=== PATIENT | male | born 1950 | race Caucasian/White ===

== ENCOUNTER 2019-05-31 12:14 | Emergency (ER) | payer MEDICARE, OTHER, SELFPAY ==
[2019-05-31] VITALS (8 sets, daily range): BP systolic 124–152; BP diastolic 49–74; PULSE 57–65; RESP 18–26; TEMP 36.3–36.9; O2SAT 99–100
--- NOTE | ~2019-05-31 | XR_ITS ---
EXAMINATION: XR chest 2V DATE: 05/31/2019 13:48 INDICATION: Shortness of breath. Weakness. TECHNIQUE: Frontal and lateral views of the chest were obtained. COMPARISON: Chest 2 views 06/03/2017, chest CT 05/03/2016 FINDINGS: There is mild atelectasis in the lower lung zones. There is mild scarring at the lung apice s. No pleural effusion or pneumothorax. The heart size is normal. There are suture anchors in right s houlder. IMPRESSION: 1. Mild atelectasis in the lower lung zones. 2. Mild scarring at the lung apices. Reviewed, dictated and finalized at location A. URE ARTIST
--- NOTE | ~2019-05-31 | CT_ITS ---
EXAMINATION: CT brain wo con DATE: 05/31/2019 17:45 INDICATION: Dizziness TECHNIQUE: Computed tomography (CT) of the head was performed without intravenous contrast. The dose- length product was 605.33 mGy-cm. The mA was adjusted according to patient size. Iterative reconstruc tion technique was employed. COMPARISON: CT dated 01/04/2012 FINDINGS: Mild generalized atrophy. There are scattered moderate periventricular and subcortical whit e matter changes, most likely related to small vessel ischemic disease (microangiopathy). Basilar cis terns are patent. Paranasal sinuses and mastoids are pneumatized. No depressed skull fractures. Small chronic right lacunar infarction of the caudate. There is intracranial atherosclerosis. Paranasal si nuses and mastoids are pneumatized. No depressed skull fractures. IMPRESSION: 1. No acute intracranial abnormality. 2: Chronic right lacunar infarction. 3: Chronic age-related findings. Reviewed, dictated and finalized at location A. [employer]
--- NOTE | 2019-05-31 13:00 | ECG_ITS ---
Measurements Intervals [place] Rate: 58 P: 32 MA: 224 QRS: -18 QRSD: 90 T: 61 QT: 409 QTc: 402 Interpretive Statements SINUS BRADYCARDIA WITH FIRST DEGREE AV BLOCK BORDERLINE ST ABNORMALITY- ANTEROLAT/LAT LEADS ABNORMAL ECG Electronically Signed On 05-31-2019 16:22:51 DIRECTOR FINANCIAL PLANNING by Chidi Bryan D.O.
[2019-05-31 13:41] LABS: Basophils Absolute Auto 0.1 K/mm3 (0.0-0.1); Basophils Percent Auto 0.9 % (0.2-1.2); Eosinophils Absolute Auto 0.2 K/mm3 (0-0.3); Eosinophils Percent Auto 2.8 % (0-4.4); Hematocrit 48.6 % (42.0-52.0); Hemoglobin 16.3 g/dL (14.0-18.0); Immature Granulocyte Absolute 0.04 K/mm3 (0.00-0.031); Immature Granulocyte Percent A 0.6 % (0-0.5); Lymphocytes Absolute Auto 1.98 K/mm3 (0.9-3.2); Lymphocytes Percent Auto 31.3 % (18.3-44.2); Mean Corpuscular HGB Conc 33.5 g/dl (32-36); Mean Corpuscular Hemoglobin 31.7 pg (26-34); Mean Corpuscular Volume 94.6 fl (80-100); Mean Platelet Volume 8.9 fl (7.4-10.4); Monocytes Absolute Auto 0.6 K/mm3 (0.1-0.6); Neutrophils Absolute Auto 3.5 K/mm3 (1.3-6.7); Neutrophils Percent Auto 55.4 % (45.5-73.1); Platelet Count Result 184 k/mm3 (150-375); Red Blood Count 5.14 M/mm3 (4.6-6.20); Red Cell Distribution Width 12.6 % (11.5-14.5); White Blood Count 6.3 K/mm3 (4.5-10.0)
[2019-05-31 13:54] LABS: Alanine Aminotransferase 28 U/L (4-50); Albumin Level 4.7 g/dL (3.5-5.1); Alkaline Phosphatase 80 U/L (38-126); Aspartate Amino Transferase 32 U/L (17-59); Bilirubin,Total 0.8 mg/dL (0.2-1.3); Blood Urea Nitrogen 18 mg/dL (9-20); Calcium 9.8 mg/dL (8.4-10.2); Carbon Dioxide 33 mmol/L (22-30); Chloride 94 mmol/L (98-107); Estimated CRCL calculation 50 ml/min; Estimated Glomerular Filt Rate > 60; Glucose 93 mg/dL (75-110); Potassium 4.1 mmol/L (3.4-5.0); Sodium 139 mmol/L (137-145)
[2019-05-31 15:21] LABS: Add Urine Microscopic? NO; Appearance Urine Clear (Clear); Bilirubin Urine Negative (Negative); Blood Urine Negative (Negative); Color Urine Yellow (Yellow); Glucose Urine UA Negative (Negative); Ketones Urine Negative (Negative); Leukocyte Esterase Ur Negative LEU/UL (Negative); Nitrate Urine Negative (Negative); Protein Urine Negative (Negative); Specific Grav Ur 1.028 (1.001-1.035); Urobilinogen Urine Negative mg/dL (<2.0)
--- NOTE | 2019-05-31 15:58 | ED.SOB ---
HPI - SOB/Dyspnea General Chief Complaint: Weakness Stated Complaint: SOB Time Seen by Provider: 05/31/19 15:10 Source: patient and RN notes reviewed Mode of arrival: ambulatory Limitations: no limitations History of Present Illness HPI Narrative: Pt is a 69 y/o male who presents to the ED with c/o worsening dyspnea on exertion starting 3 months ago. He notes that he has been having increasing trouble breathing while walking. Pt also reports palpitations and dizziness upon exertion, noting that his heart feels as though it is racing. He describes his dizziness as feeling off-balance. He reports an intermittent headache and tingling in his bilateral arms, which he notes is chronic, but denies any CP, cough, or rectal bleeding. Pt states that he feels unsteady while walking, but denies any recent falls. MD elicited complaint: shortness of breath (on exertion) Onset (ago): month(s) (3) Timing: progressively worsening Exacerbating factors: exertion Associated symptoms: palpitations and other (headache; dizziness) Related Data Home Medications Medication Instructions Recorded Confirmed divalproex PO 05/31/19 tamsulosin [Flomax] mg PO 05/31/19 venlafaxine [Effexor XR] mg PO 05/31/19 Allergies Allergy/AdvReac Type Severity Reaction Status Date / Time Aminoglycosides Allergy Severe SWELLING, Verified 10/11/18 17:30 MAKES INFECTION WORSE bacitracin Allergy Severe SWELLING, Verified 10/11/18 17:30 MAKES INFECTION WORSE Fish Containing Products Allergy Severe ANAPHYLAXIS Verified 10/11/18 17:30 neomycin Allergy Severe SWELLING, Verified 10/11/18 17:30 MAKES INFECTION WORSE shellfish derived Allergy Severe ANAPHYLAXIS Verified 10/11/18 17:30 Sulfa (Sulfonamide Allergy Unknown Anaphylactic Verified 10/11/18 17:30 Antibiotics) Shock BETI/ Allergy Severe ANAPHYLACTIC--THROAT Uncoded 02/28/14 07:06 SWELLING FLUOXETINE HCL Allergy Unknown SSRI= Uncoded 10/11/18 17:30 SUICIDAL REACTION ZOLPIDEM TARTRATE AdvReac Intermediate confusion Uncoded 10/11/18 17:30 Review of Systems Review of Systems: All systems reviewed & are unremarkable except as noted in HPI and below Cardiovascular: Cardiovascular: Denies chest pain and Reports palpitations Respiratory: Respiratory: Denies cough and Reports dyspnea on exertion Gastrointestinal: Gastrointestinal: Denies hematochezia Neurologic: Reports dizziness, Reports headache(s) and Reports tingling (bilateral arms) [facility] Past Medical History Medical History (Updated 05/31/19 @ 18:16 by Krystyna Perera MD) Anxiety Back pain CVA (cerebral vascular accident) DDD (degenerative disc disease) Depression Diverticulitis Diverticulosis Epilepsy HLD (hyperlipidemia) Hypothyroidism IBS (irritable bowel syndrome) Kidney stones Peptic ulcer Pneumonia Prostatitis Skull fracture Sleep apnea TBI (traumatic brain injury) TIA (transient ischemic attack) Surgical History Surgical History History of total left hip arthroplasty Hx of cardiac catheterization Hx of rotator cuff surgery bilateral shoulders Family History Family History (Updated 06/02/17 @ 15:40 by DOCTOR UNKNOWN) Mother Family history of malignant neoplasm of breast in first degree relative Family history of cardiovascular disease Father Family history of cardiovascular disease Other Family history of arthritis Family history of mental disorder Social History Social History Smoking status: Former smoker Alcohol intake: never Gender identity (if verbalized by the patient): Male Exam Narrative: Exam Narrative: GENERAL: Well-appearing, well-nourished, and in no acute distress. HEAD: Normocephalic, atraumatic EYES: PERRLA and EOMI, conjunctiva clear without discharge EARS: TM's clear bilaterally without erythema or dullness NOSE: Nares humphrey
[2019-05-31 16:44] LABS: Alveolar/Arterial O2 Gradient 22.4 mmHg; Base Excess ABG 4.1 mEq/l (+/-2.0); Carboxyhemoglobin 0.5 % THb (0-2.0); Fractional Inspired Oxygen 21 %; Methemoglobin ABG 0.3 %THb (0-1.5); Oxygen Content ABG 21.2 %vol (16.0-22.0); Oxygen Saturation ABG 97.2 % (95.0-100.0); Oxyhemoglobin 95.9 % THb (90.0-100.0); PCO2 ABG 35.2 mmHg (35.0-45.0); PO2 ABG 85.2 mmHg (80.0-100.0); PO2 FiO2 Ratio Arterial Blood 4.06 %; Reduced Hemoglobin 3.3 %THb (0-5.0); Total Hemoglobin 15.7 g/dL (12.0-18.0); pH ABG 7.502 (7.350-7.450)
[2019-05-31 16:45] LABS: Device ROOM AIR; Site Drawn LEFT BRACHIAL
[2019-05-31 16:56] LABS: INR 0.9; Prothrombin Time 12.3 Seconds (11.1-14.7)
[2019-05-31 16:57] LABS: Partial Thromboplastin Time 27.7 SECONDS (22.3-36.8)
[2019-05-31 16:59] LABS: D Dimer 0.34 ug/mL (<0.48)
[2019-05-31 17:11] LABS: Troponin I < 0.012 ng/mL (0.000-0.034)
[2019-05-31 17:18] LABS: Valproic Acid 54.4 ug/mL (50-120)
== END 2019-05-31 18:47 | disposition home or self-care (01) ==
PROVIDERS: Emergency Medicine; Emergency Provider General Practice
DX: F41.9 Anxiety disorder, unspecified (principal); Z86.73 Personal history of transient ischemic attack (TIA), and cerebral infarction without residual deficits; G40.909 Epilepsy, unspecified, not intractable, without status epilepticus; E78.5 Hyperlipidemia, unspecified; E03.9 Hypothyroidism, unspecified; K58.9 Irritable bowel syndrome, unspecified; Z87.442 Personal history of urinary calculi; N41.9 Inflammatory disease of prostate, unspecified; G47.30 Sleep apnea, unspecified; Z87.820 Personal history of traumatic brain injury; Z96.642 Presence of left artificial hip joint; Z87.891 Personal history of nicotine dependence; R00.1 Bradycardia, unspecified; I44.0 Atrioventricular block, first degree; R94.31 Abnormal electrocardiogram [ECG] [EKG]
CPT/HCPCS: 36415; 36600; 70450; 71046; 80053; 80164; 81003; 82375; 82805; 83050; 84484; 85025; 85380; 85610; 85730; 93005; 99284

== ENCOUNTER 2020-03-31 11:23 | Emergency (ER) | payer MEDICARE, SELFPAY ==
[2020-03-31] VITALS (23 sets, daily range): BP systolic 127–149; BP diastolic 53–75; PULSE 61–78; RESP 16–31; TEMP 36; O2SAT 99–100
--- NOTE | ~2020-03-31 | CT_ITS ---
EXAMINATION: CT abdomen pelvis w con DATE: 03/31/2020 12:51 INDICATION: Chronic right lower abdominal pain TECHNIQUE: Computed tomography (CT) of the abdomen and pelvis was performed with 100 cc Omnipaque 350 intravenous contrast. The dose-length product was 280.42 mGy-cm. Automated exposure control and iter ative reconstruction technique were employed. COMPARISON: None. FINDINGS: The lung bases are unremarkable. Heart size normal. No significant pleural or pericardial e ffusion. No significant vascular abnormality. No lymphadenopathy. The liver, spleen, adrenal glands and left kidney are unremarkable. There are right renal cysts. Ther e are calcifications of the pancreas, consistent with chronic pancreatitis. Enlarged prostate gland. No free air or free fluid. No evidence for appendicitis or diverticulitis. There is a left hip arthro plasty. IMPRESSION: 1. No acute abdominal abnormality. 2: Chronic pancreatitis. Reviewed, dictated and finalized at location B. GER WOUND
[2020-03-31 11:45] LABS: Basophils Percent Auto 0.6 % (0.2-1.2); Eosinophils Absolute Auto 0.1 K/mm3 (0-0.3); Eosinophils Percent Auto 1.4 % (0-4.4); Hematocrit 44.7 % (42.0-52.0); Hemoglobin 15.7 g/dL (14.0-18.0); Immature Granulocyte Absolute 0.02 K/mm3 (0.00-0.031); Immature Granulocyte Percent A 0.3 % (0-0.5); Lymphocytes Absolute Auto 1.85 K/mm3 (0.9-3.2); Lymphocytes Percent Auto 29.6 % (18.3-44.2); Mean Corpuscular HGB Conc 35.1 g/dl (32-36); Mean Corpuscular Hemoglobin 32.3 pg (26-34); Mean Platelet Volume 8.1 fl (7.4-10.4); Monocytes Absolute Auto 0.5 K/mm3 (0.1-0.6); Monocytes Percent Auto 8.5 % (2.6-8.5); Neutrophils Absolute Auto 3.7 K/mm3 (1.3-6.7); Neutrophils Percent Auto 59.6 % (45.5-73.1); Platelet Count Result 166 k/mm3 (150-375); Red Blood Count 4.86 M/mm3 (4.6-6.20); White Blood Count 6.2 K/mm3 (4.5-10.0)
[2020-03-31 11:56] LABS: Alanine Aminotransferase 49 U/L (4-50); Albumin Level 4.2 g/dL (3.5-5.1); Alkaline Phosphatase 89 U/L (38-126); Anion Gap 6 mmol/L (8-16); Aspartate Amino Transferase 43 U/L (17-59); Bilirubin,Total 0.7 mg/dL (0.2-1.3); Blood Urea Nitrogen 23 mg/dL (9-20); Calcium 9.4 mg/dL (8.4-10.2); Carbon Dioxide 32 mmol/L (22-30); Chloride 101 mmol/L (98-107); Estimated CRCL calculation 50 ml/min; Estimated Glomerular Filt Rate > 60; Glucose 94 mg/dL (75-110); Lipase 254 U/L (23-300); Potassium 4.4 mmol/L (3.4-5.0); Sodium 139 mmol/L (137-145)
[2020-03-31] MEDS: KETOROLAC 30 MG/ML VIAL (*BKC) (12:43)
--- NOTE | 2020-03-31 12:52 | PC.NURSE ---
patient to CT.
[2020-03-31] MEDS: SODIUM CHLORIDE 0.9% IV 1,000 ML 999 ML IV CONT (12:53)
--- NOTE | 2020-03-31 13:02 | ED.GENADULT ---
HPI - General Adult General Chief complaint: Abdominal Pain Stated complaint: pain RLQ sent by primary Time Seen by Provider: 03/31/20 12:09 Source: patient History of Present Illness HPI narrative: Patient is a 69 y/o complaining of chronic waxing and waning right lower abdominal pain for last 2 months. He describes his pain as sharp and rates it as 4-5/10. He states that laying in supine position seem to aggravate his pain pulling his right leg up seems to alleviate his pain. He has no vomiting, diarrhea, dysuria or hematuria. Related Data Home Medications Medication Instructions Recorded Confirmed aspirin 325 mg tablet 325 mg PO DAILY 07/09/19 11/12/19 doxazosin 2 mg tablet 2 mg PO DAILY 07/09/19 11/12/19 magnesium oxide 420 mg tablet 420 mg PO DAILY 07/09/19 11/12/19 Allergies Allergy/AdvReac Type Severity Reaction Status Date / Time Aminoglycosides Allergy Severe SWELLING, Verified 03/31/20 09:22 MAKES INFECTION WORSE bacitracin Allergy Severe SWELLING, Verified 03/31/20 09:22 MAKES INFECTION WORSE Fish Containing Products Allergy Severe ANAPHYLAXIS Verified 03/31/20 09:22 neomycin Allergy Severe SWELLING, Verified 03/31/20 09:22 MAKES INFECTION WORSE shellfish derived Allergy Severe ANAPHYLAXIS Verified 03/31/20 09:22 Sulfa (Sulfonamide Allergy Unknown Anaphylactic Verified 03/31/20 09:22 Antibiotics) Shock BETI/ Allergy Severe ANAPHYLACTIC--THROAT Uncoded 03/31/20 09:22 SWELLING FLUOXETINE HCL Allergy Unknown SSRI= Uncoded 03/31/20 09:22 SUICIDAL REACTION ZOLPIDEM TARTRATE AdvReac Intermediate confusion Uncoded 03/31/20 09:22 Review of Systems Constitutional: Constitutional: Denies chills, Denies fever(s), Denies headache(s) and Denies weakness Eyes: Eyes: Denies blurry vision ENT: Denies headache(s) and Denies neck pain Cardiovascular: Cardiovascular: Denies chest pain and Denies dyspnea Respiratory: Respiratory: Denies cough and Denies dyspnea Gastrointestinal: Gastrointestinal: Reports abdominal pain, Denies diarrhea, Denies nausea and Denies vomiting Genitourinary: Genitourinary: Denies hematuria and Denies dysuria Musculoskeletal: Musculoskeletal: Denies back pain and Denies neck pain Neurologic: Denies headache(s) and Denies weakness [facility] Past Medical History Medical History (Updated 03/31/20 @ 14:24 by Vero Fuentes MD) Anxiety Back pain CVA (cerebral vascular accident) DDD (degenerative disc disease) Depression Diverticulitis Diverticulosis Epilepsy HLD (hyperlipidemia) Hypothyroidism IBS (irritable bowel syndrome) Kidney stones Peptic ulcer Pneumonia Prostatitis Skull fracture Sleep apnea TBI (traumatic brain injury) TIA (transient ischemic attack) Surgical History Surgical History History of total left hip arthroplasty Hx of cardiac catheterization Hx of rotator cuff surgery bilateral shoulders Family History Family History Mother Family history of malignant neoplasm of breast in first degree relative Family history of cardiovascular disease Father Family history of cardiovascular disease Other Family history of arthritis Family history of mental disorder Social History Social History Smoking status: Former smoker Additional smoking assessment comments: pt quit 18 years ago Alcohol intake: never Gender identity (if verbalized by the patient): Male Exam Const: General: no acute distress and well developed Orientation/consciousness: oriented to person, oriented to place, oriented to time and patient oriented x3 HENMT: Head: normocephalic Ears: external ears normal General nose exam: Normal external nose present Eyes: General: appearance normal, both eyes and all related structures Conjunctivae: conjunctivae normal Neck:
--- NOTE | 2020-03-31 13:10 | PC.NURSE ---
back from CT. IVF restarted. patient states he can now void.
[2020-03-31 13:58] LABS: Add Urine Microscopic? YES; Appearance Urine Clear (Clear); Bilirubin Urine Negative (Negative); Blood Urine Negative (Negative); Color Urine Yellow (Yellow); Glucose Urine UA Negative (Negative); Ketones Urine Trace mg/dL (Negative); Leukocyte Esterase Ur Negative LEU/UL (Negative); Mucus Urine Few /lpf; Nitrate Urine Negative (Negative); Protein Urine 1+ mg/dL (Negative); RBC Urine 0-2 /hpf (0-2); Squamous Epithelial Cell Urine Rare /hpf (Few); WBC Urine 0-3 /hpf
[2020-03-31 13:59] LABS: Specific Grav Ur 1.048 (1.001-1.035)
== END 2020-03-31 15:12 | disposition home or self-care (01) ==
PROVIDERS: General Practice; Emergency Provider Emergency Medicine; PCP Family Medicine
DX: R10.31 Right lower quadrant pain (principal); Z79.82 Long term (current) use of aspirin; Z86.73 Personal history of transient ischemic attack (TIA), and cerebral infarction without residual deficits; E78.5 Hyperlipidemia, unspecified; E03.9 Hypothyroidism, unspecified; K58.9 Irritable bowel syndrome, unspecified; Z87.442 Personal history of urinary calculi; Z87.11 Personal history of peptic ulcer disease; N40.0 Benign prostatic hyperplasia without lower urinary tract symptoms; G47.30 Sleep apnea, unspecified; Z87.820 Personal history of traumatic brain injury; G40.909 Epilepsy, unspecified, not intractable, without status epilepticus; Z87.891 Personal history of nicotine dependence
CPT/HCPCS: 36415; 74177; 80053; 81001; 83690; 85025; 96361; 96374; 99284; J1885; J7030; Q9967

== ENCOUNTER 2021-02-17 15:54 | Outpatient (CLI) | payer MEDICARE, SELFPAY ==
--- NOTE | ~2021-02-17 | CT_ITS ---
EXAMINATION: CT hip LT wo con DATE: 02/17/2021 16:15 INDICATION: Left hip pain TECHNIQUE: High resolution computed tomography (CT) of the left hip was performed without intravenous contrast. Additional sagittal and coronal reconstructions were performed. Automated exposure control and iterative reconstruction technique were employed. The dose-length product was 164.82 mGy-cm. COMPARISON: Radiographs dated 02/11/2021 and 04/16/[address] dated 04/12/2016 FINDINGS: Noncemented left total hip arthroplasty which appears well seated in near-anatomic alignment, unchang ed since 04/16/2015. No fracture. No periprosthetic lucency to suggest loosening or infection. No lef t hip joint effusion. Chronic small enthesophytes along the anterior subtrochanteric left femur. No a symmetric muscular atrophy of the visualized left hemipelvis or proximal left thigh. Visualized porti on of the bowels and bladder are normal. Prostatomegaly measuring 4.6 x 3.4 cm. Small amount of ather osclerotic calcific location along the left iliac and proximal femoral arteries. No pathologically en larged left pelvic or inguinal lymphadenopathy. IMPRESSION: 1. Stable appearance of a left total hip arthroplasty. No joint effusion, acute osseous abnormality o r other etiology for reported left hip pain. Reviewed, dictated and finalized at location A. IMPRESSION: 1. Stable appearance of a left total hip arthroplasty. No joint effusion, acute osseous abnormality or other etiology for reported left hip pain.
== END 2021-02-17 15:55 | disposition home or self-care (01) ==
LOC: ANHIMG 16:01
PROVIDERS: PCP Family Medicine; Visit Provider Nurse Practitioner Family
DX: M25.552 Pain in left hip (principal); Z96.642 Presence of left artificial hip joint
CPT/HCPCS: 73700

== ENCOUNTER 2021-04-13 13:30 | Outpatient (RCR) | payer MEDICARE, SELFPAY ==
--- NOTE | 2021-02-23 14:23 | PTOPEVAL ---
Thank you for referring Jax Vargas to [facility].? The patient is scheduled to be seen for therapy? 1-2 x/week for 4 weeks. Please review, sign, date and return this plan of care SHIRA. I agree with and certify that the following plan of care is medically necessary. Referring Physician Date Attending Provider: Carmelina Gloria, GIFTED TEACHER Diagnosis left hip pain Onset 1 yr Additional Evaluation Detail 4 steps to enter with obdulia rails, no difficulty on steps He has some difficulty with ADL's due to hip pain. Improved pain with ADL's in a chair. Subjective Information Reports sharp, cramp like pain Query Text:As Reported By Patient/ in the left hip and leg Family region. Pain improves with knee flexed position. c/o ant/ groin pain on left hip. Increased pain with lying flat with hooklying position. He takes medication, but only min relief of pain. He uses a cane on left side. States a therapist told him to use the cane in this manner. He has been using the cane for 1 yrs. States the cane keeps him from falling. Reports occasional numbness of left LE, unsure of activity to cause the change in symptoms. Pain Assessment Left Hip(s) Reported Pain Level 5 Pain Description Cramping,Sharp Pain Frequency Chronic,Continuous Lowest Pain Intensity 2 Greatest Pain Intensity 9 Pain Aggravating Factors None Pain Behaviors None Lower Extremity Range of Motion General Lower Extremity Range of Motion Reason Not Measured WNL/Right Gross Lower Extremity Range of Motion left hip flex: 90 dg with Comments severe pain, abduction: 30 dg, ext: neutral Lower Extremity Muscle Strength Testing General Lower Extremity Strength Gross Lower Extremity Strength gastroc: obdulia heel raises x 10 reps with slight UE support right LE hip flex, knee flex/ ext: 5/5 right hip ext and abduction 3/5 Hip Strength Left Hip Flexion Strength 3- Fair - Hip Extension Strength 3- Fair - Hip Abduction Strength 2 Poor
--- NOTE | 2021-02-24 11:36 | PCPTNOTE ---
Patient did not show up for scheduled appointment this date. Attempted to call, but phone not taking messages
--- NOTE | 2021-03-17 15:53 | PTOPEVAL ---
Physical Therapy Progress Note Thank you for referring Jax Vargas to [facility].?He has attended 7 therapy visits to address LE impairments. He is progression towards his therapy goals. See summary below for updated information. The patient is scheduled to be seen for therapy? 1x/week for 4 weeks. Please review, sign, date and return this plan of care SHIRA. I agree with and certify that the following plan of care is medically necessary. Referring Physician Date Attending Provider: Carmelina Gloria, SALVADOR Diagnosis left hip pain Onset 1 yr Additional Evaluation Detail 4 steps to enter with obdulia rails, no difficulty on steps He has some difficulty with ADL's due to hip pain. Improved pain with ADL's in a chair. Subjective Information REports his pain will improve Query Text:As Reported By Patient/ for 1-2 hours a day, but then Family return to normal intensity. C/ o ant/groin pain on left hip. Increased pain with supine position, Improved pain with seated knee flex position. His pain does not change his ability to perform daily task. Pain Assessment Left Hip(s) Reported Pain Level 5 Pain Description Aching,Dull,Sharp Pain Frequency Chronic,Continuous Lowest Pain Intensity 4 Greatest Pain Intensity 9 Lower Extremity Range of Motion General Lower Extremity Range of Motion Gross Lower Extremity Range of Motion left hip flex: 100 dg with Comments severe pain, abduction: 25 dg, ext: neutral Lower Extremity Muscle Strength Testing General Lower Extremity Strength Gross Lower Extremity Strength gastroc: obdulia heel raises x 10 reps with slight UE support right hip flex: 5/5, hip ext: 3+/5 and abduction 3+/5, Hip Strength Left Hip Flexion Strength 3- Fair - Hip Extension Strength 3+ Fair + Hip Abduction Strength 3- Fair - Hip Adduction Strength 2+ Poor + Knee Strength Left Knee Flexion Strength 4+ Good + Knee Extension Strength 5 Normal Muscle Length Testing Muscle Length Testing Two-Joint Hip Flexor Shortened Muscles Short (R) Iliopsoas,Short (L) Iliopsoas,Short (R) Rectus Femoris,Short (L) Rectus Femoris,Short (R) Ilial Tib Band,Short (L) Ilial Tib Band Right Prone Hip Internal Rotator Length 25 (degrees) Left Prone Hip Internal Rotator
--- NOTE | 2021-04-13 14:16 | PTOPEVAL ---
Physical therapy discharge summary Thank you for referring Jxa Vargas to [facility].? Jax has attended 11 therapy visits to address his hip impairments. See summary below for progress and update information. Please review, sign, date and return this discharge summary SHIRA. I agree with and certify that the following plan of care is medically necessary. Referring Physician Date Attending Provider: Carmelina Gloria, SUPERVISOR [employer]MENT Diagnosis left hip pain Onset 1 yr Additional Evaluation Detail 4 steps to enter with obdulia rails, no difficulty on steps He has some difficulty with ADL's due to hip pain. Improved pain with ADL's in a chair. Subjective Information He is peforming his HEP every Query Text:As Reported By Patient/ other day. Family Cont to c/o ant/groin pain on left hip. Increased pain with sitting, walking, standing, hip ext rotation. He does not feel he has changed much with therapy. He is taking 3 pain pills a day vs the prescribed 2x/day. Pain Assessment Left Hip(s) Reported Pain Level 5 Pain Description Burning,Pulling,Sharp Pain Frequency Chronic,Continuous Lowest Pain Intensity 4 Greatest Pain Intensity 9 Pain Aggravating Factors None,Bending,Lifting,Sitting, Walking,Weight Bearing/ Standing Lower Extremity Range of Motion General Lower Extremity Range of Motion Gross Lower Extremity Range of Motion seated left hip flex: 100 dg Comments PROM supine flex 115dg with severe pain, active abduction: 25 dg, passive: 30dg, painful ext: neutral Lower Extremity Muscle Strength Testing General Lower Extremity Strength Gross Lower Extremity Strength gastroc: obdulia heel raises x 10 reps with slight UE support right hip flex: 5/5, hip ext: 3-/5 and abduction 3+/5, Hip Strength Left Hip Flexion Strength 3 Fair Hip Extension Strength 3+ Fair + Hip Abduction Strength 3- Fair - Hip Adduction Strength 2+ Poor + Knee Strength Left Knee Flexion Strength 4+ Good + Knee Extension Strength 5 Normal Muscle Length Testing Muscle Length Testing Right Prone Hip Internal Rotator Length 25 (degrees) Left Prone Hip Internal Rotator Length ( 35 deg
== END 2021-04-14 08:58 | disposition home or self-care (01) ==
LOC: ANHPT 13:30
PROVIDERS: PCP Family Medicine; Visit Provider Nurse Practitioner Family
DX: M25.552 Pain in left hip (principal); T84.84XD Pain due to internal orthopedic prosthetic devices, implants and grafts, subsequent encounter; Z96.649 Presence of unspecified artificial hip joint
CPT/HCPCS: 97110; 97140; 97163; 97530

== ENCOUNTER 2021-08-16 11:54 | Outpatient (CLI) | payer MEDICARE, MEDICAID, SELFPAY ==
--- NOTE | ~2021-08-16 | XR_ITS ---
EXAMINATION: XR lg joint inject/asp w image DATE: 08/16/2021 13:11 INDICATION: Left hip iliopsoas bursitis TECHNIQUE: A time-out was performed to verify the patient's name, date of , and procedure to b e performed. The procedure including the risks, benefits, and alternatives was discussed with the pat ient. Risks discussed included bleeding and infection. The patient understood the risks and agreed to proceed. The skin overlying the left iliopsoas bursa was prepped and draped in usual sterile fashio n. Anesthetic was administered with 1% lidocaine subcutaneously. A 22 G needle was advanced under f luoroscopic guidance the region of the bursa. Injection of 1 mL of Omnipaque 240 confirmed intraburs al position of the needle. Subsequently, injectate consisting of 3 mm of a 2:1 mixture of 0.5% Ledy ine: 80 mg/mL Depo-Medrol for a total dose of 80 mg Depo-Medrol was instilled. The needle was removed and the entry site was cleaned and dressed. There were no immediate complications. Fluoroscopy expo sure time was 0.2 minutes. The total number of images was 2. Total DAP was 1.65 mGycm^2 FINDINGS: Real-time fluoroscopy demonstrates the needle in the left iliopsoas bursa. Patient's pain p rior to procedure:5/10. Patient's pain following the procedure: 0/10. IMPRESSION: 1. Left iliopsoas bursal injection of local anesthetic and steroid with decrease in the patient's pre senting pain. Reviewed, dictated and finalized at location A. IMPRESSION: 1. Left iliopsoas bursal injection of local anesthetic and steroid with decreas e in the patient's presenting pain.
== END 2021-08-16 11:55 | disposition home or self-care (01) ==
PROVIDERS: PCP Family Medicine; Visit Provider Orthopaedic Surgery
DX: M25.552 Pain in left hip (principal)
CPT/HCPCS: 20610; 77002; J1040; Q9966

== ENCOUNTER 2021-10-04 09:33 | Emergency (ER) | payer MEDICARE, MEDICAID, SELFPAY ==
--- NOTE | ~2021-10-04 | XR_ITS ---
EXAMINATION: XR chest 2V DATE: 10/04/2021 10:18 INDICATION: Shortness of breath. Tachycardia. TECHNIQUE: Frontal and lateral views of the chest were obtained. COMPARISON: Chest 2 views 05/31/2019 FINDINGS: There is no pneumonia, pleural effusion, or pneumothorax. The heart size is normal. There i s suture anchors in right humeral head. IMPRESSION: 1. No acute cardiopulmonary disease. Reviewed, dictated and finalized at location A.
[2021-10-04 09:39] VITALS: PULSE 62; RESP 17; TEMP 36.5; O2SAT 99
--- NOTE | 2021-10-04 09:40 | ECG_ITS ---
Measurements Intervals [place] Rate: 58 P: 35 NM: 245 QRS: -18 QRSD: 90 T: 80 QT: 433 QTc: 427 Interpretive Statements SINUS BRADYCARDIA WITH FIRST DEGREE AV BLOCK NONSPECIFIC ST & T-WAVE ABNORMALITY ABNORMAL ECG Electronically Signed On 10-04-2021 10:27:50 CDT by Mike Mejía M.D.
[2021-10-04 09:46] VITALS: PULSE 60
[2021-10-04 09:47] VITALS: O2SAT 98; O2SAT 99
--- NOTE | 2021-10-04 10:02 | ED.SOB ---
HPI - SOB/Dyspnea General Chief Complaint: Shortness of Breath/Dyspnea Stated Complaint: multiple c/o, cardiac/resp Time Seen by Provider: 10/04/21 09:38 History of Present Illness HPI Narrative: 71-year-old male presents to the emergency room today for complaints of shortness of breath. He has been having problems with shortness of breath with exertion over the past couple of months. He reports that it has been getting worse over the past few days. He reports having a couple of falls over the weekend. His had to catch him. He says that the reason he fell was because he was so short of breath. He says that when he gets short of breath, he feels like his heart is pounding out of his chest and racing. He denies having any chest pain. He denies wheezing but reports a mucus cough. No swelling in his legs. He reports having a history of CVA, aortic stenosis, and epilepsy. He is also treated for PTSD and depression. Related Data Home Medications Medication Instructions Recorded Confirmed aspirin 325 mg tablet 325 mg PO DAILY 07/09/19 08/04/21 magnesium oxide 420 mg tablet 420 mg PO DAILY 07/09/19 08/04/21 zinc acetate 50 mg (zinc) capsule 50 mg PO DAILY 08/04/21 08/04/21 (Galzin) Allergies Allergy/AdvReac Type Severity Reaction Status Date / Time Aminoglycosides Allergy Severe SWELLING, Verified 10/04/21 09:49 MAKES INFECTION WORSE bacitracin Allergy Severe SWELLING, Verified 10/04/21 09:49 MAKES INFECTION WORSE Fish Containing Products Allergy Severe ANAPHYLAXIS Verified 10/04/21 09:49 neomycin Allergy Severe SWELLING, Verified 10/04/21 09:49 MAKES INFECTION WORSE shellfish derived Allergy Severe ANAPHYLAXIS Verified 10/04/21 09:49 Sulfa (Sulfonamide Allergy Unknown Anaphylactic Verified 10/04/21 09:49 Antibiotics) Shock BETI/ Allergy Severe ANAPHYLACTIC--THROAT Uncoded 10/04/21 09:49 SWELLING FLUOXETINE HCL Allergy Unknown SSRI= Uncoded 10/04/21 09:49 SUICIDAL REACTION ZOLPIDEM TARTRATE AdvReac Intermediate confusion Uncoded 10/04/21 09:49 Review of Systems Review of Systems: CONSTITUTIONAL: Denies fever, chills, or sweats. EYES: Denies visual changes, redness, or discharge. ENT: Denies rhinorrhea, congestion, sore throat, or otalgia. CARDIOVASCULAR: Denies chest pain, or edema. other per HPI RESPIRATORY: As per HPI. GASTROINTESTINAL: Denies abdominal pain, nausea, vomiting, or diarrhea. GENITOURINARY: Denies dysuria or hematuria. SKIN: Denies rash or itching. MUSCULOSKELETAL: Denies back pain, joint pain, or myalgia. NEUROLOGIC: Denies headache, numbness, or weakness. Reports feeling dizzy during episodes of dyspnea. PSYCHIATRIC: Denies acute exacerbation of anxiety or depression. [facility] Past Medical History Medical History Anxiety Back pain CVA (cerebral vascular accident) DDD (degenerative disc disease) Depression Diverticulitis Diverticulosis Epilepsy HLD (hyperlipidemia) Hypothyroidism IBS (irritable bowel syndrome) Kidney stones Left hip pain Pain due to total hip replacement Peptic ulcer Pneumonia Prostatitis Skull fracture Sleep apnea TBI (traumatic brain injury) TIA (transient ischemic attack) Surgical History Surgical History History of total left hip arthroplasty Hx of cardiac catheterization Hx of rotator cuff surgery bilateral shoulders Family History Family History Mother Family history of malignant neoplasm of breast in first degree relative Family history of cardiovascular disease Father Family history of cardiovascular disease Other Family history of arthritis Family history of mental disorder Social History Social History Additional smoking assessment comments: pt satish
[2021-10-04 10:25] VITALS: BP 156/65; PULSE 60; RESP 17; O2SAT 98
[2021-10-04 10:26] LABS: Basophils Percent Auto 0.8 % (0.2-1.2); Eosinophils Absolute Auto 0.1 K/mm3 (0-0.3); Eosinophils Percent Auto 2.2 % (0-4.4); Hematocrit 41.7 % (42.0-52.0); Hemoglobin 14.4 g/dL (14.0-18.0); Immature Granulocyte Absolute 0.03 K/mm3 (0.00-0.031); Immature Granulocyte Percent A 0.6 % (0-0.5); Lymphocytes Absolute Auto 1.37 K/mm3 (0.9-3.2); Mean Corpuscular HGB Conc 34.5 g/dl (32-36); Mean Corpuscular Hemoglobin 31.6 pg (26-34); Mean Corpuscular Volume 91.4 fl (80-100); Monocytes Absolute Auto 0.7 K/mm3 (0.1-0.6); Monocytes Percent Auto 14.3 % (2.6-8.5); Neutrophils Absolute Auto 2.7 K/mm3 (1.3-6.7); Neutrophils Percent Auto 54.1 % (45.5-73.1); Platelet Count Result 147 k/mm3 (150-375); Red Blood Count 4.56 M/mm3 (4.6-6.20); Red Cell Distribution Width 12.8 % (11.5-14.5); White Blood Count 4.9 K/mm3 (4.5-10.0)
[2021-10-04 10:36] LABS: Alanine Aminotransferase 13 U/L (6-50); Alkaline Phosphatase 62 U/L (38-126); Anion Gap 4 mmol/L (8-16); Aspartate Amino Transferase 25 U/L (17-59); Bilirubin,Total 0.7 mg/dL (0.2-1.3); Blood Urea Nitrogen 24 mg/dL (9-20); Calcium 8.7 mg/dL (8.4-10.2); Carbon Dioxide 32 mmol/L (22-30); Chloride 100 mmol/L (98-107); Estimated CRCL calculation 43 ml/min; Estimated Glomerular Filt Rate > 60; Glucose 94 mg/dL (65-110); Magnesium 2.2 mg/dL (1.6-2.3); Potassium 4.2 mmol/L (3.4-5.0); Sodium 136 mmol/L (137-145)
[2021-10-04 10:40] LABS: INR 1.1; Partial Thromboplastin Time 28.9 SECONDS (22.3-36.8); Prothrombin Time 13.6 Seconds (11.1-14.7)
[2021-10-04 10:46] LABS: NT Pro B Type Natriuretic Pept 160 pg/mL (5-100); Troponin I < 0.012 ng/mL (0.000-0.034)
[2021-10-04 12:26] VITALS: BP 127/53; PULSE 65; RESP 16; O2SAT 97
[2021-10-04 14:09] VITALS: BP 112/52; PULSE 64; RESP 16; O2SAT 97
== END 2021-10-04 14:11 | disposition home or self-care (01) ==
PROVIDERS: Emergency Provider Nurse Practitioner Family; PCP Family Medicine
DX: R06.00 Dyspnea, unspecified (principal); R94.31 Abnormal electrocardiogram [ECG] [EKG]; F41.9 Anxiety disorder, unspecified; F32.9 Major depressive disorder, single episode, unspecified; E03.9 Hypothyroidism, unspecified; E78.5 Hyperlipidemia, unspecified; G40.909 Epilepsy, unspecified, not intractable, without status epilepticus; K57.90 Diverticulosis of intestine, part unspecified, without perforation or abscess without bleeding
CPT/HCPCS: 36415; 71046; 80053; 83735; 83880; 84484; 85025; 85380; 85610; 85730; 93005; 99284

== ENCOUNTER 2021-12-06 13:33 | Emergency (ER) | payer MEDICARE, SELFPAY ==
[2021-12-06 13:40] VITALS: BP 138/64; PULSE 71; RESP 14; TEMP 36.6; O2SAT 99
[2021-12-06 15:01] VITALS: BP 128/73; PULSE 65; RESP 18; TEMP 36.9; O2SAT 98
[2021-12-06 16:02] LABS: SARS-CoV-2 RNA PCR Negative
--- NOTE | 2021-12-06 16:23 | ED.GENADULT ---
HPI - General Adult General Chief complaint: Unspecified Stated complaint: sore throat Time Seen by Provider: 12/06/21 15:47 History of Present Illness HPI narrative: 71-year-old male with states that he was exposed to chlorine gas several days ago, has had a slight sore throat, but no difficulty with breathing or swallowing. He is supposed to see his doctor tomorrow and she wants him to come here for a COVID test. He states that he also has other chronic symptoms including some abdominal discomfort which has been present for a year and which he has no changes. Denies any cough, chest pain, difficulty breathing. No nausea or vomiting or fevers or chills. Related Data Home Medications Medication Instructions Recorded Confirmed aspirin 325 mg tablet 325 mg PO DAILY 07/09/19 11/26/21 magnesium oxide 420 mg tablet 420 mg PO DAILY 07/09/19 11/26/21 zinc acetate 50 mg (zinc) capsule 50 mg PO DAILY 08/04/21 11/26/21 (Galzin) Allergies Allergy/AdvReac Type Severity Reaction Status Date / Time Aminoglycosides Allergy Severe SWELLING, Verified 12/06/21 15:08 MAKES INFECTION WORSE bacitracin Allergy Severe SWELLING, Verified 12/06/21 15:08 MAKES INFECTION WORSE Fish Containing Products Allergy Severe ANAPHYLAXIS Verified 12/06/21 15:08 neomycin Allergy Severe SWELLING, Verified 12/06/21 15:08 MAKES INFECTION WORSE shellfish derived Allergy Severe ANAPHYLAXIS Verified 12/06/21 15:08 Sulfa (Sulfonamide Allergy Unknown Anaphylactic Verified 12/06/21 15:08 Antibiotics) Shock BETI/ Allergy Severe ANAPHYLACTIC--THROAT Uncoded 12/06/21 15:08 SWELLING FLUOXETINE HCL Allergy Unknown SSRI= Uncoded 12/06/21 15:08 SUICIDAL REACTION ZOLPIDEM TARTRATE AdvReac Intermediate confusion Uncoded 12/06/21 15:08 Review of Systems Review of Systems: CONST: No fever. HEENT: sore throat C/V: No chest pain RESP: No cough GI: NO n/v : No dysuria. M/S: No joint pain. SKIN: No rash. NEURO: [No headache or focal numbness or weakness] PSYCH: [No depression] PMFSH Past Medical History Medical History Anxiety Back pain CVA (cerebral vascular accident) DDD (degenerative disc disease) Depression Diverticulitis Diverticulosis Epilepsy HLD (hyperlipidemia) Hypothyroidism IBS (irritable bowel syndrome) Kidney stones Left hip pain Pain due to total hip replacement Peptic ulcer Pneumonia Prostatitis Skull fracture Sleep apnea TBI (traumatic brain injury) TIA (transient ischemic attack) Surgical History Surgical History History of total left hip arthroplasty Hx of cardiac catheterization Hx of rotator cuff surgery bilateral shoulders Family History Family History Mother Family history of malignant neoplasm of breast in first degree relative Family history of cardiovascular disease Father Family history of cardiovascular disease Other Family history of arthritis Family history of mental disorder Social History Social History Smoking status: Former smoker Additional smoking assessment comments: pt quit 18 years ago Alcohol intake: never Gender identity (if verbalized by the patient): Male Exam Narrative: EXAMINATION OF ORGAN SYSTEMS/BODY AREAS: Constitutional: Vital signs per nursing GENERAL:[No acute distress, non-toxic appearing.] HEAD: Normal with no signs of head trauma. EYES: EOMI, conjunctiva normal ENT: Minimal pharyngeal edema, no airway compromise LUNGS: Nonlabored breathing. HEART: [Regular rate and rhythm] ABD: [Soft], [nontender to palpation] EXT: Normal range of motion SKIN: [No rashes or lesions.] NEURO: [Alert and oriented x 3. No gross focal sensory or strength deficits.] PSYCH: Normal affect Course Vital Signs Vital si
[2021-12-06 17:09] VITALS: BP 132/63; PULSE 62; RESP 18; O2SAT 98
== END 2021-12-06 17:10 | disposition home or self-care (01) ==
LOC: ANHED 16:29
PROVIDERS: Emergency Medicine; Emergency Provider Emergency Medicine; PCP Family Medicine
DX: J02.9 Acute pharyngitis, unspecified (principal); Z20.822 Contact with and (suspected) exposure to COVID-19; G40.909 Epilepsy, unspecified, not intractable, without status epilepticus; E78.5 Hyperlipidemia, unspecified; E03.9 Hypothyroidism, unspecified; K58.9 Irritable bowel syndrome, unspecified; G47.30 Sleep apnea, unspecified; F41.9 Anxiety disorder, unspecified; F32.A Depression, unspecified; Z86.73 Personal history of transient ischemic attack (TIA), and cerebral infarction without residual deficits; Z87.01 Personal history of pneumonia (recurrent); Z87.820 Personal history of traumatic brain injury; Z87.442 Personal history of urinary calculi; Z79.82 Long term (current) use of aspirin; Z96.642 Presence of left artificial hip joint; Z87.891 Personal history of nicotine dependence
CPT/HCPCS: 99283; C9803; U0003; U0005

== ENCOUNTER → 2021-12-30 08:43 | Outpatient (CLI) | payer MEDICARE, MEDICAID, SELFPAY ==
--- NOTE | ~2021-12-30 | XR_ITS ---
XR lumbar spine 2-3V DATE: 12/30/2021 09:01 INDICATION: Low back pain for 2 weeks. No known injury. TECHNIQUE: AP, lateral, coned lateral lumbosacral views COMPARISON: 01/21/2019 CT abdomen pelvis 05/26/2016 MR lumbar spine 04/14/2016 lumbar spine FINDINGS: There is moderately severe degenerative disc disease at L2-3, L3-4. There is grade 1 anterolisthesis at L4-5 due to degenerative change at the apophyseal joints. There is a transitional fifth lumbar vertebra with sacralization and pseudoarthrosis on the left. There is mild retrolisthesis at L5-S1. The lumbar pedicles are intact. No fracture or bone destruction is evident. The sacroiliac joints are intact. Left total hip arthroplasty. 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 IMPRESSION: Transitional fifth lumbar vertebra with sacralization pseudoarthros is on the left Multilevel degenerative disc disease Grade 1 anterolisthesis at L4-5 Left hip arthroplasty
== END ==
PROVIDERS: PCP Nurse Practitioner; Visit Provider Nurse Practitioner
DX: M51.36 Other intervertebral disc degeneration, lumbar region (principal)
CPT/HCPCS: 72100

== ENCOUNTER 2022-04-04 11:42 | Outpatient (CLI) | payer MEDICARE, SELFPAY ==
[2022-04-04 20:11] LABS: Free T4 Free Thyroxine 0.98 ng/mL (0.78-2.19)
== END 2022-04-04 11:43 | disposition home or self-care (01) ==
PROVIDERS: PCP Family Medicine; Visit Provider Family Medicine
DX: R79.89 Other specified abnormal findings of blood chemistry (principal)
CPT/HCPCS: 36415; 84439; 84443

== ENCOUNTER 2022-05-02 09:09 | Observation (INO) | payer MEDICARE, MEDICAID, SELFPAY ==
[2022-05-02] VITALS (38 sets, daily range): BP systolic 111–143; BP diastolic 59–85; PULSE 63–82; RESP 13–31; TEMP 36.7–36.9; O2SAT 92–100; BMI 18.8
--- NOTE | ~2022-05-02 | XR_ITS ---
EXAMINATION: XR chest 2V DATE: 05/02/2022 09:37 INDICATION: Shortness of breath. TECHNIQUE: Frontal and lateral views of the chest were obtained. COMPARISON: Chest 2 views 10/04/21 FINDINGS: There is mild scarring at the lung apices. There is no pneumonia, pleural effusion, or pneu mothorax. The heart size is normal. There are suture anchors in right humeral head. IMPRESSION: 1. Mild scarring at the lung apices. Reviewed, dictated and finalized at location A. [facility] [employer]
--- NOTE | 2022-05-02 09:14 | ECG_ITS ---
Measurements Intervals [place] Rate: 62 P: 73 OR: 227 QRS: -13 QRSD: 83 T: 62 QT: 418 QTc: 426 Interpretive Statements SINUS RHYTHM WITH FIRST DEGREE AV BLOCK ST-T WAVE ABNORMALITY IN ANTEROLATERAL LEADS- CONSIDER ISCHEMIA BASELINE ARTIFACT- II, III, V4 ABNORMAL ECG COMPARED TO ECG 10/04/2021 09:44:12 SINUS RHYTHM NOW PRESENT ST-T WAVE ABNORMALITY IN ANTEROLATERAL LEADS- CONSIDER ISCHEMIA NOW PRESENT Electronically Signed On 05-02-2022 9:28:38 IMAGER by Chidi Bryan D.O.
[2022-05-02 09:36] LABS: Basophils Percent Auto 0.4 % (0.2-1.2); Eosinophils Absolute Auto 0.1 K/mm3 (0-0.3); Eosinophils Percent Auto 2.2 % (0-4.4); Hematocrit 38.8 % (42.0-52.0); Hemoglobin 13.5 g/dL (14.0-18.0); Immature Granulocyte Absolute 0.02 K/mm3 (0.00-0.031); Immature Granulocyte Percent A 0.4 % (0-0.5); Lymphocytes Absolute Auto 1.54 K/mm3 (0.9-3.2); Lymphocytes Percent Auto 34.1 % (18.3-44.2); Mean Corpuscular HGB Conc 34.8 g/dl (32-36); Mean Corpuscular Hemoglobin 31.4 pg (26-34); Mean Corpuscular Volume 90.2 fl (80-100); Mean Platelet Volume 8.5 fl (7.4-10.4); Monocytes Absolute Auto 0.6 K/mm3 (0.1-0.6); Monocytes Percent Auto 13.1 % (2.6-8.5); Neutrophils Absolute Auto 2.3 K/mm3 (1.3-6.7); Neutrophils Percent Auto 49.8 % (45.5-73.1); Platelet Count Result 170 k/mm3 (150-375); Red Cell Distribution Width 13.2 % (11.5-14.5); White Blood Count 4.5 K/mm3 (4.5-10.0)
[2022-05-02 09:46] LABS: Alanine Aminotransferase 17 U/L (6-50); Albumin Level 4.4 g/dL (3.5-5.1); Alkaline Phosphatase 70 U/L (38-126); Anion Gap 9 mmol/L (8-16); Aspartate Amino Transferase 29 U/L (17-59); Bilirubin,Total 0.9 mg/dL (0.2-1.3); Blood Urea Nitrogen 15 mg/dL (9-20); Calcium 9.2 mg/dL (8.4-10.2); Carbon Dioxide 26 mmol/L (22-30); Chloride 100 mmol/L (98-107); Estimated CRCL calculation 44 ml/min; Estimated Glomerular Filt Rate 59; Glucose 96 mg/dL (65-110); Potassium 3.4 mmol/L (3.4-5.0); Sodium 135 mmol/L (137-145)
--- NOTE | 2022-05-02 09:58 | ED.URI ---
HPI - URI/Sore Throat General Chief Complaint: Upper Respiratory Infection <Talisha Fajardo PA-C - Last Filed: 05/02/22 16:21> Stated Complaint: COVID+ <Talisha Fajardo PA-C - Last Filed: 05/02/22 16:21> Time Seen by Provider: 05/02/22 09:26 <Talisha Fajardo PA-C - Last Filed: 05/02/22 16:21> Source: patient, EMS and RN notes reviewed <NANCY Avalos Last Filed: 05/02/22 16:21> Mode of arrival: EMS <NANCY Avalos Last Filed: 05/02/22 16:21> Limitations: other (poor historian) <Talisha Fajardo PA-C - Last Filed: 05/02/22 16:21> History of Present Illness HPI Narrative: This is a 72 year old male that presents to the ER for shortness of breath noted today. Reports his was just admitted last night. She has COVID. Reports he started to feel short of breath today so wanted to get checked out. His usually helps him with his medications and helps care for him. Reports he has not taken his medications the last couple of days. He is unsure why. He does report she has them all set up for him. He reports cough, congestion, and diarrhea. Denies fever, chest pain, or lower extremity edema. <NANCY Avalos Last Filed: 05/02/22 16:21> Related Data Home Medications: Home Medications Medication Instructions Recorded Confirmed zinc acetate 50 mg (zinc) capsule 50 mg PO DAILY 08/04/21 04/27/22 (Galzin) aspirin 500 mg tablet 500 mg PO DAILY 04/21/22 04/27/22 hydroxyzine HCl 25 mg tablet 25 mg PO ONCE anxiety 04/21/22 04/27/22 naproxen 500 mg tablet See Rx Instructions .Route .COMPLEX 04/21/22 04/27/22 <NANCY Avalos Last Filed: 05/02/22 16:21> Allergies/Adverse Reactions: Allergies Allergy/AdvReac Type Severity Reaction Status Date / Time Aminoglycosides Allergy Severe SWELLING, Verified 04/27/22 14:46 MAKES INFECTION WORSE bacitracin Allergy Severe SWELLING, Verified 04/27/22 14:46 MAKES INFECTION WORSE Fish Containing Products Allergy Severe ANAPHYLAXIS Verified 04/27/22 14:46 neomycin Allergy Severe SWELLING, Verified 04/27/22 14:46 MAKES INFECTION WORSE shellfish derived Allergy Severe ANAPHYLAXIS Verified 04/27/22 14:46 Sulfa (Sulfonamide Allergy Unknown Anaphylactic Verified 04/27/22 14:46 Antibiotics) Shock BETI/ Allergy Severe ANAPHYLACTIC--THROAT Uncoded 04/27/22 14:46 SWELLING FLUOXETINE HCL Allergy Unknown SSRI= Uncoded 04/27/22 14:46 SUICIDAL REACTION ZOLPIDEM TARTRATE AdvReac Intermediate confusion Uncoded 04/27/22 14:46 <Talisha Fajardo PA-C - Last Filed: 05/02/22 16:21> Review of Systems Review of Systems: CONSTITUTIONAL: Denies fever EYES: Denies redness, or discharge. ENT: Reports rhinorrhea, congestion CARDIOVASCULAR: Denies chest pain, or edema. RESPIRATORY: Reports cough and dyspnea. GASTROINTESTINAL: Reports diarrhea. NEUROLOGIC: Denies weakness. PSYCHIATRIC: Reports anxiety <Talisha Fajardo PA-C - Last Filed: 05/02/22 16:21> All systems reviewed & are unremarkable except as noted in HPI and below <Talisha Fajardo PA-C - Last Filed: 05/02/22 16:21> [facility] Past Medical History Medical History: Medical History Anxiety Back pain CVA (cerebral vascular accident) DDD (degenerative disc disease) Depression Diverticulitis Diverticulosis Epilepsy HLD (hyperlipidemia) Hypothyroidism IBS (irritable bowel syndrome) Kidney stones Left hip pain Pain due to total hip replacement Peptic ulcer Pneumonia Prostatitis Skull fracture Sleep apnea TBI (traumatic brain injury) TIA (transient ischemic attack) <Talisha Fajardo PA-C - Last Filed: 05/02/22 16:21> Surgical History Surgical History: Surgical History History of total left hip arthroplasty Hx of cardiac catheterization Hx of rotator cuff surgery bilateral s
[2022-05-02 10:37] LABS: INR 1.1; Prothrombin Time 13.5 Seconds (11.1-14.7)
[2022-05-02 10:39] LABS: Partial Thromboplastin Time 28.8 SECONDS (22.3-36.8)
[2022-05-02 10:46] LABS: NT Pro B Type Natriuretic Pept 177 pg/mL (5-100)
[2022-05-02 10:49] LABS: Troponin I < 0.012 ng/mL (0.000-0.034)
[2022-05-02 10:54] LABS: D Dimer 0.59 ug/mL (<0.48)
[2022-05-02 11:03] LABS: Influenza A QL RT-PCR Negative (Negative); Influenza B QL RT-PCR Negative (Negative); SARS-CoV-2 RNA PCR Positive
--- NOTE | 2022-05-02 11:29 | PC.NURSE ---
Patient report received from IJEOMA Bhatt. All questions answered and care of patient assumed. Patient resting comfortably in bed with NAD. Denies complaints at this time. VSS. Awaiting care coordination consult at this time.
--- NOTE | 2022-05-02 14:20 | PC.NURSE ---
RT at bedside to obtain blood gas
[2022-05-02] MEDS: LORazepam (*CRX) 0.5 MG TABLET PO (14:28)
[2022-05-02 14:31] LABS: Base Excess ABG 0.9 mEq/l (+/-2.0); Carboxyhemoglobin 0.3 % THb (0-2.0); Fractional Inspired Oxygen 21 %; HCO3 ABG 20.4 mEq/l (22.0-26.0); Methemoglobin ABG 0.2 %THb (0-1.5); Oxygen Content ABG 19.5 %vol (16.0-22.0); Oxygen Saturation ABG 99.1 % (95.0-100.0); Oxyhemoglobin 97.8 % THb (90.0-100.0); PO2 ABG 134.6 mmHg (80.0-100.0); PO2 FiO2 Ratio Arterial Blood 6.41 %; Reduced Hemoglobin 1.7 %THb (0-5.0)
[2022-05-02 14:32] LABS: pH ABG 7.596 (7.350-7.450)
[2022-05-02 14:33] LABS: Device ROOM AIR; Modified Allen's Test Pass; PCO2 ABG 21.5 mmHg (35.0-45.0); Site Drawn RIGHT RADIAL
--- NOTE | 2022-05-02 17:00 | PC.NURSE ---
heart healthy food tray ordered
--- NOTE | 2022-05-02 17:30 | PM.IMHP ---
H&P: HPI History of Present Illness Date/Time: 05/02/22 17:30 Chief Complaint: Shortness of breath. Narrative: This is a 72-year-old male with history of traumatic brain injury, seizure disorder, anxiety, hypothyroidism, untreated sleep apnea, hypertension, and hyperlipidemia who presented to the emergency department via EMS from home for evaluation of shortness of breath. He is a fair historian and seems to suffer from some short-term memory loss. His is currently in the hospital and no family is at bedside to provide additional information. As such some of the following history is obtained via a review of his electronic medical records. Patient reports that he brought his to the ER yesterday and she was admitted after being diagnosed with COVID. He has had similar symptoms including mild sore throat, shortness of breath, poor appetite, nausea, and some loose stools. He feels lost since his is not home as apparently she helps him with a lot of his activities of daily living including his medications. Today was feeling a bit short of breath and he thought he should come in for evaluation. [facility] Past Medical History Medical History (Updated 05/02/22 @ 22:42 by Winnie Christiansen PA-C) Anxiety Anxiety Benign prostatic hyperplasia Cerebrovascular accident Degenerative disc disease Depression Diverticulitis Diverticulosis Epilepsy Histoplasmosis Hyperlipidemia Hypothyroidism Irritable bowel syndrome Kidney stones Peptic ulcer Pneumonia Prostatitis Skull fracture Sleep apnea Transient ischemic attack Traumatic brain injury Surgical History Surgical History (Updated 05/02/22 @ 22:39 by Winnie Christiansen PA-C) History of cardiac catheterization History of cataract extraction History of colonoscopy with polypectomy History of lithotripsy History of rotator cuff surgery Bilateral. History of tonsillectomy History of total left hip arthroplasty Family History Family History Mother Family history of malignant neoplasm of breast in first degree relative Family history of cardiovascular disease Father Family history of cardiovascular disease Other Family history of arthritis Family history of mental disorder Social History Social History (Updated 05/02/22 @ 22:40 by Winnie Christiansen PA-C) Social History: Surrogate medical decision maker: [facility] Vargas Code status: Full code. Smoking status: Former smoker Tobacco type: cigarettes Additional smoking assessment comments: Forty pack-year smoking history, quit in 1994. Alcohol intake: former Alcohol use details: Heavy drinker in the past, none in 30 years. Substance use: never Substance use type: does not use Lack of Transportation: No Lack of Food: Sometimes True Current Housing: I Have Housing Concerned About Future Housing: No Difficulty Paying Gas/Electric Bills: No Difficulty Paying for Meds: No Currently Unemployed: No Education: Associate Degree Difficulty w/ Childcare or Family Care: Decline to Answer Additional living arrangements comments: Lives with spouse in [place]. Additional occupation/education comments: Retired x[employer]. Spiritual care concerns: No Meds Home Medications and Allergies Home Medications Medication Instructions Recorded Confirmed Type tamsulosin 0.4 mg capsule See Rx Instructions .Route 10/26/20 05/02/22 Rx .COMPLEX #90 caps venlafaxine 75 mg capsule,extended See Rx Instructions .Route 09/06/21 05/02/22 Rx release 24 hr .COMPLEX #90 caps levothyroxine 88 mcg tablet See Rx Instructions .Route 01/28/22 05/02/22 Rx .COMPLEX #90 tabs divalproex 500 mg tablet,extended 500 mg PO DAILY #90 tabs 02/07/22 05/02/22 Rx release 24 hr simvastatin 5 mg tablet See Rx Instructions .Route 02/14/22 05/02/22 Rx .COMPLEX #90 tabs cyclobenzaprine 10 mg tablet See Rx Instructions .Route 02/15/22 05/02/22
--- NOTE | 2022-05-02 17:38 | PCCCNOTE ---
Late Entry: Called by ED AMELIA Regan about options for discharge since his is his caregiver and is upstairs on med/surg with covid. Met with patient in ED Room 13. States that he lives with his and he brought her in the middle of night, not sure that he should have been driving due to hx of epilepsy. He has trouble at times keeping up with his train of thought but once reminded what he was telling he can proceed accurately. He used his ADT button for EMS since he was having sob. There is no one that can help take care of him, he states that he has a brother and sister but no connection with them. Agreeable to respite care, this respiratory care assistant to call his and insurance if any respite benefits. Called to [facility] but it closed for the holiday. No answer from his in room 310. Her respiratory care assistant was able to speak with her, she confirms that they do not have any back up plan or options for caregivers while she is here. Possible for respite but most likely will not be able to afford. Called to [facility] x 1 spoke anahi Ansari and she will need to check and get back with me. Called to [facility], no respite beds available. Called back to [facility] to check and left a message. Updated ED PA and she spoke with the patient's on CC's phone. Decision made to admit Return call received from [facility] at 1700 states that there is someone in the respite room at this time, but possible for model apartment for emergency respite with hourly checks and RN to manage his medications. She quotes 200 dollars a day and will talk with director and call back in AM if possible. Called to patient's Q[facility] updated that he will be admitting and notified of option for respite 200 dollars a day, [facility] does not think they will be able to pay that and still pay utilities this month. 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 [facility] verbalizes understanding.
--- NOTE | 2022-05-02 21:45 | ADMGEN ---
This patient, Jax Vargas, was admitted to Medical Room 343-01. Patient/family oriented to hospital policies and general routines including ID bracelet, bed and alarms, visiting hours, pain management, procedures, bathroom and other care routines, personal items, smoking policy, room service/diet, and visiting hours. Information on how to activate the Rapid Response Team has been discussed. Patient/Family are encouraged to report perceived risks to care and to ask questions if they do not understand what they are told or what they should do.
[2022-05-03 05:23] VITALS: BP 117/62; PULSE 68; RESP 20; TEMP 36.7; O2SAT 95
[2022-05-03 06:00] LABS: Hematocrit 36.5 % (42.0-52.0); Hemoglobin 12.7 g/dL (14.0-18.0); Mean Corpuscular HGB Conc 34.8 g/dl (32-36); Mean Platelet Volume 8.7 fl (7.4-10.4); Platelet Count Result 172 k/mm3 (150-375); Red Cell Distribution Width 12.9 % (11.5-14.5); White Blood Count 3.7 K/mm3 (4.5-10.0)
[2022-05-03 06:16] LABS: Anion Gap 7 mmol/L (8-16); Blood Urea Nitrogen 16 mg/dL (9-20); Calcium 8.8 mg/dL (8.4-10.2); Carbon Dioxide 26 mmol/L (22-30); Chloride 102 mmol/L (98-107); Estimated CRCL calculation 40 ml/min; Estimated Glomerular Filt Rate > 60; Glucose 98 mg/dL (65-110); Magnesium 2.2 mg/dL (1.6-2.3); Potassium 3.6 mmol/L (3.4-5.0); Sodium 135 mmol/L (137-145)
[2022-05-03] MEDS: LEVOTHYROXINE SODIUM 88 MCG TABLET BY MOUTH (06:21)
[2022-05-03 08:06] LABS: Valproic Acid < 10.0 ug/mL (50-120)
[2022-05-03] MEDS: VENLAFAXINE HCL XR 75 MG CAP.ER.24H BY MOUTH (09:58)
[2022-05-03] MEDS: DIVALPROEX SODIUM ER 500 MG TAB.24H PO (09:58)
[2022-05-03] MEDS: ENOXAPARIN 40 MG/0.4 ML SYRINGE SUB-Q (09:58)
[2022-05-03] MEDS: TAMSULOSIN HCL 0.4 MG CAPSULE BY MOUTH (09:58)
[2022-05-03] MEDS: SIMVASTATIN 5 MG TABLET BY MOUTH (10:01)
[2022-05-03] MEDS: VENLAFAXINE HCL XR 75 MG CAP.ER.24H 150 MG BY MOUTH (10:03)
--- NOTE | 2022-05-03 12:04 | PM.DS ---
DS: Admitting Diagnosis Discharge Date May 03, 2022 Admitting Diagnosis COVID, weakness DS: Discharge Diagnosis Discharge Diagnosis (1) COVID: Code(s): U07.1 - COVID-19 Status: Acute Assessment and Plan: Chest x-ray reviewed and showed no evidence of pneumonia. He has no oxygen requirement thus no indication for dexamethasone. The patient is essentially being admitted for respite care as he has difficulties caring for himself or his is in the hospital. (2) Hyperventilation: Code(s): R06.4 - Hyperventilation Status: Acute Assessment and Plan: Patient was anxious on arrival and seems to be breathing at a much more acceptable rate at this time. ABG shows a respiratory alkalosis due to hyperventilation. (3) Epilepsy: Qualifiers: Epilepsy type: unspecified Intractability: not intractable Status epilepticus: without status epilepticus Qualified Code(s): G40.909 - Epilepsy, unspecified, not intractable, without status epilepticus Code(s): G40.909 - Epilepsy, unspecified, not intractable, without status epilepticus Status: Acute Assessment and Plan: Continue divalproex and check to ensure level is therapeutic. (4) Hyperlipidemia: Code(s): E78.5 - Hyperlipidemia, unspecified Status: Acute Assessment and Plan: Continue statin; LFTs within normal limits. (5) Hypothyroidism: Qualifiers: Hypothyroidism type: unspecified Qualified Code(s): E03.9 - Hypothyroidism, unspecified Code(s): E03.9 - Hypothyroidism, unspecified Status: Acute Assessment and Plan: Continue levothyroxine and check TSH. (6) Depression with anxiety: Code(s): F41.8 - Other specified anxiety disorders Status: Acute Assessment and Plan: Continue venlafaxine and hydroxyzine if needed. (7) Benign prostatic hyperplasia: Code(s): N40.0 - Benign prostatic hyperplasia without lower urinary tract symptoms Status: Acute Assessment and Plan: Continue tamsulosin and monitor urine output. Plan Labs and chest x-ray personally reviewed. DS: Summary Hospital Course Hospital Course: The patient is admitted for COVID pneumonia and inability care for self. This was mostly because his was also into hospital. His has been discharged and he is otherwise medically stable and can be discharged home as well. Time Spent with Patient Time attestation: Total time spent providing and/or coordinating discharge services: Exam Narrative: General: Thin, chronically ill-appearing male in the semi-Martini position in bed. Weight: 52.9 kilograms. BMI: 18.8. HEENT: PERRL, EOMI. Sclera anicteric. Tacky mucous membranes. Edentulous. Neck: Supple. No lymphadenopathy. Respiratory: Respirations are nonlabored. Lung sounds are a bit diminished but otherwise clear to auscultation. Cardiovascular: Regular rate and rhythm with S1-S2. Systolic murmur heard throughout the precordium. Gastrointestinal: Abdomen is soft, flat, nontender, and nondistended with positive bowel sounds. Skin: Warm and dry. Extremities: No cyanosis, clubbing, or edema. Radial and pedal pulses intact. Neurological: Alert. Cranial nerves 2-12 are grossly intact. Occasional stutters. Mild expressive aphasia. No gross focal deficits to casual conversation. Psychiatric: Pleasant and cooperative. Appropriate mood. Poor eye contact. Evidence of memory loss. DS: Data Data Completed and Pending Labs on day of discharge: Labs from last 24 hours 05/03/22 05/03/22 05/03/22 05:24 05:24 05:24 WBC 3.7 L RBC 4.10 L Hgb 12.7 L Hct 36.5 L MCV 89.0 MCH 31.0 MCHC 34.8 RDW 12.9 Plt Count 172 MPV 8.7 Puncture Site ABG pH ABG pCO2 ABG pO2 ABG PO2/FiO2 Ratio ABG HCO3 ABG O2 Saturation ABG O2 Content ABG Base Excess A-a Gradient Oxyhemoglobin Carboxyhem
== END 2022-05-03 14:10 | disposition home or self-care (01) ==
LOC: ANHED 16:21 → ANH3MED 05-03 07:48 → ANH3MEDSUR 05-04 11:23
PROVIDERS: General Practice; Physician Assistant; Admitting Provider Internal Medicine; Emergency Provider Emergency Medicine; PCP Family Medicine; Visit Provider Chiropractor
DX: U07.1 COVID-19 (principal); R06.4 Hyperventilation; G40.909 Epilepsy, unspecified, not intractable, without status epilepticus; E78.5 Hyperlipidemia, unspecified; I10 Essential (primary) hypertension; E03.9 Hypothyroidism, unspecified; N40.0 Benign prostatic hyperplasia without lower urinary tract symptoms; F41.9 Anxiety disorder, unspecified; F32.A Depression, unspecified; Z86.73 Personal history of transient ischemic attack (TIA), and cerebral infarction without residual deficits; G47.30 Sleep apnea, unspecified; Z87.891 Personal history of nicotine dependence; Z79.82 Long term (current) use of aspirin
CPT/HCPCS: 36415; 36600; 71046; 80048; 80053; 80164; 82375; 82805; 83050; 83735; 83880; 84443; 84484; 85025; 85027; 85380; 85610; 85730; 87636; 93005; 96372; 99285; A9270; G0378; J1650

== ENCOUNTER 2022-10-18 17:42 | Emergency (ER) | payer MEDICARE, MEDICAID, SELFPAY ==
[2022-10-18 17:57] VITALS: BP 126/59; PULSE 71; RESP 18; TEMP 36.9; O2SAT 96
--- NOTE | 2022-10-18 19:26 | ED.GENADULT ---
HPI - General Adult General Chief complaint: Wound/Laceration Stated complaint: left arm wound Time Seen by Provider: 10/18/22 18:50 Source: patient Mode of arrival: ambulatory Limitations: no limitations History of Present Illness HPI narrative: This is a 72-year-old male who presents to the ED with chief complaint of a left forearm skin tear that occurred 2 days ago. Patient states that he is not entirely sure what caused this but feels like it could have been one of his cats. Denies any pain. He states he is here because he wants a piece of the skin that is sticking up trimmed off. Denies any pain, fevers, chills, nausea, vomiting. Related Data Home Medications Medication Instructions Recorded Confirmed aspirin 500 mg tablet 500 mg PO DAILY 04/21/22 09/19/22 naproxen 500 mg tablet See Rx Instructions .Route 04/21/22 09/19/22 .COMPLEX PRN Pain Allergies Allergy/AdvReac Type Severity Reaction Status Date / Time Aminoglycosides Allergy Severe SWELLING, Verified 10/18/22 18:35 MAKES INFECTION WORSE bacitracin Allergy Severe SWELLING, Verified 10/18/22 18:35 MAKES INFECTION WORSE Fish Containing Products Allergy Severe ANAPHYLAXIS Verified 10/18/22 18:35 neomycin Allergy Severe SWELLING, Verified 10/18/22 18:35 MAKES INFECTION WORSE shellfish derived Allergy Severe ANAPHYLAXIS Verified 10/18/22 18:35 Sulfa (Sulfonamide Allergy Unknown Anaphylactic Verified 10/18/22 18:35 Antibiotics) Shock BETI/ Allergy Severe ANAPHYLACTIC--THROAT Uncoded 09/19/22 09:29 SWELLING FLUOXETINE HCL Allergy Unknown SSRI= Uncoded 09/19/22 09:29 SUICIDAL REACTION ZOLPIDEM TARTRATE AdvReac Intermediate confusion Uncoded 09/19/22 09:29 [facility] Past Medical History Medical History Anxiety Benign prostatic hyperplasia Cerebrovascular accident COVID Degenerative disc disease Depression Diverticulitis Diverticulosis Epilepsy Histoplasmosis Hyperlipidemia Hypothyroidism Irritable bowel syndrome Kidney stones Peptic ulcer Pneumonia Skull fracture Sleep apnea Transient ischemic attack Traumatic brain injury Surgical History Surgical History History of cardiac catheterization History of cataract extraction History of colonoscopy with polypectomy History of lithotripsy History of rotator cuff surgery Bilateral. History of tonsillectomy History of total left hip arthroplasty Family History Family History Mother Family history of malignant neoplasm of breast in first degree relative Family history of cardiovascular disease Father Family history of cardiovascular disease Other Family history of arthritis Family history of mental disorder Social History Social History Social History: Surrogate medical decision maker: Quita Vargas Code status: Full code. Smoking status: Former smoker Tobacco type: cigarettes Additional smoking assessment comments: Forty pack-year smoking history, quit in 1994. Alcohol intake: former Alcohol use details: Heavy drinker in the past, none in 30 years. Substance use: never Substance use type: does not use Lack of Transportation: No Lack of Food: Sometimes True Current Housing: I Have Housing Concerned About Future Housing: No Difficulty Paying Gas/Electric Bills: No Difficulty Paying for Meds: No Currently Unemployed: No Education: Associate Degree Difficulty w/ Childcare or Family Care: Decline to Answer Living arrangements: with family Additional living arrangements comments: Lives with spouse in [place]. 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 Spiritual care concerns: No Exam Narrative: GENERAL: Well-a
== END 2022-10-18 19:40 | disposition home or self-care (01) ==
PROVIDERS: Emergency Provider Physician Assistant; PCP Family Medicine
DX: S51.812A Laceration without foreign body of left forearm, initial encounter (principal); N40.0 Benign prostatic hyperplasia without lower urinary tract symptoms; G40.909 Epilepsy, unspecified, not intractable, without status epilepticus; B39.9 Histoplasmosis, unspecified; E03.9 Hypothyroidism, unspecified; E78.5 Hyperlipidemia, unspecified; G47.30 Sleep apnea, unspecified; K58.9 Irritable bowel syndrome, unspecified; F32.A Depression, unspecified; F41.9 Anxiety disorder, unspecified; Z96.642 Presence of left artificial hip joint; Z86.16 Personal history of COVID-19; Z87.01 Personal history of pneumonia (recurrent); Z86.73 Personal history of transient ischemic attack (TIA), and cerebral infarction without residual deficits; Z87.820 Personal history of traumatic brain injury; Z87.11 Personal history of peptic ulcer disease; Z87.442 Personal history of urinary calculi; Z87.891 Personal history of nicotine dependence; Z98.49 Cataract extraction status, unspecified eye; Z79.82 Long term (current) use of aspirin; X58.XXXA Exposure to other specified factors, initial encounter
CPT/HCPCS: 99283

== ENCOUNTER 2022-11-03 15:31 | Emergency (ER) | payer MEDICARE, MEDICAID, SELFPAY ==
[2022-11-03] VITALS (26 sets, daily range): BP systolic 134–161; BP diastolic 63–85; PULSE 55–65; RESP 14–20; TEMP 36.4; O2SAT 96–100
--- NOTE | ~2022-11-03 | CT_ITS ---
EXAMINATION: CT brain wo con DATE: 11/03/2022 18:09 INDICATION: Dizziness for 2 days TECHNIQUE: Computed tomography (CT) of the head was performed without intravenous contrast. The mA wa s adjusted according to patient size. Iterative reconstruction technique was employed. Exam dose: 68 1.00 mGy-cm total exam DLP. COMPARISON: 05/31/2019 CT brain FINDINGS: There is bilateral carotid siphon internal carotid artery calcification. There are bilatera l vertebral artery calcifications. There is nonspecific diminished attenuation cerebral white matter, likely due to chronic small vessel ischemic changes. Chronic right basal ganglia lacunar infarcts No intracranial mass lesion or hemorrhage or cerebrovascular accident is noted otherwise. No midline shift or mass effect. No subdural or epidural hematoma. There is central and cortical cysts cerebral and cerebellar atrophy. The mastoid air cells and included paranasal sinuses are well-developed and aerated. No fracture or bone destruction of the cranial vault. IMPRESSION: Cerebral atherosclerosis and chronic small vessel ischemic changes of cerebral white mat ter Chronic right basal ganglia lacunar infarcts No acute intracranial finding Central and cortical cerebral and cerebellar atrophy Reviewed, dictated and finalized at [facility] Reviewed, dictated and finalized at [facility] IMPRESSION: Cerebral atherosclerosis and chronic small vessel ischemic changes of cerebral white matter Chronic right basal ganglia lacunar infarcts No acute intracranial finding Central and cortical cerebral and cerebellar atrophy
--- NOTE | 2022-11-03 16:04 | ECG_ITS ---
Measurements Intervals [place] Rate: 54 P: 81 SD: 257 QRS: -14 QRSD: 88 T: 125 QT: 441 QTc: 418 Interpretive Statements SINUS BRADYCARDIA WITH FIRST DEGREE AV BLOCK NONSPECIFIC ST & T-WAVE ABNORMALITY- ANTEROLAT/HIGH LAT LEADS BORDERLINE ECG COMPARED TO ECG 05/02/2022 09:25:16 SINUS BRADYCARDIA NOW PRESENT Electronically Signed On 11-03-2022 20:21:47 CDT by Chidi Bryan D.O.
[2022-11-03 16:47] LABS: Basophils Percent Auto 0.7 % (0.2-1.2); Eosinophils Absolute Auto 0.2 K/mm3 (0-0.3); Eosinophils Percent Auto 3.2 % (0-4.4); Hematocrit 44.8 % (42.0-52.0); Hemoglobin 15.1 g/dL (14.0-18.0); Immature Granulocyte Absolute 0.02 K/mm3 (0.00-0.031); Immature Granulocyte Percent A 0.4 % (0-0.5); Lymphocytes Percent Auto 37.2 % (18.3-44.2); Mean Corpuscular HGB Conc 33.7 g/dl (32-36); Mean Corpuscular Hemoglobin 32.1 pg (26-34); Mean Corpuscular Volume 95.1 fl (80-100); Mean Platelet Volume 8.7 fl (7.4-10.4); Monocytes Absolute Auto 0.6 K/mm3 (0.1-0.6); Monocytes Percent Auto 11.5 % (2.6-8.5); Neutrophils Absolute Auto 2.5 K/mm3 (1.3-6.7); Platelet Count Result 125 k/mm3 (150-375); Red Blood Count 4.71 M/mm3 (4.6-6.20); Red Cell Distribution Width 13.2 % (11.5-14.5); White Blood Count 5.4 K/mm3 (4.5-10.0)
[2022-11-03 16:55] LABS: Alanine Aminotransferase 18 U/L (6-50); Albumin Level 4.2 g/dL (3.5-5.1); Alkaline Phosphatase 68 U/L (38-126); Anion Gap 5 mmol/L (8-16); Aspartate Amino Transferase 29 U/L (17-59); Bilirubin,Total 0.8 mg/dL (0.2-1.3); Blood Urea Nitrogen 22 mg/dL (9-20); Calcium 9.1 mg/dL (8.4-10.2); Carbon Dioxide 35 mmol/L (22-30); Chloride 100 mmol/L (98-107); Estimated CRCL calculation 48 ml/min; Estimated Glomerular Filt Rate > 60; Glucose 94 mg/dL (65-110); Potassium 4.9 mmol/L (3.4-5.0); Sodium 140 mmol/L (137-145)
--- NOTE | 2022-11-03 17:32 | PC.NURSE ---
EDP at bedside to assess pt.
--- NOTE | 2022-11-03 17:45 | ED.DIZZY ---
HPI - Dizziness General Chief Complaint: Dizziness Stated Complaint: dizzy spells. Time Seen by Provider: 11/03/22 17:26 Source: patient Mode of arrival: ambulatory Limitations: no limitations History of Present Illness HPI Narrative: 72 year old male presents today due to complaints of intermittent dizziness for the past 2 days. Dizziness with movement. Denies similar symptoms in the past. Denies slurred speech, extremity weakness, dysuria. Does admit to poor eating and does not drink water. Medications reviewed cause they were at the bedside. cyclobenzaprine tid prn patient thinks he might be taking it 3 times a day. MD elicited complaint: dizziness and lightheadedness Description: room spinning Exacerbating factors: movement/ambulation Relieving factors: remaining still and lying down Related Data Home Medications Medication Instructions Recorded Confirmed aspirin 500 mg tablet 500 mg PO DAILY 04/21/22 09/19/22 naproxen 500 mg tablet See Rx Instructions .Route 04/21/22 09/19/22 .COMPLEX PRN Pain Allergies Allergy/AdvReac Type Severity Reaction Status Date / Time Aminoglycosides Allergy Severe SWELLING, Verified 11/03/22 15:35 MAKES INFECTION WORSE bacitracin Allergy Severe SWELLING, Verified 11/03/22 15:35 MAKES INFECTION WORSE Fish Containing Products Allergy Severe ANAPHYLAXIS Verified 11/03/22 15:35 neomycin Allergy Severe SWELLING, Verified 11/03/22 15:35 MAKES INFECTION WORSE shellfish derived Allergy Severe ANAPHYLAXIS Verified 11/03/22 15:35 Sulfa (Sulfonamide Allergy Unknown Anaphylactic Verified 11/03/22 15:35 Antibiotics) Shock BETI/ Allergy Severe ANAPHYLACTIC--THROAT Uncoded 09/19/22 09:29 SWELLING FLUOXETINE HCL Allergy Unknown SSRI= Uncoded 09/19/22 09:29 SUICIDAL REACTION ZOLPIDEM TARTRATE AdvReac Intermediate confusion Uncoded 09/19/22 09:29 Review of Systems Review of Systems: All systems reviewed & are unremarkable except as noted in HPI and below ENT: Reports as per HPI Cardiovascular: Cardiovascular: Reports as per HPI Respiratory: Respiratory: Reports as per HPI Gastrointestinal: Gastrointestinal: Reports as per HPI Musculoskeletal: Musculoskeletal: Reports as per HPI Integumentary/Breasts: Skin/Breast: Reports as per HPI Neurologic: Reports as per HPI Psychiatric: Psychiatric: Reports as per HPI PMFSH Past Medical History Medical History Anxiety Benign prostatic hyperplasia Cerebrovascular accident COVID Degenerative disc disease Depression Diverticulitis Diverticulosis Epilepsy Histoplasmosis Hyperlipidemia Hypothyroidism Irritable bowel syndrome Kidney stones Peptic ulcer Pneumonia Skull fracture Sleep apnea Transient ischemic attack Traumatic brain injury Surgical History Surgical History History of cardiac catheterization History of cataract extraction History of colonoscopy with polypectomy History of lithotripsy History of rotator cuff surgery Bilateral. History of tonsillectomy History of total left hip arthroplasty Family History Family History Mother Family history of malignant neoplasm of breast in first degree relative Family history of cardiovascular disease Father Family history of cardiovascular disease Other Family history of arthritis Family history of mental disorder Social History Social History Social History: Surrogate medical decision maker: Quita Vargas Code status: Full code. Smoking status: Former smoker Tobacco type: cigarettes Additional smoking assessment comments: Forty pack-year smoking history, quit in 1994. Alcohol intake: former Alcohol use details: Heavy drinker in the past, none in 30 years. Substance use
[2022-11-03] MEDS: SODIUM CHLORIDE 0.9% IV 1,000 ML 999 ML IV CONT (18:01)
[2022-11-03 18:27] LABS: Troponin I < 0.012 ng/mL (0.000-0.034)
[2022-11-03 19:11] LABS: Appearance Urine Clear (Clear); Color Urine Dark Yellow (Yellow)
[2022-11-03 19:12] LABS: Bacteria Urine None Seen /hpf; Bilirubin Urine 2+ (Negative); Blood Urine Negative (Negative); Glucose Urine UA Negative (Negative); Ketones Urine Trace mg/dL (Negative); Leukocyte Esterase Ur Negative LEU/UL (Negative); Mucus Urine Present /lpf; Need Manual Microscopic Reviewed; Nitrate Urine Negative (Negative); Non Pathogenic Casts 0-2; Protein Urine 1+ mg/dL (Negative); RBC Urine 0-2 /hpf (0-2); Spermatozoa Urine Present; Squamous Epithelial Cell Urine None seen /hpf (Few); WBC Urine 0-5 /hpf; pH Urine 5.5 (5.0-9.0)
[2022-11-03 19:13] LABS: Specific Grav Ur 1.037 (1.001-1.035)
[2022-11-03 19:14] LABS: Add Urine Microscopic? YES
--- NOTE | 2022-11-03 19:14 | PC.NURSE ---
Patient report given to IJEOMA Mckeon. All questions answered and care of patient transferred.
[2022-11-03] MEDS: MECLIZINE HCL 25 MG TABLET PO (20:15)
--- NOTE | 2022-11-03 21:30 | PC.NURSE ---
Called pts at this time for pt transport home. No answer.
== END 2022-11-03 21:48 | disposition home or self-care (01) ==
PROVIDERS: Emergency Medicine; Emergency Provider Nurse Practitioner Family; PCP Family Medicine
DX: R42 Dizziness and giddiness (principal); E78.5 Hyperlipidemia, unspecified; E03.9 Hypothyroidism, unspecified; Z86.73 Personal history of transient ischemic attack (TIA), and cerebral infarction without residual deficits; Z87.891 Personal history of nicotine dependence
CPT/HCPCS: 36415; 70450; 80053; 81001; 84484; 85025; 93005; 96360; 99284; A9270; J7030

== ENCOUNTER 2022-12-21 01:18 | Observation (INO) | payer MEDICARE, MEDICAID, SELFPAY ==
[2022-12-21] VITALS (17 sets, daily range): BP systolic 122–155; BP diastolic 62–89; PULSE 60–89; RESP 14–34; TEMP 36.6–37.1; O2SAT 93–100; BMI 22.0
--- NOTE | ~2022-12-21 | XR_ITS ---
EXAMINATION: XR chest 1V portable DATE: 12/21/2022 01:47 INDICATION: Altered mental status. TECHNIQUE: A single frontal view of the chest was obtained. COMPARISON: Chest 2 views 05/02/22 FINDINGS: There is mild atelectasis in the lower lung zones. No pleural effusion or pneumothorax. The heart size is normal. There are suture anchors in right humeral head. IMPRESSION: 1. Mild atelectasis in the lower lung zones. Reviewed, dictated and finalized at location A.
--- NOTE | ~2022-12-21 | XR_ITS ---
EXAMINATION: XR ankle RT 2V INDICATION: Right ankle pain TECHNIQUE: Two views of the right ankle are obtained. COMPARISON: None available FINDINGS: No fracture, dislocation, or subluxation. The bones, soft tissues, and joint spaces are nor mal. IMPRESSION: 1. No acute osseous abnormality. Reviewed, dictated and finalized at location A.
--- NOTE | ~2022-12-21 | CT_ITS ---
EXAMINATION: CTA brain carotid DATE: 12/21/2022 01:50 INDICATION: Aphasia. TECHNIQUE: Computed tomographic angiography (CTA) of the head was performed with 100 mL Omnipaque-350 intravenous contrast. CTA of the neck was performed with intravenous contrast. Automated exposure co ntrol and iterative reconstruction technique were employed. The dose-length product was 1017.82 mGy-c m. Maximum intensity projection and volume rendered 3D-reconstructions were created by the technologi st on a separate workstation. COMPARISON: Head CT 12/21/2022, 11/03/2022 FINDINGS: HEAD CTA: There are old lacunar infarcts in the bilateral basal ganglia. There are scattered areas of low attenuation in the cerebral white matter. There is no intracranial hemorrhage, acute infarction, or abnormal intracranial mass lesion. The ventricles are normal in size. There are likely changes of ocular lens replacement surgeries. The paranasal sinuses are clear. The mastoid air cells are normal . Left vertebral artery is dominant. There is no significant stenosis of basilar artery or the microcomputer support specialist ior cerebral arteries. There is no significant stenosis of the intracranial internal carotid arteries or anterior or middle cerebral arteries. Anterior communicating artery is normal. Left posterior com municating artery is normal. A right posterior communicating artery is not identified. There is no an eurysm. Sensitivity is moderately decreased by motion artifact. NECK CTA: There is mild scarring at the lung apices. There are no pathologically enlarged lymph nodes . There is severe stenosis of mid left vertebral artery. There is mild plaque in the proximal interna l carotid arteries. There is 0% stenosis of the proximal right internal carotid artery relative to no rmal distal artery lumen diameter (NASCET criteria). There is 0% stenosis of the proximal left social media intern al carotid artery relative to normal distal artery lumen diameter. There is severe cervical spondylos is. IMPRESSION: 1. Old lacunar infarcts in the bilateral basal ganglia. 2. Stable extensive nonspecific cerebral white matter disease, which likely represents chronic small vessel ischemic disease. 3. No aneurysm or significant intracranial arterial stenosis. Sensitivity is moderately decreased by motion artifact. 4. 0% stenosis of the proximal internal carotid arteries relative to normal distal artery lumen diame ters (NASCET criteria). 5. Focal severe stenosis of mid left vertebral artery. Reviewed, dictated and finalized at location A. IMPRESSION: 1. Old lacunar infarcts in the bilateral basal ganglia. 2. Stable extensive nonspecific cerebral white matter disease, which likely rep resents chronic small vessel ischemic disease. 3. No aneurysm or significant intracranial arterial stenosis. Sensitivity is mo derately decreased by motion artifact. 4. 0% stenosis of the proximal internal carotid arteries relative to normal dis chaitanya artery lumen diameters (NASCET criteria). 5. Focal severe stenosis of mid left vertebral artery.
--- NOTE | ~2022-12-21 | XR_ITS ---
EXAMINATION: XR hip RT min 2V DATE: 12/21/2022 13:48 INDICATION: Right groin pain. TECHNIQUE: 2 views of right hip were obtained. COMPARISON: Right hip radiographs 09/05/2017 FINDINGS: Bone alignment is normal. No fracture. There is mild right hip osteoarthritis. Partially vi sualized is a total left hip arthroplasty. IMPRESSION: 1. Mild right hip osteoarthritis. Reviewed, dictated and finalized at location A.
--- NOTE | ~2022-12-21 | CT_ITS ---
EXAMINATION: CT brain wo con DATE: 12/21/2022 01:43 INDICATION: Aphasia. TECHNIQUE: Computed tomography (CT) of the head was performed without intravenous contrast. The mA wa s adjusted according to patient size. Iterative reconstruction technique was employed. The dose-lengt h product was 681.00 mGy-cm. COMPARISON: Head CT 11/03/22 FINDINGS: There are scattered areas of low attenuation in the cerebral white matter. There are old la cunar infarcts in the bilateral basal ganglia. There is no intracranial hemorrhage, acute infarction, or abnormal intracranial mass lesion. The ventricles are normal in size. The paranasal sinuses are c lear. There are likely changes of ocular lens replacement surgeries. The mastoid air cells are normal . IMPRESSION: 1. Old lacunar infarcts in the bilateral basal ganglia. 2. Stable extensive nonspecific cerebral white matter disease, which likely represents chronic small vessel ischemic disease. Reviewed, dictated and finalized at location A. IMPRESSION: 1. Old lacunar infarcts in the bilateral basal ganglia. 2. Stable extensive nonspecific cerebral white matter disease, which likely rep resents chronic small vessel ischemic disease.
--- NOTE | ~2022-12-21 | CT_ITS ---
EXAMINATION: CT abdomen pelvis wo con DATE: 12/21/2022 03:23 INDICATION: Low abdominal pain. TECHNIQUE: Computed tomography (CT) of the abdomen and pelvis was performed without intravenous contr ast. Automated exposure control and iterative reconstruction technique were employed. The dose-length product was 375.51 mGy-cm. COMPARISON: CT abdomen and pelvis 03/31/2020 FINDINGS: The visualized portions of the lung bases demonstrate mild atelectasis. There are groundgla ss opacities in the lower lobes. No pleural effusion. The heart size is normal. No pericardial effusi on. There are coronary artery calcifications. The liver, gallbladder, spleen, and adrenal glands are normal. There are calcifications in the pancreas, consistent with chronic pancreatitis. There is a 2. 0 cm cyst in right kidney. Left kidney is normal. The prostate is mildly enlarged. There are no dilat ed loops of bowel. The appendix is normal. Aortic atherosclerosis is noted. There are no pathological ly enlarged lymph nodes. There is no free intraperitoneal fluid. There is a total left hip arthroplas ty. There is severe lumbar spondylosis. IMPRESSION: 1. Groundglass opacities in the lower lobes, likely inflammation/infection. Reviewed, dictated and finalized at location A.
--- NOTE | 2022-12-21 01:22 | ECG_ITS ---
Measurements Intervals [place] Rate: 84 P: 34 NM: 231 QRS: 2 QRSD: 80 T: 106 QT: 347 QTc: 412 Interpretive Statements SINUS RHYTHM WITH FIRST DEGREE AV BLOCK ST DEVIATION AND MODERATE T-WAVE ABNORMALITY, CONSIDER ANTEROLATERAL ISCHEMIA COMPARED TO ECG 11/03/2022 16:43:03 SINUS RHYTHM NOW PRESENT Electronically Signed On 12-21-2022 11:49:25 CDT by Delfino Belcher M.D.
[2022-12-21 01:53] LABS: Basophils Absolute Auto 0.1 K/mm3 (0.0-0.1); Basophils Percent Auto 0.6 % (0.2-1.2); Eosinophils Absolute Auto 0.1 K/mm3 (0-0.3); Eosinophils Percent Auto 0.8 % (0-4.4); Hematocrit 47.1 % (42.0-52.0); Hemoglobin 16.4 g/dL (14.0-18.0); Immature Granulocyte Absolute 0.05 K/mm3 (0.00-0.031); Immature Granulocyte Percent A 0.5 % (0-0.5); Lymphocytes Absolute Auto 1.67 K/mm3 (0.9-3.2); Mean Corpuscular HGB Conc 34.8 g/dl (32-36); Mean Corpuscular Hemoglobin 32.5 pg (26-34); Mean Corpuscular Volume 93.5 fl (80-100); Mean Platelet Volume 8.5 fl (7.4-10.4); Monocytes Absolute Auto 1.3 K/mm3 (0.1-0.6); Monocytes Percent Auto 14.1 % (2.6-8.5); Neutrophils Absolute Auto 6.1 K/mm3 (1.3-6.7); Platelet Count Result 150 k/mm3 (150-375); Red Blood Count 5.04 M/mm3 (4.6-6.20); Red Cell Distribution Width 13.4 % (11.5-14.5); White Blood Count 9.3 K/mm3 (4.5-10.0)
[2022-12-21 02:14] LABS: Prothrombin Time 14.1 Seconds (11.1-14.7)
[2022-12-21 02:15] LABS: Ethanol < 10 mg/dL (<10)
[2022-12-21 02:15] LABS: Partial Thromboplastin Time 23.4 SECONDS (22.3-36.8)
[2022-12-21 02:19] LABS: Alanine Aminotransferase 23 U/L (6-50); Albumin Level 4.8 g/dL (3.5-5.1); Alkaline Phosphatase 76 U/L (38-126); Anion Gap 13 mmol/L (8-16); Aspartate Amino Transferase 33 U/L (17-59); Blood Urea Nitrogen 24 mg/dL (9-20); Calcium 10.5 mg/dL (8.4-10.2); Carbon Dioxide 25 mmol/L (22-30); Chloride 100 mmol/L (98-107); Estimated CRCL calculation 41 ml/min; Estimated Glomerular Filt Rate 54; Glucose 104 mg/dL (65-110); Sodium 138 mmol/L (137-145)
--- NOTE | 2022-12-21 02:20 | ED.NEUROSD ---
HPI - Neuro Symptoms/Deficit General Chief Complaint: Suspected CVA Stated Complaint: AMS Time Seen by Provider: 12/21/22 01:22 History of Present Illness HPI Narrative: HPI limited due to patient's altered mental status This is a 72-year-old male with a reported history of seizure disorder and hypothyroidism, who is brought in by EMS as a code stroke for aphasia. EMS reports the patient's spouse was poor historian and noted the patient appeared confused with garbled speech. EMS was unable to decipher a last known well time and were thus unable to get a fast ED exam. On arrival, the patient is able to tell me his name but nothing else. Related Data Home Medications Medication Instructions Recorded Confirmed aspirin 500 mg tablet 500 mg PO DAILY 04/21/22 11/09/22 naproxen 500 mg tablet See Rx Instructions .Route 04/21/22 11/09/22 .COMPLEX PRN Pain Allergies Allergy/AdvReac Type Severity Reaction Status Date / Time Aminoglycosides Allergy Severe SWELLING, Verified 11/09/22 09:18 MAKES INFECTION WORSE bacitracin Allergy Severe SWELLING, Verified 11/09/22 09:18 MAKES INFECTION WORSE Fish Containing Products Allergy Severe ANAPHYLAXIS Verified 11/09/22 09:18 neomycin Allergy Severe SWELLING, Verified 11/09/22 09:18 MAKES INFECTION WORSE shellfish derived Allergy Severe ANAPHYLAXIS Verified 11/09/22 09:18 Sulfa (Sulfonamide Allergy Unknown Anaphylactic Verified 11/09/22 09:18 Antibiotics) Shock BETI/ Allergy Severe ANAPHYLACTIC--THROAT Uncoded 11/09/22 09:18 SWELLING FLUOXETINE HCL Allergy Unknown SSRI= Uncoded 11/09/22 09:18 SUICIDAL REACTION ZOLPIDEM TARTRATE AdvReac Intermediate confusion Uncoded 11/09/22 09:18 Review of Systems Review of Systems: Unable to obtain review of systems due to altered mental status [facility] Past Medical History Medical History Anxiety Benign prostatic hyperplasia Cerebrovascular accident COVID Degenerative disc disease Depression Diverticulitis Diverticulosis Epilepsy Histoplasmosis Hyperlipidemia Hypothyroidism Irritable bowel syndrome Kidney stones Peptic ulcer Pneumonia Skull fracture Sleep apnea Transient ischemic attack Traumatic brain injury Surgical History Surgical History History of cardiac catheterization History of cataract extraction History of colonoscopy with polypectomy History of lithotripsy History of rotator cuff surgery Bilateral. History of tonsillectomy History of total left hip arthroplasty Family History Family History Mother Family history of malignant neoplasm of breast in first degree relative Family history of cardiovascular disease Father Family history of cardiovascular disease Other Family history of arthritis Family history of mental disorder Social History Social History Social History: Surrogate medical decision maker: Quita Vargas Code status: Full code. Smoking status: Smoker, status unknown Tobacco type: cigarettes Additional smoking assessment comments: Forty pack-year smoking history, quit in 1994. Alcohol intake: unknown Alcohol use details: Heavy drinker in the past, none in 30 years. Substance use: unknown Substance use type: does not use Lack of Transportation: No Lack of Food: Sometimes True Current Housing: I Have Housing Concerned About Future Housing: No Difficulty Paying Gas/Electric Bills: No Difficulty Paying for Meds: No Currently Unemployed: No Education: Associate Degree Difficulty w/ Childcare or Family Care: Decline to Answer Living arrangements: with family Additional living arrangements comments: Lives with spouse in [place]. Occupation/Education: retired [place]
[2022-12-21 02:30] LABS: Troponin I < 0.012 ng/mL (0.000-0.034)
[2022-12-21 02:33] LABS: Appearance Urine Clear (Clear); Bacteria Urine None Seen /hpf; Bilirubin Urine Negative (Negative); Blood Urine Negative (Negative); Color Urine Dark Yellow (Yellow); Glucose Urine UA Negative (Negative); Hyaline Casts Urine Present /lpf; Ketones Urine Trace mg/dL (Negative); Leukocyte Esterase Ur Negative LEU/UL (Negative); Mucus Urine Present /lpf; Nitrate Urine Negative (Negative); Protein Urine Trace mg/dL (Negative); RBC Urine 0-2 /hpf (0-2); Specific Grav Ur 1.038 (1.001-1.035); Squamous Epithelial Cell Urine None seen /hpf (Few); WBC Urine 0-5 /hpf; pH Urine 6.5 (5.0-9.0)
[2022-12-21 02:34] LABS: Add Urine Microscopic? YES; Amphetamine Screen Urine Negative (Negative); Barbiturate Screen Urine Negative (Negative); Benzodiazepines Screen Urine Negative (Negative); Cannabinoid Screen Urine Negative (Negative); Cocaine Screen Urine Negative (Negative); Methadone Screen Urine Negative (Negative); Opiate Screen Urine Negative (Negative); Phencyclidine Screen Urine Negative (Negative)
[2022-12-21 03:17] LABS: Creatine Kinase 241 U/L (55-170)
[2022-12-21] MEDS: LORazepam INJ (*CRX) 2 MG/ML VIAL 0.5 MG IV PUSH (03:22)
[2022-12-21] MEDS: SODIUM CHLORIDE 0.9% IV 1,000 ML 999 ML IV CONT (03:24)
[2022-12-21] MEDS: ONDANSETRON INJ 4 MG/2 ML VIAL IV PUSH (03:24)
--- NOTE | 2022-12-21 03:44 | PC.NURSE ---
Patient stated his legs were hurting due to leg cramps. Notified EDP Dr. Obregon who verbally ordered 4mg Morphine IVP.
[2022-12-21 03:46] LABS: Free T4 Free Thyroxine Reflex 1.51 ng/dL (0.78-2.19)
[2022-12-21] MEDS: MORPHINE SULFATE (*CRX) 4 MG/ML INJ IV PUSH (03:46)
[2022-12-21 04:29] LABS: Total Triiodothyronine (T3) 1.86 NG/ML (0.97-1.69)
[2022-12-21 05:53] LABS: Influenza A QL RT-PCR Negative (Negative); Influenza B QL RT-PCR Negative (Negative); SARS-CoV-2 RNA PCR Negative (Negative)
--- NOTE | 2022-12-21 07:01 | ADMGEN ---
This patient, Jax Vargas, was admitted to [facility] Surg Room 302-01. Patient/family oriented to hospital policies and general routines including ID bracelet, bed and alarms, visiting hours, pain management, procedures, bathroom and other care routines, personal items, smoking policy, room service/diet, and visiting hours. Information on how to activate the Rapid Response Team has been discussed. Patient/Family are encouraged to report perceived risks to care and to ask questions if they do not understand what they are told or what they should do.
[2022-12-21] MEDS: AZITHROMYCIN 500 MG/NS 250 ML 500 MG/250 ML BAG 250 MG IVPB (09:57)
--- NOTE | 2022-12-21 11:23 | WPDNEURCNPN ---
Assessment and Plan Assessment and plan (1) Altered mental status: Qualifiers: Altered mental status type: disorientation Qualified Code(s): R41.0 - Disorientation, unspecified Code(s): R41.82 - Altered mental status, unspecified Status: Acute Plan 1 dizziness could be peripheral MRI is awaited but considering abnormal CTA with vertebral stenosis symptomatology could be central in origin and he needs to be continued on higher dosage of aspirin or else aspirin 81 mg daily plus Plavix 75 mg daily 2 rule out the possibility of the seizure though extremely unlikely Consult date: 12/21/22 HPI: Jax Vargas is a 72 year old male Admitted to the hospital for the complaints of change in the mental status in addition to the ongoing history of 1. Hypothyroidism 2. Seizure disorder patient was brought to the ER by EMS as a code stroke for aphasia. as per the information from the EMS patient's spouse was a poor historian she noted him to be confused with garbled speech patient has been taking aspirin 5500 mg daily with naproxen on p.r.n. basis. He is reportedly allergic to multiple medications as documented, and has history of anxiety with depression, epilepsy, hypothyroidism, sleep apnea, and traumatic brain injury, he has history of 40 pack year smoking though he has stopped smoking 1995 also history of being heavy drinker though none over the last 30 years, initial exam in the emergency room was with him being in distress, vital signs were normal with blood pressure 141/79 and him being afebrile, CBC was normal so as the BMP, and drug screen was negative in addition is screening for the virus infection was also negative, EKG revealed no atrial fibrillation although new finding was the block, CTA revealed old infarct in the bilateral basal ganglia, no aneurysm, but focal severe stenosis of the left mid vertebral artery, his medications do include aspirin daily in addition to simvastatin 15 mg daily along with the anti depressant medications PMFSH Past Medical History Medical History Anxiety Benign prostatic hyperplasia Cerebrovascular accident COVID Degenerative disc disease Depression Diverticulitis Diverticulosis Epilepsy Histoplasmosis Hyperlipidemia Hypothyroidism Irritable bowel syndrome Kidney stones Peptic ulcer Pneumonia Skull fracture Sleep apnea Transient ischemic attack Traumatic brain injury Surgical History Surgical History History of cardiac catheterization History of cataract extraction History of colonoscopy with polypectomy History of lithotripsy History of rotator cuff surgery Bilateral. History of tonsillectomy History of total left hip arthroplasty Family History Family History Mother Family history of malignant neoplasm of breast in first degree relative Family history of cardiovascular disease Father Family history of cardiovascular disease Other Family history of arthritis Family history of mental disorder Social History Social History Social History: Surrogate medical decision maker: Quita Vargas Code status: Full code. Smoking status: Smoker, status unknown Tobacco type: cigarettes Additional smoking assessment comments: Forty pack-year smoking history, quit in 1994. Alcohol intake: unknown Alcohol use details: Heavy drinker in the past, none in 30 years. Substance use: unknown Substance use type: does not use Lack of Transportation: No Lack of Food: Sometimes True Current Housing: I Have Housing Concerned About Future Housing: No Difficulty Paying Gas/Electric Bills: No Difficulty Paying for Meds: No Currently Unemployed: No Education: Associate Degree Difficulty w/ Childcare or Family Care: Decline to Answer [place]
--- NOTE | 2022-12-21 11:54 | PM.IMHP ---
H&P: HPI History of Present Illness Date/Time: 12/21/22 11:54 Chief Complaint: This is a 72-year-old male with a reported history of seizure disorder and hypothyroidism, who is brought in by EMS as a code stroke for aphasia.? EMS reports the patient's spouse was poor historian and noted the patient appeared confused with garbled speech.? EMS was unable to decipher a last known well time and were thus unable to get a fast ED exam. On arrival, the patient is able to tell me his name but nothing else. Review of Systems Review of Systems: Unable to obtain review of systems due to altered mental status [facility] Past Medical History Medical History Anxiety Benign prostatic hyperplasia Cerebrovascular accident COVID Degenerative disc disease Depression Diverticulitis Diverticulosis Epilepsy Histoplasmosis Hyperlipidemia Hypothyroidism Irritable bowel syndrome Kidney stones Peptic ulcer Pneumonia Skull fracture Sleep apnea Transient ischemic attack Traumatic brain injury Surgical History Surgical History History of cardiac catheterization History of cataract extraction History of colonoscopy with polypectomy History of lithotripsy History of rotator cuff surgery Bilateral. History of tonsillectomy History of total left hip arthroplasty Family History Family History Mother Family history of malignant neoplasm of breast in first degree relative Family history of cardiovascular disease Father Family history of cardiovascular disease Other Family history of arthritis Family history of mental disorder Social History Social History Social History: Surrogate medical decision maker: Quita Vargas Code status: Full code. Smoking status: Smoker, status unknown Tobacco type: cigarettes Additional smoking assessment comments: Forty pack-year smoking history, quit in 1994. Alcohol intake: unknown Alcohol use details: Heavy drinker in the past, none in 30 years. Substance use: unknown Substance use type: does not use Lack of Transportation: No Lack of Food: Sometimes True Current Housing: I Have Housing Concerned About Future Housing: No Difficulty Paying Gas/Electric Bills: No Difficulty Paying for Meds: No Currently Unemployed: No Education: Associate Degree Difficulty w/ Childcare or Family Care: Decline to Answer Living arrangements: with family Additional living arrangements comments: Lives with spouse in [place]. 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 Spiritual care concerns: No Meds Home Medications and Allergies Home Medications Medication Instructions Recorded Confirmed Type tamsulosin 0.4 mg capsule See Rx Instructions .Route 10/26/20 11/09/22 Rx .COMPLEX #90 caps divalproex 500 mg tablet,extended 500 mg PO DAILY #90 tabs 02/07/22 11/09/22 Rx release 24 hr aspirin 500 mg tablet 500 mg PO DAILY 04/21/22 11/09/22 History naproxen 500 mg tablet See Rx Instructions .Route 04/21/22 11/09/22 History .COMPLEX PRN Pain venlafaxine 75 mg capsule,extended See Rx Instructions .Route 05/11/22 11/09/22 Rx release 24 hr .COMPLEX #90 caps buspirone 5 mg tablet 5 mg PO TID PRN anxiety #90 tabs 08/09/22 12/21/22 Rx cyclobenzaprine 10 mg tablet See Rx Instructions .Route 09/19/22 12/21/22 Rx .COMPLEX #60 tabs levothyroxine 100 mcg tablet 100 mcg PO DAILY #90 tabs 10/13/22 12/21/22 Rx venlafaxine 150 mg See Rx Instructions .Route 10/13/22 12/21/22 Rx capsule,extended release 24 hr .COMPLEX #90 caps meclizine 25 mg tablet 25 mg PO BID PRN dizziness #14 tabs 11/03/22 11/09/22 Rx simvastatin 10 mg tablet 15 mg PO DAILY 12/21/22 12/21/22 History Allergies Allergy/AdvReac T
[2022-12-21] MEDS: DICYCLOMINE HCL INJ 20 MG/2 ML VIAL 5 MG IM (21:09)
[2022-12-22] VITALS (9 sets, daily range): BP systolic 104–130; BP diastolic 49–66; PULSE 52–67; RESP 13–18; TEMP 36.1–36.8; O2SAT 97–99
[2022-12-22 06:26] LABS: Basophils Percent Auto 0.7 % (0.2-1.2); Eosinophils Absolute Auto 0.1 K/mm3 (0-0.3); Eosinophils Percent Auto 2.2 % (0-4.4); Hematocrit 41.2 % (42.0-52.0); Hemoglobin 13.7 g/dL (14.0-18.0); Immature Granulocyte Absolute 0.02 K/mm3 (0.00-0.031); Immature Granulocyte Percent A 0.4 % (0-0.5); Lymphocytes Absolute Auto 1.48 K/mm3 (0.9-3.2); Lymphocytes Percent Auto 27.7 % (18.3-44.2); Mean Corpuscular HGB Conc 33.3 g/dl (32-36); Mean Corpuscular Volume 96.3 fl (80-100); Mean Platelet Volume 8.6 fl (7.4-10.4); Monocytes Absolute Auto 0.6 K/mm3 (0.1-0.6); Monocytes Percent Auto 10.9 % (2.6-8.5); Neutrophils Absolute Auto 3.1 K/mm3 (1.3-6.7); Neutrophils Percent Auto 58.1 % (45.5-73.1); Platelet Count Result 123 k/mm3 (150-375); Red Blood Count 4.28 M/mm3 (4.6-6.20); Red Cell Distribution Width 13.5 % (11.5-14.5); White Blood Count 5.3 K/mm3 (4.5-10.0)
[2022-12-22 06:42] LABS: Anion Gap 4 mmol/L (8-16); Blood Urea Nitrogen 17 mg/dL (9-20); Carbon Dioxide 31 mmol/L (22-30); Chloride 100 mmol/L (98-107); Estimated CRCL calculation 43 ml/min; Estimated Glomerular Filt Rate 59; Glucose 85 mg/dL (65-110); Potassium 4.5 mmol/L (3.4-5.0); Sodium 135 mmol/L (137-145)
--- NOTE | 2022-12-22 08:41 | PCSTNOTE ---
Please refer to the Bedside Swallow Evaluation in the EMR. Please note, silent aspiration cannot be ruled out at bedside.
[2022-12-22] MEDS: CLOPIDOGREL BISULFATE 75 MG TABLET PO (08:57)
[2022-12-22] MEDS: ASPIRIN 81 MG ENTERIC TABLET PO (08:57)
[2022-12-22] MEDS: AZITHROMYCIN 500 MG/NS 250 ML 500 MG/250 ML BAG 250 MG IVPB (08:59)
[2022-12-22] MEDS: SIMVASTATIN 5 MG TABLET 15 MG PO (09:27)
--- NOTE | 2022-12-22 11:04 | PM.IMPN ---
Progress Note: A&P Assessment and Plan (1) Bilateral leg cramps: Code(s): R25.2 - Cramp and spasm Status: Acute Assessment and Plan: Complaining of right hip and right ankle pain. Will get x-rays. No signs of trauma. (2) Altered mental status: Qualifiers: Altered mental status type: disorientation Qualified Code(s): R41.0 - Disorientation, unspecified Code(s): R41.82 - Altered mental status, unspecified Status: Acute Assessment and Plan: Appreciate neurology input. Resume home medications. Likely baseline. (3) Anxiety: Code(s): F41.9 - Anxiety disorder, unspecified Status: Acute (4) Low back pain: Code(s): M54.50 - Low back pain, unspecified Status: Acute (5) Hypothyroidism: Qualifiers: Hypothyroidism type: unspecified Qualified Code(s): E03.9 - Hypothyroidism, unspecified Code(s): E03.9 - Hypothyroidism, unspecified Status: Acute (6) Hyperlipemia: Qualifiers: Hyperlipidemia type: unspecified Qualified Code(s): E78.5 - Hyperlipidemia, unspecified Code(s): E78.5 - Hyperlipidemia, unspecified Status: Acute (7) Pneumonia: Code(s): J18.9 - Pneumonia, unspecified organism Status: Acute Assessment and Plan: IV antibiotics. Subjective Date/time seen: 12/22/22 11:04 Interval history: No complaints Mental status is much better. Exam Narrative: exam revealed him to be awake alert cooperative in no obvious acute distress but definitely slow in his responses to he followed the verbal commands appropriately try other slowly and was not very spontaneous in verbal communication head was normocephalic with no bruit neck was supple with no cervical bruits heart was regular with no murmur lungs were clear to auscultation abdomen is soft nontender neurologically he was awake alert but again slow in responses pupils round regular use of vision were full to the threat stimuli 3 palpebral fissure was symmetrical facial sensation was intact face was symmetrical and was in the oral cavity with no fasciculation motor examination revealed him to be generally decreased strength with sluggish reflexes and downgoing plantar responses Objective Data Vital Signs Vital Signs: Vital Signs - 24 hr 12/21/22 12:00 12/21/22 13:24 12/21/22 16:00 Temperature 98.7 F Pulse Rate 69 69 60 Respiratory Rate 16 Blood Pressure 122/62 Pulse Oximetry 97 Oxygen Delivery 12/21/22 21:31 12/21/22 20:00 12/22/22 00:00 Temperature 98.4 F Pulse Rate 61 61 62 Respiratory Rate 14 Blood Pressure 140/62 Pulse Oximetry 100 Oxygen Delivery 12/22/22 04:00 12/22/22 05:31 12/22/22 08:00 Temperature 98.3 F 97.6 F Pulse Rate 57 L 67 60 Respiratory Rate 13 16 Blood Pressure 118/49 L 119/59 L Pulse Oximetry 99 98 Oxygen Delivery 12/22/22 08:00 12/22/22 08:00 Temperature Pulse Rate 54 L 60 Respiratory Rate Blood Pressure Pulse Oximetry Oxygen Delivery Room Air Intake/Output Intake/Output: Intake & Output 12/19/22 12/20/22 12/21/22 12/22/22 23:59 23:59 23:59 23:59 Intake Total 1300 50 Output Total 150 350 Balance 1150 -300 Meds/Results Medications: Active Medications Generic Name Dose Route Start Last Admin Trade Name Roberto PRN Reason Stop Dose Admin Aspirin 81 mg 12/22/22 09:00 12/22/22 08:57 Aspirin 81 Mg Enteric Tablet PO 81 mg QAM NATHALIE Administration Clopidogrel Bisulfate 75 mg 12/22/22 09:00 12/22/22 08:57 Clopidogrel Bisulfate 75 Mg Tablet PO 75 mg QAM NATHALIE Administration Ceftriaxone Sodium 1 gm in 50 mls @ 100 mls/hr 12/21/22 09:00 12/22/22 09:28 Rocephin 1 Gm/Ns 50 Ml IVPB Infused Q24H NATHALIE Infusion Azithromycin 500 mg in 250 mls @ 250 mls/hr 12/21/22 09:00 12/22/22 08:59 Zithromax IVPB 250 mls/hr Q24H NATHALIE Administration Simvastatin 15 mg 12/22/22 09:00 12/22/22 09:27
--- NOTE | 2022-12-22 11:49 | PCDIET ---
Pt evaluated by speech. Diet recommendations for a regular diet noted. Regular diet is ordered at this time. Will monitor per protocol.
[2022-12-22 12:52] LABS: Glucose Point of Care 96 mg/dl (65-105)
[2022-12-23] VITALS: PULSE 61
[2022-12-23 04:00] VITALS: PULSE 60
[2022-12-23 05:13] VITALS: BP 118/49; PULSE 55; RESP 18; TEMP 36.8; O2SAT 96
[2022-12-23] MEDS: ACETAMINOPHEN 500 MG TABLET 1000 MG PO (06:53)
[2022-12-23 08:05] VITALS: PULSE 53
[2022-12-23] MEDS: SIMVASTATIN 5 MG TABLET 15 MG PO (08:10)
[2022-12-23] MEDS: ASPIRIN 81 MG ENTERIC TABLET PO (08:10)
[2022-12-23] MEDS: CLOPIDOGREL BISULFATE 75 MG TABLET PO (08:10)
[2022-12-23] MEDS: AZITHROMYCIN 500 MG/NS 250 ML 500 MG/250 ML BAG 250 MG IVPB (08:56)
--- NOTE | 2022-12-23 11:23 | PM.DS ---
DS: Admitting Diagnosis Discharge Date December 23, 2022 Admitting Diagnosis Pneumonia, altered mental status DS: Discharge Diagnosis Discharge Diagnosis (1) Bilateral leg cramps: Code(s): R25.2 - Cramp and spasm Status: Acute Assessment and Plan: Complaining of right hip and right ankle pain. Will get x-rays. No signs of trauma. (2) Altered mental status: Qualifiers: Altered mental status type: disorientation Qualified Code(s): R41.0 - Disorientation, unspecified Code(s): R41.82 - Altered mental status, unspecified Status: Acute Assessment and Plan: Appreciate neurology input. Resume home medications. Likely baseline. (3) Anxiety: Code(s): F41.9 - Anxiety disorder, unspecified Status: Acute (4) Low back pain: Code(s): M54.50 - Low back pain, unspecified Status: Acute (5) Hypothyroidism: Qualifiers: Hypothyroidism type: unspecified Qualified Code(s): E03.9 - Hypothyroidism, unspecified Code(s): E03.9 - Hypothyroidism, unspecified Status: Acute (6) Hyperlipemia: Qualifiers: Hyperlipidemia type: unspecified Qualified Code(s): E78.5 - Hyperlipidemia, unspecified Code(s): E78.5 - Hyperlipidemia, unspecified Status: Acute (7) Pneumonia: Code(s): J18.9 - Pneumonia, unspecified organism Status: Acute Assessment and Plan: IV antibiotics. DS: Summary Hospital Course Hospital Course: 72-year-old gentleman came in with altered mental status found have pneumonia. Started on antibiotics he improved significantly. Vitals are stable. He can be discharged on oral Omnicef. Time Spent with Patient Time attestation: Total time spent providing and/or coordinating discharge services: Exam Narrative: exam revealed him to be awake alert cooperative in no obvious acute distress but definitely slow in his responses to he followed the verbal commands appropriately try other slowly and was not very spontaneous in verbal communication head was normocephalic with no bruit neck was supple with no cervical bruits heart was regular with no murmur lungs were clear to auscultation abdomen is soft nontender neurologically he was awake alert but again slow in responses pupils round regular use of vision were full to the threat stimuli 3 palpebral fissure was symmetrical facial sensation was intact face was symmetrical and was in the oral cavity with no fasciculation motor examination revealed him to be generally decreased strength with sluggish reflexes and downgoing plantar responses DS: Data Data Completed and Pending Labs on day of discharge: Labs from last 24 hours 12/21/22 01:20 POC Capillary Glucose 96 Discharge Plan Discharge Attending physician on discharge: Juan Manuel Alex Consulting providers: Jd Cordova Discharging Clinician: Juan Manuel Alex Patient Disposition: Home, Self-Care Activity: as tolerated Diet: as tolerated Patient Instructions: Antibiotic Form, How to Stop Smoking (DC), Cigarette Smoking and Your Health (GEN) Stand Alone Forms: General Discharge Information Follow-up/Referrals: Tammy Patel DO [Primary Care Provider] - Discharge Medications: New cefdinir 300 mg capsule 300 mg PO Q12H Qty: 10 0RF Continued cyclobenzaprine 10 mg tablet See Rx Instructions .ROUTE .COMPLEX Qty: 60 2RF Dose Instruction: TAKE 1 TABLET BY MOUTH THREE TIMES DAILY NEEDED FOR MUSCLE SPASM Rx Instructions: TAKE 1 TABLET BY MOUTH THREE TIMES DAILY NEEDED FOR MUSCLE SPASM aspirin 500 mg tablet 500 mg PO DAILY naproxen 500 mg tablet See Rx Instructions .ROUTE .COMPLEX PRN (Reason: Pain) Dose Instruction: TAKE 1 TABLET BY MOUTH TWICE DAILY NEEDED FOR PAIN Rx Instructions: TAKE 1 TABLET BY MOUTH once DAILY NEEDED FOR PAIN buspirone 5 mg tablet 5 mg PO TID PRN (Reason:
== END 2022-12-23 12:45 | disposition home or self-care (01) ==
LOC: ANHED 06:29 → ANH3MEDSUR 07:12
PROVIDERS: Internal Medicine; Admitting Provider Chiropractor; Emergency Provider Preventive Medicine Aerospace Medicine; PCP Family Medicine; Visit Provider Chiropractor
DX: R41.0 Disorientation, unspecified (principal); R25.2 Cramp and spasm; F41.8 Other specified anxiety disorders; M54.40 Lumbago with sciatica, unspecified side; J18.9 Pneumonia, unspecified organism; E03.9 Hypothyroidism, unspecified; N40.0 Benign prostatic hyperplasia without lower urinary tract symptoms; K58.9 Irritable bowel syndrome, unspecified; I65.02 Occlusion and stenosis of left vertebral artery; G40.909 Epilepsy, unspecified, not intractable, without status epilepticus; E78.5 Hyperlipidemia, unspecified; Z20.822 Contact with and (suspected) exposure to COVID-19; M25.571 Pain in right ankle and joints of right foot; M16.11 Unilateral primary osteoarthritis, right hip; R90.82 White matter disease, unspecified; G47.30 Sleep apnea, unspecified; R91.8 Other nonspecific abnormal finding of lung field; J98.11 Atelectasis; I44.0 Atrioventricular block, first degree; R94.31 Abnormal electrocardiogram [ECG] [EKG]; Z87.820 Personal history of traumatic brain injury; Z86.16 Personal history of COVID-19; Z87.891 Personal history of nicotine dependence; Z79.82 Long term (current) use of aspirin; Z79.1 Long term (current) use of non-steroidal anti-inflammatories (NSAID)
CPT/HCPCS: 36415; 70450; 70496; 70498; 71045; 73502; 73600; 74176; 80048; 80053; 80307; 81001; 82550; 82948; 84439; 84443; 84480; 84484; 85025; 85610; 85730; 87636; 92526; 92610; 93005; 96361; 96365; 96368; 96372; 96375; 96376; 97110; 97116; 97161; 97165; 97530; 97535; 99285; A9270; G0378; J0456; J0500; J0696; J2060; J2270; J2405; J7030; Q9967

== ENCOUNTER 2023-01-19 12:03 | Emergency (ER) | payer MEDICARE, MEDICAID, SELFPAY ==
[2023-01-19 12:09] VITALS: BP 144/92; PULSE 75; RESP 19; TEMP 36.7; O2SAT 98
[2023-01-19 14:46] VITALS: BP 151/71; PULSE 72; RESP 16; TEMP 36.6; O2SAT 100
[2023-01-19 15:10] LABS: Basophils Percent Auto 0.5 % (0.2-1.2); Eosinophils Absolute Auto 0.1 K/mm3 (0-0.3); Hematocrit 44.5 % (42.0-52.0); Hemoglobin 15.3 g/dL (14.0-18.0); Immature Granulocyte Absolute 0.02 K/mm3 (0.00-0.031); Immature Granulocyte Percent A 0.3 % (0-0.5); Lymphocytes Absolute Auto 1.83 K/mm3 (0.9-3.2); Lymphocytes Percent Auto 29.6 % (18.3-44.2); Mean Corpuscular HGB Conc 34.4 g/dl (32-36); Mean Corpuscular Hemoglobin 32.1 pg (26-34); Mean Corpuscular Volume 93.5 fl (80-100); Mean Platelet Volume 8.5 fl (7.4-10.4); Monocytes Absolute Auto 0.6 K/mm3 (0.1-0.6); Monocytes Percent Auto 9.2 % (2.6-8.5); Neutrophils Absolute Auto 3.7 K/mm3 (1.3-6.7); Neutrophils Percent Auto 59.4 % (45.5-73.1); Platelet Count Result 185 k/mm3 (150-375); Red Blood Count 4.76 M/mm3 (4.6-6.20); Red Cell Distribution Width 13.2 % (11.5-14.5); White Blood Count 6.2 K/mm3 (4.5-10.0)
[2023-01-19] MEDS: SODIUM CHLORIDE 0.9% IV 1,000 ML 999 ML IV CONT (15:13)
[2023-01-19] MEDS: MORPHINE SULFATE (*CRX) 4 MG/ML INJ 2 MG IV PUSH (15:14)
[2023-01-19] MEDS: ONDANSETRON INJ 4 MG/2 ML VIAL IV PUSH (15:14)
[2023-01-19 15:28] LABS: Alanine Aminotransferase 20 U/L (6-50); Albumin Level 4.8 g/dL (3.5-5.1); Alkaline Phosphatase 59 U/L (38-126); Anion Gap 9 mmol/L (8-16); Aspartate Amino Transferase 44 U/L (17-59); Bilirubin,Total 1.9 mg/dL (0.2-1.3); Blood Urea Nitrogen 13 mg/dL (9-20); Calcium 9.9 mg/dL (8.4-10.2); Carbon Dioxide 28 mmol/L (22-30); Chloride 98 mmol/L (98-107); Estimated CRCL calculation 46 ml/min; Estimated Glomerular Filt Rate > 60; Glucose 90 mg/dL (65-110); Lipase 184 U/L (23-300); Potassium 4.3 mmol/L (3.4-5.0); Sodium 135 mmol/L (137-145)
[2023-01-19 15:56] LABS: Appearance Urine Clear (Clear); Bilirubin Urine Negative (Negative); Blood Urine Negative (Negative); Color Urine Dark Yellow (Yellow); Glucose Urine UA Negative (Negative); Ketones Urine 1+ mg/dL (Negative); Leukocyte Esterase Ur Negative LEU/UL (Negative); Nitrate Urine Negative (Negative); Protein Urine Negative (Negative); Specific Grav Ur 1.018 (1.001-1.035)
[2023-01-19 16:09] LABS: Add Urine Microscopic? NO
[2023-01-19] MEDS: MECLIZINE HCL 25 MG TABLET PO (16:49)
--- NOTE | 2023-01-19 17:28 | ED.NAVMDI ---
HPI - Nausea/Vomiting/Diarrhea General Chief complaint: Nausea/Vomiting/Diarrhea Stated complaint: nausea Time Seen by Provider: 01/19/23 14:40 History of Present Illness HPI Narrative: Patient is a 72-year-old male who presents ER with nausea. Ongoing over the last week. No fevers or chills or sweats. No diarrhea. No known sick contacts. No abdominal discomfort. Patient describes no alleviating factors. Patient is a poor historian but his is present and has no additional history to provide. Related Data Home Medications Medication Instructions Recorded Confirmed aspirin 500 mg tablet 500 mg PO DAILY 04/21/22 01/06/23 naproxen 500 mg tablet See Rx Instructions .Route 04/21/22 01/06/23 .COMPLEX PRN Pain simvastatin 10 mg tablet 15 mg PO DAILY 12/21/22 01/06/23 Allergies Allergy/AdvReac Type Severity Reaction Status Date / Time Aminoglycosides Allergy Severe SWELLING, Verified 01/06/23 14:10 MAKES INFECTION WORSE bacitracin Allergy Severe SWELLING, Verified 01/06/23 14:10 MAKES INFECTION WORSE Fish Containing Products Allergy Severe ANAPHYLAXIS Verified 01/06/23 14:10 neomycin Allergy Severe SWELLING, Verified 01/06/23 14:10 MAKES INFECTION WORSE shellfish derived Allergy Severe ANAPHYLAXIS Verified 01/06/23 14:10 Sulfa (Sulfonamide Allergy Unknown Anaphylactic Verified 01/06/23 14:10 Antibiotics) Shock BETI/ Allergy Severe ANAPHYLACTIC--THROAT Uncoded 01/06/23 14:10 SWELLING FLUOXETINE HCL Allergy Unknown SSRI= Uncoded 01/06/23 14:10 SUICIDAL REACTION ZOLPIDEM TARTRATE AdvReac Intermediate confusion Uncoded 01/06/23 14:10 Review of Systems Review of Systems: All systems reviewed & are unremarkable except as noted in HPI and below Constitutional: Constitutional: Denies chills and Denies fever(s) ENT: Denies nasal congestion and Denies sore throat Cardiovascular: Cardiovascular: Denies chest pain, Denies rapid heart rate and Denies radiating jaw, neck or arm pain Respiratory: Respiratory: Denies cough and Denies dyspnea Gastrointestinal: Gastrointestinal: Denies abdominal pain, Reports nausea and Reports vomiting PMFSH Past Medical History Medical History Anxiety Benign prostatic hyperplasia Cerebrovascular accident COVID Degenerative disc disease Depression Diverticulitis Diverticulosis Epilepsy Histoplasmosis Hyperlipidemia Hypothyroidism Irritable bowel syndrome Kidney stones Peptic ulcer Pneumonia Skull fracture Sleep apnea Transient ischemic attack Traumatic brain injury Surgical History Surgical History History of cardiac catheterization History of cataract extraction History of colonoscopy with polypectomy History of lithotripsy History of rotator cuff surgery Bilateral. History of tonsillectomy History of total left hip arthroplasty Family History Family History Mother Family history of malignant neoplasm of breast in first degree relative Family history of cardiovascular disease Father Family history of cardiovascular disease Other Family history of arthritis Family history of mental disorder Social History Social History Social History: Surrogate medical decision maker: Quita Vargas Code status: Full code. Smoking status: Smoker, status unknown Tobacco type: cigarettes Additional smoking assessment comments: Forty pack-year smoking history, quit in 1994. Alcohol intake: unknown Alcohol use details: Heavy drinker in the past, none in 30 years. Substance use: unknown Substance use type: does not use Lack of Transportation: No Lack of Food: Sometimes True Current Housing: I Have Housing Concerned About Future Housing: No Difficulty Payi
[2023-01-19 17:38] LABS: Free T4 Free Thyroxine Reflex 1.58 ng/dL (0.78-2.19)
== END 2023-01-19 17:43 | disposition home or self-care (01) ==
PROVIDERS: Emergency Provider Emergency Medicine; PCP Family Medicine
DX: R11.0 Nausea (principal); G40.909 Epilepsy, unspecified, not intractable, without status epilepticus; E78.5 Hyperlipidemia, unspecified; E03.9 Hypothyroidism, unspecified; N40.0 Benign prostatic hyperplasia without lower urinary tract symptoms; G47.30 Sleep apnea, unspecified; K58.9 Irritable bowel syndrome, unspecified; F32.A Depression, unspecified; F41.9 Anxiety disorder, unspecified; Z96.642 Presence of left artificial hip joint; Z98.49 Cataract extraction status, unspecified eye; Z87.442 Personal history of urinary calculi; Z87.820 Personal history of traumatic brain injury; Z86.73 Personal history of transient ischemic attack (TIA), and cerebral infarction without residual deficits; Z86.16 Personal history of COVID-19; Z87.11 Personal history of peptic ulcer disease; Z87.891 Personal history of nicotine dependence
CPT/HCPCS: 36415; 80053; 81003; 83690; 84439; 84443; 84480; 85025; 96361; 96374; 96375; 99284; A9270; J2270; J2405; J7030

== ENCOUNTER 2023-02-01 10:35 | Outpatient (CLI) | payer MEDICARE, MEDICAID, SELFPAY ==
--- NOTE | ~2023-02-01 | XR_ITS ---
Clinical Indication: Follow-up abnormal chest x-ray PA and lateral views of the chest: Comparison: 12/21/2022 Findings: The lungs are clear, without evidence of focal consolidation or pleural effusion. Cardiome diastinal silhouette is within normal limits. Suture anchors noted at the right humeral head. Impression: Clear lungs. Reviewed, dictated and finalized at location . Impression: Clear lungs.
== END 2023-02-01 10:36 | disposition home or self-care (01) ==
PROVIDERS: PCP Family Medicine; Visit Provider Family Medicine
DX: J18.9 Pneumonia, unspecified organism (principal)
CPT/HCPCS: 71046; J2704; J2765

== ENCOUNTER 2023-02-06 08:26 | Emergency (ER) | payer MEDICARE, MEDICAID, SELFPAY ==
--- NOTE | ~2023-02-06 | CT_ITS ---
EXAMINATION: CT abdomen pelvis w con DATE: 02/06/2023 09:39 INDICATION: Right lower quadrant abdominal pain. TECHNIQUE: Computed tomography (CT) of the abdomen and pelvis was performed with 100 mL Omnipaque 350 intravenous contrast. Automated exposure control and iterative reconstruction technique were employe d. The dose-length product was 277.45 mGy-cm. COMPARISON: CT abdomen and pelvis 12/21/2022 FINDINGS: The visualized portions of the lung bases demonstrate minimal atelectasis. No pleural effus ion. The heart size is normal. There are coronary artery calcifications. No pericardial effusion. The re is ectasia of ascending aorta measuring 4.0 cm. The liver, gallbladder, spleen, and adrenal glands are normal. There are calcifications in the pancreas, consistent with chronic pancreatitis. There ar e cysts in right kidney measuring up to 18 mm. There are 5 stones in left kidney measuring up to 3 mm . There is a large volume of stool in the colon with distention of the rectum. The appendix is normal . There is calcified atherosclerosis of the aorta and many of the other arteries. There are no pathol ogically enlarged lymph nodes. There is no free intraperitoneal fluid. There is a total left hip arth roplasty. There is severe lumbar spondylosis. IMPRESSION: 1. Large volume of stool in the colon with distention of the rectum. Reviewed, dictated and finalized at location A.
[2023-02-06 08:30] VITALS: BP 163/65; PULSE 61; RESP 18; TEMP 36.1; O2SAT 100
[2023-02-06 08:46] LABS: Basophils Percent Auto 0.7 % (0.2-1.2); Eosinophils Absolute Auto 0.1 K/mm3 (0-0.3); Eosinophils Percent Auto 2.1 % (0-4.4); Hematocrit 41.8 % (42.0-52.0); Hemoglobin 14.5 g/dL (14.0-18.0); Immature Granulocyte Absolute 0.02 K/mm3 (0.00-0.031); Immature Granulocyte Percent A 0.4 % (0-0.5); Lymphocytes Absolute Auto 1.37 K/mm3 (0.9-3.2); Lymphocytes Percent Auto 24.1 % (18.3-44.2); Mean Corpuscular HGB Conc 34.7 g/dl (32-36); Mean Corpuscular Hemoglobin 32.9 pg (26-34); Mean Corpuscular Volume 94.8 fl (80-100); Mean Platelet Volume 8.7 fl (7.4-10.4); Monocytes Absolute Auto 0.5 K/mm3 (0.1-0.6); Monocytes Percent Auto 8.1 % (2.6-8.5); Neutrophils Absolute Auto 3.7 K/mm3 (1.3-6.7); Neutrophils Percent Auto 64.6 % (45.5-73.1); Platelet Count Result 193 k/mm3 (150-375); Red Blood Count 4.41 M/mm3 (4.6-6.20); White Blood Count 5.7 K/mm3 (4.5-10.0)
[2023-02-06 08:55] LABS: Alanine Aminotransferase 22 U/L (6-50); Albumin Level 4.1 g/dL (3.5-5.1); Alkaline Phosphatase 64 U/L (38-126); Anion Gap 9 mmol/L (8-16); Aspartate Amino Transferase 31 U/L (17-59); Blood Urea Nitrogen 16 mg/dL (9-20); Calcium 9.2 mg/dL (8.4-10.2); Carbon Dioxide 29 mmol/L (22-30); Chloride 100 mmol/L (98-107); Estimated CRCL calculation 42 ml/min; Estimated Glomerular Filt Rate > 60; Glucose 103 mg/dL (65-110); Lipase 331 U/L (23-300); Potassium 3.5 mmol/L (3.4-5.0); Sodium 138 mmol/L (137-145)
[2023-02-06] MEDS: SODIUM CHLORIDE 0.9% IV 1,000 ML 999 ML IV CONT (09:18)
[2023-02-06] MEDS: MORPHINE SULFATE (*CRX) 4 MG/ML INJ 2 MG IV PUSH (09:18)
[2023-02-06 09:22] VITALS: BP 158/78; PULSE 61; RESP 15; O2SAT 100
--- NOTE | 2023-02-06 09:29 | PC.NURSE ---
Pt to CT scan via stretcher at this time.
[2023-02-06 09:31] LABS: Appearance Urine Clear (Clear); Bilirubin Urine Negative (Negative); Blood Urine Negative (Negative); Color Urine Yellow (Yellow); Glucose Urine UA Negative (Negative); Ketones Urine Negative (Negative); Leukocyte Esterase Ur Negative LEU/UL (Negative); Nitrate Urine Negative (Negative); Protein Urine Negative (Negative)
[2023-02-06 09:39] LABS: Bacteria Urine 1+ /hpf; Need Manual Microscopic Reviewed; Non Pathogenic Casts 0-2; Squamous Epithelial Cell Urine Occasional /hpf (Few); WBC Urine 0-5 /hpf
[2023-02-06 09:42] LABS: Add Urine Microscopic? NO
--- NOTE | 2023-02-06 10:16 | ED.GENADULT ---
HPI - General Adult General Chief complaint: Abdominal Pain Stated complaint: constipated xx 1 week Time Seen by Provider: 02/06/23 08:36 History of Present Illness HPI narrative: Patient is a 72-year-old male who presents ER with constipation. Ongoing for 1 week. He is passing gas without issue. No nausea or vomiting. Has pain in his right lower quadrant. This is also been a longstanding issue and he is being referred to pain management. Denies any alleviating factors but is not taking laxatives. No urinary frequency or urgency or dysuria. Related Data Home Medications Medication Instructions Recorded Confirmed aspirin 500 mg tablet 500 mg PO DAILY 04/21/22 01/24/23 naproxen 500 mg tablet See Rx Instructions .Route 04/21/22 01/24/23 .COMPLEX PRN Pain simvastatin 10 mg tablet 15 mg PO DAILY 12/21/22 01/24/23 Allergies Allergy/AdvReac Type Severity Reaction Status Date / Time Aminoglycosides Allergy Severe SWELLING, Verified 02/06/23 08:39 MAKES INFECTION WORSE bacitracin Allergy Severe SWELLING, Verified 02/06/23 08:39 MAKES INFECTION WORSE Fish Containing Products Allergy Severe ANAPHYLAXIS Verified 02/06/23 08:39 neomycin Allergy Severe SWELLING, Verified 02/06/23 08:39 MAKES INFECTION WORSE shellfish derived Allergy Severe ANAPHYLAXIS Verified 02/06/23 08:39 fluoxetine Allergy Unknown SSRI= Verified 02/06/23 09:06 SUICIDAL REACTION Sulfa (Sulfonamide Allergy Unknown Anaphylactic Verified 02/06/23 08:39 Antibiotics) Shock zolpidem AdvReac Intermediate Confusion Verified 02/06/23 09:06 BETI/ Allergy Severe ANAPHYLACTIC--THROAT Uncoded 02/06/23 08:39 SWELLING Review of Systems Review of Systems: All systems reviewed & are unremarkable except as noted in HPI and below Constitutional: Constitutional: Denies chills, Denies fatigue and Denies fever(s) ENT: Reports system reviewed and no additional complaints, except as documented Cardiovascular: Cardiovascular: Reports no additional cardiovascular complaints Respiratory: Respiratory: Reports no additional respiratory complaints Gastrointestinal: Gastrointestinal: Reports abdominal pain, Denies bloating, Reports constipation, Denies diarrhea, Denies nausea and Denies vomiting Genitourinary: Genitourinary: Reports no additional male genitourinary complaints Musculoskeletal: Musculoskeletal: Reports no additional musculoskeletal complaints PMFSH Past Medical History Medical History Anxiety Benign prostatic hyperplasia Cerebrovascular accident COVID Degenerative disc disease Depression Diverticulitis Diverticulosis Epilepsy Histoplasmosis Hyperlipidemia Hypothyroidism Irritable bowel syndrome Kidney stones Peptic ulcer Pneumonia Skull fracture Sleep apnea Transient ischemic attack Traumatic brain injury Surgical History Surgical History History of cardiac catheterization History of cataract extraction History of colonoscopy with polypectomy History of lithotripsy History of rotator cuff surgery Bilateral. History of tonsillectomy History of total left hip arthroplasty Family History Family History Mother Family history of malignant neoplasm of breast in first degree relative Family history of cardiovascular disease Father Family history of cardiovascular disease Other Family history of arthritis Family history of mental disorder Social History Social History Social History: Surrogate medical decision maker: Quita Vargas Code status: Full code. Smoking status: Former smoker Tobacco type: cigarettes Additional smoking assessment comments: Forty pack-year smoking history, quit in 1994. Alcohol intake: unknown Alcohol use details: Jeffry
[2023-02-06 12:33] VITALS: BP 126/58; PULSE 62; RESP 18; O2SAT 99
== END 2023-02-06 13:05 | disposition home or self-care (01) ==
PROVIDERS: Emergency Provider Emergency Medicine; PCP Family Medicine
DX: K58.1 Irritable bowel syndrome with constipation (principal); G40.909 Epilepsy, unspecified, not intractable, without status epilepticus; E78.5 Hyperlipidemia, unspecified; E03.9 Hypothyroidism, unspecified; G47.30 Sleep apnea, unspecified; N40.0 Benign prostatic hyperplasia without lower urinary tract symptoms; F41.9 Anxiety disorder, unspecified; F32.A Depression, unspecified; Z96.642 Presence of left artificial hip joint; Z87.820 Personal history of traumatic brain injury; Z87.01 Personal history of pneumonia (recurrent); Z86.73 Personal history of transient ischemic attack (TIA), and cerebral infarction without residual deficits; Z87.442 Personal history of urinary calculi; Z86.16 Personal history of COVID-19; Z87.11 Personal history of peptic ulcer disease; Z87.891 Personal history of nicotine dependence; Z98.49 Cataract extraction status, unspecified eye; Z79.82 Long term (current) use of aspirin
CPT/HCPCS: 36415; 74177; 80053; 81003; 83690; 85025; 96361; 96374; 99284; J2270; J7030; Q9967

== ENCOUNTER 2023-04-03 11:51 | Outpatient (CLI) | payer MEDICARE, SELFPAY ==
--- NOTE | ~2023-04-03 | XR_ITS ---
AP view of the pelvis and AP and lateral views of the bilateral hips Clinical history: Pain Findings: No acute fracture or dislocation is seen. Left hip arthroplasty in place. No hardware convo cation evident. Right hip joint space is preserved. Soft tissues are unremarkable. Impression: No acute abnormality is seen. Left hip arthroplasty in place. Reviewed, dictated and finalized at location M. RMATION TECHNOLOGY TEACHER Impression: No acute abnormality is seen. Left hip arthroplasty in place.
--- NOTE | ~2023-04-03 | XR_ITS ---
EXAMINATION: XR lumbar spine 6V w bending DATE: 04/03/2023 12:26 INDICATION: Dorsalgia, unspecified. TECHNIQUE: 7 views of lumbar spine including standing and flexion and extension views were obtained. COMPARISON: Lumbar spine radiographs 12/30/2021, chest 2 views 05/02/2022 FINDINGS: L5 is a transitional segment. There is 9 degrees dextrocurvature of thoracolumbar spine. Th ere is 3 mm anterolisthesis of L4 on L5. There is mild chronic anterior wedging of L5 vertebral body. There is 4 mm retrolisthesis of L5 on S1. There is severely decreased disc height at L2-L3 and L3-L4 , mildly decreased disc height at L4-L5, and severely decreased disc height at L5-S1. There is no abn ormal motion with flexion and extension. There is multilevel facet joint osteoarthritis, severe in lo wer lumbar spine. There is a total left hip arthroplasty. IMPRESSION: 1. Severe lumbar spondylosis. Reviewed, dictated and finalized at location E. UNT COORDINATOR
== END 2023-04-03 11:52 ==
PROVIDERS: PCP Family Medicine; Visit Provider Anesthesiology Pain Medicine
DX: M16.9 Osteoarthritis of hip, unspecified (principal); M47.27 Other spondylosis with radiculopathy, lumbosacral region
CPT/HCPCS: 72114; 73521

== ENCOUNTER 2023-04-07 13:02 | Outpatient (CLI) | payer MEDICARE, SELFPAY ==
--- NOTE | ~2023-04-07 | MR_ITS ---
MRI of the lumbar spine Clinical History: Back pain Technique: Axial T2-weighted images, and sagittal T1-weighted, T2-weighted, and and T2 fat-sat images were acquired. COMPARISON: 05/26/2016 Findings: No acute fracture identified. There is mild chronic compression deformity of L5. There is 4 mm retrolisthesis of L5 over S1. No suspicious bone marrow signal abnormality seen. At L1-L2, there is no significant disc bulge or herniation. No spinal canal stenosis or neural forami nal narrowing. At and L2-L3, there is advanced degenerative disc narrowing. There is mild disc bulge and mild facet arthropathy. No central canal stenosis. There is moderate bilateral neural foraminal narrowing. At L3-L4, there is advanced degenerative disc narrowing. There is disc bulge and moderate facet arthr opathy. There is minimal central canal stenosis. There is severe right neural foraminal narrowing, an d mild left neural foraminal narrowing. At L4-L5, there is disc bulge and severe facet arthropathy, with left lateral recess stenosis. There is mild bilateral neural foraminal narrowing otherwise. At L5-S1, there is advanced degenerative disc narrowing. There is diffuse disc bulge and moderate to advanced facet arthropathy. No central canal stenosis. There is severe left neural foraminal narrowin g, and moderate to severe right neural foraminal narrowing. Paravertebral soft tissues are unremarkable. Impression: Moderate degenerative spondylosis, as detailed above. 4 mm retrolisthesis of L5 over S1, with mild chronic compression deformity of L5. Reviewed, dictated and finalized at [facility]. QUALITY ASSURANCE ANALYST Impression: Moderate degenerative spondylosis, as detailed above. 4 mm retrolisthesis of L5 over S1, with mild chronic compression deformity of L 5.
== END 2023-04-07 13:03 ==
LOC: GOSHIMG 13:03
PROVIDERS: PCP Family Medicine; Visit Provider Anesthesiology Pain Medicine
DX: M54.31 Sciatica, right side (principal); M47.896 Other spondylosis, lumbar region
CPT/HCPCS: 72148

== ENCOUNTER 2023-06-13 21:56 | Emergency (ER) | payer MEDICARE, SELFPAY ==
--- NOTE | 2023-06-13 22:00 | ECG_ITS ---
Measurements Intervals [place] Rate: 68 P: 75 NV: 201 QRS: -9 QRSD: 79 T: 78 QT: 396 QTc: 424 Interpretive Statements SINUS RHYTHM NONSPECIFIC ST & T-WAVE ABNORMALITY ABNORMAL ECG COMPARED TO ECG 12/21/2022 01:52:56 NO SIGNIFICANT CHANGES Electronically Signed On 06-14-2023 11:45:32 [employer]NAGER [employer] by Mike Mejía M.D.
[2023-06-13 22:02] VITALS: BP 145/63; PULSE 72; RESP 18; TEMP 36.1; O2SAT 100
[2023-06-13 22:39] LABS: Alanine Aminotransferase 21 U/L (6-50); Alkaline Phosphatase 70 U/L (38-126); Anion Gap 5 mmol/L (8-16); Aspartate Amino Transferase 36 U/L (17-59); Bilirubin,Total 1.5 mg/dL (0.2-1.3); Blood Urea Nitrogen 16 mg/dL (9-20); Calcium 10.6 mg/dL (8.4-10.2); Carbon Dioxide 31 mmol/L (22-30); Chloride 99 mmol/L (98-107); Estimated CRCL calculation 44 ml/min; Estimated Glomerular Filt Rate > 60; Glucose 104 mg/dL (65-110); Lipase 116 U/L (23-300); Potassium 4.2 mmol/L (3.4-5.0); Sodium 135 mmol/L (137-145)
[2023-06-13 22:48] VITALS: BP 129/61; PULSE 60; RESP 20; O2SAT 100
[2023-06-14 00:13] LABS: Basophils Absolute Auto 0.1 K/mm3 (0.0-0.1); Basophils Percent Auto 0.6 % (0.2-1.2); Eosinophils Absolute Auto 0.1 K/mm3 (0-0.3); Eosinophils Percent Auto 1.6 % (0-4.4); Hematocrit 49.9 % (42.0-52.0); Hemoglobin 16.8 g/dL (14.0-18.0); Immature Granulocyte Absolute 0.03 K/mm3 (0.00-0.031); Immature Granulocyte Percent A 0.4 % (0-0.5); Lymphocytes Absolute Auto 1.93 K/mm3 (0.9-3.2); Lymphocytes Percent Auto 23.7 % (18.3-44.2); Mean Corpuscular HGB Conc 33.7 g/dl (32-36); Mean Corpuscular Hemoglobin 31.5 pg (26-34); Mean Corpuscular Volume 93.6 fl (80-100); Mean Platelet Volume 9.3 fl (7.4-10.4); Monocytes Absolute Auto 0.9 K/mm3 (0.1-0.6); Monocytes Percent Auto 11.1 % (2.6-8.5); Neutrophils Absolute Auto 5.1 K/mm3 (1.3-6.7); Neutrophils Percent Auto 62.6 % (45.5-73.1); Platelet Count Result 247 k/mm3 (150-375); Red Blood Count 5.33 M/mm3 (4.6-6.20); Red Cell Distribution Width 13.3 % (11.5-14.5); White Blood Count 8.1 K/mm3 (4.5-10.0)
[2023-06-14 00:20] VITALS: BP 126/61; PULSE 57; RESP 22; O2SAT 97
[2023-06-14 02:00] VITALS: BP 126/61; PULSE 63; RESP 21; O2SAT 99
[2023-06-14] MEDS: SODIUM CHLORIDE 0.9% IV 2,000 ML 999 ML IV CONT (02:44)
[2023-06-14] MEDS: ONDANSETRON INJ 4 MG/2 ML VIAL IV PUSH (02:44)
--- NOTE | 2023-06-14 03:56 | ED.GENADULT ---
HPI - General Adult General Chief complaint: Dizziness Stated complaint: n/v Time Seen by Provider: 06/14/23 01:43 History of Present Illness HPI narrative: this is a 73-year-old male presenting with 3 days of nausea and vomiting. Earlier today he had an episode of vomiting and then while walking down the hallway got lightheaded. He then same to the floor without significant trauma. He came to the hospital to get evaluated. He is denying fever chills nausea vomiting chest pain difficulty breathing abdominal pain or diarrhea. He does not have any antiemetics at home. Related Data Home Medications Medication Instructions Recorded Confirmed aspirin 500 mg tablet 325 mg PO DAILY 04/21/22 04/06/23 naproxen 500 mg tablet See Rx Instructions .Route 04/21/22 04/06/23 .COMPLEX PRN Pain divalproex 500 mg tablet,delayed 500 mg PO 04/06/23 04/06/23 release Allergies Allergy/AdvReac Type Severity Reaction Status Date / Time Aminoglycosides Allergy Severe SWELLING, Verified 06/13/23 22:16 MAKES INFECTION WORSE bacitracin Allergy Severe SWELLING, Verified 06/13/23 22:16 MAKES INFECTION WORSE Fish Containing Products Allergy Severe ANAPHYLAXIS Verified 06/13/23 22:16 neomycin Allergy Severe SWELLING, Verified 06/13/23 22:16 MAKES INFECTION WORSE shellfish derived Allergy Severe ANAPHYLAXIS Verified 06/13/23 22:16 fluoxetine Allergy Unknown SSRI= Verified 06/13/23 22:16 SUICIDAL REACTION Sulfa (Sulfonamide Allergy Unknown Anaphylactic Verified 06/13/23 22:16 Antibiotics) Shock zolpidem AdvReac Intermediate Confusion Verified 06/13/23 22:16 BETI/ Allergy Severe ANAPHYLACTIC--THROAT Uncoded 04/26/23 08:16 SWELLING PMFSH Past Medical History Medical History Anxiety Benign prostatic hyperplasia Cerebrovascular accident COVID Degenerative disc disease Depression Diverticulitis Diverticulosis Epilepsy Histoplasmosis Hyperlipidemia Hypothyroidism Irritable bowel syndrome Kidney stones Peptic ulcer Pneumonia Skull fracture Sleep apnea Transient ischemic attack Traumatic brain injury Surgical History Surgical History History of cardiac catheterization History of cataract extraction History of colonoscopy with polypectomy History of lithotripsy History of rotator cuff surgery Bilateral. History of tonsillectomy History of total left hip arthroplasty Family History Family History Mother Family history of malignant neoplasm of breast in first degree relative Family history of cardiovascular disease Father Family history of cardiovascular disease Other Family history of arthritis Family history of mental disorder Social History Social History Social History: Surrogate medical decision maker: Quita Vargas Code status: Full code. Smoking status: Never smoker Tobacco type: cigarettes Additional smoking assessment comments: Forty pack-year smoking history, quit in 1994. Alcohol intake: unknown Alcohol use details: Heavy drinker in the past, none in 30 years. Substance use: unknown Substance use type: does not use Lack of Transportation: No Lack of Food: Sometimes True Current Housing: I Have Housing Concerned About Future Housing: No Difficulty Paying Gas/Electric Bills: No Difficulty Paying for Meds: No Currently Unemployed: No Education: Associate Degree Difficulty w/ Childcare or Family Care: Decline to Answer Living arrangements: with family Additional living arrangements comments: Lives with spouse in [place]. 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 Spiritual care concerns: No Exam Narrative: APPEARANCE: No apparen
[2023-06-14 04:34] VITALS: BP 129/72; PULSE 62; RESP 20; O2SAT 99
== END 2023-06-14 04:36 | disposition home or self-care (01) ==
PROVIDERS: Emergency Provider Emergency Medicine; PCP Family Medicine
DX: R11.2 Nausea with vomiting, unspecified (principal); F41.9 Anxiety disorder, unspecified; N40.0 Benign prostatic hyperplasia without lower urinary tract symptoms; Z86.73 Personal history of transient ischemic attack (TIA), and cerebral infarction without residual deficits; F32.A Depression, unspecified; G40.909 Epilepsy, unspecified, not intractable, without status epilepticus; E03.9 Hypothyroidism, unspecified; Z87.442 Personal history of urinary calculi
CPT/HCPCS: 36415; 80053; 83690; 85025; 93005; 96361; 96374; 99284; J2405; J7030

== ENCOUNTER 2023-09-14 14:12 | Outpatient (CLI) | payer MEDICARE, SELFPAY ==
--- NOTE | ~2023-09-14 | CT_ITS ---
EXAMINATION: CTA brain DATE: 09/14/2023 14:59 INDICATION: Central vertigo with diplopia. TECHNIQUE: Computed tomographic angiography (CTA) of the head was performed without and with 100 mL O mnipaque-350 intravenous contrast. Automated exposure control and iterative reconstruction technique were employed. The dose-length product was 1105.71 mGy-cm. Maximum intensity projection 3D reconstru ctions were created. Volume-rendered 3D reconstructions of the intracranial arteries were created by the technologist on a separate workstation. COMPARISON: Head CT 12/21/2022 FINDINGS: There are scattered areas of low attenuation in the cerebral white matter. There are old in farcts involving the bilateral basal ganglia and thalami. There is no intracranial hemorrhage, acute infarction, or abnormal intracranial mass lesion. The ventricles are normal in size. There is mild mu cosal thickening in the ethmoid sinuses. The mastoid air cells are normal. There are likely changes o f ocular lens replacement surgeries. Left vertebral artery is dominant. There is no significant steno sis of basilar artery or the posterior cerebral arteries. There is no significant stenosis of the int racranial internal carotid arteries or anterior or middle cerebral arteries. Anterior communicating a rtery is normal. IMPRESSION: 1. Old infarcts involving the bilateral basal ganglia and thalami. 2. Stable extensive nonspecific cerebral white matter disease, which likely represents chronic small vessel ischemic disease. 3. No aneurysm or significant intracranial arterial stenosis. Reviewed, dictated and finalized at location E. IMPRESSION: 1. Old infarcts involving the bilateral basal ganglia and thalami. 2. Stable extensive nonspecific cerebral white matter disease, which likely rep resents chronic small vessel ischemic disease. 3. No aneurysm or significant intracranial arterial stenosis.
[2023-09-14 14:51] LABS: Estimated Glomerular Filt Rate > 60
== END 2023-09-14 14:13 | disposition home or self-care (01) ==
PROVIDERS: PCP Family Medicine; Visit Provider Otolaryngology
DX: R90.82 White matter disease, unspecified (principal); I25.2 Old myocardial infarction
CPT/HCPCS: 70496; Q9967

== ENCOUNTER 2023-09-22 13:25 | Outpatient (CLI) | payer MEDICARE, SELFPAY ==
--- NOTE | ~2023-09-22 | XR_ITS ---
Clinical Indication: Cough PA and lateral views of the chest: Comparison: 02/01/2023 Findings: The lungs are clear, without evidence of focal consolidation or pleural effusion. Cardiome diastinal silhouette is within normal limits. Bones and soft tissues are unremarkable. Impression: Normal chest. Reviewed, dictated and finalized at location . Impression: Normal chest.
== END 2023-09-22 13:26 | disposition home or self-care (01) ==
PROVIDERS: PCP Family Medicine; Visit Provider Family Medicine
DX: R05.9 Cough, unspecified (principal)
CPT/HCPCS: 71046

== ENCOUNTER 2023-10-26 11:09 | Outpatient (CLI) | payer MEDICARE, SELFPAY | END 2023-10-26 11:10 | disposition home or self-care (01) | LOC: ANHAUDIO 11:09 | PROVIDERS: PCP Family Medicine; Visit Provider Otolaryngology | DX: H90.6 Mixed conductive and sensorineural hearing loss, bilateral (principal); H93.13 Tinnitus, bilateral | CPT/HCPCS: 92557; 92567 ==

== ENCOUNTER 2023-11-09 09:36 | Outpatient (CLI) | payer MEDICARE, SELFPAY ==
--- NOTE | ~2023-11-09 | MR_ITS ---
MRI of the brain Clinical History: History of head injury Technique: Axial and sagittal T1-weighted images were acquired. These were followed by axial T2-weigh sasha, diffusion weighted, gradient, and FLAIR images. COMPARISON: 11/18/2012 Findings: There is a 1 cm ovoid area of restricted diffusion in the right periventricular white matte r, compatible with focal acute infarct. There is background diffuse, severe chronic white matter isch emic change throughout the periventricular white matter. Several probable small scattered chronic lac unar infarcts in the white matter are noted. No intracranial hemorrhage evident. Ventricles and subarachnoid spaces are mildly dilated. Orbits are unremarkable. Paranasal sinuses and mastoid air cells are clear. Major intracranial flow voids are intact. Sagittal midline structures are intact. IMPRESSION: 1 cm acute infarct in the right periventricular white matter. Severe chronic microvascular ischemic change and several scattered subcentimeter chronic lacunar infa rcts. Mild generalized atrophy. Reviewed, dictated and finalized at [facility]. IMPRESSION: 1 cm acute infarct in the right periventricular white matter. Severe chronic microvascular ischemic change and several scattered subcentimete r chronic lacunar infarcts. Mild generalized atrophy.
--- NOTE | 2023-11-14 10:42 | P.NEURO_ITS ---
Neurology EEG Report General Information Date of Study: 11/09/23 TEST eeg DIAGNOSIS Epilepsy CONDITION OF RECORDING awake drowsy and sleep EEG NUMBER [id number] CLINICAL HISTORY patient reports a long history of epilepsy but at present is well controlled and also has history of traumatic brain injury when younger and feels like he is having some memory and cognitive issues now. EEG DESCRIPTION Basic resting occipital frequency consists of large amount of well-developed low to medium voltage 8 to 9 hertz per second alpha admixed with low-voltage 15 to 18 hertz per second beta and with good anteroposterior gradient. Low- voltage beta activity seen diffusely admixed with waxing and waning posterior alpha rhythm during drowsiness evolving into admixture of low-voltage beta ,theta and Alpha activity and then into bilateral symmetrical sleep spindles Hyperventilation not done. photic stimulation produced normal driving. Non paroxysmal. Nonfocal. Nonlateralizing. IMPRESSION Normal record
== END 2023-11-09 09:37 | disposition home or self-care (01) ==
PROVIDERS: PCP Family Medicine; Visit Provider Psychiatry & Neurology Neurology
DX: G40.909 Epilepsy, unspecified, not intractable, without status epilepticus (principal); Z87.828 Personal history of other (healed) physical injury and trauma; G31.84 Mild cognitive impairment of uncertain or unknown etiology
CPT/HCPCS: 70551; 95816

== ENCOUNTER 2023-11-21 10:13 | Emergency (ER) | payer MEDICARE, SELFPAY ==
[2023-11-21] VITALS (12 sets, daily range): BP systolic 126–147; BP diastolic 53–57; PULSE 56–71; RESP 18–30; TEMP 36.8; O2SAT 91–100
--- NOTE | ~2023-11-21 | XR_ITS ---
XR chest 2V 11/21/2023 11:17 Indication: Shortness of breath Procedure: 2 view chest Comparison: Comparison to multiple prior studies sequentially, with oldest reviewed study dated 06/2022. Findings: Heart size normal. No focal air space disease, pulmonary edema, pleural effusion or suspect ed pneumothorax. There is right basilar atelectasis. Mildly elevated right diaphragm. Impression: 1: Right basilar atelectasis with chronic elevation of the right diaphragm. Reviewed, dictated and finalized at location B. Impression: 1: Right basilar atelectasis with chronic elevation of the right diaphragm.
--- NOTE | ~2023-11-21 | CT_ITS ---
CTA chest PE protocol Ordering provider: Negra Yarbrough MD History: 73 years Male with . SOB . Comparison: May 03, 2016 Technique: CT angiogram chest was performed following timed intravenous injection of contrast. Thin s lice axial images and reformatted coronal images were obtained. Three dimensional reformatted images of the chest were also obtained using a [employer] workstation. . Automated exposure control and iterati ve reconstruction technique were employed. The dose-length product was 157.06 mGy-cm. 100 mL Omnipaqu e 350 was given IV. Findings: PULMONARY ARTERIES: No pulmonary embolus. VISUALIZED THORACIC INLET: Normal. MEDIASTINUM: Aorta/coronary arteries: Mild atheromatous disease. Ascending aorta measures 3.9 cm. Heart/other: The heart is not enlarged. Lymph nodes: No mediastinal or hilar adenopathy. LUNGS: No pulmonary nodules or masses. No infiltrates or effusions. No pneumothorax. Dependent atelectatic c hanges. VISUALIZED UPPER ABDOMEN: Right renal cyst measuring 1.8 cm. Otherwise, the visualized upper abdomen is normal. MUSCULOSKELETAL: Soft tissues: The superficial soft tissues are normal. Bones: Normal spine. IMPRESSION: 1. No pulmonary embolism. 2. No acute cardiopulmonary pathology. Reviewed, dictated and finalized at location A.
--- NOTE | 2023-11-21 10:20 | ECG_ITS ---
Test Date: 2023-11-21 10:22:31 Measurements Intervals [place] Rate: 57 P: 57 MT: 217 QRS: -20 QRSD: 86 T: 72 QT: 426 QTc: 418 Interpretive Statements SINUS BRADYCARDIA WITH FIRST DEGREE AV BLOCK NONSPECIFIC ST & T-WAVE ABNORMALITY- DIFFUSE LEADS BASELINE ARTIFACT- I, II, AVR, AVL, AVF, V1-V6 BORDERLINE ECG No previous ECG available for comparison Electronically Signed On 11-21-2023 10:28:01 CDT by Chidi Bryan D.O.
[2023-11-21 10:40] LABS: Basophils Percent Auto 0.6 % (0.2-1.2); Eosinophils Absolute Auto 0.1 K/mm3 (0-0.3); Eosinophils Percent Auto 1.8 % (0-4.4); Hematocrit 43.8 % (42.0-52.0); Hemoglobin 14.9 g/dL (14.0-18.0); Immature Granulocyte Absolute 0.03 K/mm3 (0.00-0.031); Immature Granulocyte Percent A 0.4 % (0-0.5); Lymphocytes Absolute Auto 1.68 K/mm3 (0.9-3.2); Lymphocytes Percent Auto 23.4 % (18.3-44.2); Mean Corpuscular Hemoglobin 31.4 pg (26-34); Mean Corpuscular Volume 92.4 fl (80-100); Mean Platelet Volume 8.5 fl (7.4-10.4); Monocytes Absolute Auto 0.4 K/mm3 (0.1-0.6); Neutrophils Absolute Auto 4.9 K/mm3 (1.3-6.7); Neutrophils Percent Auto 67.8 % (45.5-73.1); Platelet Count Result 230 k/mm3 (150-375); Red Blood Count 4.74 M/mm3 (4.6-6.20); Red Cell Distribution Width 13.1 % (11.5-14.5); White Blood Count 7.2 K/mm3 (4.5-10.0)
[2023-11-21 10:52] LABS: Alanine Aminotransferase 18 U/L (6-50); Albumin Level 4.2 g/dL (3.5-5.1); Alkaline Phosphatase 86 U/L (38-126); Anion Gap 9 mmol/L (4-12); Aspartate Amino Transferase 31 U/L (17-59); Bilirubin,Total 1.3 mg/dL (0.2-1.3); Blood Urea Nitrogen 15 mg/dL (9-20); Calcium 9.2 mg/dL (8.4-10.2); Carbon Dioxide 28 mmol/L (22-30); Chloride 99 mmol/L (98-107); Estimated CRCL calculation 39 ml/min; Estimated Glomerular Filt Rate 59; Glucose 98 mg/dL (65-110); Potassium 3.7 mmol/L (3.4-5.0); Sodium 136 mmol/L (137-145)
--- NOTE | 2023-11-21 12:19 | ED.SOB ---
HPI - SOB/Dyspnea General Chief Complaint: Shortness of Breath/Dyspnea Stated Complaint: shortness of breath Time Seen by Provider: 11/21/23 12:03 History of Present Illness HPI Narrative: 73-year-old male with a history of CVA, TBI, hypertension, hyperlipidemia presenting with shortness of breath. Patient states that for the last week or so he has been increasingly short of breath. States that nothing makes it better or worse. He called his PCP today who agrees the the ER as COVID is been going around. He denies chest pain or abdominal pain. No fevers, cough, leg swelling. Complains of headache, states he has a history of headaches. Also complains of chronic vertigo. No numbness or weakness. No further complaints. Related Data Home Medications Medication Instructions Recorded Confirmed aspirin 500 mg tablet 325 mg PO DAILY 04/21/22 10/31/23 naproxen 500 mg tablet See Rx Instructions .Route 04/21/22 10/31/23 .COMPLEX PRN Pain divalproex 500 mg tablet,delayed 500 mg PO 04/06/23 10/31/23 release Allergies Allergy/AdvReac Type Severity Reaction Status Date / Time Aminoglycosides Allergy Severe SWELLING, Verified 11/07/23 15:00 MAKES INFECTION WORSE bacitracin Allergy Severe SWELLING, Verified 11/07/23 15:00 MAKES INFECTION WORSE Fish Containing Products Allergy Severe ANAPHYLAXIS Verified 11/07/23 15:00 neomycin Allergy Severe SWELLING, Verified 11/07/23 15:00 MAKES INFECTION WORSE shellfish derived Allergy Severe ANAPHYLAXIS Verified 11/07/23 15:00 fluoxetine Allergy Unknown SSRI= Verified 11/07/23 15:00 SUICIDAL REACTION Sulfa (Sulfonamide Allergy Unknown Anaphylactic Verified 11/07/23 15:00 Antibiotics) Shock zolpidem AdvReac Intermediate Confusion Verified 11/07/23 15:00 BETI/ Allergy Severe ANAPHYLACTIC--THROAT Uncoded 11/07/23 15:00 SWELLING Review of Systems Review of Systems: All systems reviewed & are unremarkable except as noted in HPI and below PMFSH Past Medical History Medical History Anxiety Benign prostatic hyperplasia Cerebrovascular accident COVID Degenerative disc disease Depression Diverticulitis Diverticulosis Epilepsy Histoplasmosis History of traumatic head injury Hyperlipidemia Hypothyroidism Irritable bowel syndrome Kidney stones MCI (mild cognitive impairment) Peptic ulcer Pneumonia Seizure disorder Skull fracture Sleep apnea Transient ischemic attack Traumatic brain injury Surgical History Surgical History History of cardiac catheterization History of cataract extraction History of colonoscopy with polypectomy History of lithotripsy History of rotator cuff surgery Bilateral. History of tonsillectomy History of total left hip arthroplasty Family History Family History Mother Family history of malignant neoplasm of breast in first degree relative Family history of cardiovascular disease Father Family history of cardiovascular disease Other Family history of arthritis Family history of mental disorder Social History Social History Social History: Surrogate medical decision maker: Quita Vargas Code status: Full code. Smoking status: Never smoker Tobacco type: cigarettes Additional smoking assessment comments: Forty pack-year smoking history, quit in 1994. Alcohol intake: unknown Alcohol use details: Heavy drinker in the past, none in 30 years. Substance use: unknown Substance use type: does not use Do You Feel Safe in your Home?: Yes Lack of Transportation: No Lack of Food: Never True Current Housing: I Have Housing Concerned About Future Housing: No Difficulty Paying Gas/Electric Bills: Decline to Answer Difficulty Paying for
[2023-11-21] MEDS: ACETAMINOPHEN 500 MG TABLET 1000 MG PO (12:30)
[2023-11-21] MEDS: SODIUM CHLORIDE 0.9% IV 1,000 ML 999 ML IV CONT (12:44)
[2023-11-21 12:46] LABS: Partial Thromboplastin Time 26.8 Seconds (22.3-36.8)
[2023-11-21 12:53] LABS: NT Pro B Type Natriuretic Pept 92 pg/mL (19.9-100); Troponin I < 0.012 ng/mL (0.000-0.034)
[2023-11-21 13:34] LABS: Influenza A QL RT-PCR Negative (Negative); Influenza B QL RT-PCR Negative (Negative); RSV RNA, RT-PCR Negative (Negative); SARS-CoV-2 RNA PCR Negative (Negative)
--- NOTE | 2023-11-21 13:47 | ECG_ITS ---
Test Date: 2023-11-21 13:47:17 Measurements Intervals [place] Rate: 66 P: 61 [place]: 262 QRS: -26 QRSD: 88 T: 81 QT: 415 QTc: 435 Interpretive Statements SINUS RHYTHM WITH FIRST DEGREE AV BLOCK NONSPECIFIC ST & T-WAVE ABNORMALITY- DIFFUSE LEADS BASELINE ARTIFACT- I, II, III, AVR, AVL, AVF, V1-V6 BORDERLINE ECG Compared to ECG 11/21/2023 10:22:31 Sinus bradycardia no longer present Electronically Signed On 11-22-2023 13:30:32 CDT by Chidi Bryan D.O.
[2023-11-21 14:16] LABS: Troponin I < 0.012 ng/mL (0.000-0.034)
== END 2023-11-21 14:58 | disposition home or self-care (01) ==
PROVIDERS: Student in an Organized Health Care Education/Training Program; Emergency Provider Emergency Medicine; PCP Family Medicine
DX: R06.02 Shortness of breath (principal); I10 Essential (primary) hypertension; E78.5 Hyperlipidemia, unspecified; E03.9 Hypothyroidism, unspecified; Z86.73 Personal history of transient ischemic attack (TIA), and cerebral infarction without residual deficits; Z20.822 Contact with and (suspected) exposure to COVID-19
CPT/HCPCS: 36415; 71046; 71275; 80053; 83880; 84484; 85025; 85610; 85730; 87637; 93005; 96360; 96361; 99284; A9270; J7030; Q9967

== ENCOUNTER 2023-12-12 09:01 | Day surgery (SDC) | payer MEDICARE, SELFPAY ==
[2023-12-04 13:44] VITALS: BMI 20.2
--- NOTE | ~2023-12-12 | XR_ITS ---
EXAMINATION: XR fluoroscopy no charge DATE: 12/12/2023 11:16 CDT INDICATION: RIGHT SI JT INJ . TECHNIQUE: 4 fluoroscopic images and multiple cine clips of the right SI joint were obtained during r ight SI joint injection, performed by Benoit Mcallister MD. I was not present during the procedure. Fl uoroscopy exposure time was 11.5 seconds. Air Kerma 1.81 mGy. COMPARISON: None FINDINGS/IMPRESSION: Fluoroscopic documentation of right SI joint injection. Please refer to the operative note for comple te procedural details . Reviewed, dictated and finalized at location K.
--- NOTE | 2023-12-12 05:50 | WPDHPUPDATE1 ---
History and Physical Update Update Date/Time: 12/12/23 05:50 History and Physical has been reviewed, including an updated exam of the patient. There are NO changes in the patient's condition. Risks, benefits, and alternatives have been discussed and questions answered. Patient agrees to proceed with procedure.
--- NOTE | 2023-12-12 05:51 | W.PM.PROC2 ---
Procedure Note - Detailed Date of Procedure 12/12/23 Pre-op Diagnosis Sacroiliitis, chronic l;ow back pain Post-op Diagnosis Same Procedure Performed Right Sacroiliac Joint Steroid Injection under Fluoroscopic Guidance and with Contrast Control. Surgeon Benoit Mcallister MD Anesthesia Local Description of Procedure INFORMED CONSENT: Risks, benefits and alternatives to the procedure were discussed in detail with the patient who expressed explicit understanding and consent to proceed. Patient was informed verbally and in written form regarding the risks associated with the procedure including the low risk of serious infection, bleeding/bruising, allergic reaction, nerve or organ injury, paralysis, procedural site pain or discomfort, worsening pain and/or mobility, failure to treat and/or disfigurement. The patient expressed explicit understanding and consent to proceed. All materials required for the procedure were available prior to procedure start. Site and side were marked prior to procedure and confirmed in the presence of the patient. PROCEDURE IN DETAIL: The patient was brought to the procedural suite and placed in the prone position. Patient was made comfortable with use of pillows under the head/chest, hips and ankles. Skin overlying the injection site on the affected side(s) was prepared broadly with ChloraPrep applicator and draped in a sterile manner. Aseptic technique was used throughout. The right SI joint was identified in the AP view and contralateral oblique angulation with caudal tilt was utilized to optimize visualization of the inferior and medial joint line representing the posterior portion of the joint. Local anesthesia was established by infiltration with approximately 5 mL of 2% lidocaine via a 1-1/2 inch 27-gauge needle. A 22-gauge 3.5 inch Quincke spinal needle was advanced until the needle entered the inferior third of the joint space approximately 1cm cephalad from its most inferior point. In the AP view, 0.5 mL of Omnipaque 300 contrast medium was injected after negative aspiration for CSF, blood or other bodily fluid, showing appropriate intra-articular spread of contrast without evidence of intravascular, perineural or intrathecal placement. A 1.5 mL solution containing 6 mg of betamethasone in 0.5% PF bupivacaine was injected after repeat negative aspiration. Appropriate spread of the injectate was confirmed with washout of previous injected contrast. No parasthesias were elicited. Needle was removed completely intact without difficulty. Images were saved and documented in the patient chart. Patient's skin was cleansed and sterile bandage applied. The patient tolerated the procedure well. The patient was transported to the recovery area in stable condition where they were observed for an appropriate amount of time prior to discharge, without evidence of complication. The patient was instructed to avoid excessive activity for the next 48 hours, including climbing and frequent use of stairs. Showers only for 48 hours. They were instructed not to drive or operate heavy machinery for 24 hours. They are to monitor for severe headaches, fevers, chills, night sweats, erythema/swelling at the site or any other signs of infection, bleeding/bruising, bowel or bladder changes as well as new pain, weakness or numbness in the upper or lower extremity. Should they notice these changes, they are instructed to call our office immediately or report directly to the nearest Emergency Department if no answer or if after posted office hours. COMPLICATIONS: None COMMENTS: None CONTRAST WASTED: 29.5mL Omnipaque 300. Complications No immediate complications Condition Stable Disposition Same day [facility] Billing Surgery - Charge Forward: Surgery Billing
[2023-12-12 10:38] VITALS: BMI 20.2
[2023-12-12 10:39] VITALS: BP 127/61; PULSE 60; RESP 20; TEMP 36.3; O2SAT 100
[2023-12-12 11:27] VITALS: BP 176/73; PULSE 68; RESP 16; O2SAT 100
[2023-12-12] MEDS: LIDOCAINE HCL 1% PF INJ 5 ML VIAL 3 ML INFILTRATE (11:30)
[2023-12-12] MEDS: BUPivacaine HCL 0.5% PF 30 ML VIAL INFILTRATE (11:31)
[2023-12-12] MEDS: BETAMETHASONE SODIUM PHOSPHATE PF INJ 6 MG/ML VIAL INFILTRATE (11:31)
[2023-12-12 11:35] VITALS: BP 133/58; PULSE 62; RESP 16; O2SAT 100
== END 2023-12-12 11:51 | disposition home or self-care (01) ==
PROVIDERS: PCP Family Medicine; Visit Provider Anesthesiology Pain Medicine
PROC: (CPT 27096; principal; 2023-12-12 11:15)
DX: M46.1 Sacroiliitis, not elsewhere classified (principal); M54.59 Other low back pain
CPT/HCPCS: 27096; 99199; G0260

== ENCOUNTER 2023-12-20 09:51 | Outpatient (CLI) | payer MEDICARE, SELFPAY ==
--- NOTE | ~2023-12-20 | US_ITS ---
COMPLETE ABDOMINAL ULTRASOUND Ordering provider: LAMBERT ScottC History: . R10.31 - Right lower quadrant pain . Comparison: None. FINDINGS: LIVER: Normal size and echotexture. No focal hepatic lesions or perihepatic fluid collections are gregorio ntified. Normal flow of the portal vein. GALLBLADDER: Cholelithiasis. This stone measures 2.1 cm. No evidence for sludge, gallbladder wall thi ckening or pericholecystic fluid collections. A negative sonographic Mendez's sign was noted. BILIARY DUCTS: No evidence for intra or extrahepatic biliary dilation. Common bile duct measures 5 mm in diameter which is within normal limits. PANCREAS: Obscured. SPLEEN: Normal size, echotexture and contour and measures 7 cm in length. KIDNEYS: Right measures 9.1x 4.1x 5.9 cm in length and the left 8.5x 3.8x 5 cm in length. There is no evidence for hydronephrosis, solid renal mass, renal calculi or perinephric fluid collections. No re nal cysts. UPPER ABDOMINAL AORTA: Normal in caliber. Proximal abdominal aorta measures 2.3 cm. Mid aorta measure s 1.9 CNM. IVC: Patent. FREE FLUID: None. IMPRESSION: Cholelithiasis. Otherwise, Unremarkable complete ultrasound of the abdomen. Reviewed, dictated and finalized at location A.
== END 2023-12-20 09:52 ==
LOC: GOSHIMG 09:51
PROVIDERS: PCP Family Medicine; Visit Provider Nurse Practitioner
DX: R10.31 Right lower quadrant pain (principal); K80.20 Calculus of gallbladder without cholecystitis without obstruction
CPT/HCPCS: 76700

== ENCOUNTER 2023-12-25 13:06 | Outpatient (CLI) | payer MEDICARE, SELFPAY ==
--- NOTE | ~2023-12-25 | US_ITS ---
EXAMINATION: US scrotum doppler DATE: 12/25/2023 13:32 INDICATION: Right testicular pain for 2 weeks. TECHNIQUE: Grayscale and Doppler ultrasound images of the testes were obtained. COMPARISON: None. FINDINGS: The right testis measures 3.4 x 1.8 x 1.7 cm. The left testis measures 2.4 x 1.9 x 1.7 cm. There is normal vascular flow to both testes. The right epididymis is normal with normal vascular delfin w. The left epididymis is normal with normal vascular flow. There is no varicocele or hydrocele. IMPRESSION: 1. Normal testes. Reviewed, dictated and finalized at location A. IMPRESSION: 1. Normal testes.
== END 2023-12-25 13:07 ==
LOC: GOSHIMG 13:07
PROVIDERS: PCP Anesthesiology Pain Medicine; Visit Provider Family Medicine
DX: N50.811 Right testicular pain (principal)
CPT/HCPCS: 76870; 93976

== ENCOUNTER 2023-12-26 12:34 | Emergency (ER) | payer MEDICARE, SELFPAY ==
--- NOTE | ~2023-12-26 | CT_ITS ---
EXAMINATION: CT brain wo con DATE: 12/26/2023 20:30 INDICATION: Dizziness. TECHNIQUE: Computed tomography (CT) of the head was performed without intravenous contrast. The mA wa s adjusted according to patient size. Iterative reconstruction technique was employed. The dose-lengt h product was 605.33 mGy-cm. COMPARISON: Head CT 09/14/2023 FINDINGS: There are old infarcts in the right basal ganglia. There are scattered areas of low attenua tion in the cerebral white matter. There is no intracranial hemorrhage, acute infarction, or abnormal intracranial mass lesion. The ventricles are normal in size. There are likely changes of ocular lens replacement surgeries. There is mild mucosal thickening in the ethmoid sinuses. The mastoid air cell s are normal. IMPRESSION: 1. Old lacunar infarcts in the right basal ganglia. 2. Stable extensive nonspecific cerebral white matter disease, which likely represents chronic small vessel ischemic disease. Reviewed, dictated and finalized at location A. IMPRESSION: 1. Old lacunar infarcts in the right basal ganglia. 2. Stable extensive nonspecific cerebral white matter disease, which likely rep resents chronic small vessel ischemic disease.
--- NOTE | ~2023-12-26 | XR_ITS ---
Clinical Indication: Chest pain AP and lateral views of the chest: Comparison: 11/21/2023 Findings: The lungs are clear, without evidence of focal consolidation or pleural effusion. Cardiome diastinal silhouette is within normal limits. Bones and soft tissues are unremarkable, aside from sut ure anchors at the right humeral head. Impression: Clear lungs. Reviewed, dictated and finalized at location . Impression: Clear lungs.
[2023-12-26 12:44] VITALS: BP 131/59; PULSE 61; RESP 20; TEMP 36.7; O2SAT 100
--- NOTE | 2023-12-26 12:48 | ECG_ITS ---
Test Date: 2023-12-26 12:54:49 Measurements Intervals [place] Rate: 58 P: 64 FL: 240 QRS: 11 QRSD: 85 T: 71 QT: 447 QTc: 443 Interpretive Statements SINUS BRADYCARDIA WITH FIRST DEGREE AV BLOCK NONSPECIFIC ST & T-WAVE ABNORMALITY WITH U-WAVES ABNORMAL ECG Compared to ECG 11/21/2023 13:47:17 NO SIGNIFICANT CHANGE Electronically Signed On 12-26-2023 18:00:52 CDT by Juan Manuel Dennis M.D.
--- NOTE | 2023-12-26 12:48 | ED.CHESTPAIN ---
HPI - Chest Pain General Chief Complaint: Chest Pain <Talisha Fajardo PA-C - Last Filed: 12/28/23 11:36> Stated Complaint: chest pain <Talisha Fajardo PA-C - Last Filed: 12/28/23 11:36> Time Seen by Provider: 12/26/23 12:48 <Talisha Fajardo PA-C - Last Filed: 12/28/23 11:36> Focused HPI: This is a 73 year old male that presents to the ER for chest pain. Reports this started at his doctor's appointment today. He was sent to the ER for further evaluation. GENERAL: Well-appearing, well-nourished, and in no acute distress. HEAD: Normocephalic, atraumatic. CHEST: Clear to auscultation. ?No respiratory distress. HEART: Regular rate and rhythm.? NEURO: ?Alert and oriented x3. Patient screened in triage and initial orders placed.? ?Additional care and disposition to be based upon?diagnostic testing and treatment. <NANCY Avalos Last Filed: 12/28/23 11:36> Source: patient <Yolanda Meier PA-C - Last Filed: 12/27/23 02:04> Mode of arrival: ambulatory <NANCY Roe Last Filed: 12/27/23 02:04> Limitations: no limitations <NANCY Roe Last Filed: 12/27/23 02:04> History of Present Illness HPI narrative: Agree with above HPI. Reports he became dizzy at his pain management appointment. Was referred to the ED for further evaluation of the dizziness. While being wheeled out to his car, patient experienced an episode of L sided CP. states it felt like a sharp heaviness. Lasted 1-2 minutes before resolving on its own. Denies radiation of the pain. Denied aggravating factors to the pain. He has not had any further episodes of pain since being in the ED. Denies history of heart disease. Denies history of hypertension, hyperlipidemia, diabetes. Former smoker 20 years ago. States he has had daily dizziness for the last several years. Has previously seen Neurology for this. Describes it as a room spinning sensation. Has never been diagnosed with vertigo before. <Yolanda Meier PA-C - Last Filed: 12/27/23 02:04> Related Data Home Medications: Home Medications Medication Instructions Recorded Confirmed aspirin 500 mg tablet 325 mg PO DAILY 04/21/22 12/22/23 naproxen 500 mg tablet See Rx Instructions .Route 04/21/22 12/22/23 .COMPLEX PRN Pain divalproex 500 mg tablet,delayed 500 mg PO DAILY 04/06/23 12/22/23 release <Talisha Fajardo PA-C - Last Filed: 12/28/23 11:36> Allergies/Adverse Reactions: Allergies Allergy/AdvReac Type Severity Reaction Status Date / Time Aminoglycosides Allergy Severe SWELLING, Verified 12/26/23 11:59 MAKES INFECTION WORSE bacitracin Allergy Severe SWELLING, Verified 12/26/23 11:59 MAKES INFECTION WORSE Fish Containing Products Allergy Severe ANAPHYLAXIS Verified 12/26/23 11:59 neomycin Allergy Severe SWELLING, Verified 12/26/23 11:59 MAKES INFECTION WORSE shellfish derived Allergy Severe ANAPHYLAXIS Verified 12/26/23 11:59 fluoxetine Allergy Unknown SSRI= Verified 12/26/23 11:59 SUICIDAL REACTION Sulfa (Sulfonamide Allergy Unknown Anaphylactic Verified 12/26/23 11:59 Antibiotics) Shock zolpidem AdvReac Intermediate Confusion Verified 12/26/23 11:59 BETI/ Allergy Severe ANAPHYLACTIC--THROAT Uncoded 12/26/23 11:59 SWELLING <Talisha Fajardo PA-C - Last Filed: 12/28/23 11:36> Review of Systems Review of Systems: All systems reviewed & are unremarkable except as noted in HPI. <Yolanda Meier PA-C - Last Filed: 12/27/23 02:04> All systems reviewed & are unremarkable except as noted in HPI and below <Yolanda Meier PA-C - Last Filed: 12/27/23 02:04> [facility] Past Medical History Medical History: Medical History Anxiety Benign prostatic hyperplasia Cerebrovascular accident COVID Degenerative disc disease Depression Diverticulit
[2023-12-26] MEDS: ASPIRIN 81 MG CHEWABLE TABLET 324 MG PO (13:14)
[2023-12-26 13:26] LABS: Alanine Aminotransferase 25 U/L (6-50); Albumin Level 4.6 g/dL (3.5-5.1); Alkaline Phosphatase 80 U/L (38-126); Anion Gap 15 mmol/L (4-12); Aspartate Amino Transferase 44 U/L (17-59); Bilirubin,Total 1.3 mg/dL (0.2-1.3); Blood Urea Nitrogen 19 mg/dL (9-20); Calcium 9.9 mg/dL (8.4-10.2); Carbon Dioxide 23 mmol/L (22-30); Chloride 102 mmol/L (98-107); Estimated CRCL calculation 38 ml/min; Estimated Glomerular Filt Rate 59; Glucose 85 mg/dL (65-110); Lipase 243 U/L (23-300); Potassium 3.5 mmol/L (3.4-5.0); Sodium 140 mmol/L (137-145)
[2023-12-26 13:31] LABS: Basophils Absolute Auto 0.1 K/mm3 (0.0-0.1); Basophils Percent Auto 0.7 % (0.2-1.2); Eosinophils Absolute Auto 0.1 K/mm3 (0-0.3); Eosinophils Percent Auto 1.8 % (0-4.4); Hematocrit 38.7 % (42.0-52.0); Hemoglobin 13.4 g/dL (14.0-18.0); Immature Granulocyte Absolute 0.01 K/mm3 (0.00-0.031); Immature Granulocyte Percent A 0.1 % (0-0.5); Lymphocytes Absolute Auto 1.99 K/mm3 (0.9-3.2); Lymphocytes Percent Auto 27.3 % (18.3-44.2); Mean Corpuscular HGB Conc 34.6 g/dl (32-36); Mean Corpuscular Hemoglobin 31.9 pg (26-34); Mean Corpuscular Volume 92.1 fl (80-100); Monocytes Absolute Auto 0.6 K/mm3 (0.1-0.6); Neutrophils Absolute Auto 4.5 K/mm3 (1.3-6.7); Neutrophils Percent Auto 62.1 % (45.5-73.1); Platelet Count Result 235 k/mm3 (150-375); Red Cell Distribution Width 14.1 % (11.5-14.5); White Blood Count 7.3 K/mm3 (4.5-10.0)
[2023-12-26 13:33] LABS: Prothrombin Time 13.4 Seconds (11.1-14.7)
[2023-12-26 13:37] LABS: Troponin I < 0.012 ng/mL (0.000-0.034)
--- NOTE | 2023-12-26 16:10 | ECG_ITS ---
Test Date: 2023-12-26 16:01:53 Measurements Intervals [place] Rate: 54 P: 53 NV: 244 QRS: 14 QRSD: 89 T: 73 QT: 463 QTc: 442 Interpretive Statements SINUS BRADYCARDIA WITH SINUS ARRHYTHMIA WITH FIRST DEGREE AV BLOCK NONSPECIFIC ST & T-WAVE ABNORMALITY ABNORMAL ECG Compared to ECG 12/26/2023 12:54:49 No significant changes Electronically Signed On 12-26-2023 18:07:00 CDT by Juan Manuel Dnenis M.D.
[2023-12-26 16:43] LABS: Troponin I < 0.012 ng/mL (0.000-0.034)
[2023-12-26 17:12] VITALS: BP 146/66; PULSE 59; RESP 23; TEMP 36.7; O2SAT 100
[2023-12-26 19:20] LABS: Troponin I < 0.012 ng/mL (0.000-0.034)
[2023-12-26 19:34] LABS: D Dimer 0.45 ug/mL (<0.48)
[2023-12-26] MEDS: MECLIZINE HCL 25 MG TABLET PO (19:48)
[2023-12-26] MEDS: SODIUM CHLORIDE 0.9% IV 1,000 ML 999 ML IV CONT (19:48)
[2023-12-26 19:49] VITALS: BP 141/59; PULSE 56; RESP 24; TEMP 36.7; O2SAT 97
[2023-12-26 21:29] VITALS: BP 147/60; PULSE 57; RESP 20; TEMP 36.8; O2SAT 99
== END 2023-12-26 21:31 | disposition home or self-care (01) ==
PROVIDERS: Physician Assistant; Emergency Provider Physician Assistant; PCP Nurse Practitioner
DX: R07.89 Other chest pain (principal); R42 Dizziness and giddiness; E78.5 Hyperlipidemia, unspecified; E03.9 Hypothyroidism, unspecified; G40.909 Epilepsy, unspecified, not intractable, without status epilepticus; G31.84 Mild cognitive impairment of uncertain or unknown etiology; G47.30 Sleep apnea, unspecified; N40.0 Benign prostatic hyperplasia without lower urinary tract symptoms; K58.9 Irritable bowel syndrome, unspecified; Z96.642 Presence of left artificial hip joint; Z87.820 Personal history of traumatic brain injury; Z87.442 Personal history of urinary calculi; Z86.16 Personal history of COVID-19; Z86.73 Personal history of transient ischemic attack (TIA), and cerebral infarction without residual deficits; Z87.11 Personal history of peptic ulcer disease; Z86.010 Personal history of colon polyps; Z87.891 Personal history of nicotine dependence; Z98.49 Cataract extraction status, unspecified eye; Z79.82 Long term (current) use of aspirin; Z79.899 Other long term (current) drug therapy; R00.1 Bradycardia, unspecified; I44.0 Atrioventricular block, first degree; R94.31 Abnormal electrocardiogram [ECG] [EKG]; R90.82 White matter disease, unspecified
CPT/HCPCS: 36415; 70450; 71046; 80053; 83690; 84484; 85025; 85380; 85610; 85730; 93005; 96360; 96361; 99284; A9270; J7030

== ENCOUNTER 2024-01-18 08:40 | Outpatient (CLI) | payer MEDICARE, SELFPAY ==
[2024-01-18 13:38] LABS: Hematocrit 31.7 % (42.0-52.0); Hemoglobin 9.9 g/dL (14.0-18.0); Mean Corpuscular HGB Conc 31.2 g/dl (32-36); Mean Corpuscular Hemoglobin 29.8 pg (26-34); Mean Corpuscular Volume 95.5 fl (80-100); Mean Platelet Volume 9.4 fl (7.4-10.4); Platelet Count Result 250 k/mm3 (150-375); Red Blood Count 3.32 M/mm3 (4.6-6.20); Red Cell Distribution Width 14.6 % (11.5-14.5); White Blood Count 4.4 K/mm3 (4.5-10.0)
[2024-01-18 13:52] LABS: Alanine Aminotransferase 22 U/L (6-50); Albumin Level 3.6 g/dL (3.5-5.1); Alkaline Phosphatase 83 U/L (38-126); Anion Gap 6 mmol/L (4-12); Aspartate Amino Transferase 49 U/L (17-59); Bilirubin,Total 0.5 mg/dL (0.2-1.3); Blood Urea Nitrogen 13 mg/dL (9-20); Calcium 8.5 mg/dL (8.4-10.2); Carbon Dioxide 30 mmol/L (22-30); Chloride 102 mmol/L (98-107); Estimated Glomerular Filt Rate > 60; Glucose 91 mg/dL (65-110); Potassium 3.9 mmol/L (3.4-5.0); Sodium 138 mmol/L (137-145)
[2024-01-18 13:56] LABS: Cholesterol 135 mg/dL (0-200); HDL Direct 53 mg/dL; Triglycerides 58 mg/dL (<150)
[2024-01-18 14:08] LABS: LDL Cholesterol Direct 69 mg/dL
== END 2024-01-18 08:41 | disposition home or self-care (01) ==
LOC: ANHGOSHLAB 08:42
PROVIDERS: PCP Nurse Practitioner; Visit Provider Psychiatry & Neurology Neurology
DX: D64.9 Anemia, unspecified (principal); R10.9 Unspecified abdominal pain; E03.9 Hypothyroidism, unspecified; G40.909 Epilepsy, unspecified, not intractable, without status epilepticus; G31.84 Mild cognitive impairment of uncertain or unknown etiology; Z87.828 Personal history of other (healed) physical injury and trauma
CPT/HCPCS: 36415; 80053; 80061; 85027

== ENCOUNTER 2024-01-24 13:27 | Outpatient (CLI) | payer MEDICARE, SELFPAY ==
--- NOTE | ~2024-01-24 | CT_ITS ---
EXAMINATION: CT abdomen pelvis w con DATE: 01/24/2024 14:02 INDICATION: R10.9 - Unspecified abdominal pain TECHNIQUE: Computed tomography (CT) of the abdomen and pelvis was performed with 100 mL Omnipaque-350 intravenous contrast. Automated exposure control and iterative reconstruction technique were employe d. The dose-length product was 215.84 mGy-cm. COMPARISON: 02/06/2023. FINDINGS: Lower thorax: Minimal right dependent atelectasis. Coronary artery calcifications. Stable ascending a ortic ectasia. Liver: Normal. Biliary/Gallbladder: Gallbladder is normal. No bile duct dilation. Pancreas: Chronic pancreatic calcifications. Spleen: Normal. Adrenals:No mass. Kidneys: No suspicious mass, obstructing stone, or hydronephrosis. Simple right renal cysts. Multiple nonobstructing bilateral renal calculi. GI tract: Mild distal esophageal and gastric wall edema. No small or large bowel dilation. Normal al endix. Mesentery/Peritoneum: No ascites, mass, or free air. Retroperitoneum: No mass. Atherosclerotic abdominal aortic and/or arterial calcifications. Pelvis: Mild urinary bladder wall thickening likely due to outlet obstruction from prostatomegaly. De tail somewhat obscured by metal artifact. Soft Tissues: Soft tissues and body wall unremarkable. Bones: No acute osseous finding. Partially visualized, uncomplicated appearing left hip arthroplasty hardware. IMPRESSION: Mild esophagitis/gastritis. Otherwise, no acute abdominopelvic process detected. Reviewed, dictated and finalized at location K.
== END 2024-01-24 13:28 | disposition home or self-care (01) ==
PROVIDERS: PCP Nurse Practitioner; Visit Provider Nurse Practitioner
DX: K20.90 Esophagitis, unspecified without bleeding (principal); K29.70 Gastritis, unspecified, without bleeding
CPT/HCPCS: 74177; Q9967

== ENCOUNTER 2024-02-28 13:19 | Outpatient (CLI) | payer MEDICARE, SELFPAY ==
--- NOTE | ~2024-02-28 | US_ITS ---
TESTICULAR ULTRASOUND (Doppler ultrasound interrogation techniques used as needed for this exam.) Ordering provider: Arslan Valladares MD History: . Scrotal pain . Comparison: None. FINDINGS: TESTICLES: Normal in size. The right measures 2.9x 1.8x 2.2 cm and the left measures 2x 2.1x 1.3 cm. Normal echogenicity bilaterally without mass lesion. Hilda l Doppler flow bilaterally. Cyst is seen in the right testicule measuring 0.7 x 0.2 x 2.4 cm. EPIDIDYMIDES: Normal in size. The right measures 1.2x 0.9 cm and the left 0.6x 1.4 cm. Normal echogen icity bilaterally. Both demonstrate normal Doppler flow. Right epididymal cyst is seen measuring 0.4x 0.3 cm. HYDROCELE: Bilateral small. VARICOCELE: None. OTHER ABNORMALITY: None seen. IMPRESSION: Small right testicular cyst. Small right epididymal cyst. Bilateral small hydrocele. Shoulder Otherwi se, normal testicular ultrasound. Reviewed, dictated and finalized at location A. IMPRESSION: Small right testicular cyst. Small right epididymal cyst. Bilateral small hydro ander. Shoulder Otherwise, normal testicular ultrasound.
== END 2024-02-28 13:20 | disposition home or self-care (01) ==
LOC: MICIMG 13:20
PROVIDERS: PCP Nurse Practitioner; Visit Provider Urology
DX: N50.82 Scrotal pain (principal); N44.2 Benign cyst of testis
CPT/HCPCS: 76870; 93976

== ENCOUNTER 2024-03-11 12:57 | Emergency (ER) | payer MEDICARE, SELFPAY ==
--- NOTE | ~2024-03-11 | CT_ITS ---
EXAMINATION: CT abdomen pelvis w con DATE: 03/11/2024 14:56 INDICATION: Assess for intestinal bleed right lower quadrant abdominal pain TECHNIQUE: Computed tomography (CT) of the abdomen and pelvis was performed with 100 mL Omnipaque-350 intravenous contrast. Automated exposure control and iterative reconstruction technique were employe d. The dose-length product was 193.36 mGy-cm. COMPARISON: 01/24/2024 FINDINGS: Mild dependent atelectasis in the right lower lobe. Heart size is normal. Atherosclerotic coronary ar shanna calcifications. Aortic valve calcification. No pericardial or pleural effusion. Liver, gallbladd er, spleen, pancreas and bilateral adrenal glands are normal. 1.8 cm right renal cyst. Bilateral nono bstructing nephrolithiasis with a 2-3 mm right renal stone and 4 stones in left kidney measuring up t o 3-4 mm. Bowels including the appendix are normal. Bladder is normal. Prostatomegaly. No free intrap eritoneal gas or fluid. No pathologically enlarged abdominal or pelvic lymphadenopathy. There is calc ified atherosclerosis of the normal caliber aorta and many of the other arteries. Severe lumbar spond ylosis. Left total hip arthroplasty. IMPRESSION: 1. No acute intra-abdominal/pelvic process. Specifically the appendix is normal. 2. Bilateral nonobstructing nephrolithiasis. 3. Prostatomegaly. Reviewed, dictated and finalized at location B. TENANCE MGR IMPRESSION: 1. No acute intra-abdominal/pelvic process. Specifically the appendix is normal . 2. Bilateral nonobstructing nephrolithiasis. 3. Prostatomegaly.
[2024-03-11 13:12] VITALS: BP 146/59; PULSE 57; RESP 20; TEMP 36.9; O2SAT 99
[2024-03-11 13:31] VITALS: BP 162/70; PULSE 60; RESP 18; O2SAT 98
[2024-03-11 14:17] LABS: Basophils Percent Auto 0.8 % (0.2-1.2); Eosinophils Absolute Auto 0.2 K/mm3 (0-0.3); Eosinophils Percent Auto 3.4 % (0-4.4); Hematocrit 36.5 % (42.0-52.0); Hemoglobin 11.6 g/dL (14.0-18.0); Immature Granulocyte Absolute 0.01 K/mm3 (0.00-0.031); Immature Granulocyte Percent A 0.2 % (0-0.5); Lymphocytes Absolute Auto 1.05 K/mm3 (0.9-3.2); Lymphocytes Percent Auto 20.1 % (18.3-44.2); Mean Corpuscular HGB Conc 31.8 g/dl (32-36); Mean Corpuscular Hemoglobin 27.6 pg (26-34); Mean Corpuscular Volume 86.9 fl (80-100); Mean Platelet Volume 9.2 fl (7.4-10.4); Monocytes Absolute Auto 0.6 K/mm3 (0.1-0.6); Monocytes Percent Auto 11.3 % (2.6-8.5); Neutrophils Absolute Auto 3.4 K/mm3 (1.3-6.7); Neutrophils Percent Auto 64.2 % (45.5-73.1); Platelet Count Result 230 k/mm3 (150-375); Red Cell Distribution Width 14.4 % (11.5-14.5); White Blood Count 5.2 K/mm3 (4.5-10.0)
[2024-03-11 14:28] LABS: Alanine Aminotransferase 15 U/L (6-50); Albumin Level 4.4 g/dL (3.5-5.1); Alkaline Phosphatase 81 U/L (38-126); Anion Gap 9 mmol/L (4-12); Aspartate Amino Transferase 27 U/L (17-59); Bilirubin,Total 0.8 mg/dL (0.2-1.3); Blood Urea Nitrogen 11 mg/dL (9-20); Calcium 9.1 mg/dL (8.4-10.2); Carbon Dioxide 27 mmol/L (22-30); Chloride 104 mmol/L (98-107); Estimated CRCL calculation 45 ml/min; Estimated Glomerular Filt Rate > 60; Glucose 81 mg/dL (65-110); Potassium 3.6 mmol/L (3.4-5.0); Sodium 140 mmol/L (137-145)
[2024-03-11 14:30] VITALS: BP 151/58; PULSE 56; RESP 16; O2SAT 98
[2024-03-11 14:30] LABS: Prothrombin Time 13.5 Seconds (11.1-14.7)
[2024-03-11 14:31] LABS: Partial Thromboplastin Time 29.5 Seconds (22.3-36.8)
--- NOTE | 2024-03-11 15:00 | ED.GENADULT ---
HPI - General Adult General Chief complaint: GI Bleed Stated complaint: bloody diarrhea Time Seen by Provider: 03/11/24 14:18 History of Present Illness HPI narrative: 73 old male presents emergency department for evaluation for episode of bloody diarrhea this morning. Patient does have a history of a gastric ulcer that has previous had bleeding issues. Patient is not on any blood thinners. Patient states he does have some lower abdominal tenderness to palpation. Patient reports the lower abdominal pain is not new and patient has had extensive follow-up with this previously. Patient denies any black tarry stool. Patient denies any hematemesis. Patient does not appear to be in any significant distress. Related Data Home Medications Medication Instructions Recorded Confirmed aspirin 500 mg tablet 325 mg PO DAILY 04/21/22 03/11/24 naproxen 500 mg tablet See Rx Instructions .Route 04/21/22 03/11/24 .COMPLEX PRN Pain divalproex 500 mg tablet,delayed 500 mg PO DAILY 04/06/23 03/11/24 release atorvastatin 40 mg tablet 40 mg PO QHS 01/18/24 03/11/24 cyclobenzaprine 10 mg tablet 10 mg PO TID PRN 01/18/24 03/11/24 pantoprazole 20 mg tablet,delayed 20 mg PO BID 01/18/24 03/11/24 release levothyroxine 88 mcg tablet 88 mcg PO DAILY 02/27/24 03/11/24 meclizine 25 mg tablet 25 mg PO TID PRN nausea/dizziness 02/27/24 03/11/24 simvastatin 10 mg tablet 10 mg PO HS 02/27/24 03/11/24 tramadol 50 mg tablet 50 mg PO Q6H PRN Pain 02/27/24 03/11/24 Allergies Allergy/AdvReac Type Severity Reaction Status Date / Time Aminoglycosides Allergy Severe SWELLING, Verified 03/11/24 11:06 MAKES INFECTION WORSE bacitracin Allergy Severe SWELLING, Verified 03/11/24 11:06 MAKES INFECTION WORSE Fish Containing Products Allergy Severe ANAPHYLAXIS Verified 03/11/24 11:06 fluoxetine Allergy Severe SSRI= Verified 03/11/24 11:06 SUICIDAL REACTION neomycin Allergy Severe SWELLING, Verified 03/11/24 11:06 MAKES INFECTION WORSE shellfish derived Allergy Severe ANAPHYLAXIS Verified 03/11/24 11:06 Sulfa (Sulfonamide Allergy Severe Anaphylactic Verified 03/11/24 11:06 Antibiotics) Shock zolpidem AdvReac Intermediate Confusion Verified 03/11/24 11:06 BETI/ Allergy Severe ANAPHYLACTIC--THROAT Uncoded 03/11/24 11:06 SWELLING Review of Systems Review of Systems: All systems reviewed & are unremarkable except as noted in HPI and below PMFSH Past Medical History Medical History Anxiety Benign prostatic hyperplasia Cerebrovascular accident COVID Degenerative disc disease Depression Diverticulitis Diverticulosis Epilepsy Histoplasmosis History of traumatic head injury Hyperlipidemia Hypothyroidism Irritable bowel syndrome Kidney stones MCI (mild cognitive impairment) Peptic ulcer Pneumonia Seizure disorder Skull fracture Sleep apnea Transient ischemic attack Traumatic brain injury Surgical History Surgical History History of cardiac catheterization History of cataract extraction History of colonoscopy with polypectomy History of lithotripsy History of rotator cuff surgery Bilateral. History of tonsillectomy History of total left hip arthroplasty Family History Family History Mother Family history of malignant neoplasm of breast in first degree relative Family history of cardiovascular disease Father Family history of cardiovascular disease Other Family history of arthritis Family history of mental disorder Social History Social History Social History: Surrogate medical decision maker: Quita Vargas Code status: Full code. Smoking packs per day: 1 Smoking cigarettes per day: 20.0 Years smoked: 1 Smoking pack-years: 1.00 Smoking status: Former smoker Tobacco type: cigarettes Second hand tobacco smoke exposure: No Smoking end date: 05/01/94 Additional smoking assessment comments: Forty pack-year smoking history, quit in 1994. Alcohol intake: former Alcohol use details: QUIT 30 YEARS AGO Substance use: never Substance use type: does not use Do You Feel Safe in your Home?: No Lack of Transportation: No Lack of Food: Sometimes True Current Housing: Decline to Answer Concerned About Future Housing: Decline to Answer Difficulty Paying Gas/Electric Bills: No Difficulty Paying for Meds: No Currently Unemployed: No Education: Associate Degree Difficulty w/ Childcare or Family Care: Decline to Answer Living arrangements: with family Additional living arrangements comments: Lives with spouse in [place]. 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 Spiritual care concerns: No Exam Narrative: APPEARANCE: Well appearing, no pain, no distress, well-nourished. HEAD: normocephalic, atraumatic. EYES: PERRLA/EOMI, conjunctivae clear. NOSE: Normal no drainage EARS:TMS clear with good light reflex. THROAT: Pharynx clear, no exudate. NECK: Supple. No adenopathy, no masses. RESPIRATORY: Airway patent, respirations nonlabored. Clear to auscultation bilaterally, no rales, rhonchi, wheezing. CARDIOVASCULAR: Regular rate and rhythm without murmurs rubs or gallops. ABDOMINAL: Soft, suprapubic tenderness to palpation MUSCULOSKELETAL: Moves all extremities. Strength/ROM intact, No edema, No calf tenderness. NEURO: Alert. Cranial nerves II through XII intact. Good gait. Good coordination SKIN: Warm, dry. Normal Color Rectal exam: Stool on the exam but Hemoccult negative Course Vital Signs Vital signs: Vital Signs Temperature 98.5 F 03/11/24 13:12 Pulse Rate 57 L 03/11/24 13:12 Respiratory Rate 20 03/11/24 13:12 Blood Pressure 146/59 H 03/11/24 13:12 Pulse Oximetry 99 03/11/24 13:12 Temperature 98.5 F 03/11/24 13:12 Pulse Rate 61 03/11/24 15:30 Respiratory Rate 13 03/11/24 15:30 Blood Pressure 145/61 H 03/11/24 15:30 Pulse Oximetry 100 03/11/24 15:30 Medical Decision Making [facility] Narrative Medical decision making narrative: [age] old male presenting emergency department for evaluation for bloody diarrhea this morning. Patient has had no further episodes of bloody diarrhea in the emergency department. Patient is afebrile with no leukocytosis and hemoglobin 11.6 which is higher than his previous baseline. On the patient's Hemoccult he did have stool but it was Hemoccult negative. Patient has had no further bowel movements in the emergency department. Patient's CMP is negative. CT abdomen pelvis shows no acute findings. Patient family updated on results of workup they are comfortable plan for discharge and close follow-up. Differential Diagnosis Differential Diagnosis: Colitis, diverticulitis, appendicitis, upper GI bleed, lower GI bleed, diarrhea Vital Signs Vital Signs: Vital Signs Temperature 98.5 F 03/11/24 13:12 Pulse Rate 57 L 03/11/24 13:12 Respiratory Rate 20 03/11/24 13:12 Blood Pressure 146/59 H 03/11/24 13:12 Pulse Oximetry 99 03/11/24 13:12 Temperature 98.5 F 03/11/24 13:12 Pulse Rate 61 03/11/24 15:30 Respiratory Rate 13 03/11/24 15:30 Blood Pressure 145/61 H 03/11/24 15:30 Pulse Oximetry 100 03/11/24 15:30 Lab Data Lab results reviewed: Yes I reviewed the patient's lab results. 03/11/24 14:11 03/11/24 14:11 Labs: Lab Results 03/11/24 Range/Units 14:11 WBC 5.2 (4.5-10.0) K/mm3 RBC 4.20 L (4.6-6.20) M/mm3 Hgb 11.6 L (14.0-18.0) g/dL Hct 36.5 L (42.0-52.0) % MCV 86.9 (80-100) fl MCH 27.6 (26-34) pg MCHC 31.8 L (32-36) g/dl RDW 14.4 (11.5-14.5) % Plt Count 230 (150-375) k/mm3 MPV 9.2 (7.4-10.4) fl Immature Gran % (Auto) 0.2 (0-0.5) % Neut % (Auto) 64.2 (45.5-73.1) % Lymph % (Auto) 20.1 (18.3-44.2) % Assumption % (Auto) 11.3 H (2.6-8.5) % Eos % (Auto) 3.4 (0-4.4) % Baso % (Auto) 0.8 (0.2-1.2) % Lymph # (Auto) 1.05 (0.9-3.2) K/mm3 Assumption # (Auto) 0.6 (0.1-0.6) K/mm3 Eos # (Auto) 0.2 (0-0.3) K/mm3 Baso # (Auto) 0.0 (0.0-0.1) K/mm3 Abs Immat Gran (auto) 0.01 (0.00-0.031) K/mm3 Absolute Neuts (auto) 3.4 (1.3-6.7) K/mm3 Absolute Nucleated RBC 0.000 (0.0-0.012) K/mm3 Nucleated RBC % 0.0 (0.0-0.2) % PT 13.5 (11.1-14.7) Seconds INR 1.0 APTT 29.5 (22.3-36.8) Seconds Sodium 140 (137-145) mmol/L Potassium 3.6 (3.4-5.0) mmol/L Chloride 104 (98-107) mmol/L Carbon Dioxide 27 (22-30) mmol/L Anion Gap 9 (4-12) mmol/L BUN 11 (9-20) mg/dL Creatinine 1.00 (0.7-1.3) mg/dL Estim Creat Clear Calc 45 ml/min Estimated GFR > 60 (59 - ) Glucose 81 (65-110) mg/dL Calcium 9.1 (8.4-10.2) mg/dL Total Bilirubin 0.8 (0.2-1.3) mg/dL AST 27 (17-59) U/L ALT 15 (6-50) U/L Alkaline Phosphatase 81 (38-126) U/L Total Protein 8.0 (6.3-8.2) g/dL Albumin 4.4 (3.5-5.1) g/dL Blood Type O Negative Antibody Screen Negative Imaging Data Radiologist's impression: Impressions Abdomen/Pelvis CT 03/11/24 14:58 IMPRESSION: 1. No acute intra-abdominal/pelvic process. Specifically the appendix is normal. 2. Bilateral nonobstructing nephrolithiasis. 3. Prostatomegaly. Discharge Plan Discharge Clinical Impression: Diarrhea Patient Disposition: Home, Self-Care Condition: Stable Instructions: Antibiotic Form, Clear Liquid Diet (ED), Acute Diarrhea (ED) Additional Instructions: Clear liquid diet for the next 1-3 days. Advance to a bland diet as tolerated. Have close follow-up with primary care physician. If you have any worsening symptoms then please call or return to the emergency department Prescriptions: No Action ondansetron 4 mg tablet,disintegrating 4 mg PO Q6-8H PRN (Reason: nausea and vomiting) Qty: 30 0RF fluticasone propionate [Flonase Allergy Relief] 50 mcg/actuation spray,suspension 2 spray intranasal DAILY Qty: 18 3RF Rx Instructions: administer into each nostril q.h.s. p.r.n. congestion atorvastatin 40 mg tablet 40 mg PO QHS cyclobenzaprine 10 mg tablet 10 mg PO TID PRN pantoprazole 20 mg tablet,delayed release (DR/EC) 20 mg PO BID Patient Comments: Hospital discharge from 01/10/24 ([facility]) aspirin 500 mg tablet 325 mg PO DAILY Hold Instructions: GI BLEED - HOLD UNTIL 01/24/24 naproxen 500 mg tablet See Rx Instructions .ROUTE .COMPLEX PRN (Reason: Pain) Dose Instruction: TAKE 1 TABLET BY MOUTH TWICE DAILY NEEDED FOR PAIN Rx Instructions: TAKE 1 TABLET BY MOUTH once DAILY NEEDED FOR PAIN divalproex 500 mg tablet,delayed release (DR/EC) 500 mg PO DAILY simvastatin 10 mg tablet 10 mg PO HS tramadol 50 mg tablet 50 mg PO Q6H PRN (Reason: Pain) levothyroxine 88 mcg tablet 88 mcg PO DAILY meclizine 25 mg tablet 25 mg PO TID PRN (Reason: nausea/dizziness) venlafaxine 75 mg capsule,extended release 24hr See Rx Instructions .ROUTE .COMPLEX Qty: 90 1RF Dose Instruction: TAKE 1 CAPSULE BY MOUTH DAILY. TAKE WITH 150MG CAPSULE FOR TOTAL DOSE OF 225MG Rx Instructions: TAKE 1 CAPSULE BY MOUTH DAILY. TAKE WITH 150MG CAPSULE FOR TOTAL DOSE OF 225MG venlafaxine 150 mg capsule,extended release 24hr See Rx Instructions .ROUTE .COMPLEX Qty: 90 1RF Dose Instruction: TAKE 1 CAPSULE BY MOUTH DAILY Rx Instructions: TAKE 1 CAPSULE BY MOUTH DAILY clopidogrel [Plavix] 75 mg tablet 75 mg PO DAILY Qty: 30 3RF Hold Instructions: GI BLEED until 01/24/24 Follow-up/Referrals: Alyssa Wooten NP-C [Primary Care Provider] -
[2024-03-11 15:30] VITALS: BP 145/61; PULSE 61; RESP 13; O2SAT 100
[2024-03-11] MEDS: HYDROcodone/acetaminophen (*CRX) 5-325 MG TABLET 1 TAB PO (17:08)
== END 2024-03-11 17:13 | disposition home or self-care (01) ==
PROVIDERS: Emergency Provider Emergency Medicine; PCP Nurse Practitioner
DX: R19.7 Diarrhea, unspecified (principal); R10.30 Lower abdominal pain, unspecified; G40.909 Epilepsy, unspecified, not intractable, without status epilepticus; E78.5 Hyperlipidemia, unspecified; E03.9 Hypothyroidism, unspecified; N40.0 Benign prostatic hyperplasia without lower urinary tract symptoms; K58.9 Irritable bowel syndrome, unspecified; G31.84 Mild cognitive impairment of uncertain or unknown etiology; F32.A Depression, unspecified; F41.9 Anxiety disorder, unspecified; Z96.642 Presence of left artificial hip joint; Z86.73 Personal history of transient ischemic attack (TIA), and cerebral infarction without residual deficits; Z86.16 Personal history of COVID-19; Z87.442 Personal history of urinary calculi; Z87.01 Personal history of pneumonia (recurrent); Z87.891 Personal history of nicotine dependence; Z79.82 Long term (current) use of aspirin; Z79.899 Other long term (current) drug therapy; Z98.49 Cataract extraction status, unspecified eye; N20.0 Calculus of kidney
CPT/HCPCS: 36415; 74177; 80053; 85025; 85610; 85730; 86850; 86900; 86901; 99284; A9270; Q9967

== ENCOUNTER 2024-06-03 07:48 | Emergency (ER) | payer MEDICARE, SELFPAY ==
[2024-06-03] VITALS (10 sets, daily range): BP systolic 126–165; BP diastolic 47–72; PULSE 54–69; RESP 12–24; TEMP 36.4; O2SAT 96–100
--- NOTE | ~2024-06-03 | XR_ITS ---
Clinical Indication: Weakness, syncope PA and lateral views of the chest: Comparison: 12/26/2023 Findings: The lungs are clear, without evidence of focal consolidation or pleural effusion. Cardiome diastinal silhouette is within normal limits. Bones and soft tissues are unremarkable. Impression: Normal chest. Reviewed, dictated and finalized at [facility]. OMER SOLUTIONS TEAMMATE Impression: Normal chest.
--- NOTE | ~2024-06-03 | CT_ITS ---
EXAMINATION: CT brain wo con DATE: 06/03/2024 10:11 INDICATION: Seizure TECHNIQUE: Computed tomography (CT) of the head was performed without intravenous contrast. Sagittal and coronal reconstructions were performed. The mA was adjusted according to patient size. Iterative reconstruction technique was employed. The dose-length product was 605.33 mGy-cm. COMPARISON: head CT dated 12/26/2023 and brain MR dated 11/09/23 FINDINGS: Small old lacunar infarcts at the bilateral basal ganglia and in the bilateral frontal lobe periventr icular white matter. No acute intracranial hemorrhage, acute infarction or abnormal extra axial fluid collection. There is moderate scattered white matter hypoattenuation consistent with chronic small v essel ischemic disease. Symmetric prominence of the sulci consistent with mild age-appropriate diffus e cerebral volume loss. Ventricles are normal and symmetric. No mass/mass effect. The orbits, paranas al sinuses and mastoid air cells are normal. IMPRESSION: 1. Small old lacunar infarcts in the bilateral basal ganglia and bilateral frontal lobe white matter. No acute intracranial process. 2. Age-related changes including mild diffuse volume loss and moderate scattered white matter hypoatt enuation consistent with chronic small vessel ischemic disease. Reviewed, dictated and finalized at location B. FILLER IMPRESSION: 1. Small old lacunar infarcts in the bilateral basal ganglia and bilateral fron chaitanya lobe white matter. No acute intracranial process. 2. Age-related changes including mild diffuse volume loss and moderate scattere d white matter hypoattenuation consistent with chronic small vessel ischemic di sease.
--- NOTE | 2024-06-03 07:50 | ECG_ITS ---
Test Date: 2024-06-03 07:56:35 Measurements Intervals E[place]ond Rate: 61 P: 82 ND: 273 QRS: -33 QRSD: 89 T: 77 QT: 432 QTc: 437 Interpretive Statements SINUS RHYTHM WITH MARKED SINUS ARRHYTHMIA WITH FIRST DEGREE AV BLOCK LEFT AXIS DEVIATION NONSPECIFIC ST & T-WAVE ABNORMALITY- ANTEROLAT/HIGH LAT LEADS BASELINE WANDER- V1-V6 BORDERLINE ECG Compared to ECG 12/26/2023 16:01:53 HEART RATE HAS INCREASED Electronically Signed On 06-03-2024 08:06:46 SPRINKLER FITTER HELPER by Chidi Bryan D.O.
--- OUTSIDE RECORDS SUMMARY | 2024-06-03 08:04 | XMS_ITS | Continuity of Care Document ---
Author Organization [facility] Address [address] [place] [address] [place] [address] Phone Care Team Providers Care Etl Bi Developer Name Role Phone Yony Tanner MD Unavailable Unavailable Procedures Procedure Date Eye Exam & Treatment Advance Directives Directive Yes / No Effective Date File Name No Information Encounters Encounter Description Practice Location Reason(s) For Visit Diagnoses Date Provider Providers Copied on Encounter [facility], [address] [place], [place], [id number], [place] tel:[phone] [facility] No Information [address] [facility] [address], [place], [place], [id number], [place]. tel:[phone] Family History Family Member Type Diagnosis Age At Onset No Information Payers Payer name Insurance type Covered republican ID Authoriza tion(s) [place] [id number] Social History Type Description Quantity Date Captured [...]
--- OUTSIDE RECORDS SUMMARY | 2024-06-03 08:04 | XMS_ITS | Referral Summary ---
Author Organization [facility] [address] Address [address] [place] [address] Care Team Providers Care Licensed Funeral Director And Embalmer Name Role Phone Tammy Patel DO Primary Care Provider [phone] Allergies Active Allergy Reactions Criticality Noted Date Comments Aminoglycosides Unknown Bacitracin Fluoxetine Neomycin Wine Spirit Unknown Zolpidem Medications venlafaxine XR (EFFEXOR-XR) 150 mg 24 hr capsule Take 1 capsule (150 mg total) by mouth daily 05/11/2017 Active levothyroxine (SYNTHROID, LEVOTHROID) 88 mcg tablet Take 1 tablet (88 mcg total) by mouth daily 05/11/2017 Active doxazosin (CARDURA) 2 mg tablet Take 2 mg by mouth nightly. 05/11/2017 Active aspirin 325 mg tablet Take 1 tablet (325 mg total) by mouth daily Active divalproex ER (DEPAKOTE ER) 500 mg 24 hr tablet Take 1 tablet (500 mg total) by mouth daily Active magnesium oxide (MAG-OX) 400 mg (241.3 mg elemental magnesium) tablet Take 1 tablet (400 mg total) by mouth daily Active zinc 50 mg tablet Take 1 tablet by mouth daily Active traMADoL (ULTRAM) 50 mg tablet Take by mouth 06/02/2012 Active tamsulosin (FLOMAX) 0.4 mg extended release capsule TK 1 C PO QD 30 MIN AFTER THE SAME MEAL 07/05/2019 Active cyclobenzaprine (FLEXERIL) 10 mg tablet Take 1 tablet (10 mg total) by mouth 3 (three) times a day as needed for muscle spasms 12/31/2021 Active Active Problems Problem Noted Date Diagnosed Date Stenosis of both vertebral arteries 06/29/2023 Assessment & Plan (08/09/2023 9:35 AM CDT): No evidence of carotid or vertebral artery stenosis. Based on his symptoms it may be due to his past traumatic brain injuries however also a component of orthostatic hypotension or inner ear pathology. Recommend evaluation by ENT and further evaluation of orthostatic hypotension. Can follow up with me as needed. Assessment & Plan (06/29/2023 12:42 PM BIOMASS FACILITATOR): Patient is being evaluated for vertebral stenosis and carotid stenosis. He remains asymptomatic of any TIA symptoms or stroke symptoms. Continue aspirin. Plan: Follow-up in 2-3 weeks with a carotid duplex Palpitations 10/28/2021 Aortic regurgitation 08/01/2017 Aortic valve disorder 07/04/2017 Social History Tobacco Use Types Packs/Day Years Used Date Smoking Tobacco: Former Cigarettes Q uit: 06/30/2005 Smokeless Tobacco: Never Tobacco Cessation:Counseling Given: Not Answered Alcohol Use Standard Drinks/Week Comments No 0 (1 standard drink = 0.6 oz pur e alcohol) PHQ-2 Answer Date Recorded PHQ-2 Total Score (If total score is 3 or more points, staff should administer the PHQ-9) 6 08/08/2019 Personal Safety Answer Date Recorded Getting School Help Needed Not on file 04/10 Sex and Gender Information Value Date Recorded Sex Assigned at Not on file Legal Sex Male 10:28 AM BIOMASS FACILITATOR Gender Identity Not on file Sexual Orientation Not on file Last Filed Vital Signs Vital Sign Reading Time Taken Comments Blood Pressure 166/77 08/09/2023 8:49 AM CDT Pulse 65 08/09/2023 8:49 AM CDT Temperature 36.2 ??C (97.2 ??F) 09/26/2019 9:06 AM CD T Respiratory Rate 24 07/04/2017 2:26 PM BIOMASS FACILITATOR Oxygen Saturation 99% 08/09/2023 8:49 AM CDT Inhaled Oxygen Concentration - - Weight 59 kg (130 lb) 01/06/2022 3:54 PM CDT Height 167.6 cm (5' 6 ) 01/06/2022 3:54 PM CDT Body Mass Index 20.98 01/06/2022 3:54 PM CDT Plan of Treatment Not on file Insurance MEDICARE [employer] Care Teams Licensed Funeral Director And Embalmer Relationship Specialty Start Date End Date Tammy Patel DO PCP - General Family Medicine 07/01/19
--- OUTSIDE RECORDS SUMMARY | 2024-06-03 08:04 | XMS_ITS ---
Author Organization [facility] Address [address] [place] [address] Phone Care Team Providers Care Printer Operator Name Role Phone RocaeljohnTammy bailey Primary Care Provider [phone]- [phone] Madalyn Crawford APRN, KITCHEN MANAGER Unavailable +- [phone] Natan Monzon MD Unavailable [phone] Status:Enrolled (Active) Start date:04/01/2024 Enrollment date:04/01/2024 Related social drivers of health:Intimate Partner Violence, Social Connections, Alcohol Use, Tobacco Use, Financial Resource Strain,Depression, Stress, Physical Activity, Food Insecurity, Transportation Needs, Housing Stability, Utilities Continued Care and Services Coordination
--- OUTSIDE RECORDS SUMMARY | 2024-06-03 08:04 | XMS_ITS | Clinical Summary ---
Author Organization [facility] Address [address] [place] [address] Phone Care Team Providers Care Groundman/Lineman Name Role Phone Tammy Patel Primary Care Provider [phone]- [phone] Madalyn Crawford APRN, SOFTWARE APPLICATION TESTER Unavailable + [phone] Natan Monzon MD Unavailable [phone] Medications VENLAFAXINE HCL PO Take 150 mg by mouth. Active simvastatin (ZOCOR) 5 MG Tablet Take 5 mg by mouth every evening. Active cyclobenzaprine (FLEXERIL) 10 MG Tablet Take 10 mg by mouth 3 times daily as needed. Active busPIRone (BUSPAR) 5 MG Tablet Take 5 mg by mouth 3 times daily. Active levothyroxine (SYNTHROID) 100 MCG Tablet Take 100 mcg by mouth daily. Active aspirin 325 MG Tablet Take 325 mg by mouth daily. Active divalproex (DEPAKOTE) 500 MG Tablet Delayed ResponseIndicat ions:Seizures (HCC) Take 1 Tablet by mouth in the morning and at bedtime. 180 Tablet 1 01/31/2023 Active Active Problems No known active problems Encounters Date Type Department Care Team Description 04/19/2024 Patient Outreach [facility] [address] [place] [phone] Navigator, Digital Health Social Concerns 04/02/2024 Patient Outreach [facility] [address] [place] [address] Navigator, Digital Health Social Concerns from Last 3 Months Social History Tobacco Use Types Packs/Day Years Used Date Smoking Tobacco: Former Cigarettes Smokeless Tobacco: Never Tobacco Cessation:Counseling Given: Not Answered Alcohol Use Standard Drinks/Week Comments Not Currently 0 (1 standard drink = 0.6 oz pur e alcohol) Sex and Gender Information Value Date Recorded Sex Assigned at Not on file Legal Sex Male 8:18 AM CDT Gender Identity Not on file Sexual Orientation Not on file Last Filed Vital Signs Vital Sign Reading Time Taken Comments Blood Pressure 140/60 01/31/2023 2:30 PM CDT Pulse 60 01/31/2023 2:30 PM CDT Temperature 36.4 ??C (97.5 ??F) 01/31/2023 2:30 PM CD T Respiratory Rate 20 01/31/2023 2:30 PM CDT Oxygen Saturation 98% 01/31/2023 2:30 PM CDT Inhaled Oxygen Concentration - - Weight 59 kg (130 lb) 01/31/2023 2:30 PM CDT Height 167.6 cm (5' 6 ) 01/31/2023 2:30 PM CDT Body Mass Index 20.98 01/31/2023 2:30 PM CDT Plan of Treatment Upcoming Encounters Date Type Department Care Team (Late st Contact Info) Description 08/16/2024 9:45 AM CDT Office Visit [facility] [address] [place] [address] Natan Monzon MD [address] [place] [address] Health Maintenance Due Date Last Done Comments Hepatitis C Virus (HCV) Screening 1950 TdaP Immunization 1950 Colonoscopy 1994 Colorectal Cancer Screening 1994 Cologuard 1999 Immunochemical Fecal Occult Blood 1999 Pneumococcal Immunization (50+ years) (2 of 2 - PPSV23) 10/15/2022 10/15/2021 Influenza Immunization (#1) 12/31/202301/29, 03/03/2022, 03/04/2021, Additional history exists SARS-COV-2 Immunization ( season) 2023 04/27/2023, 05/06/2021, 09/05/2020, Additional history exists Respiratory Syncytial Virus (RSV) Immunization (Adult) (1 - 1-dose 75+ series) 2024 Zoster Immunization Completed 2022, Hepatitis B Immunization Aged Out No longer eligible based on patient's age to complete this topic Meningococcal Immunization (ACWY) Aged Out No longer eligible based on patient's age to complete this topic Rotavirus Immunization Aged Out No lo nger eligible based on patient's age to complete this topic Insurance MEDICARE C [facility] MEDICAID [place] Care Teams Groundman/Lineman Relationship Specialty Start Date End Date Tammy Patel DO [address] [place] [address] PCP - General Family Medicine 02/16/23 Madalyn Crawford, OLERICULTURIST, SOFTWARE APPLICATION TESTER [address] [place] [address] Nurse Practitioner Advanced Practice Nurse 10/18/22 Natan Monzon MD [address] [place] [address] Consulting Physician Neurology 01/31/23
--- OUTSIDE RECORDS SUMMARY | 2024-06-03 08:04 | XMS_ITS | Clinical Summary ---
Author Organization [facility] [address] Address [address] [place] [address] Care Team Providers Care Electroneurodiagnostic Technologist Name Role Phone Tammy Patel DO Primary Care Provider +1- [phone] Allergies Active Allergy Reactions Criticality Noted Date [...] needed. Assessment & Plan (06/29/2023 12:42 PM NEWSPAPER DELIVERY COUNSELOR): Patient is being evaluated for vertebral stenosis and carotid stenosis. He remains asymptomatic of any TIA symptoms or stroke symptoms. Continue aspirin. Plan: Follow-up in 2-3 weeks with a carotid duplex Palpitations 10/28/2021 Aortic regurgitation 08/01/2017 Aortic valve disorder 07/04/2017 Medical History Medical History Date Comments Hypertension Hypertension Hypothyroidism Hypothyroidism Heart murmur Sleep apnea Family History Medical History Relation Name Comments Cancer Father Coronary artery disease Father Lillie nary Artery Bypass Graft; Cancer Mother Coronary artery disease Mother Lillie nary Artery Bypass Graft; Relation Name Status Comments Father Mother Social History Tobacco Use Types Packs/Day Years [...] on file Legal Sex Male 10:28 AM NEWSPAPER DELIVERY COUNSELOR Gender Identity Not on file Sexual Orientation Not on file Obstetrics History Last Filed Vital Signs Vital Sign Reading Time Taken Comments Blood Pressure 166/77 08/09/2023 8:49 AM CDT Pulse 65 08/09/2023 8:49 AM CDT Temperature 36.2 ??C (97.2 ??F) 09/26/2019 9:06 AM CD T Respiratory Rate 24 07/04/2017 2:26 PM NEWSPAPER DELIVERY COUNSELOR Oxygen Saturation 99% 08/09/2023 8:49 AM CDT Inhaled Oxygen Concentration - - Weight 59 kg (130 lb) 01/06/2022 3:54 PM CDT Height 167.6 cm (5' 6 ) 01/06/2022 3:54 PM CDT Body Mass Index 20.98 01/06/2022 3:54 PM CDT Plan of Treatment Health Maintenance Due Date Last Done Comments Colon Cancer Screening-Colonoscopy 1950 Hepatitis C Screening 1950 DTaP/Tdap/Td Vaccine (1 - Tdap) 1960 Hepatitis B Screening 1967 Zoster Vaccine (1 of 2) 1999 Abdominal Aortic Aneurysm (AAA) Screen 2014 Pneumococcal vaccine 65+ (1 of 1 - PCV) 2014 Well Visit 65+ 2014 Depression Screening 08/07/2020 08/08/2019 Fall Risk Assessment 08/07/2020 08/08/2019 Influenza Vaccine (#1) 2023 01/09/2018 Insurance MEDICARE SOL[employer] [facility] MEDICARE Address: [facility] [address] [place] [address] Care Teams Electroneurodiagnostic Technologist Relationship Specialty Start Date End Date Tammy Patel DO PCP - General Family Medicine 07/01/19
--- OUTSIDE RECORDS SUMMARY | 2024-06-03 08:04 | XMS_ITS | Clinical Summary ---
Author Organization [facility] Address [facility]. [place], [place] [address] [place] [address] Care Team Providers Care Processing Spec Name Role Phone Estuardo Bean DO Primary Care Provider + Social History Tobacco Use Types Packs/Day Years Used Date Smoking Tobacco: Never Assessed Sex and Gender Information Value Date Recorded Sex Assigned at Male 05/31/2024 10:50 AM AUTO DAMAGE ESTIMATOR Legal Sex Male 6:30 PM CDT Gender Identity Not on file Sexual Orientation Not on file Plan of Treatment Upcoming Encounters Date Type Department Care Team (Late st Contact Info) Description 07/15/2024 1:00 PM CDT Office Visit [facility] Family & Internal Medicine [address] [address] Estuardo Bean DO [address] [place] [address] Health Maintenance Due Date Last Done Comments Colorectal Cancer Screening Colonoscopy (10 Years) 1949 Hepatitis C 1967 DTaP, Tdap and Td Vaccines ( 1 - Tdap) 1968 Zoster Vaccines (1 of 2) 1999 Annual Medicare Wellness Visit 2014 Pneumococcal Vaccine: 65+ Ye ars (1 of 1 - PCV) 2014 COVID-19 Vaccine ( - 2023-2 5 season) 2023 Influenza Adult (#1) 2024 RSV Immunization or 60+ Years (1 - 1-dose 75+ series) 2024 Meningococcal B Vaccine Aged Out No l onger eligible based on patient's age to complete this topic Meningococcal Vaccine Aged Out No michael opal eligible based on patient's age to complete this topic RSV Immunizations Under 20 Months Aged Out No longer eligible based on patient's age to complete this topic Insurance [facility] [place] [address] Care Teams Processing Spec Relationship Specialty Start Date End Date Estuardo Bean DO [address] [place] [address] PCP - General FAMILY PRACTICE 05/31/24
[2024-06-03 08:09] LABS: Basophils Absolute Auto 0.1 K/mm3 (0.0-0.1); Eosinophils Absolute Auto 0.2 K/mm3 (0-0.3); Eosinophils Percent Auto 3.7 % (0-4.4); Hematocrit 39.6 % (42.0-52.0); Hemoglobin 12.2 g/dL (14.0-18.0); Immature Granulocyte Absolute 0.02 K/mm3 (0.00-0.031); Immature Granulocyte Percent A 0.4 % (0-0.5); Lymphocytes Absolute Auto 1.81 K/mm3 (0.9-3.2); Lymphocytes Percent Auto 35.2 % (18.3-44.2); Mean Corpuscular HGB Conc 30.8 g/dl (32-36); Mean Corpuscular Hemoglobin 25.4 pg (26-34); Mean Corpuscular Volume 82.5 fl (80-100); Mean Platelet Volume 8.7 fl (7.4-10.4); Monocytes Absolute Auto 0.5 K/mm3 (0.1-0.6); Monocytes Percent Auto 9.3 % (2.6-8.5); Neutrophils Absolute Auto 2.6 K/mm3 (1.3-6.7); Neutrophils Percent Auto 50.4 % (45.5-73.1); Platelet Count Result 244 k/mm3 (150-375); Red Cell Distribution Width 17.3 % (11.5-14.5); White Blood Count 5.1 K/mm3 (4.5-10.0)
[2024-06-03 08:24] LABS: Alanine Aminotransferase 23 U/L (6-50); Albumin Level 4.4 g/dL (3.5-5.1); Alkaline Phosphatase 111 U/L (38-126); Anion Gap 9 mmol/L (4-12); Aspartate Amino Transferase 30 U/L (17-59); Blood Urea Nitrogen 14 mg/dL (9-20); Calcium 9.6 mg/dL (8.4-10.2); Carbon Dioxide 27 mmol/L (22-30); Chloride 104 mmol/L (98-107); Estimated CRCL calculation 50 ml/min; Estimated Glomerular Filt Rate > 60; Glucose 98 mg/dL (65-110); Potassium 4.1 mmol/L (3.4-5.0); Sodium 140 mmol/L (137-145)
[2024-06-03 08:53] LABS: Add Urine Microscopic? NO; Appearance Urine Clear (Clear); Bilirubin Urine Negative (Negative); Blood Urine Negative (Negative); Color Urine Yellow (Yellow); Glucose Urine UA Negative (Negative); Ketones Urine Negative (Negative); Leukocyte Esterase Ur Negative LEU/UL (Negative); Nitrate Urine Negative (Negative); Protein Urine Negative (Negative); Specific Grav Ur 1.019 (1.001-1.035)
--- NOTE | 2024-06-03 10:48 | ED_ITS ---
HPI - General Adult General Chief complaint: Weakness Stated complaint: weakness Time Seen by Provider: 06/03/24 07:51 Source: patient and family Mode of arrival: EMS Limitations: no limitations History of Present Illness HPI narrative: 74-year-old with a history of seizure disorder, brain injury, hypothyroidism, depression was brought in from home with the complaints of dizzy followed by fall. As per the who is at bedside patient has the symptoms of on and off for last several years. They live in a trailer and many loses balance it is hard to catch. He presently denies having any headache, chest pain or shortness of breath. However he complains of pain in his right lower abdomen which is been ongoing for several years. Onset (ago): hour(s) (1) Radiation: non-radiation Severity: mild Associated symptoms: denies other symptoms Related Data Home Medications ?Medication ?Instructions ?Recorded ?Confirmed ?Last Taken ?Type divalproex 500 mg tablet,delayed 500 mg PO DAILY 04/06/23 05/16/24 05/15/24 History release atorvastatin 40 mg tablet 40 mg PO QHS 01/18/24 05/16/24 05/15/24 History cyclobenzaprine 10 mg tablet 10 mg PO TID PRN allergy symptoms 01/18/24 05/16/24 05/15/24 History levothyroxine 88 mcg tablet 88 mcg PO DAILY 02/27/24 05/16/24 05/15/24 History meclizine 25 mg tablet 25 mg PO TID PRN nausea/dizziness 02/27/24 05/16/24 05/15/24 History simvastatin 10 mg tablet 10 mg PO HS 02/27/24 05/16/24 05/15/24 History tramadol 50 mg tablet 50 mg PO Q6H PRN Pain 02/27/24 05/16/24 05/15/24 History Allergies Allergy/AdvReac Type Severity Reaction Status Date / Time Aminoglycosides Allergy Severe SWELLING, Verified 06/03/24 07:51 MAKES INFECTION WORSE bacitracin Allergy Severe SWELLING, Verified 06/03/24 07:51 MAKES INFECTION WORSE Fish Containing Products Allergy Severe ANAPHYLAXIS Verified 06/03/24 07:51 fluoxetine Allergy Severe SSRI= Verified 06/03/24 07:51 SUICIDAL REACTION neomycin Allergy Severe SWELLING, Verified 06/03/24 07:51 MAKES INFECTION WORSE shellfish derived Allergy Severe ANAPHYLAXIS Verified 06/03/24 07:51 Sulfa (Sulfonamide Allergy Severe Anaphylactic Verified 06/03/24 07:51 Antibiotics) Shock zolpidem AdvReac Intermediate Confusion Verified 06/03/24 07:51 BETI/ Allergy Severe ANAPHYLACTIC--THROAT Uncoded 06/03/24 07:51 SWELLING Review of Systems 2 Review of Systems: All systems reviewed & are unremarkable except as noted in HPI and below Constitutional: Constitutional: Reports no additional constitutional complaints Eyes: Eyes: Reports no additional eye complaints ENT: Reports system reviewed and no additional complaints, except as documented Cardiovascular: Cardiovascular: Reports no additional cardiovascular complaints Respiratory: Respiratory: Reports no additional respiratory complaints Musculoskeletal: Musculoskeletal: Reports no additional musculoskeletal complaints Neurologic: Reports system reviewed and no additional complaints, except as documented [facility] Past Medical History Medical History History of traumatic head injury Seizure disorder MCI (mild cognitive impairment) Benign prostatic hyperplasia Histoplasmosis Transient ischemic attack Traumatic brain injury Irritable bowel syndrome Hyperlipidemia Degenerative disc disease Cerebrovascular accident COVID Anxiety Depression Hypothyroidism Skull fracture Kidney stones Peptic ulcer Diverticulosis Diverticulitis Sleep apnea Pneumonia Epilepsy Surgical History Surgical History History of colonoscopy with polypectomy History of lithotripsy History of tonsillectomy History of cataract extraction History of rotator cuff surgery Bilateral. History of cardiac catheterization History of total left hip arthroplasty Family History Family History Mother Family history of malignant neoplasm of breast in first degree relative Family history of cardiovascular disease Father Family history of cardiovascular disease Other Family history of arthritis Family history of mental disorder Social History Social History Social History: Surrogate medical decision maker: Quita Vargas Code status: Full code. Smoking packs per day: 1 Smoking cigarettes per day: 20.0 Years smoked: 1 Smoking pack-years: 1.00 Smoking status: Former smoker Tobacco type: cigarettes Second hand tobacco smoke exposure: No Smoking end date: 05/01/94 Additional smoking assessment comments: Forty pack-year smoking history, quit in 1994. Alcohol intake: former Alcohol use details: QUIT 30 YEARS AGO Substance use: never Substance use type: does not use Do You Feel Safe in your Home?: No Lack of Transportation: No Lack of Food: Sometimes True Current Housing: Decline to Answer Concerned About Future Housing: Decline to Answer Difficulty Paying Gas/Electric Bills: No Difficulty Paying for Meds: No Currently Unemployed: No Education: Associate Degree Difficulty w/ Childcare or Family Care: Decline to Answer Living arrangements: with family Additional living arrangements comments: Lives with spouse in [place]. 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 Spiritual care concerns: No Exam 2 Narrative: GENERAL: Well-appearing, well-nourished, and in no acute distress. HEAD: Normocephalic, atraumatic. EYES: PERRLA and EOMI. ENT: Nares clear, no rhinorrhea or epistaxis. Mucous membranes moist. NECK: Supple. CHEST: Clear to auscultation. No respiratory distress. HEART: Regular rate and rhythm. No murmur heard. Normal peripheral pulses. ABDOMEN: Soft, nontender, nondistended, normal active bowel sounds. EXTREMITIES: Normal range of motion. No edema. SKIN: Warm, dry, no rash. NEURO: No focal deficits. Alert and oriented x3. PSYCH: Normal mood and affect. Course Course Emergency Course: Patient feeling better. Informed him and his about the lab work, CT and EKG findings. Fall precautions advised. states that they do not have primary doctor as till 3:00 p.m.. Advised to make an appointment with a new MD. Continue home medications the did inform them that valproic acid levels will take a day or so and they are abnormal will give him a call Vital Signs Vital signs: Vital Signs Temperature 36.4 C 06/03/24 07:45 Pulse Rate 69 06/03/24 07:45 Respiratory Rate 16 06/03/24 07:45 Blood Pressure 165/72 H 06/03/24 07:45 Pulse Oximetry 96 06/03/24 07:45 Oxygen Delivery Room Air 06/03/24 07:45 Temperature 36.4 C 06/03/24 07:45 Pulse Rate 59 L 06/03/24 10:01 Respiratory Rate 13 06/03/24 10:01 Blood Pressure 130/62 06/03/24 10:01 Pulse Oximetry 100 06/03/24 10:01 Oxygen Delivery Room Air 06/03/24 07:45 Medical Decision Making Differential Diagnosis Differential Diagnosis: Seizure, weakness, physical deconditioning, heading Medical Records Medical records reviewed: Yes I reviewed the external patient's medical records. Vital Signs Vital Signs: Vital Signs Temperature 36.4 C 06/03/24 07:45 Pulse Rate 69 06/03/24 07:45 Respiratory Rate 16 06/03/24 07:45 Blood Pressure 165/72 H 06/03/24 07:45 Pulse Oximetry 96 06/03/24 07:45 Oxygen Delivery Room Air 06/03/24 07:45 Temperature 36.4 C 06/03/24 07:45 Pulse Rate 59 L 06/03/24 10:01 Respiratory Rate 13 06/03/24 10:01 Blood Pressure 130/62 06/03/24 10:01 Pulse Oximetry 100 06/03/24 10:01 Oxygen Delivery Room Air 06/03/24 07:45 Lab Data Lab results reviewed: Yes I reviewed the patient's lab results. 06/03/24 07:56 06/03/24 07:56 Labs: Lab Results 06/03/24 06/03/24 Range/Units 07:56 08:46 WBC 5.1 (4.5-10.0) K/mm3 RBC 4.80 (4.6-6.20) M/mm3 Hgb 12.2 L (14.0-18.0) g/dL Hct 39.6 L (42.0-52.0) % MCV 82.5 (80-100) fl MCH 25.4 L (26-34) pg MCHC 30.8 L (32-36) g/dl RDW 17.3 H (11.5-14.5) % Plt Count 244 (150-375) k/mm3 MPV 8.7 (7.4-10.4) fl Immature Gran % (Auto) 0.4 (0-0.5) % Neut % (Auto) 50.4 (45.5-73.1) % Lymph % (Auto) 35.2 (18.3-44.2) % [place] % (Auto) 9.3 H (2.6-8.5) % Eos % (Auto) 3.7 (0-4.4) % Baso % (Auto) 1.0 (0.2-1.2) % Lymph # (Auto) 1.81 (0.9-3.2) K/mm3 [place] # (Auto) 0.5 (0.1-0.6) K/mm3 Eos # (Auto) 0.2 (0-0.3) K/mm3 Baso # (Auto) 0.1 (0.0-0.1) K/mm3 Abs Immat Gran (auto) 0.02 (0.00-0.031) K/mm3 Absolute Neuts (auto) 2.6 (1.3-6.7) K/mm3 Absolute Nucleated RBC 0.000 (0.0-0.012) K/mm3 Nucleated RBC % 0.0 (0.0-0.2) % Sodium 140 (137-145) mmol/L Potassium 4.1 (3.4-5.0) mmol/L Chloride 104 (98-107) mmol/L Carbon Dioxide 27 (22-30) mmol/L Anion Gap 9 (4-12) mmol/L BUN 14 (9-20) mg/dL Creatinine 0.90 (0.7-1.3) mg/dL Estim Creat Clear Calc 50 ml/min Estimated GFR > 60 (59 - ) Glucose 98 (65-110) mg/dL Calcium 9.6 (8.4-10.2) mg/dL Total Bilirubin 1.0 (0.2-1.3) mg/dL AST 30 (17-59) U/L ALT 23 (6-50) U/L Alkaline Phosphatase 111 (38-126) U/L Total Protein 8.0 (6.3-8.2) g/dL Albumin 4.4 (3.5-5.1) g/dL Urine Color Yellow (Yellow) Urine Appearance Clear (Clear) Urine pH 6.0 (5.0-9.0) Ur Specific [place] 1.019 (1.001-1.035) Urine Protein Negative (Negative) mg/dL Urine Glucose (UA) Negative (Negative) mg/dL Urine Ketones Negative (Negative) mg/dL Ur Blood (Man) Negative (Negative) Urine Nitrate Negative (Negative) Urine Bilirubin Negative (Negative) Urine Urobilinogen 1.0 (<2.0) mg/dL Leukocyte Esterase Rfl Negative (Negative) WALDO/UL Imaging Data Radiologist's impression: ITS Impressions Chest X-Ray 06/03/24 08:16 Impression: Normal chest. Head CT 06/03/24 10:14 IMPRESSION: 1. Small old lacunar infarcts in the bilateral basal ganglia and bilateral frontal lobe white matter. No acute intracranial process. 2. Age-related changes including mild diffuse volume loss and moderate scattered white matter hypoattenuation consistent with chronic small vessel ischemic disease. ECG Data EKG #1: ECG completion date: 06/03/24 ECG completion time: 07:56 EKG Interpretation: normal rate (61), sinus rhythm, no ectopy, no ST changes, NL axis and no acute changes Discharge Plan Discharge Clinical Impression: Weakness Patient Disposition: Home, Self-Care Condition: Stable Instructions: Chronic Fatigue Syndrome (ED) Additional Instructions: continue home medications. Patient Language: Polish Prescriptions: No Action fluticasone propionate [Flonase Allergy Relief] 50 mcg/actuation spray,suspension 2 spray intranasal DAILY Qty: 18 3RF Rx Instructions: administer into each nostril q.h.s. p.r.n. congestion atorvastatin 40 mg tablet 40 mg PO QHS cyclobenzaprine 10 mg tablet 10 mg PO TID PRN (Reason: allergy symptoms) pantoprazole 40 mg tablet,delayed release (DR/EC) 40 mg PO BID Qty: 60 3RF divalproex 500 mg tablet,delayed release (DR/EC) 500 mg PO DAILY simvastatin 10 mg tablet 10 mg PO HS tramadol 50 mg tablet 50 mg PO Q6H PRN (Reason: Pain) levothyroxine 88 mcg tablet 88 mcg PO DAILY meclizine 25 mg tablet 25 mg PO TID PRN (Reason: nausea/dizziness) venlafaxine 75 mg capsule,extended release 24hr See Rx Instructions .ROUTE .COMPLEX Qty: 90 1RF Dose Instruction: TAKE 1 CAPSULE BY MOUTH DAILY. TAKE WITH 150MG CAPSULE FOR TOTAL DOSE OF 225MG Rx Instructions: TAKE 1 CAPSULE BY MOUTH DAILY. TAKE WITH 150MG CAPSULE FOR TOTAL DOSE OF 225MG venlafaxine 150 mg capsule,extended release 24hr See Rx Instructions .ROUTE .COMPLEX Qty: 90 1RF Dose Instruction: TAKE 1 CAPSULE BY MOUTH DAILY Rx Instructions: TAKE 1 CAPSULE BY MOUTH DAILY clopidogrel [Plavix] 75 mg tablet 75 mg PO DAILY Qty: 30 3RF Follow-up/Referrals: Eduardo Sotelo DO [Primary Care Provider] - Time of Disposition: 10:54
[2024-06-03 11:56] LABS: Valproic Acid < 10.0 ug/mL (50-120)
== END 2024-06-03 11:14 | disposition home or self-care (01) ==
PROVIDERS: Emergency Provider Family Medicine; PCP Internal Medicine
DX: R53.1 Weakness (principal); G40.909 Epilepsy, unspecified, not intractable, without status epilepticus; Z86.73 Personal history of transient ischemic attack (TIA), and cerebral infarction without residual deficits; Z87.820 Personal history of traumatic brain injury; E78.5 Hyperlipidemia, unspecified; Z86.16 Personal history of COVID-19; E03.9 Hypothyroidism, unspecified; G47.30 Sleep apnea, unspecified; F41.9 Anxiety disorder, unspecified; F32.A Depression, unspecified; Z96.642 Presence of left artificial hip joint; Z87.442 Personal history of urinary calculi; Z87.11 Personal history of peptic ulcer disease; Z87.01 Personal history of pneumonia (recurrent); Z86.0100 Personal history of colon polyps, unspecified; Z87.891 Personal history of nicotine dependence; Z98.49 Cataract extraction status, unspecified eye; Z79.02 Long term (current) use of antithrombotics/antiplatelets; Z79.899 Other long term (current) drug therapy; R94.31 Abnormal electrocardiogram [ECG] [EKG]
CPT/HCPCS: 36415; 70450; 71046; 80053; 80164; 81003; 85025; 93005; 99284

== ENCOUNTER 2024-06-21 11:25 | Outpatient (CLI) | payer MEDICARE, SELFPAY ==
--- NOTE | ~2024-06-21 | XR_ITS ---
EXAMINATION: XR shoulder RT min 2V DATE: 06/21/2024 12:00 INDICATION: Right shoulder pain. TECHNIQUE: 4 views of right shoulder were obtained. COMPARISON: Right shoulder radiographs 03/14/16 FINDINGS: Alignment is normal. There are changes of distal clavicle resection. No fracture. There are suture anchors in humeral head. There is mild osteoarthritis of glenohumeral joint. IMPRESSION: 1. Mild osteoarthritis of glenohumeral joint. Reviewed, dictated and finalized at location A. GAGE UNDERWRITER
--- NOTE | ~2024-06-21 | XR_ITS ---
EXAMINATION: XR shoulder LT min 2V DATE: 06/21/2024 12:01 INDICATION: Left shoulder pain. TECHNIQUE: 4 views of left shoulder were obtained. COMPARISON: None. FINDINGS: Alignment is normal. No fracture. There is mild osteoarthritis of glenohumeral joint and ac romioclavicular joint. IMPRESSION: 1. Mild polyarticular osteoarthritis. Reviewed, dictated and finalized at location A. GER RADIO
--- OUTSIDE RECORDS SUMMARY | 2024-06-21 11:54 | XMS_ITS | Clinical Summary ---
Author Organization [facility] [address] Address [address] [place] [address] Care Team Providers Care Blade Filer Name Role Phone Tammy Patel DO Primary Care Provider +1- [phone] Allergies Active Allergy Reactions Criticality Noted Date [...] needed. Assessment & Plan (06/29/2023 12:42 PM QUALITY CONTROL OPERATOR): Patient is being evaluated for vertebral stenosis [...] on file Legal Sex Male 10:28 AM QUALITY CONTROL OPERATOR Gender Identity Not on file Sexual Orientation Not on file Obstetrics History Last Filed Vital Signs Vital Sign Reading Time Taken Comments Blood Pressure 166/77 08/09/2023 8:49 AM CDT Pulse 65 08/09/2023 8:49 AM CDT Temperature 36.2 C (97.2 F) 09/26/2019 9:06 AM CDT Respiratory Rate 24 07/04/2017 2:26 PM QUALITY CONTROL OPERATOR Oxygen Saturation 99% 08/09/2023 8:49 AM CDT [...] - Tdap) 1960 Hepatitis B Screening 1967 Pneumococcal vaccine 65+ (1 of 1 - PCV) 1999 Zoster Vaccine (1 of 2) 1999 Abdominal Aortic Aneurysm (AAA) Screen 2014 Well Visit 65+ 2014 Depression Screening 08/07/2020 08/08/2019 Fall Risk Assessment 08/07/2020 08/08/2019 Influenza Vaccine (#1) 2023 01/09/2018 Insurance MEDICARE SOLUTIONS Care Teams Blade Filer Relationship Specialty Start Date End Date Tammy Patel DO PCP - General Family Medicine 07/01/19
--- OUTSIDE RECORDS SUMMARY | 2024-06-21 11:54 | XMS_ITS | Clinical Summary ---
Author Organization [facility] Address [address] [place] [address] Phone Care Team Providers Care Analog Circuit Designer Name Role Phone Tammy Patel Primary Care Provider [phone]- [phone] Madalyn Crawford APRN, INDIAN BLANKET WEAVER Unavailable + [phone] Natan Monzon MD Unavailable [phone] Medications VENLAFAXINE HCL PO Take 150 mg [...] 04/19/2024 Patient Outreach [facility] [address] [place] [id number] Navigator, Digital Health Social Concerns 04/02/2024 Patient Outreach [facility] [address] [place] [address] Navigator, Digital Health Social Concerns [...] 60 01/31/2023 2:30 PM CDT Temperature 36.4 C (97.5 F) 01/31/2023 2:30 PM CDT Respiratory Rate 20 01/31/2023 2:30 PM CDT Oxygen Saturation 98% 01/31/2023 2:30 PM CDT Inhaled Oxygen Concentration - - Weight 59 kg (130 lb) 01/31/2023 2:30 PM CDT Height 167.6 cm (5' 6 ) 01/31/2023 2:30 PM CDT Body Mass Index 20.98 01/31/2023 2:30 PM CDT Plan of Treatment Upcoming Encounters Date Type Department Care Team (Late st Contact Info) Description 08/09/2024 10:15 AM CDT Office Visit [facility] - Neurology [facility] [address] [place] [address] Natan Monzon MD [address] [place] [address] Health Maintenance Due Date Last Done Comments [...] to complete this topic Insurance MEDICARE C [employer] [place]ID [place] Care Teams Analog Circuit Designer Relationship Specialty Start Date End Date Tammy Patel DO [address] [place] [address] PCP - General Family Medicine 02/16/23 Madalyn Crawford, TELEHEALTH COORDINATOR, INDIAN BLANKET WEAVER [address] [place] [address] Nurse Practitioner Advanced Practice Nurse 10/18/22 Natan Monzon MD [address] [place] [address] Consulting Physician Neurology 01/31/23
--- OUTSIDE RECORDS SUMMARY | 2024-06-21 11:54 | XMS_ITS | Clinical Summary ---
Author Organization [facility] Address [address] [place] [address] Care Team Providers Care Command Center Analyst Name Role Phone Luis Valentino MD Primary Care Provider Social History Tobacco Use Types Packs/Day Years Used Date Smoking Tobacco: Never Assessed Sex and Gender Information Value Date Recorded Sex Assigned at Male 05/31/2024 10:50 AM RIGGING WORKER Legal Sex Male 6:30 PM CDT Gender Identity Not on file Sexual Orientation Not on file Plan of Treatment Health Maintenance Due Date [...] Years (1 - 1-dose 75+ series) 2024 PHQ-2 (Physician [place]) 05/01/2024 Meningococcal B Vaccine Aged Out No l onger eligible based on patient's age to complete this topic Meningococcal Vaccine Aged Out No michael opal eligible based on patient's age to complete this topic RSV Immunizations Under 20 Months Aged Out No longer eligible based on patient's age to complete this topic Insurance [facility] Care Teams Command Center Analyst Relationship Specialty [place] [address] [place] [address] PCP - General INTERNAL MEDICINE 06/12/24
--- OUTSIDE RECORDS SUMMARY | 2024-06-21 11:54 | XMS_ITS | Continuity of Care Document ---
Author Organization [facility] Address [address] [place] [address] [place] [address] Phone Care Team Providers Care Installation Specialist Name Role Phone Yony Tanner MD Unavailable Unavailable Procedures Procedure Date Eye Exam & Treatment Advance Directives Directive Yes / No Effective Date File Name No Information Encounters Encounter Description Practice Location Reason(s) For Visit Diagnoses Date Provider Providers Copied on Encounter [facility], [address] [place], [place], [id number], [place] tel:[phone] [facility] No Information [address]. [address] [facility] [address], [place], [place], [id number], [place]. tel:[phone] Family History Family Member Type Diagnosis Age At Onset No Information Payers Payer name Insurance type Covered republican ID Authoriza tion(s) [place] [id number] Social History Type Description Quantity Date Captured [...]
--- OUTSIDE RECORDS SUMMARY | 2024-06-21 11:54 | XMS_ITS | Referral Summary ---
Author Organization [facility] [address] Address [address] [place] [address] Care Team Providers Care Oil Treater Name Role Phone Tammy Patel DO Primary Care Provider +1- [phone] Allergies Active Allergy Reactions Criticality Noted Date [...] needed. Assessment & Plan (06/29/2023 12:42 PM FURNACE STOCK INSPECTOR): Patient is being evaluated for vertebral stenosis [...] on file Legal Sex Male 10:28 AM FURNACE STOCK INSPECTOR Gender Identity Not on file Sexual Orientation Not on file Last Filed Vital Signs Vital Sign Reading Time Taken Comments Blood Pressure 166/77 08/09/2023 8:49 AM CDT Pulse 65 08/09/2023 8:49 AM CDT Temperature 36.2 C (97.2 F) 09/26/2019 9:06 AM CDT Respiratory Rate 24 07/04/2017 2:26 PM FURNACE STOCK INSPECTOR Oxygen Saturation 99% 08/09/2023 8:49 AM CDT Inhaled Oxygen Concentration - - Weight 59 kg (130 lb) 01/06/2022 3:54 PM CDT Height 167.6 cm (5' 6 ) 01/06/2022 3:54 PM CDT Body Mass Index 20.98 01/06/2022 3:54 PM CDT Plan of Treatment Not on file Insurance [employer] Care Teams Oil Treater Relationship Specialty Start Date End Date Tammy Patel DO PCP - General Family Medicine 07/01/19
--- OUTSIDE RECORDS SUMMARY | 2024-06-21 11:54 | XMS_ITS ---
Author Organization [facility] Address [address] [place] [address] Phone Care Team Providers Care Pouring Crane Operator Name Role Phone RocaeljohnTammy bailey Primary Care Provider +1- [phone] Madalyn Crawford APRN, WIRE SPOOLER Unavailable +- [phone] Natan Monzon MD Unavailable +-[phone] [facility] Status:Enrolled (Active) Start date:04/01/2024 Enrollment date:04/01/2024 Related social drivers of health:Intimate Partner Violence, Social Connections, Alcohol Use, Tobacco Use, Financial Resource Strain,Depression, Stress, Physical Activity, Food Insecurity, Transportation Needs, Housing Stability, Utilities Continued Care and Services Coordination
== END 2024-06-21 11:26 | disposition home or self-care (01) ==
PROVIDERS: PCP Internal Medicine; Visit Provider Internal Medicine
DX: M19.011 Primary osteoarthritis, right shoulder (principal); M19.012 Primary osteoarthritis, left shoulder
CPT/HCPCS: 73030

== ENCOUNTER 2024-08-13 15:25 | Outpatient (CLI) | payer MEDICARE, SELFPAY ==
--- NOTE | ~2024-08-13 | MR_ITS ---
MRI of the left shoulder Technique: Axial proton-density fat-sat images, coronal proton density fat-sat and T2 fat-sat images, and sagittal T1-weighted and T2 fat-sat images were acquired. Clinical History: Pain Findings: Probable prior subacromial decompression. Coracoclavicular, coracoacromial, and coracohumer al ligaments appear intact. There is relative thinning of the central portion of the supraspinatus tendon which could reflect par tial mass tearing. No definite full-thickness tear is seen, though the tendon is somewhat poorly deli neated central and sagittal views. Infraspinatus tendon is intact. Subscapularis tendon intact. Tendo n of long head of the biceps is intact. No definite labral tear seen. Inferior glenohumeral ligament is intact. No significant degenerative change or effusion of the gleno humeral joint. There is small amount of fluid in the subacromial/subdeltoid bursa. No muscle atrophy or edema. Impression: Probable mild to moderate grade partial thickness tearing at the midportion of the supraspinatus tend on, although the tendon is less well-defined on sagittal images. Full-thickness tear not clearly conf irmed, but consider MR arthrogram to better evaluate the integrity of the supraspinatus tendon. Mild subacromial/subdeltoid bursitis. Prior subacromial decompression. Reviewed, dictated and finalized at [facility]. Impression: Probable mild to moderate grade partial thickness tearing at the midportion of the supraspinatus tendon, although the tendon is less well-defined on sagittal images. Full-thickness tear not clearly confirmed, but consider MR arthrogram t o better evaluate the integrity of the supraspinatus tendon. Mild subacromial/subdeltoid bursitis. Prior subacromial decompression.
--- OUTSIDE RECORDS SUMMARY | 2024-08-13 16:29 | XMS_ITS ---
Author Organization [facility] Address [address] [place] [address] Phone Care Team Providers Care Recycling Attendant Name Role Phone RocaeljohnTammy bailey Primary Care Provider +1- [phone] Madalyn Crawford APRN, DRUGLESS DOCTOR Unavailable +- [phone] Natan Monzon MD Unavailable +-[phone] [facility] Status:Enrolled (Active) Start date:04/01/2024 Enrollment date:04/01/2024 Related social drivers of health:Intimate Partner Violence, Social Connections, Alcohol Use, Tobacco Use, Financial Resource Strain,Depression, Stress, Physical Activity, Food Insecurity, Transportation Needs, Housing Stability, Utilities Continued Care and Services Coordination
--- OUTSIDE RECORDS SUMMARY | 2024-08-13 16:29 | XMS_ITS | Referral Summary ---
Author Organization [facility] [address] Address [address] [place] [address] Care Team Providers Care Mediation Commissioner Name Role Phone Tammy Patel DO Primary Care Provider +1- [phone] Allergies Active Allergy Reactions Criticality Noted Date [...] needed. Assessment & Plan (06/29/2023 12:42 PM OFFICE HELPER): Patient is being evaluated for vertebral stenosis [...] on file Legal Sex Male 10:28 AM OFFICE HELPER Gender Identity Not on file Sexual Orientation Not on file Last Filed Vital Signs Vital Sign Reading Time Taken Comments Blood Pressure 166/77 08/09/2023 8:49 AM CDT Pulse 65 08/09/2023 8:49 AM CDT Temperature 36.2 C (97.2 F) 09/26/2019 9:06 AM CDT Respiratory Rate 24 07/04/2017 2:26 PM OFFICE HELPER Oxygen Saturation 99% 08/09/2023 8:49 AM CDT Inhaled Oxygen Concentration - - Weight 59 kg (130 lb) 01/06/2022 3:54 PM CDT Height 167.6 cm (5' 6 ) 01/06/2022 3:54 PM CDT Body Mass Index 20.98 01/06/2022 3:54 PM CDT Plan of Treatment Not on file Insurance [facility] MEDICARE ADVANTAGE [facility] Address: [facility] [address] [place] [address] Care Teams Mediation Commissioner Relationship Specialty Start Date End Date Tammy Patel DO PCP - General Family Medicine 07/01/19
--- OUTSIDE RECORDS SUMMARY | 2024-08-13 16:29 | XMS_ITS | Clinical Summary ---
Author Organization [facility] Address [address] [place] [address] Phone Care Team Providers Care Coke Burner Name Role Phone Tammy Patel DO Primary Care Provider +1- [phone] Madalyn Crawford APRN, PIGMENT AND LACQUER MIXER Unavailable + [phone] Natan Monzon MD Unavailable [phone] Medications VENLAFAXINE HCL PO Take 150 mg [...] Encounters Date Type Department Care Team Description 08/09/2024 10:15 AM CDT Office Visit [facility] [address] [place] [address] Natan Monzon MD Memory changes (Primary Dx); Seizures (HCC) Discharge Disposition: Discharged to home or Selfcare 08/09/2024 Travel from Last 3 Months Social History Tobacco [...] Sign Reading Time Taken Comments Blood Pressure 140/62 08/09/2024 10:24 AM CDT Pulse 59 08/09/2024 10:24 AM CDT Temperature 37.1 C (98.8 F) 08/09/2024 10:24 AM CDT Respiratory Rate 16 08/09/2024 10:24 AM CDT Oxygen Saturation 100% 08/09/2024 10:24 AM CDT Inhaled Oxygen Concentration - - Weight 57.2 kg (126 lb 3.2 oz) 08/09/2024 10:24 AM CDT Height 167.6 cm (5' 6 ) 08/09/2024 10:24 AM CDT Body Mass Index 20.37 08/09/2024 10:24 AM CDT Plan of Treatment Upcoming Encounters Date Type Department Care Team (Late st Contact Info) Description 11/21/2024 3:30 PM CDT Office Visit [facility] [address] [place] [address] Natan Monzon MD [address] [place] [address] Health Maintenance Due Date Last Done Comments Hepatitis C Virus (HCV) Screening 1950 TdaP Immunization 1950 Colonoscopy 1994 Colorectal Cancer Screening 1994 Cologuard 1999 Immunochemical Fecal Occult Blood 1999 Pneumococcal Immunization (50+ years) (2 of 2 - PPSV23) 10/15/2022 10/15/2021 SARS-COV-2 Immunization ( season) 2023 04/27/2023, 05/06/2021, 09/05/2020, Additional history exists Respiratory Syncytial Virus (RSV) Immunization (Adult) (1 - 1-dose 75+ series) 2024 Zoster Immunization Completed 2022, 2 Influenza Immunization Completed 5, 02/15/2023, 03/03/2022, Additional history exists Hepatitis B Immunization Aged Out No longer eligible based on patient's age to complete this topic Meningococcal Immunization (ACWY) Aged Out No longer eligible based on patient's age to complete this topic Rotavirus Immunization Aged Out No lo nger eligible based on patient's age to complete this topic [facility] Care Teams Coke Burner Relationship Specialty Start Date End Date Tammy Patel DO [address] [place] [address] PCP - General Family Medicine 02/16/23 Madalyn Crawford, PROPELLER DRIVEN AIRPLANE MECHANIC, PIGMENT AND LACQUER MIXER [address] [place] [address] Nurse Practitioner Advanced Practice Nurse 10/18/22 Natan Monzon MD [address] [place] [address] Consulting Physician Neurology 01/31/23
--- OUTSIDE RECORDS SUMMARY | 2024-08-13 16:29 | XMS_ITS | Clinical Summary ---
Author Organization [facility] Address [address] [place] [address] Care Team Providers Care Frame Opener Name Role Phone Luis Valentino MD Primary Care Provider +1- [phone] Social History Tobacco Use Types Packs/Day Years Used Date Smoking Tobacco: Never Assessed Sex and Gender Information Value Date Recorded Sex Assigned at Male 05/31/2024 10:50 AM SOYFREEZE OPERATOR Legal Sex Male 6:30 PM CDT Gender Identity Not on file Sexual Orientation Not on file Plan of Treatment Health Maintenance Due Date Last Done Comments Colorectal Cancer Screening Colonoscopy (10 Years) 1949 Hepatitis C 1967 DTaP, Tdap and Td Vaccines ( 1 - Tdap) 1968 Zoster Vaccines (1 of 2) 1999 Annual Medicare Wellness Visit 2014 Pneumococcal Vaccine: 50+ Ye ars (1 of 1 - PCV) 2014 COVID-19 Vaccine ( - 2023-2 5 season) 2023 RSV Immunization or 60+ Years (1 - 1-dose 75+ series) 2024 PHQ-2 (Physician [place]) 05/01/2024 Meningococcal B Vaccine Aged Out No l onger eligible based on patient's age to complete this topic Meningococcal Vaccine Aged Out No michael opal eligible based on patient's age to complete this topic RSV Immunizations Under 20 Months Aged Out No longer eligible based on patient's age to complete this topic Insurance [facility] Care Teams Frame Opener Relationship Specialty [place] [address] [place] [address] PCP - General INTERNAL MEDICINE 06/12/24
--- OUTSIDE RECORDS SUMMARY | 2024-08-13 16:29 | XMS_ITS | Clinical Summary ---
Author Organization [facility] [address] Address [address] [place] [address] Care Team Providers Care Digital Marketing Associate Name Role Phone Tammy Patel DO Primary Care Provider +1- [phone] Allergies Active Allergy Reactions Criticality Noted Date [...] needed. Assessment & Plan (06/29/2023 12:[address] FOREMAN): Patient is being evaluated for vertebral stenosis [...] on file Legal Sex Male 10:[address] FOREM[address] Gender Identity Not on file Sexual Orientation Not on file Obstetrics History Last Filed Vital Signs Vital Sign Reading Time Taken Comments Blood Pressure 166/77 08/09/2023 8:49 AM CDT Pulse 65 08/09/2023 8:49 AM CDT Temperature 36.2 C (97.2 F) 09/26/2019 9:06 AM CDT Respiratory Rate 24 07/04/2017 2:[address] Oxygen Saturation 99% 08/09/2023 8:49 AM CDT [...] 08/08/2019 Influenza Vaccine (#1) 2023 01/09/2018 Insurance [facility] MEDICARE ADVANTAGE Care Teams Digital Marketing Associate Relationship Specialty Start Date End Date Tammy Patel DO PCP - General Family Medicine 07/01/19
--- OUTSIDE RECORDS SUMMARY | 2024-08-13 16:29 | XMS_ITS | Continuity of Care Document ---
Author Organization [facility] Address [address] [place] [address] [place] [address] Phone Care Team Providers Care Masonry Teacher Name Role Phone Yony Tanner MD Unavailable Unavailable Procedures Procedure Date Eye Exam & Treatment Advance Directives Directive Yes / No Effective Date File Name No Information Encounters Encounter Description Practice Location Reason(s) For Visit Diagnoses Date Provider Providers Copied on Encounter [facility], [address], [place], [place], [id number], [place] tel:[phone] [facility] No Information [address] [facility] [address], [place], [place], [id number], [place]. tel:[phone] Family History Family Member Type Diagnosis Age At Onset No Information Payers Payer name Insurance type Covered republican ID Authoriza tion(s) [place] [id number] Social History Type Description Quantity Date Captured [...]
== END 2024-08-13 15:26 | disposition home or self-care (01) ==
PROVIDERS: PCP Internal Medicine; Referring Provider Orthopaedic Surgery; Visit Provider Nurse Practitioner
DX: M75.52 Bursitis of left shoulder (principal); Z98.890 Other specified postprocedural states
CPT/HCPCS: 73221

== ENCOUNTER 2024-11-27 10:31 | Outpatient (CLI) | payer MEDICARE, SELFPAY ==
--- NOTE | ~2024-11-27 | XR_ITS ---
AP and oblique views of the right ribs Clinical History: Pain Findings: No rib fracture is seen. Osseous alignment is anatomic. Lungs are clear, without focal cons olidation or pleural effusion. Cardiomediastinal contour is within normal limits. Soft tissues are un remarkable. Impression: No rib fracture is seen. Reviewed, dictated and finalized at [facility]. Impression: No rib fracture is seen.
--- OUTSIDE RECORDS SUMMARY | 2024-11-27 11:10 | XMS_ITS | Clinical Summary ---
Author Organization [facility] Address [address] [place] [address] Phone Care Team Providers Care Teacher Dancing Name Role Phone Tammy Patel Primary Care Provider +1- [phone] Madalyn Crawford APRN, CONTROL ROOM TECHNICIAN Unavailable + [phone] Natan Monzon MD Unavailable [phone] Medications VENLAFAXINE HCL PO Take 150 mg [...] Encounters Date Type Department Care Team Description 09/19/2024 Patient Outreach [facility] [address] [place] [address] Navigator, [employer] Social Concerns from Last 3 Months Social [...] 10:24 AM CDT Height 167.6 cm (5' 6) 08/09/2024 10:24 AM CDT Body Mass Index 20.37 08/09/2024 10:24 AM CDT Plan of Treatment Health Maintenance Due Date Last Done Comments Hepatitis C Virus (HCV) Screening 1950 TdaP Immunization 1949 Cologuard 1994 Colonoscopy 1994 Colorectal Cancer Screening 1994 Immunochemical Fecal Occult Blood 1994 Pneumococcal Immunization (50+ years) (2 of 2 - PPSV23) 10/15/2022 10/15/2021 SARS-COV-2 Immunization ( season) 2023 04/27/2023, 05/06/2021, 09/05/2020, Additional history exists Respiratory Syncytial Virus (RSV) Immunization (Adult) (1 - 1-dose 75+ series) 2024 Influenza Immunization (#1) 12/30/202405/01, 02/15/2023, 03/03/2022, Additional history exists Zoster Immunization Completed 2022, Hepatitis B Immunization Aged Out No longer eligible based on patient's age to complete this topic Human Papillomavirus (HPV) Immunization Aged Out No longer eligible based on patient's age to complete this topic Meningococcal Immunization (ACWY) Aged Out No longer eligible based on patient's age to complete this topic Rotavirus Immunization Aged Out No lo nger eligible based on patient's age to complete this topic Insurance MEDICARE [facility] Care Teams Teacher Dancing Relationship Specialty Start Date End Date Tammy Patel DO [address] [place] [address] PCP - General Family Medicine 02/16/23 Madalyn Crawford, NATIONAL BUSINESS DIRECTOR, CONTROL ROOM TECHNICIAN [address] [place] [address] Nurse Practitioner Advanced Practice Nurse 10/18/22 Natan Monzon MD [address] [place] [address] Consulting Physician Neurology 01/31/23
--- OUTSIDE RECORDS SUMMARY | 2024-11-27 11:10 | XMS_ITS | Continuity of Care Document ---
Author Organization [facility] Address [address] [place] [address] [place] [address] Phone Care Team Providers Care Inspector General Name Role Phone Yony Tanner MD Unavailable Unavailable Procedures Procedure Date Eye Exam & Treatment Advance Directives Directive Yes / No Effective Date File Name No Information Encounters Encounter Description Practice Location Reason(s) For Visit Diagnoses Date Provider Providers Copied on Encounter [facility], [address], [place], [place], [id number], [place] tel:[phone] [facility] No Information [address]. [address] [facility] [address], [place], [place], [id number], [place]. tel:[phone] Family History Family Member Type Diagnosis Age At Onset No Information Payers Payer name Insurance type Covered democrat ID Authoriza tion(s) Medicare [place] [id number] Social History Type Description Quantity Date Captured [...]
--- OUTSIDE RECORDS SUMMARY | 2024-11-27 11:10 | XMS_ITS | Referral Summary ---
Author Organization [facility] [address] Address [address] [place] [address] Care Team Providers Care Aircraft Accessories Mechanic Name Role Phone Tammy Patel DO Primary Care Provider +1- [phone] Allergies Active Allergy Reactions Criticality Noted Date [...] needed. Assessment & Plan (06/29/2023 12:42 PM SENIOR ELECTRONICS ENGINEER): Patient is being evaluated for vertebral stenosis [...] on file Legal Sex Male 10:28 AM SENIOR ELECTRONICS ENGINEER Gender Identity Not on file Sexual Orientation Not on file Last Filed Vital Signs Vital Sign Reading Time Taken Comments Blood Pressure 166/77 08/09/2023 8:49 AM CDT Pulse 65 08/09/2023 8:49 AM CDT Temperature 36.2 C (97.2 F) 09/26/2019 9:06 AM CDT Respiratory Rate 24 07/04/2017 2:26 PM SENIOR ELECTRONICS ENGINEER Oxygen Saturation 99% 08/09/2023 8:49 AM CDT Inhaled Oxygen Concentration - - Weight 59 kg (130 lb) 01/06/2022 3:54 PM CDT Height 167.6 cm (5' 6) 01/06/2022 3:54 PM CDT Body Mass Index 20.98 01/06/2022 3:54 PM CDT Plan of Treatment Not on file Insurance [facility] MEDIC[facility] AD[facility]AGE [facility] MED[facility] Address: [facility] [address] [place] [address] Care Teams Aircraft Accessories Mechanic Relationship Specialty Start Date End Date Tammy Patel DO PCP - General Family Medicine 07/01/19
--- OUTSIDE RECORDS SUMMARY | 2024-11-27 11:10 | XMS_ITS | Clinical Summary ---
Author Organization [facility] [address] Address [address] [place] [address] Care Team Providers Care Cotton Ball Machine Tender Name Role Phone Tammy Patel DO Primary Care Provider +1- [phone] Allergies Active Allergy Reactions Criticality Noted Date [...] needed. Assessment & Plan (06/29/2023 12:42 PM BRASS SORTER): Patient is being evaluated for vertebral stenosis [...] on file Legal Sex Male 10:28 AM BRASS SORTER Gender Identity Not on file Sexual Orientation Not on file Obstetrics History Last Filed Vital Signs Vital Sign Reading Time Taken Comments Blood Pressure 166/77 08/09/2023 8:49 AM CDT Pulse 65 08/09/2023 8:49 AM CDT Temperature 36.2 C (97.2 F) 09/26/2019 9:06 AM CDT Respiratory Rate 24 07/04/2017 2:26 PM BRASS SORTER Oxygen Saturation 99% 08/09/2023 8:49 AM CDT [...] Risk Assessment 08/07/2020 08/08/2019 Influenza Vaccine (#1) 2024 01/09/2018 Insurance [facility] MEDICARE ADVANTAGE [facility] Address: [facility] [address] [place] [address] Care Teams Cotton Ball Machine Tender Relationship Specialty Start Date End Date Tammy Patel DO PCP - General Family Medicine 07/01/19
--- OUTSIDE RECORDS SUMMARY | 2024-11-27 11:10 | XMS_ITS | Patient Health Record ---
Author Organization [facility] Address [address] [place] [address] Care Team Providers Care Grocery Clerk Selling Name Role Phone Stevenson Menjivar Unavailable [phone] Reason For Referral No Information Medications Medication SIG (Take, Route, Frequency, Duration) Notes Start Date End Date Status Vraylar 3 mg Oral 05/07/2018 Active Levothyroxine Sodium 88 MCG Oral 05/07/2018 Active Doxazosin Mesylate 2 MG Oral 05/07/2018 Active Divalproex Sodium ER 500 MG Oral 05/07/2018 Active Omeprazole 40 MG Oral 05/07/2018 Ac tive Venlafaxine HCl ER 150 MG Oral 05/07/2018 Active Immunizations Vaccine Route Administration Date Status Comme nts Influenza virus vaccine, quadrivalent (IIV4), split virus, 0.25 mL dosage Unknown 01/17/2018 Administered Plan Of Treatment No Information Insurance Providers Payer Name Payer Address Payer Phone Subscriber Number Group Number Insured Name Patient Relationship to Insured Coverage Start Date Coverage End Date [employer] Medicare Replacement/ Advantage - [place] [address] [address] [place] [address] [id number] TOMMY CURTIS Self - patient is the insured Medical (General) History Surgical History Surgery Date(Month/Year) Xcapsl ctrc rmvl cplx wo ecp (16798) in high school
--- OUTSIDE RECORDS SUMMARY | 2024-11-27 11:10 | XMS_ITS ---
Author Organization [facility] Address [address] [place] [address] Phone Care Team Providers Care Mild Disabilities Teacher Name Role Phone RocaeljohnTammy bailey Primary Care Provider +1- [phone] Madalyn Crawford APRN, ELECTROPLATER APPRENTICE Unavailable +- [phone] Natan Monzon MD Unavailable [phone] [facility] Status:Enrolled (Active) Start date:04/01/2024 Enrollment date:04/01/2024 Related social drivers of health:Intimate Partner Violence, Social Connections, Alcohol Use, Tobacco Use, Financial Resource Strain,Depression, Stress, Physical Activity, Food Insecurity, Transportation Needs, Housing Stability, Utilities Continued Care and Services Coordination
--- OUTSIDE RECORDS SUMMARY | 2024-11-27 11:10 | XMS_ITS | Clinical Summary ---
Author Organization [facility] Address [address] [place] [address] Care Team Providers Care Animal Behaviourist Name Role Phone Luis Valentino MD Primary Care Provider +1- [phone] Social History Tobacco Use Types Packs/Day Years Used Date Smoking Tobacco: Never Assessed Sex and Gender Information Value Date Recorded Sex Assigned at Male 05/31/2024 10:50 AM LEGAL SPECIALIST Legal Sex Male 6:30 PM CDT Gender Identity Not on file Sexual Orientation Not on file Plan of Treatment Health Maintenance Due Date Last Done Comments Colorectal Cancer Screening Colonoscopy (10 Years) 1949 Hepatitis C 1967 DTaP, Tdap and Td Vaccines ( 1 - Tdap) 1968 Pneumococcal Vaccine: 50+ Ye ars (1 of 1 - PCV) 1999 Zoster Vaccines (1 of 2) 1999 Annual Medicare Wellness Visit 2014 COVID-19 Vaccine ( - 2023-2 5 season) 2023 RSV Immunization or 60+ Years (1 - 1-dose 75+ series) 2024 PHQ-2 (Physician [place]) 05/01/2024 Meningococcal B Vaccine Aged Out No l onger eligible based on patient's age to complete this topic Meningococcal Vaccine Aged Out No michael opal eligible based on patient's age to complete this topic RSV Immunizations Under 20 Months Aged Out No longer eligible based on patient's age to complete this topic Insurance [facility] Care Teams Animal Behaviourist Relationship Specialty [place] [address] [place] [address] PCP - General INTERNAL MEDICINE 06/12/24
== END 2024-11-27 10:32 | disposition home or self-care (01) ==
PROVIDERS: PCP Internal Medicine
DX: R07.81 Pleurodynia (principal); N20.0 Calculus of kidney; M47.896 Other spondylosis, lumbar region; K86.1 Other chronic pancreatitis
CPT/HCPCS: 71100

== ENCOUNTER 2024-11-28 04:32 | Emergency (ER) | payer MEDICARE, SELFPAY ==
--- NOTE | ~2024-11-28 | CT_ITS ---
History: Back pain PROCEDURE: CT thoracic spine without intravenous contrast. COMPARISON: None TECHNIQUE: Multiple contiguous axial images of the thoracic spine were performed without the administration of i ntravenous contrast. DLP: 265 mGy-cm FINDINGS: Preservation of the normal curvature of the thoracic spine is identified. No acute compression fractures are present. No soft tissue abnormality is noted. Impression: No acute fracture, as detailed above. Reviewed, dictated and finalized at location A. Impression: No acute fracture, as detailed above.
--- NOTE | ~2024-11-28 | CT_ITS ---
EXAMINATION: CT abd pelvis lumbar wo con DATE: 11/28/2024 05:35 INDICATION: Right paralumbar/CVA tenderness TECHNIQUE: Computed tomography (CT) of the abdomen, pelvis and lumbar spine was performed without int ravenous contrast. The dose-length product was 237.44 mGy-cm. Automated exposure control and iterativ e reconstruction technique were employed. COMPARISON: CT dated 03/11/2024 FINDINGS: Dependent atelectasis. Heart size normal. There is coronary atherosclerosis. There is ather osclerosis of the aorta without aneurysm. The liver, spleen, adrenal glands are unremarkable. Gallbladder is present. There are punctate calcif ications of the pancreas consistent with chronic pancreatitis. Nonobstructing bilateral nephrolithias is. No hydronephrosis. There is a right renal cyst. Nonobstructive bowel gas pattern. No ureteral sto ami or hydronephrosis. Bladder is unremarkable. No pelvic masses or fluid collections. Nonobstructive bowel gas pattern. No lymphadenopathy. There is a left total hip arthroplasty. There is severe lumba r spondylosis. There is disc narrowing at all lumbar levels. There is retrolisthesis at at L5-S1 seco ndary to facet hypertrophy. There is mild annular disc bulging with mild central canal and bilateral neural foraminal narrowing. There is prominent dorsal osteophyte formation at L5-S1 with facet hypert rophy causing bilateral neural foraminal narrowing. There is atherosclerosis. Enlarged prostate gland . No focal lytic or blastic lesions. No acute bone or joint abnormality. IMPRESSION: 1. Severe lumbar spondylosis with spinal stenosis at L4-5 and L5-S1. 2: Bilateral nonobstructing nephrolithiasis. 3: Chronic pancreatitis. Reviewed, dictated and finalized at location B.
--- OUTSIDE RECORDS SUMMARY | 2024-11-28 04:35 | XMS_ITS | Patient Health Record ---
Author Organization [facility] Address [address] [place] [address] Care Team Providers Care Horse Shoer Name Role Phone Stevenson Menjivar Unavailable [phone] Reason For Referral No Information Medications Medication [...] Medicare Replacement/ Advantage - Hmo [address] [address] [place] [address] [id number] TOMMY CURTIS Self - patient is the insured Medical (General) History Surgical History Surgery Date(Month/Year) Xcapsl ctrc rmvl cplx wo ecp (34909) in high school
--- OUTSIDE RECORDS SUMMARY | 2024-11-28 04:35 | XMS_ITS | Clinical Summary ---
Author Organization [facility] Address [address] [place] [address] Care Team Providers Care Back Tufter Name Role Phone Luis Valentino MD Primary Care Provider [phone]- [phone] Social History Tobacco Use Types Packs/Day Years Used Date Smoking Tobacco: Never Assessed Sex and Gender Information Value Date Recorded Sex Assigned at Male 05/31/2024 10:50 AM ETL APPLICATION DEVELOPER Legal Sex Male 6:30 PM CDT Gender [...] - 1-dose 75+ series) 2024 PHQ-2 (Physician [place]) 05/01/2024 Meningococcal B Vaccine Aged Out No l onger eligible based on patient's age to complete this topic Meningococcal Vaccine Aged Out No michael opal eligible based on patient's age to complete this topic RSV Immunizations Under 20 Months Aged Out No longer eligible based on patient's age to complete this topic Insurance [facility] [place] [address] Care Teams Back Tufter Relationship Specialty [place] [address] [place] [address] PCP - General INTERNAL MEDICINE 06/12/24
--- OUTSIDE RECORDS SUMMARY | 2024-11-28 04:35 | XMS_ITS | Referral Summary ---
Author Organization [facility] [address] Address [address] [place] [address] Care Team Providers Care I&C Technician Name Role Phone Tammy Patel DO Primary Care Provider +1- [phone] Allergies Active Allergy Reactions Criticality Noted Date [...] needed. Assessment & Plan (06/29/2023 12:42 PM CALL CENTER RECRUITER): Patient is being evaluated for vertebral stenosis [...] on file Legal Sex Male 10:28 AM CALL CENTER RECRUITER Gender Identity Not on file Sexual Orientation Not on file Last Filed Vital Signs Vital Sign Reading Time Taken Comments Blood Pressure 166/77 08/09/2023 8:49 AM CDT Pulse 65 08/09/2023 8:49 AM CDT Temperature 36.2 C (97.2 F) 09/26/2019 9:06 AM CDT Respiratory Rate 24 07/04/2017 2:26 PM CALL CENTER RECRUITER Oxygen Saturation 99% 08/09/2023 8:49 AM CDT Inhaled Oxygen Concentration - - Weight 59 kg (130 lb) 01/06/2022 3:54 PM CDT Height 167.6 cm (5' 6) 01/06/2022 3:54 PM CDT Body Mass Index 20.98 01/06/2022 3:54 PM CDT Plan of Treatment Not on file Insurance [facility] MEDICARE ADVANTAGE Care Teams I&C Technician Relationship Specialty Start Date End Date Tammy Patel DO PCP - General Family Medicine 07/01/19
--- OUTSIDE RECORDS SUMMARY | 2024-11-28 04:35 | XMS_ITS | Clinical Summary ---
Author Organization [facility] Address [address] [place] [address] Phone Care Team Providers Care Wire Weaving Loom Setter Name Role Phone Tammy Patel Primary Care Provider [phone]- [phone] Madalyn Crawford APRN, HOME THERAPY CLINICIAN Unavailable + [phone] Natan Monzon MD Unavailable [phone] Medications VENLAFAXINE HCL PO Take 150 mg [...] 09/19/2024 Patient Outreach [facility] [address] [place] [address] Navigator, [employer] Social Concerns from Last 3 Months Social [...] to complete this topic Insurance MEDICARE C [facility] Care Teams Wire Weaving Loom Setter Relationship Specialty Start Date End Date Tammy Patle DO [address] [place] [address] PCP - General Family Medicine 02/16/23 Madalyn Crawford, ADDICTION MEDICINE PHYSICIAN, HOME THERAPY CLINICIAN [address] [place] [address] Nurse Practitioner Advanced Practice Nurse 10/18/22 Natan Monzon MD [address] [place] [address] Consulting Physician Neurology 01/31/23
--- OUTSIDE RECORDS SUMMARY | 2024-11-28 04:35 | XMS_ITS ---
Author Organization [facility] Address [address] [place] [address] Phone Care Team Providers Care Manager Pacu Name Role Phone RocaeljohnTammy bailey Primary Care Provider [phone]- [phone] Madalyn Crawford APRN, WET POUR MIXER Unavailable [phone]- [phone] Natan Monzon MD Unavailable [phone] [facility] Status:Enrolled (Active) Start date:04/01/2024 Enrollment date:04/01/2024 Related social drivers of health:Intimate Partner Violence, Social Connections, Alcohol Use, Tobacco Use, Financial Resource Strain,Depression, Stress, Physical Activity, Food Insecurity, Transportation Needs, Housing Stability, Utilities Continued Care and Services Coordination
--- OUTSIDE RECORDS SUMMARY | 2024-11-28 04:35 | XMS_ITS | Clinical Summary ---
Author Organization [facility] [address] Address [address] [place] [address] Care Team Providers Care Construction Code Administrator Name Role Phone Tammy Patel DO Primary Care Provider +1- [phone] Allergies Active Allergy Reactions Criticality Noted Date [...] needed. 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): Patient is being evaluated for vertebral [...] on file Legal Sex Male 10:28 AM SCORING MACHINE OPERATOR Gender Identity Not on file Sexual Orientation Not on file Obstetrics History Last Filed Vital Signs Vital Sign Reading Time Taken Comments Blood Pressure 166/77 08/09/2023 8:49 AM CDT Pulse 65 08/09/2023 8:49 AM CDT Temperature 36.2 C (97.2 F) 09/26/2019 9:06 AM CDT Respiratory Rate 24 07/04/2017 2:26 PM SCORING MACHINE OPERATOR Oxygen Saturation 99% 08/09/2023 8:49 AM [...] 08/08/2019 Influenza Vaccine (#1) 2024 01/09/2018 Insurance [facility] MEDICARE ADVANTAGE Care Teams Construction Code Administrator Relationship Specialty Start Date End Date Tammy Patel DO PCP - General Family Medicine 07/01/19
--- OUTSIDE RECORDS SUMMARY | 2024-11-28 04:35 | XMS_ITS | Continuity of Care Document ---
Author Organization [facility] Address [address] [place] [address] [place] [address] Phone Care Team Providers Care Astronaut Mission Specialist Name Role Phone Yony Tanner MD Unavailable Unavailable Procedures Procedure Date Eye Exam & Treatment Advance Directives Directive Yes / No Effective Date File Name No Information Encounters Encounter Description Practice Location Reason(s) For Visit Diagnoses Date Provider Providers Copied on Encounter [facility], [address], [place], [place], [id number], [place] tel:[phone] [facility] No Information [address] [facility] [address], [place], [place], [id number], [place]. tel:[phone] Family History Family Member Type Diagnosis Age At Onset No Information Payers Payer name Insurance type Covered constitution party ID Authoriza tion(s) Medicare [place] [id number] Social History Type Description Quantity Date Captured [...]
[2024-11-28 04:46] VITALS: BP 159/69; PULSE 62; RESP 16; TEMP 36.6; O2SAT 97
--- NOTE | 2024-11-28 04:52 | ED_ITS ---
HPI - General Adult General Chief complaint: Back Pain/Injury Stated complaint: back pain Time Seen by Provider: 11/28/24 04:40 History of Present Illness HPI narrative: This is a 74-year-old male chronic pain presenting ED with back pain. Patient says for last 3 days he has been having worsening back pain in the right mid back. No known injuries. He has been taking his tramadol intermittently with mild relief. He came today is is keeping him from falling asleep. He is not have any fevers, trauma, known cancer, urinary retention or bowel incontinence. No weakness to his extremities. Patient is seen pain management past for his lower back pain. He says that he cannot see him anymore because he can't afford it. Related Data Allergies Allergy/AdvReac Type Severity Reaction Status Date / Time Aminoglycosides Allergy Severe SWELLING, Verified 11/28/24 04:48 MAKES INFECTION WORSE bacitracin Allergy Severe SWELLING, Verified 11/28/24 04:48 MAKES INFECTION WORSE Fish Containing Products Allergy Severe ANAPHYLAXIS Verified 11/28/24 04:48 fluoxetine Allergy Severe SSRI= Verified 11/28/24 04:48 SUICIDAL REACTION neomycin Allergy Severe SWELLING, Verified 11/28/24 04:48 MAKES INFECTION WORSE shellfish derived Allergy Severe ANAPHYLAXIS Verified 11/28/24 04:48 Sulfa (Sulfonamide Allergy Severe Anaphylactic Verified 11/28/24 04:48 Antibiotics) Shock zolpidem AdvReac Intermediate Confusion Verified 11/28/24 04:48 BETI/ Allergy Severe ANAPHYLACTIC--THROAT Uncoded 11/28/24 04:48 SWELLING PMFSH Past Medical History Medical History BMI 20.0-20.9, adult History of traumatic head injury Seizure disorder MCI (mild cognitive impairment) Benign prostatic hyperplasia Histoplasmosis Transient ischemic attack Traumatic brain injury Irritable bowel syndrome Hyperlipidemia Degenerative disc disease Cerebrovascular accident COVID Anxiety Depression Hypothyroidism Skull fracture Kidney stones Peptic ulcer Diverticulosis Diverticulitis Sleep apnea Pneumonia Epilepsy Surgical History Surgical History History of colonoscopy with polypectomy History of lithotripsy History of tonsillectomy History of cataract extraction History of rotator cuff surgery Bilateral. History of cardiac catheterization History of total left hip arthroplasty Family History Family History Mother Family history of malignant neoplasm of breast in first degree relative Family history of cardiovascular disease Father Family history of cardiovascular disease Other Family history of arthritis Family history of mental disorder Social History Social History Social History: Surrogate medical decision maker: Quita Vargas Code status: Full code. Smoking packs per day: 1 Smoking cigarettes per day: 20.0 Years smoked: 1 Smoking pack-years: 1.00 Smoking status: Former smoker Tobacco type: cigarettes Second hand tobacco smoke exposure: Yes Smoking end date: 05/01/94 Additional smoking assessment comments: Forty pack-year smoking history, quit in 1994. Alcohol intake: former Alcohol use details: QUIT 30 YEARS AGO Substance use: never Substance use type: does not use Do You Feel Safe in your Home?: No Lack of Transportation: No Lack of Food: Sometimes True Current Housing: Decline to Answer Concerned About Future Housing: Decline to Answer Difficulty Paying Gas/Electric Bills: No Difficulty Paying for Meds: No Currently Unemployed: No Education: Associate Degree Difficulty w/ Childcare or Family Care: YES Living arrangements: with family Additional living arrangements comments: Lives with spouse in [place]. 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 Gender identity (if verbalized by the patient): Male Spiritual care concerns: No Exam 2 Narrative: APPEARANCE: Patient appears uncomfortable Head: atraumatic. EYES: EOMI, NOSE: Atraumatic NECK: Trachea midline RESPIRATORY: No increased rate of breathing CARDIOVASCULAR: RRR, ABDOMINAL: Non-distended MUSCULOSKELETAl: No midline spinal tenderness. Tenderness to palpation over the right paralumbar muscles. Patient cries out in pain to light touch. NEURO: Alert. Cranial nerves 2-12 grossly intact. Sensation light touch, motor function cerebellar function intact for 4 extremities. Gait exam was normal. SKIN:: Warm, dry. Normal color PSYCHIATRIC: Normal affect Course Vital Signs Vital signs: Vital Signs Temperature 97.9 F 11/28/24 04:46 Pulse Rate 62 11/28/24 04:46 Respiratory Rate 16 11/28/24 04:46 Blood Pressure 159/69 H 11/28/24 04:46 Pulse Oximetry 97 11/28/24 04:46 Oxygen Delivery Room Air 11/28/24 04:46 Temperature 97.9 F 11/28/24 04:46 Pulse Rate 62 11/28/24 04:46 Respiratory Rate 16 11/28/24 04:46 Blood Pressure 159/69 H 11/28/24 04:46 Pulse Oximetry 97 11/28/24 04:46 Oxygen Delivery Room Air 11/28/24 04:46 Medical Decision Making MDM Narrative Medical decision making narrative: -Course: 74-year-old male with history of chronic pain presenting with right- sided midthoracic back pain. Patient given tramadol Valium and lidocaine patch with significant improvement in his pain. CT imaging ordered to evaluate for spinal or intra-abdominal pathology. CT imaging showed degenerative changes but no acute processes. On re-evaluation patient is resting in bed. Symptoms are much improved. Discharged follow-up with primary care physician for further management. Given prescriptions for Tylenol and muscle relaxers. -DDX includes but is not limited to: Muscle spasms, chronic pain, arthritis, intra-abdominal pathology Vital Signs Vital Signs: Vital Signs Temperature 97.9 F 11/28/24 04:46 Pulse Rate 62 11/28/24 04:46 Respiratory Rate 16 11/28/24 04:46 Blood Pressure 159/69 H 11/28/24 04:46 Pulse Oximetry 97 11/28/24 04:46 Oxygen Delivery Room Air 11/28/24 04:46 Temperature 97.9 F 11/28/24 04:46 Pulse Rate 62 11/28/24 04:46 Respiratory Rate 16 11/28/24 04:46 Blood Pressure 159/69 H 11/28/24 04:46 Pulse Oximetry 97 11/28/24 04:46 Oxygen Delivery Room Air 11/28/24 04:46 Lab Data 11/28/24 05:11 11/28/24 05:11 Labs: Lab Results 11/28/24 Range/Units 05:11 WBC 5.6 (4.5-10.0) K/mm3 RBC 4.16 L (4.6-6.20) M/mm3 Hgb 12.6 L (14.0-18.0) g/dL Hct 38.1 L (42.0-52.0) % MCV 91.6 (80-100) fl MCH 30.3 (26-34) pg MCHC 33.1 (32-36) g/dl RDW 14.3 (11.5-14.5) % Plt Count 190 (150-375) k/mm3 MPV 8.8 (7.4-10.4) fl Immature Gran % (Auto) 0.2 (0-0.5) % Neut % (Auto) 57.1 (45.5-73.1) % Lymph % (Auto) 29.1 (18.3-44.2) % [place] % (Auto) 9.3 H (2.6-8.5) % Eos % (Auto) 3.6 (0-4.4) % Baso % (Auto) 0.7 (0.2-1.2) % Lymph # (Auto) 1.63 (0.9-3.2) K/mm3 [place] # (Auto) 0.5 (0.1-0.6) K/mm3 Eos # (Auto) 0.2 (0-0.3) K/mm3 Baso # (Auto) 0.0 (0.0-0.1) K/mm3 Abs Immat Gran (auto) 0.01 (0.00-0.031) K/mm3 Absolute Neuts (auto) 3.2 (1.3-6.7) K/mm3 Absolute Nucleated RBC 0.000 (0.0-0.012) K/mm3 Nucleated RBC % 0.0 (0.0-0.2) % Sodium 141 (137-145) mmol/L Potassium 3.8 (3.4-5.0) mmol/L Chloride 106 (98-107) mmol/L Carbon Dioxide 28 (22-30) mmol/L Anion Gap 7 (4-12) mmol/L BUN 15 (9-20) mg/dL Creatinine 0.95 (0.7-1.3) mg/dL Estim Creat Clear Calc 47 ml/min Estimated GFR > 60 (59 - ) Glucose 108 (65-110) mg/dL Calcium 9.4 (8.4-10.2) mg/dL Total Bilirubin 0.8 (0.2-1.3) mg/dL AST 40 (17-59) U/L ALT 44 (6-50) U/L Alkaline Phosphatase 89 (38-126) U/L Total Protein 7.3 (6.3-8.2) g/dL Albumin 4.0 (3.5-5.1) g/dL Discharge Plan Discharge Clinical Impression: Back pain Patient Disposition: Home Condition: Stable Instructions: Antibiotic Form, Back Pain (ED) Additional Instructions: Please use tramadol Tylenol and Robaxin for her back pain. Please follow-up with your primary care physician at your scheduled appointment. Return to ED if you develop severe pain, weakness to lower extremities, inability to urinate or bowel incontinence. Patient Language: Greenlandic Prescriptions: New acetaminophen 500 mg tablet 1,000 mg PO TID PRN (Reason: shahab) 7 Days Qty: 42 0RF methocarbamol 750 mg tablet 1,500 mg PO TID Qty: 42 0RF No Action fluticasone propionate [Flonase Allergy Relief] 50 mcg/actuation spray,suspension 2 spray intranasal DAILY Qty: 18 3RF Rx Instructions: administer into each nostril q.h.s. p.r.n. congestion pantoprazole 40 mg tablet,delayed release (DR/EC) 40 mg PO BID Qty: 60 3RF diazepam [Valium] 2 mg tablet 2 mg PO BID PRN (Reason: vertigo) Qty: 40 1RF clopidogrel [Plavix] 75 mg tablet 75 mg PO DAILY Qty: 30 3RF divalproex 500 mg tablet,delayed release (DR/EC) 500 mg PO DAILY Qty: 90 2RF venlafaxine 75 mg capsule,extended release 24hr See Rx Instructions .ROUTE .COMPLEX Qty: 90 2RF Dose Instruction: TAKE 1 CAPSULE BY MOUTH DAILY. TAKE WITH 150MG CAPSULE FOR TOTAL DOSE OF 225MG Rx Instructions: TAKE 1 CAPSULE BY MOUTH DAILY. TAKE WITH 150MG CAPSULE FOR TOTAL DOSE OF 225MG venlafaxine 150 mg capsule,extended release 24hr See Rx Instructions .ROUTE .COMPLEX Qty: 90 2RF Dose Instruction: TAKE 1 CAPSULE BY MOUTH DAILY Rx Instructions: TAKE 1 CAPSULE BY MOUTH DAILY tramadol 50 mg tablet 50 mg PO Q6H PRN (Reason: Pain) Qty: 60 0RF cyclobenzaprine 10 mg tablet 10 mg PO TID PRN (Reason: muscle spasm) Qty: 30 0RF atorvastatin 40 mg tablet 40 mg PO QHS Qty: 90 2RF levothyroxine [Levoxyl] 75 mcg tablet 75 mcg PO DAILY Qty: 90 1RF Follow-up/Referrals: Eduardo Sotelo DO [Primary Care Provider] -
--- OUTSIDE RECORDS SUMMARY | 2024-11-28 04:54 | XMS_ITS | Continuity of Care Document ---
Author Organization [facility] Address [address] [place] [address] [place] [address] Phone Care Team Providers Care Pinmaker Name Role Phone Yony Tanner MD Unavailable Unavailable Procedures Procedure Date Eye Exam & Treatment Advance Directives Directive Yes / No Effective Date File Name No Information Encounters Encounter Description Practice Location Reason(s) For Visit Diagnoses Date Provider Providers Copied on Encounter [facility], [address], [place], [place], [id number], [place] tel:[phone] [facility] No Information [address]. [address] [facility] [address], [place], [place], [id number], [place]. tel:[phone] Family History Family Member Type Diagnosis Age At Onset No Information Payers Payer name Insurance type Covered green party ID Authoriza tion(s) [place] [id number] Social History Type Description Quantity Date Captured [...]
[2024-11-28] MEDS: diazePAM INJ (*CRX) 10 MG/2 ML SYRINGE 5 MG IV PUSH (05:13)
[2024-11-28] MEDS: LIDOCAINE 5% PATCH 1 PATCH TRANSDERM (05:13)
[2024-11-28 05:19] LABS: Hematocrit 38.1 % (42.0-52.0); Hemoglobin 12.6 g/dL (14.0-18.0); Immature Granulocyte Percent A 0.2 % (0-0.5); Lymphocytes Absolute Auto 1.63 K/mm3 (0.9-3.2); Mean Corpuscular HGB Conc 33.1 g/dl (32-36); Mean Corpuscular Hemoglobin 30.3 pg (26-34); Mean Corpuscular Volume 91.6 fl (80-100); Nucleated Red Blood Cells Absolute Auto 0.000 K/mm3 (0.0-0.012); Nucleated Red Blood Cells Perc 0.0 % (0.0-0.2); Platelet Count Result 190 k/mm3 (150-375); Red Blood Count 4.16 M/mm3 (4.6-6.20); White Blood Count 5.6 K/mm3 (4.5-10.0)
--- NOTE | 2024-11-28 05:25 | PC.NURSE ---
Addendum entered by Kelle Alvarez RN 11/28/24 05:52: EDP Zych aware and patient is responsive with initial sternal rub. Pt on transport monitor to continue to CT Scanner. Original Note: When administering medications pt reacted strongly with the Valium and witnessed the patient slump over into the bed. Tramadol and lidocaine patch temporaly withheld till patient is more conscious.
[2024-11-28 05:28] LABS: Alanine Aminotransferase 44 U/L (6-50); Albumin Level 4.0 g/dL (3.5-5.1); Alkaline Phosphatase 89 U/L (38-126); Anion Gap 7 mmol/L (4-12); Aspartate Amino Transferase 40 U/L (17-59); Bilirubin,Total 0.8 mg/dL (0.2-1.3); Blood Urea Nitrogen 15 mg/dL (9-20); Calcium 9.4 mg/dL (8.4-10.2); Carbon Dioxide 28 mmol/L (22-30); Chloride 106 mmol/L (98-107); Estimated CRCL calculation 47 ml/min; Estimated Glomerular Filt Rate > 60; Glucose 108 mg/dL (65-110); Potassium 3.8 mmol/L (3.4-5.0); Sodium 141 mmol/L (137-145); Total Protein 7.3 g/dL (6.3-8.2)
--- NOTE | 2024-11-28 06:26 | PC.NURSE ---
Pt currently states he is unable to urinate. pt is currently attempting to use a urinal
== END 2024-11-28 07:28 | disposition home or self-care (01) ==
PROVIDERS: Emergency Provider Emergency Medicine; PCP Internal Medicine
DX: M54.6 Pain in thoracic spine (principal); G40.909 Epilepsy, unspecified, not intractable, without status epilepticus; N40.0 Benign prostatic hyperplasia without lower urinary tract symptoms; K58.9 Irritable bowel syndrome, unspecified; E78.5 Hyperlipidemia, unspecified; E03.9 Hypothyroidism, unspecified; F41.9 Anxiety disorder, unspecified; F32.A Depression, unspecified; G31.84 Mild cognitive impairment of uncertain or unknown etiology; G47.30 Sleep apnea, unspecified; Z87.442 Personal history of urinary calculi; Z87.11 Personal history of peptic ulcer disease; Z87.820 Personal history of traumatic brain injury; Z86.16 Personal history of COVID-19; Z87.01 Personal history of pneumonia (recurrent); Z86.73 Personal history of transient ischemic attack (TIA), and cerebral infarction without residual deficits; Z86.0100 Personal history of colon polyps, unspecified; Z87.891 Personal history of nicotine dependence; Z98.49 Cataract extraction status, unspecified eye; Z96.642 Presence of left artificial hip joint; Z79.02 Long term (current) use of antithrombotics/antiplatelets; Z79.899 Other long term (current) drug therapy
CPT/HCPCS: 36415; 72128; 72131; 74176; 80053; 85025; 96374; 99284; A9270; J3360

== ENCOUNTER 2025-01-20 10:29 | Emergency (ER) | payer MEDICARE, SELFPAY ==
--- OUTSIDE RECORDS SUMMARY | 2007-02-05 03:25 | XMS_ITS | Continuity of Care Document ---
Author Organization [facility] Address [address] [place] [address] [place] [address] Phone Care Team Providers Care Teradata Developer Name Role Phone Yony Tanner MD Unavailable Unavailable Procedures Procedure Date Eye Exam & Treatment Advance Directives Directive Yes / No Effective Date File Name No Information Encounters Encounter Description Practice Location Reason(s) For Visit Diagnoses Date Provider Providers Copied on Encounter [facility], [address], [place], [place], [id number], [place] tel:[phone] [facility] No Information [address]. [address] [facility] [address], [place], [place], [address], [place]. tel:[phone] Family History Family Member Type Diagnosis Age At Onset No Information Payers Payer name Insurance type Covered green party ID Authoriza tion(s) [place] [id number] Social History Type Description Quantity Date Captured [...]
[2025-01-20] VITALS (21 sets, daily range): BP systolic 127–162; BP diastolic 51–69; PULSE 54–65; RESP 12–27; TEMP 36.8; O2SAT 95–100
--- OUTSIDE RECORDS SUMMARY | 2025-01-20 11:37 | XMS_ITS | Patient Health Record ---
Author Organization [facility] [employer] [employer] Address [address] [place] [address] Care Team Providers Care Client Service Administrator Name Role Phone Talisha Robins Unavailable [phone] Reason For Referral No Information Medications Medication SIG (Take, Route, Frequency, Duration) Notes Start Date End Date Status Vraylar 3 mg Capsule Oral 05/07/2018 Active Levothyroxine Sodium 88 MCG Tablet Oral 05/07/2018 Active Doxazosin Mesylate 2 MG Tablet Oral 05/07/2018 Active Divalproex Sodium ER 500 MG Tablet Extended Release 24 Hour Oral 05/07/2018 Active Omeprazole 40 MG Capsule Delayed Release Oral 05/07/2018 Active Venlafaxine HCl ER 150 MG Capsule Extended Release 24 Hour Oral 05/07/2018 Active Immunizations Vaccine Route Administration Date Status Comme nts Influenza virus vaccine, quadrivalent (IIV4), split virus, 0.25 mL dosage Unknown 01/17/2018 Administered Social History Sex Assigned At : Social History Observation Description Sex Assigned At Male Social History Additional Details Category Social Info Options Details Migrated Social History Migrated Social History Alcohol Intake: None 02/19/2018,Tobacco Years: Former smoker 02/19/2018 Plan Of Treatment No Information Insurance Providers Payer Name Payer Address Payer Phone Subscriber Number Group Number Insured Name Patient Relationship to Insured Coverage Start Date Coverage End Date [employer] Medicare Replacement/ Advantage - Hmo [address] [address] [place] [address] [id number] TOMMY CURTIS Self - patient is the insured Medical (General) History Surgical History Surgery Date(Month/Year) Xcapsl ctrc rmvl cplx wo ecp ([id number]) in high school
--- OUTSIDE RECORDS SUMMARY | 2025-01-20 11:37 | XMS_ITS | Clinical Summary ---
Author Organization [facility] [address] Address [address] [place] [address] Care Team Providers Care Corrosion Engineer Name Role Phone Tammy Patel DO Primary Care Provider [phone]- [phone] Allergies Active Allergy Reactions Criticality Noted Date [...] needed. 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): Patient is being evaluated for vertebral stenosis [...] on file Legal Sex Male 10:28 AM MOTORCYCLE SUBASSEMBLY REPAIRER Gender Identity Not on file Sexual Orientation Not on file Obstetrics History Last Filed Vital Signs Vital Sign Reading Time Taken Comments Blood Pressure 166/77 08/09/2023 8:49 AM CDT Pulse 65 08/09/2023 8:49 AM CDT Temperature 36.2 C (97.2 F) 09/26/2019 9:06 AM CDT Respiratory Rate 24 07/04/2017 2:26 PM MOTORCYCLE SUBASSEMBLY REPAIRER Oxygen Saturation 99% 08/09/2023 8:49 AM CDT [...] 08/08/2019 Influenza Vaccine (#1) 2024 01/09/2018 Insurance [facility] MEDICARE ADVANTAGE Care Teams Corrosion Engineer Relationship Specialty Start Date End Date Tammy Patel DO PCP - General Family Medicine 07/01/19
--- OUTSIDE RECORDS SUMMARY | 2025-01-20 11:37 | XMS_ITS | Clinical Summary ---
Author Organization [facility] Address [address] [place] [address] Phone Care Team Providers Care Licensed Occupational Therapy Assistant Name Role Phone Tammy Patel DO Primary Care Provider [phone] Madalyn Crawford APRN, LIVE TRUCK OPERATOR Unavailable +- [phone] Natan Monzon MD Unavailable [phone] Medications VENLAFAXINE HCL PO Take 150 mg [...] (DEPAKOTE) 500 MG Tablet Delayed ResponseIndicat ions:Seizures Take 1 Tablet by mouth in the morning and at bedtime. 180 Tablet 1 01/31/2023 Active Active Problems No known active problems Social History Tobacco Use Types Packs/Day Years [...] Immunization (50+ years) (2 of 2 - PCV20 or PCV21) 10/15/2022 10/15/2021 Respiratory Syncytial Virus (RSV) Immunization (Adult) (1 - 1-dose 75+ series) 2024 Influenza Immunization (#1) 12/30/202405/01, 02/15/2023, 03/03/2022, Additional history exists SARS-COV-2 Immunization ( season) 2024 04/27/2023, 05/06/2021, 09/05/2020, Additional history exists Zoster Immunization Completed 2022, [...] to complete this topic Insurance MEDICARE C [facility] [place] [id number] Care Teams Licensed Occupational Therapy Assistant Relationship Specialty Start Date End Date Tammy Patel DO [address] [place] [address] PCP - General Family Medicine 02/16/23 Madalyn Crawford, MANUFACTURING CLERK, LIVE TRUCK OPERATOR [address] [place] [address] Nurse Practitioner Advanced Practice Nurse 10/18/22 Natan Monzon MD [address] [place] [address] Consulting Physician Neurology 01/31/23
--- OUTSIDE RECORDS SUMMARY | 2025-01-20 11:37 | XMS_ITS | Clinical Summary ---
Author Organization [facility] Address [address] [place] [address] Care Team Providers Care Gill Tender Name Role Phone Luis Valentino MD Primary Care Provider Social History Tobacco Use Types Packs/Day Years Used Date Smoking Tobacco: Never Assessed Sex and Gender Information Value Date Recorded Sex Assigned at Male 05/31/2024 10:50 AM SENIOR DIRECTOR MARKETING Legal Sex Male 6:30 PM CDT Gender [...] 2) 1999 Annual Medicare Wellness Visit 2014 RSV Immunization or 60+ Years (1 - 1-dose 75+ series) 2024 PHQ-2 (Physician [place]) 05/01/2024 COVID-19 Vaccine ( - 2023-2 5 season) 2024 Meningococcal B Vaccine Aged Out No l onger eligible based on patient's age to complete this topic Meningococcal Vaccine Aged Out No michael opal eligible based on patient's age to complete this topic RSV Immunizations Under 20 Months Aged Out No longer eligible based on patient's age to complete this topic Insurance [facility] Care Teams Gill Tender Relationship Specialty [place] [address] [place] [address] PCP - General INTERNAL MEDICINE 06/12/24
--- NOTE | 2025-01-20 12:30 | ECG_ITS ---
Test Date: 2025-01-20 12:42:09 Measurements Intervals [place] Rate: 54 P: 44 ND: 253 QRS: -22 QRSD: 89 T: 59 QT: 462 QTc: 441 Interpretive Statements SINUS BRADYCARDIA WITH FIRST DEGREE AV BLOCK LEFT AXIS DEVIATION NONSPECIFIC ST-T WAVE CHANGES Compared to ECG 06/03/2024 07:56:35 Sinus rhythm no longer present Sinus arrhythmia no longer present Electronically Signed On 01-20-2025 14:44:21 CDT by Ivan Somers M.D.
[2025-01-20 12:40] LABS: Hematocrit 35.8 % (42.0-52.0); Hemoglobin 11.6 g/dL (14.0-18.0); Immature Granulocyte Percent A 0.3 % (0-0.5); Lymphocytes Absolute Auto 1.43 K/mm3 (0.9-3.2); Mean Corpuscular HGB Conc 32.4 g/dl (32-36); Mean Corpuscular Hemoglobin 30.4 pg (26-34); Mean Corpuscular Volume 94.0 fl (80-100); Nucleated Red Blood Cells Absolute Auto 0.000 K/mm3 (0.0-0.012); Nucleated Red Blood Cells Perc 0.0 % (0.0-0.2); Platelet Count Result 222 k/mm3 (150-375); Red Blood Count 3.81 M/mm3 (4.6-6.20); White Blood Count 6.5 K/mm3 (4.5-10.0)
[2025-01-20 12:51] LABS: Alanine Aminotransferase 57 U/L (6-50); Albumin Level 4.1 g/dL (3.5-5.1); Alkaline Phosphatase 124 U/L (38-126); Anion Gap 4 mmol/L (4-12); Aspartate Amino Transferase 64 U/L (17-59); Bilirubin,Total 0.6 mg/dL (0.2-1.3); Blood Urea Nitrogen 17 mg/dL (9-20); Calcium 9.2 mg/dL (8.4-10.2); Carbon Dioxide 30 mmol/L (22-30); Chloride 104 mmol/L (98-107); Estimated CRCL calculation 49 ml/min; Estimated Glomerular Filt Rate > 60; Glucose 93 mg/dL (65-110); Potassium 4.2 mmol/L (3.4-5.0); Sodium 138 mmol/L (137-145); Total Protein 7.4 g/dL (6.3-8.2)
[2025-01-20] MEDS: MECLIZINE HCL 25 MG TABLET PO (13:47)
--- OUTSIDE RECORDS SUMMARY | 2025-01-20 14:27 | XMS_ITS | Clinical Summary ---
Author Organization [facility] Address [address] [place] [address] Phone Care Team Providers Care Food Beverage Manager Name Role Phone Tammy Patel DO Primary Care Provider [phone] Madalyn Crawford APRN, LABORER POWERHOUSE Unavailable +- [phone] Natan Monzon MD Unavailable [phone] Medications VENLAFAXINE HCL PO Take 150 mg [...] to complete this topic Insurance MEDICARE C [facility] [place] [id number] Care Teams Food Beverage Manager Relationship Specialty Start Date End Date Tammy Patel DO [address] [place] [address] PCP - General Family Medicine 02/16/23 Madalyn Crawford, SHORTS SIFTER, LABORER POWERHOUSE [address] [place] [address] Nurse Practitioner Advanced Practice Nurse 10/18/22 Natan Monzon MD [address] [place] [address] Consulting Physician Neurology 01/31/23
--- OUTSIDE RECORDS SUMMARY | 2025-01-20 14:27 | XMS_ITS | Clinical Summary ---
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 Legal Sex Male 6:30 PM CDT Gender [...] - 1-dose 75+ series) 2024 PHQ-2 (Physician [place]) 05/01/2024 COVID-19 Vaccine ( - 2023-2 5 season) 2024 Meningococcal B Vaccine Aged Out No l onger eligible based on patient's age to complete this topic Meningococcal Vaccine Aged Out No michael opal eligible based on patient's age to complete this topic RSV Immunizations Under 20 Months Aged Out No longer eligible based on patient's age to complete this topic Insurance [facility] [place] [address] Care Teams Stakeholder Manager Relationship Specialty [place] [address] [place] [address] PCP - General INTERNAL MEDICINE 06/12/24
--- OUTSIDE RECORDS SUMMARY | 2025-01-20 14:27 | XMS_ITS | Clinical Summary ---
Author Organization [facility] [address] Address [address] [place] [address] Care Team Providers Care Marketing Analytics Analyst Name Role Phone Tammy Patel DO Primary Care Provider [phone] Allergies Active Allergy Reactions Criticality Noted Date [...] needed. Assessment & Plan (06/29/2023 12:42 PM SALES MERCHANDISE ASSOCIATE): Patient is being evaluated for vertebral stenosis [...] on file Legal Sex Male 10:28 AM SALES MERCHANDISE ASSOCIATE Gender Identity Not on file Sexual Orientation Not on file Obstetrics History Last Filed Vital Signs Vital Sign Reading Time Taken Comments Blood Pressure 166/77 08/09/2023 8:49 AM CDT Pulse 65 08/09/2023 8:49 AM CDT Temperature 36.2 C (97.2 F) 09/26/2019 9:06 AM CDT Respiratory Rate 24 07/04/2017 2:26 PM SALES MERCHANDISE ASSOCIATE Oxygen Saturation 99% 08/09/2023 8:49 AM CDT [...] 08/08/2019 Influenza Vaccine (#1) 2024 01/09/2018 Insurance [facility] MEDICARE ADVANTAGE Care Teams Marketing Analytics Analyst Relationship Specialty Start Date End Date Tammy Patel DO PCP - General Family Medicine 07/01/19
--- NOTE | 2025-01-20 15:35 | ED.GENADULT ---
HPI - General Adult General Chief complaint: Dizziness Stated complaint: dizziness, loss of balance since yesterday Time Seen by Provider: 01/20/25 13:19 History of Present Illness HPI narrative: Patient is a 74-year-old male who presents ER with intermittent dizziness and feeling foggy at times. He has had the symptoms intermittently for years. He has PTSD. 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 Four of them were supposed to be therapy cats, but he is only allowed to cats. No new weakness or numbness to an arm or leg. No new slurred speech. Dizziness worsens with turning his head. Related Data Allergies Allergy/AdvReac Type Severity Reaction Status Date / Time Aminoglycosides Allergy Severe SWELLING, Verified 01/08/25 13:13 MAKES INFECTION WORSE bacitracin Allergy Severe SWELLING, Verified 01/08/25 13:13 MAKES INFECTION WORSE Fish Containing Products Allergy Severe ANAPHYLAXIS Verified 01/08/25 13:13 fluoxetine Allergy Severe SSRI= Verified 01/08/25 13:13 SUICIDAL REACTION neomycin Allergy Severe SWELLING, Verified 01/08/25 13:13 MAKES INFECTION WORSE shellfish derived Allergy Severe ANAPHYLAXIS Verified 01/08/25 13:13 Sulfa (Sulfonamide Allergy Severe Anaphylactic Verified 01/08/25 13:13 Antibiotics) Shock zolpidem AdvReac Intermediate Confusion Verified 01/08/25 13:13 BETI/ Allergy Severe ANAPHYLACTIC--THROAT Uncoded 01/08/25 13:13 SWELLING Review of Systems Review of Systems: All systems reviewed & are unremarkable except as noted in HPI and below Constitutional: Constitutional: Reports no additional constitutional complaints ENT: Reports system reviewed and no additional complaints, except as documented Cardiovascular: Cardiovascular: Reports no additional cardiovascular complaints Respiratory: Respiratory: Reports no additional respiratory complaints Gastrointestinal: Gastrointestinal: Reports no additional gastrointestinal complaints Neurologic: Reports system reviewed and no additional complaints, except as documented [facility] Past Medical History Medical History BMI 20.0-20.9, adult History of traumatic head injury Seizure disorder MCI (mild cognitive impairment) Benign prostatic hyperplasia Histoplasmosis Transient ischemic attack Traumatic brain injury Irritable bowel syndrome Hyperlipidemia Degenerative disc disease Cerebrovascular accident COVID Anxiety Depression Hypothyroidism Skull fracture Kidney stones Peptic ulcer Diverticulosis Diverticulitis Sleep apnea Pneumonia Epilepsy Surgical History Surgical History History of colonoscopy with polypectomy History of lithotripsy History of tonsillectomy History of cataract extraction History of rotator cuff surgery Bilateral. History of cardiac catheterization History of total left hip arthroplasty Family History Family History Mother Family history of malignant neoplasm of breast in first degree relative Family history of cardiovascular disease Father Family history of cardiovascular disease Other Family history of arthritis Family history of mental disorder Social History Social History Social History: Surrogate medical decision maker: Quita Vargas Code status: Full code. Smoking packs per day: 1 Smoking cigarettes per day: 20.0 Years smoked: 1 Smoking pack-years: 1.00 Smoking status: Former smoker Tobacco type: cigarettes Second hand tobacco smoke exposure: Yes Smoking end date: 05/01/94 Additional smoking assessment comments: Forty pack-year smoking history, quit in 1994. Alcohol intake: former Alcohol use details: QUIT 30 YEARS AGO Substance use: never Substance use type: does not use Do You Feel Safe in your Home?: No Lack of Transportation: No Lack of Food: Sometimes True Current Housing: Decline to Answer Concerned About Future Housing: Decline to Answer Difficulty Paying Gas/Electric Bills: No Difficulty Paying for Meds: No Currently Unemployed: No Education: Associate Degree Difficulty w/ Childcare or Family Care: YES Living arrangements: with family Additional living arrangements comments: Lives with spouse in [place]. Occupation/Education: retired Additional occupation/education comments: Retired [email or web address]. Gender identity (if verbalized by the patient): Male Spiritual care concerns: No Exam Narrative: GENERAL: Well-appearing, well-nourished, and in no acute distress. HEAD: Normocephalic, atraumatic. EYES: PERRL and EOMI. ENT: Mucous membranes moist. Loud pop with ear manipulation bilaterally. CHEST: Clear to auscultation. No respiratory distress. HEART: Regular rate and rhythm. Normal peripheral pulses. ABDOMEN: Soft, nontender, nondistended. EXTREMITIES: Normal range of motion. No edema. SKIN: Warm, dry, no rash. NEURO: Alert and oriented x3. Clear speech. Normal strength in arms and legs. No facial droop. PSYCH: Normal mood and affect. Course Vital Signs Vital signs: Vital Signs Temperature 98.2 F 01/20/25 10:47 Pulse Rate 54 L 01/20/25 10:47 Respiratory Rate 18 01/20/25 10:47 Blood Pressure 144/54 H 01/20/25 10:47 Pulse Oximetry 100 01/20/25 10:47 Oxygen Delivery Room Air 01/20/25 10:47 Temperature 98.2 F 01/20/25 10:47 Pulse Rate 56 L 01/20/25 14:46 Respiratory Rate 25 H 01/20/25 14:46 Blood Pressure 144/60 H 01/20/25 14:46 Pulse Oximetry 98 01/20/25 14:46 Oxygen Delivery Room Air 01/20/25 12:43 Medical Decision Making Vital Signs Vital Signs: Vital Signs Temperature 98.2 F 01/20/25 10:47 Pulse Rate 54 L 01/20/25 10:47 Respiratory Rate 18 01/20/25 10:47 Blood Pressure 144/54 H 01/20/25 10:47 Pulse Oximetry 100 01/20/25 10:47 Oxygen Delivery Room Air 01/20/25 10:47 Temperature 98.2 F 01/20/25 10:47 Pulse Rate 56 L 01/20/25 14:46 Respiratory Rate 25 H 01/20/25 14:46 Blood Pressure 144/60 H 01/20/25 14:46 Pulse Oximetry 98 01/20/25 14:46 Oxygen Delivery Room Air 01/20/25 12:43 Lab Data 01/20/25 12:33 01/20/25 12:33 Labs: Lab Results 01/20/25 Range/Units 12:33 WBC 6.5 (4.5-10.0) K/mm3 RBC 3.81 L (4.6-6.20) M/mm3 Hgb 11.6 L (14.0-18.0) g/dL Hct 35.8 L (42.0-52.0) % MCV 94.0 (80-100) fl MCH 30.4 (26-34) pg MCHC 32.4 (32-36) g/dl RDW 14.3 (11.5-14.5) % Plt Count 222 (150-375) k/mm3 MPV 8.6 (7.4-10.4) fl Immature Gran % (Auto) 0.3 (0-0.5) % Neut % (Auto) 66.8 (45.5-73.1) % Lymph % (Auto) 22.0 (18.3-44.2) % [place] % (Auto) 8.2 (2.6-8.5) % Eos % (Auto) 2.2 (0-4.4) % Baso % (Auto) 0.5 (0.2-1.2) % Lymph # (Auto) 1.43 (0.9-3.2) K/mm3 [place] # (Auto) 0.5 (0.1-0.6) K/mm3 Eos # (Auto) 0.1 (0-0.3) K/mm3 Baso # (Auto) 0.0 (0.0-0.1) K/mm3 Abs Immat Gran (auto) 0.02 (0.00-0.031) K/mm3 Absolute Neuts (auto) 4.3 (1.3-6.7) K/mm3 Absolute Nucleated RBC 0.000 (0.0-0.012) K/mm3 Nucleated RBC % 0.0 (0.0-0.2) % Sodium 138 (137-145) mmol/L Potassium 4.2 (3.4-5.0) mmol/L Chloride 104 (98-107) mmol/L Carbon Dioxide 30 (22-30) mmol/L Anion Gap 4 (4-12) mmol/L BUN 17 (9-20) mg/dL Creatinine 0.85 (0.7-1.3) mg/dL Estim Creat Clear Calc 49 ml/min Estimated GFR > 60 (59 - ) Glucose 93 (65-110) mg/dL Calcium 9.2 (8.4-10.2) mg/dL Total Bilirubin 0.6 (0.2-1.3) mg/dL AST 64 H (17-59) U/L ALT 57 H (6-50) U/L Alkaline Phosphatase 124 (38-126) U/L Total Protein 7.4 (6.3-8.2) g/dL Albumin 4.1 (3.5-5.1) g/dL Discharge Plan Discharge Clinical Impression: Vertigo, Anxiety Patient Disposition: Home Condition: Stable Instructions: Vertigo (ED), Anxiety (ED) Additional Instructions: Please return to the emergency department if you develop severe and persistent chest pain, difficulty breathing, dizziness, leg swelling or if you are coughing up blood as these can be signs of a medical emergency. Please call your doctor for a follow up appointment to determine the need for further testing. Patient Language: Frisian Prescriptions: New meclizine 25 mg tablet 25 mg PO TID PRN (Reason: dizziness) Qty: 20 0RF No Action fluticasone propionate [Flonase Allergy Relief] 50 mcg/actuation spray,suspension 2 spray intranasal DAILY Qty: 18 3RF Rx Instructions: administer into each nostril q.h.s. p.r.n. congestion pantoprazole 40 mg tablet,delayed release (DR/EC) 40 mg PO BID Qty: 60 3RF diazepam [Valium] 2 mg tablet 2 mg PO BID PRN (Reason: vertigo) Qty: 40 1RF quetiapine [Seroquel] 50 mg tablet 50 mg PO QHS Qty: 30 1RF acetaminophen 500 mg tablet 1,000 mg PO TID PRN (Reason: shahab) 7 Days Qty: 42 0RF methocarbamol 750 mg tablet 1,500 mg PO TID Qty: 42 0RF clopidogrel [Plavix] 75 mg tablet 75 mg PO DAILY Qty: 30 3RF divalproex 500 mg tablet,delayed release (DR/EC) 500 mg PO DAILY Qty: 90 2RF tramadol 50 mg tablet 50 mg PO Q6H PRN (Reason: Pain) Qty: 60 0RF atorvastatin 40 mg tablet 40 mg PO QHS Qty: 90 2RF levothyroxine [Levoxyl] 75 mcg tablet 75 mcg PO DAILY Qty: 90 1RF venlafaxine 75 mg capsule,extended release 24hr See Rx Instructions .ROUTE .COMPLEX Qty: 180 1RF Dose Instruction: TAKE 1 CAPSULE BY MOUTH DAILY. TAKE WITH 150MG CAPSULE FOR TOTAL DOSE OF 225MG Rx Instructions: TAKE 1 CAPSULE BY MOUTH DAILY. TAKE WITH 150MG CAPSULE FOR TOTAL DOSE OF 225MG venlafaxine 150 mg capsule,extended release 24hr See Rx Instructions .ROUTE .COMPLEX Qty: 90 2RF Dose Instruction: TAKE 1 CAPSULE BY MOUTH DAILY Rx Instructions: TAKE 1 CAPSULE BY MOUTH DAILY Follow-up/Referrals: Eduardo Sotelo DO [Primary Care Provider, Internal Medicine] - 1 Week
== END 2025-01-20 16:17 | disposition home or self-care (01) ==
PROVIDERS: Emergency Medicine; Emergency Provider Emergency Medicine; PCP Internal Medicine
DX: R42 Dizziness and giddiness (principal); F41.9 Anxiety disorder, unspecified; F43.10 Post-traumatic stress disorder, unspecified; Z87.891 Personal history of nicotine dependence
CPT/HCPCS: 36415; 80053; 85025; 93005; 99284; A9270

== ENCOUNTER 2025-02-15 02:04 | Emergency (ER) | payer MEDICARE, SELFPAY ==
--- NOTE | ~2025-02-15 | CT_ITS ---
CT HEAD NON-CONTRAST Clinical History: AMS, hx TBI Comparison: 06/03/2024 Technique: Unenhanced axial images skull base to vertex Coronal, sagittal reformats CT images acquired with automatic exposure control for dose reduction DLP: 605 mGy-cm Findings: Age-related atrophy. Small foci bilateral frontal lobe encephalomalacia. Chronic white matter microvascular ischemic changes. Basal ganglia lacunae. Sulci, ventricles: Unremarkable. No intracerebral hemorrhage. No evidence acute territorial infarct. No mass effect, midline shift. Bony calvarium intact. Visualized paranasal sinuses: Clear. Mastoid air cells: Clear. IMPRESSION: 1. No acute intracranial findings. Reviewed, dictated and finalized at location R.
[2025-02-15 02:14] VITALS: BP 145/61; PULSE 54; RESP 16; TEMP 37.1; O2SAT 97
[2025-02-15 02:40] LABS: Hematocrit 28.8 % (42.0-52.0); Hemoglobin 9.2 g/dL (14.0-18.0); Immature Granulocyte Percent A 0.2 % (0-0.5); Lymphocytes Absolute Auto 1.66 K/mm3 (0.9-3.2); Mean Corpuscular HGB Conc 31.9 g/dl (32-36); Mean Corpuscular Hemoglobin 28.7 pg (26-34); Mean Corpuscular Volume 89.7 fl (80-100); Nucleated Red Blood Cells Absolute Auto 0.000 K/mm3 (0.0-0.012); Nucleated Red Blood Cells Perc 0.0 % (0.0-0.2); Platelet Count Result 169 k/mm3 (150-375); Red Blood Count 3.21 M/mm3 (4.6-6.20); White Blood Count 4.8 K/mm3 (4.5-10.0)
[2025-02-15 02:42] LABS: Add Urine Microscopic? NO; Appearance Urine Clear (Clear); Glucose Urine UA Negative (Negative); Leukocyte Esterase Ur Negative LEU/UL (Negative); Nitrate Urine Negative (Negative); Specific Grav Ur 1.006 (1.001-1.035)
--- NOTE | 2025-02-15 02:49 | ED.AMS ---
HPI - Altered Mental Status General Chief Complaint: Altered Mental Status Stated Complaint: AMS, PINPOINT PUPILS, NEW HS MED Time Seen by Provider: 02/15/25 02:31 History of Present Illness HPI narrative: 74-year-old male with complex past medical history including seizure disorder, mild cognitive impairment, TBI history, MDD. Recently started Seroquel and took her 1st dose of 30 mg of Seroquel this evening. Patient's found him on the ground in the position. Patient is awake here in the emergency department answering questions appropriately. Not any acute distress but is slow to answer questions. Moving all extremities, following commands and speaking clearly but is having some delayed responsiveness. Not any physical or respiratory distress. Placed on cardiac specialist in place and room H 3 for re-evaluation and observation with laboratory studies and imaging ordered. No other recent medication changes. Patient has no acute complaints such as headache, vision changes, fever, chills. No abdominal pain, back pain, nausea, vomiting, chest pain. Related Data Allergies Allergy/AdvReac Type Severity Reaction Status Date / Time Aminoglycosides Allergy Severe SWELLING, Verified 02/13/25 14:46 MAKES INFECTION WORSE bacitracin Allergy Severe SWELLING, Verified 02/13/25 14:46 MAKES INFECTION WORSE Fish Containing Products Allergy Severe ANAPHYLAXIS Verified 02/13/25 14:46 fluoxetine Allergy Severe SSRI= Verified 02/13/25 14:46 SUICIDAL REACTION neomycin Allergy Severe SWELLING, Verified 02/13/25 14:46 MAKES INFECTION WORSE shellfish derived Allergy Severe ANAPHYLAXIS Verified 02/13/25 14:46 Sulfa (Sulfonamide Allergy Severe Anaphylactic Verified 02/13/25 14:46 Antibiotics) Shock zolpidem AdvReac Intermediate Confusion Verified 02/13/25 14:46 BETI/ Allergy Severe ANAPHYLACTIC--THROAT Uncoded 02/13/25 14:46 SWELLING Review of Systems Review of Systems: As reviewed [facility] Past Medical History Medical History BMI 20.0-20.9, adult History of traumatic head injury Seizure disorder MCI (mild cognitive impairment) Benign prostatic hyperplasia Histoplasmosis Transient ischemic attack Traumatic brain injury Irritable bowel syndrome Hyperlipidemia Degenerative disc disease Cerebrovascular accident COVID Anxiety Depression Hypothyroidism Skull fracture Kidney stones Peptic ulcer Diverticulosis Diverticulitis Sleep apnea Pneumonia Epilepsy Surgical History Surgical History History of colonoscopy with polypectomy History of lithotripsy History of tonsillectomy History of cataract extraction History of rotator cuff surgery Bilateral. History of cardiac catheterization History of total left hip arthroplasty Family History Family History Mother Family history of malignant neoplasm of breast in first degree relative Family history of cardiovascular disease Father Family history of cardiovascular disease Sibling No problems noted. Other Family history of arthritis Family history of mental disorder Social History Social History Social History: Surrogate medical decision maker: Quita Vargas Code status: Full code. Smoking packs per day: 1 Smoking cigarettes per day: 20.0 Years smoked: 1 Smoking pack-years: 1.00 Smoking status: Former smoker Tobacco type: cigarettes Second hand tobacco smoke exposure: Yes Smoking end date: 05/01/94 Additional smoking assessment comments: Forty pack-year smoking history, quit in 1994. Alcohol intake: former Alcohol use details: QUIT 30 YEARS AGO Substance use: never Substance use type: does not use Do You Feel Safe in your Home?: No Lack of Transportation: No Lack of Food: Never True Current Housing: I Do Not Have Housing Concerned About Future Housing: No Difficulty Paying Gas/Electric Bills: No Difficulty Paying for Meds: No Currently Unemployed: No Education: Associate Degree Difficulty w/ Childcare or Family Care: YES Living arrangements: with family Additional living arrangements comments: Lives with spouse in [place]. 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 Gender identity (if verbalized by the patient): Male Spiritual care concerns: No Exam Narrative: GENERAL: Slow and delayed responsiveness to questions but is following all commands. Not any acute distress. Answering questions appropriately. HEAD: Normocephalic, atraumatic EYES: 1 mm pupils bilaterally. Extraocular movements are intact. No nystagmus ENT: Nares clear, no rhinorrhea or epistaxis. Mucous membranes moist. NECK: Supple. CHEST: [Clear to auscultation. No respiratory distress.] HEART: [Regular rate and rhythm]. No murmur heard. [Normal peripheral pulses.] ABDOMEN: [Soft, nondistended], [nontender], [No rigidity or guarding] EXTREMITIES: Normal range of motion. [No edema.] SKIN: Warm, dry, no rash. NEURO: [No focal deficits]. Alert and oriented [x3.] PSYCH: [Normal mood and affect.] Course Vital Signs Vital signs: Vital Signs Temperature 37.1 C 02/15/25 02:14 Pulse Rate 54 L 02/15/25 02:14 Respiratory Rate 16 02/15/25 02:14 Blood Pressure 145/61 H 02/15/25 02:14 Pulse Oximetry 97 02/15/25 02:14 Oxygen Delivery Room Air 02/15/25 02:14 Temperature 37.1 C 02/15/25 02:14 Pulse Rate 57 L 02/15/25 07:56 Respiratory Rate 20 02/15/25 07:56 Blood Pressure 153/61 H 02/15/25 07:56 Pulse Oximetry 100 02/15/25 07:56 Oxygen Delivery Room Air 02/15/25 02:14 MDM - Altered Mental Status MDM Narrative Medical decision making narrative: 74-year-old male with complex past medical history including seizure disorder, mild cognitive impairment, TBI history, MDD. Recently started Seroquel and took her 1st dose of 30 mg of Seroquel this evening. Patient's found him on the ground in the position. Patient is awake here in the emergency department answering questions appropriately. Not any acute distress but is slow to answer questions. Moving all extremities, following commands and speaking clearly but is having some delayed responsiveness. Not any physical or respiratory distress. Placed on cardiac specialist in place and room H3 for re-evaluation and observation with laboratory studies and imaging ordered. No other recent medication changes. Patient has no acute complaints such as headache, vision changes, fever, chills. No abdominal pain, back pain, nausea, vomiting, chest pain. For workup shows no leukocytosis, electrolytes unremarkable. Normal kidney function. Normal glucose. Normal LFTs. Unremarkable T4 and T3 levels. Urinalysis negative. Toxicological screenings are unremarkable. Head CT is unremarkable for any acute pathology. Patient observed for several hours and had complete resolution of symptoms and now ambulatory. Likely Seroquel did not agree with him or cause over sedation. Will be discharged with primary care provider referral follow-up and instructed to talk to his PCP about further medication administration and other options. Family members coming to knot picker cloth the patient. Medical Records Attestation: I reviewed the patient's medical records. Lab Data Attestation: I reviewed the patient's lab results. 02/15/25 02:33 02/15/25 02:33 Labs: Lab Results 02/15/25 02/15/25 Range/Units 02:33 02:34 WBC 4.8 (4.5-10.0) K/mm3 RBC 3.21 L (4.6-6.20) M/mm3 Hgb 9.2 L (14.0-18.0) g/dL Hct 28.8 L (42.0-52.0) % MCV 89.7 (80-100) fl MCH 28.7 (26-34) pg MCHC 31.9 L (32-36) g/dl RDW 13.3 (11.5-14.5) % Plt Count 169 (150-375) k/mm3 MPV 8.8 (7.4-10.4) fl Immature Gran % (Auto) 0.2 (0-0.5) % Neut % (Auto) 51.3 (45.5-73.1) % Lymph % (Auto) 34.4 (18.3-44.2) % Maries % (Auto) 10.4 H (2.6-8.5) % Eos % (Auto) 3.1 (0-4.4) % Baso % (Auto) 0.6 (0.2-1.2) % Lymph # (Auto) 1.66 (0.9-3.2) K/mm3 [place]ies # (Auto) 0.5 (0.1-0.6) K/mm3 Eos # (Auto) 0.2 (0-0.3) K/mm3 Baso # (Auto) 0.0 (0.0-0.1) K/mm3 Abs Immat Gran (auto) 0.01 (0.00-0.031) K/mm3 Absolute Neuts (auto) 2.5 (1.3-6.7) K/mm3 Absolute Nucleated RBC 0.000 (0.0-0.012) K/mm3 Nucleated RBC % 0.0 (0.0-0.2) % PT 14.4 (11.1-14.7) Seconds INR 1.1 APTT 31.1 (22.3-36.8) Seconds Sodium 139 (137-145) mmol/L Potassium 3.6 (3.4-5.0) mmol/L Chloride 106 (98-107) mmol/L Carbon Dioxide 28 (22-30) mmol/L Anion Gap 5 (4-12) mmol/L BUN 18 (9-20) mg/dL Creatinine 0.88 (0.7-1.3) mg/dL Estim Creat Clear Calc 51 ml/min Estimated GFR > 60 (59 - ) Glucose 106 (65-110) mg/dL Calcium 8.5 (8.4-10.2) mg/dL Total Bilirubin 0.5 (0.2-1.3) mg/dL AST 43 (17-59) U/L ALT 33 (6-50) U/L Alkaline Phosphatase 118 (38-126) U/L Total Protein 6.4 (6.3-8.2) g/dL Albumin 3.5 (3.5-5.1) g/dL TSH (Reflex) 0.187 L (0.465-4.68) uIU/mL Free T4 0.95 (0.78-2.19) ng/dL Total T3 1.23 (0.82-1.58) NG/ML Urine Color Yellow (Yellow) Urine Appearance Clear (Clear) Urine pH 6.5 (5.0-9.0) Ur Specific [place] 1.006 (1.001-1.035) Urine Protein Negative (Negative) mg/dL Urine Glucose (UA) Negative (Negative) mg/dL Urine Ketones Negative (Negative) mg/dL Ur Blood (Man) Negative (Negative) Urine Nitrate Negative (Negative) Urine Bilirubin Negative (Negative) Urine Urobilinogen 1.0 (<2.0) mg/dL Leukocyte Esterase Rfl Negative (Negative) WALDO/UL Salicylates < 1.0 L (2-20) mg/dL Urine Opiates Screen Negative (Negative) Urine Methadone Screen Negative (Negative) Acetaminophen < 10 L (10-30) ug/mL Ur Barbiturates Screen Negative (Negative) Ur Phencyclidine Scrn Negative (Negative) Ur Amphetamine Screen Negative (Negative) U Benzodiazepines Scrn Negative (Negative) Urine Cocaine Screen Negative (Negative) U Cannabinoids Screen Negative (Negative) Imaging Data Attestation: I personally reviewed and interpreted this imaging study as follows: My impression: No acute intracranial findings. Discharge Plan Discharge Clinical Impression: Adverse effects of medication Patient Disposition: Home Condition: Stable Instructions: Antibiotic Form Additional Instructions: The Seroquel medication caused over sedation and likely is not an appropriate dose to be taking at home. Talked your regular primary care provider or prescribed about this. Your laboratory studies and imaging are all unremarkable here today without any acute findings otherwise. Return with any emergencies recurrent symptoms. Patient Language: Salvadorean Prescriptions: No Action pantoprazole 40 mg tablet,delayed release (DR/EC) 40 mg PO BID Qty: 60 3RF diazepam [Valium] 2 mg tablet 2 mg PO BID PRN (Reason: vertigo) Qty: 40 1RF quetiapine [Seroquel] 50 mg tablet 50 mg PO QHS Qty: 30 1RF meclizine 25 mg tablet 25 mg PO TID PRN (Reason: dizziness) Qty: 20 0RF methocarbamol 750 mg tablet 1,500 mg PO TID Qty: 42 0RF clopidogrel [Plavix] 75 mg tablet 75 mg PO DAILY Qty: 30 3RF divalproex 500 mg tablet,delayed release (DR/EC) 500 mg PO DAILY Qty: 90 2RF tramadol 50 mg tablet 50 mg PO Q6H PRN (Reason: Pain) Qty: 60 0RF atorvastatin 40 mg tablet 40 mg PO QHS Qty: 90 2RF levothyroxine [Levoxyl] 75 mcg tablet 75 mcg PO DAILY Qty: 90 1RF venlafaxine 75 mg capsule,extended release 24hr See Rx Instructions .ROUTE .COMPLEX Qty: 180 1RF Dose Instruction: TAKE 1 CAPSULE BY MOUTH DAILY. TAKE WITH 150MG CAPSULE FOR TOTAL DOSE OF 225MG Rx Instructions: TAKE 1 CAPSULE BY MOUTH DAILY. TAKE WITH 150MG CAPSULE FOR TOTAL DOSE OF 225MG venlafaxine 150 mg capsule,extended release 24hr See Rx Instructions .ROUTE .COMPLEX Qty: 90 2RF Dose Instruction: TAKE 1 CAPSULE BY MOUTH DAILY Rx Instructions: TAKE 1 CAPSULE BY MOUTH DAILY Follow-up/Referrals: Eduardo Sotelo DO [Primary Care Provider, Internal Medicine] Time of Disposition: 06:27
[2025-02-15 02:50] LABS: Acetaminophen < 10 ug/mL (10-30); Salicylate < 1.0 mg/dL (2-20)
[2025-02-15 02:53] LABS: INR 1.1; Prothrombin Time 14.4 Seconds (11.1-14.7)
[2025-02-15 02:54] LABS: Partial Thromboplastin Time 31.1 Seconds (22.3-36.8)
[2025-02-15 02:56] LABS: Alanine Aminotransferase 33 U/L (6-50); Albumin Level 3.5 g/dL (3.5-5.1); Alkaline Phosphatase 118 U/L (38-126); Anion Gap 5 mmol/L (4-12); Aspartate Amino Transferase 43 U/L (17-59); Bilirubin,Total 0.5 mg/dL (0.2-1.3); Blood Urea Nitrogen 18 mg/dL (9-20); Calcium 8.5 mg/dL (8.4-10.2); Carbon Dioxide 28 mmol/L (22-30); Chloride 106 mmol/L (98-107); Estimated CRCL calculation 51 ml/min; Estimated Glomerular Filt Rate > 60; Glucose 106 mg/dL (65-110); Potassium 3.6 mmol/L (3.4-5.0); Sodium 139 mmol/L (137-145); Total Protein 6.4 g/dL (6.3-8.2)
[2025-02-15 03:04] LABS: Cannabinoid Screen Urine Negative (Negative)
[2025-02-15 03:24] LABS: Thyroid Stimulating Hormone Reflex 0.187 uIU/mL (0.465-4.68)
[2025-02-15 03:52] LABS: Free T4 Free Thyroxine Reflex 0.95 ng/dL (0.78-2.19)
[2025-02-15 04:34] LABS: Total Triiodothyronine (T3) 1.23 NG/ML (0.82-1.58)
--- NOTE | 2025-02-15 07:35 | PC.NURSE ---
Assumed care for this pt at 07:00, from cook night nurse [place].
[2025-02-15 07:56] VITALS: BP 153/61; PULSE 57; RESP 20; O2SAT 100
== END 2025-02-15 08:51 | disposition home or self-care (01) ==
PROVIDERS: Emergency Provider Student in an Organized Health Care Education/Training Program; PCP Internal Medicine
DX: R41.82 Altered mental status, unspecified (principal); T43.595A Adverse effect of other antipsychotics and neuroleptics, initial encounter; E78.5 Hyperlipidemia, unspecified; E03.9 Hypothyroidism, unspecified; G40.909 Epilepsy, unspecified, not intractable, without status epilepticus; G47.30 Sleep apnea, unspecified; G31.84 Mild cognitive impairment of uncertain or unknown etiology; F41.9 Anxiety disorder, unspecified; F32.9 Major depressive disorder, single episode, unspecified; Z86.711 Personal history of pulmonary embolism; Z86.16 Personal history of COVID-19; Z86.73 Personal history of transient ischemic attack (TIA), and cerebral infarction without residual deficits; Z87.820 Personal history of traumatic brain injury; Z87.01 Personal history of pneumonia (recurrent); Z86.0100 Personal history of colon polyps, unspecified; Z87.442 Personal history of urinary calculi; Z87.891 Personal history of nicotine dependence; Z98.49 Cataract extraction status, unspecified eye; Z96.642 Presence of left artificial hip joint; Z79.899 Other long term (current) drug therapy; Z79.02 Long term (current) use of antithrombotics/antiplatelets
CPT/HCPCS: 36415; 70450; 80053; 80143; 80179; 80307; 81003; 84439; 84443; 84480; 85025; 85610; 85730; 99284

== ENCOUNTER 2025-02-28 07:36 | Inpatient (IN) | payer MEDICARE, SELFPAY ==
--- OUTSIDE RECORDS SUMMARY | 2007-02-05 03:25 | XMS_ITS | Continuity of Care Document ---
Author Organization [facility] Address [address] [place] [address] [place] [address] Phone Care Team Providers Care Docent Coordinator Name Role Phone Yony Tanner MD Unavailable Unavailable Procedures Procedure Date Eye Exam & Treatment Advance Directives Directive Yes / No Effective Date File Name No Information Encounters Encounter Description Practice Location Reason(s) For Visit Diagnoses Date Provider Providers Copied on Encounter [facility], [address], [place], [place], [id number], [place] tel:[phone] [facility] No Information [address]akta. [address] [facility] [address], [place], [place], [address], [place]. tel:[phone] Family History Family Member Type Diagnosis Age At Onset No Information Payers Payer name Insurance type Covered republican ID Authoriza tion(s) [place] [id number] Social History Type Description Quantity Date Captured Comments Sex Male Smoking Status No Information Chief Complaint And Reason For Visit No Information Reason For Referral Reason For Referral No Information History Of Present Illness Encounter Date Complaint History Of Prese nt Illness No Information Functional Status Date Functional Assessmen t No Information Instructions Date Instruction Additional Infor mation No Information Assessments Type Assessment Date No Information Patient Care Teams Name Effective Dates (start - stop) Status Members No Information
--- OUTSIDE RECORDS SUMMARY | 2007-02-05 03:25 | XMS_ITS | Continuity of Care Document ---
Author Organization [facility] Address [address] [place] [address] [place] [address] Phone Care Team Providers Care Tar Distillation Supervisor Name Role Phone Yony Tanner MD Unavailable Unavailable Procedures Procedure Date Eye Exam & Treatment Advance Directives Directive Yes / No Effective Date File Name No Information Encounters Encounter Description Practice Location Reason(s) For Visit Diagnoses Date Provider Providers Copied on Encounter [facility], [address], [place], [place], [id number], [place] tel:[phone] [facility] No Information [address]akta. [address] [facility] [address], [place], [place], [address], [place]. tel:[phone] Family History Family Member Type Diagnosis Age At Onset No Information Payers Payer name Insurance type Covered democrat ID Authoriza tion(s) [place] [id number] Social History Type Description Quantity Date Captured [...]
--- NOTE | ~2025-02-28 | XR_ITS ---
Examination: XR elbow LT min 3V Clinical History: atraumatic pain, NKI Comparison: None Technique: 4 views left elbow Findings/impression: 1. No fracture, dislocation, or other acute abnormality identified. Reviewed, dictated and finalized at location R.
--- NOTE | ~2025-02-28 | CT_ITS ---
EXAMINATION: CT elbow LT w con DATE: 02/28/2025 11:13 INDICATION: Possible septic left elbow joint TECHNIQUE: High resolution computed tomography (CT) of the left elbow was performed with 100 mL Omnipaque-350 intravenous contrast. Additional sagittal and coronal reconstructions were performed. Automated exposure control and iterative reconstruction technique were employed. The dose-length product was 640.82 mGy-cm. COMPARISON: Radiographs dated 02/28/2025 FINDINGS: Bone alignment is normal. No fracture. No cortical erosions or periosteal reaction. Mild osteoarthritis at the ulnotrochlear and proximal radioulnar articulations of the elbow joint. No elbow joint effusion. There is soft tissue swelling with subcutaneous edema posterior to the elbow, distal upper arm and proximal to mid forearm without organized abscess. There is a tiny focus of gas in the soft tissues posterior lateral to the radial head without evident overlying skin ulceration which would be expected location for reported attempted joint aspiration. Soft tissues are otherwise unremarkable. IMPRESSION: 1. Soft tissue swelling with prominent subcutaneous edema posterior to the elbow with tiny focus of gas in the subcutaneous tissues posterior lateral to the radial head location consistent with likely site of attempted joint aspiration. No abscess, joint effusion or findings to suggest osteomyelitis. 2. Mild osteoarthritis at the left elbow with no acute osseous abnormality. Reviewed, dictated and finalized at location A. IMPRESSION: 1. Soft tissue swelling with prominent subcutaneous edema posterior to the elbo w with tiny focus of gas in the subcutaneous tissues posterior lateral to the r adial head location consistent with likely site of attempted joint aspiration. No abscess, joint effusion or findings to suggest osteomyelitis. 2. Mild osteoarthritis at the left elbow with no acute osseous abnormality.
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
--- OUTSIDE RECORDS SUMMARY | 2025-02-28 07:39 | XMS_ITS | Clinical Summary ---
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 Sex Male 6:30 PM CDT Gender [...] - 1-dose 75+ series) 2024 PHQ-2 (Physician [place]) 05/01/2024 COVID-19 Vaccine ( - 2024-2 6 season) 2024 Influenza Adult (#1) 2025 Hepatitis A Vaccines Aged Out No long er eligible based on patient's age to complete this topic Meningococcal B Vaccine Aged Out No l onger eligible based on patient's age to complete this topic Meningococcal Vaccine Aged Out No michael opal eligible based on patient's age to complete this topic RSV Immunizations Under 20 Months Aged Out No longer eligible based on patient's age to complete this topic Insurance [facility] MEDICARE Care Teams Offal Separator Relationship Specialty [place] [id number] [address] PCP - General INTERNAL MEDICINE 06/12/24
--- OUTSIDE RECORDS SUMMARY | 2025-02-28 07:39 | XMS_ITS | Clinical Summary ---
Author Organization [facility] Address [address] [place] [address] Phone Care Team Providers Care Principal Cyber Engineer Name Role Phone Tammy Patel DO Primary Care Provider [phone] Madalyn Crawford APRN, GUEST SERVICES MANAGER Unavailable +- [phone] Natan Monzon MD Unavailable [phone] Medications VENLAFAXINE HCL PO Take 150 mg [...] 2 - PCV20 or PCV21) 10/15/2022 10/15/2021 Medicare Initial AWV [id number] 06/01/2023 Respiratory Syncytial Virus (RSV) Immunization (Adult) (1 [...] to complete this topic Insurance MEDICARE C [facility] Care Teams Principal Cyber Engineer Relationship Specialty Start Date End Date Tammy Patel DO [address] [place] [address] PCP - General Family Medicine 02/16/23 Madalyn Crawford APRN, GUEST SERVICES MANAGER [address] [place] [address] Nurse Practitioner Advanced Practice Nurse 10/18/22 Natan Monzon MD [address] [place] [address] Consulting Physician Neurology 01/31/23
--- OUTSIDE RECORDS SUMMARY | 2025-02-28 07:39 | XMS_ITS | Clinical Summary ---
Author Organization [facility] [address] Address [address] [place] [address] Care Team Providers Care Advertising Sales Executive Name Role Phone Tammy Patel DO Primary Care Provider [phone] Allergies Active Allergy Reactions Criticality Noted Date [...] needed. 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 Gender Identity Not on file Sexual Orientation Not on file Obstetrics History Last Filed Vital Signs Vital Sign Reading Time Taken Comments Blood Pressure 166/77 08/09/2023 8:49 AM CDT Pulse 65 08/09/2023 8:49 AM CDT Temperature 36.2 C (97.2 F) 09/26/2019 9:06 AM CDT Respiratory Rate 24 07/04/2017 2:26 PM TIRE BUILDER OPERATOR Oxygen Saturation 99% 08/09/2023 8:49 AM [...] 08/08/2019 Influenza Vaccine (#1) 2024 01/09/2018 Insurance [facility] MEDICARE [facility] Address: [facility] [address] [place] [address] Care Teams Advertising Sales Executive Relationship Specialty Start Date End Date Tammy Patel DO PCP - General Family Medicine 07/01/19
[2025-02-28 07:46] VITALS: BP 158/59; PULSE 58; RESP 18; TEMP 37.1; O2SAT 98
--- NOTE | 2025-02-28 07:59 | ED_ITS ---
HPI - Extremity Problem General Chief complaint: Extremity Problem,Nontraumatic Stated complaint: right elbow pain Time Seen by Provider: 02/28/25 07:43 Source: patient and family Mode of arrival: ambulatory Limitations: no limitations History of Present Illness HPI Narrative: This is a 74-year-old male with history hypertension, hyperlipidemia, epilepsy, depression who presents to the ED for left elbow pain. Patient states that yesterday he woke up with severe left elbow pain that has been worsening. He states he has difficulty moving it even a little bit at this point. Denies fevers, chills. Denies any known trauma but does note that he and his have been moving but does not feel that he is over done anything. Patient also notes a left sided headache that is similar to his prior episodes of headaches. Denies numbness, tingling. Related Data Allergies Allergy/AdvReac Type Severity Reaction Status Date / Time Aminoglycosides Allergy Severe SWELLING, Verified 02/28/25 12:20 MAKES INFECTION WORSE bacitracin Allergy Severe SWELLING, Verified 02/28/25 12:20 MAKES INFECTION WORSE Fish Containing Products Allergy Severe ANAPHYLAXIS Verified 02/28/25 12:20 fluoxetine Allergy Severe SSRI= Verified 02/28/25 12:20 SUICIDAL REACTION neomycin Allergy Severe SWELLING, Verified 02/28/25 12:20 MAKES INFECTION WORSE shellfish derived Allergy Severe ANAPHYLAXIS Verified 02/28/25 12:20 Sulfa (Sulfonamide Allergy Severe Anaphylactic Verified 02/28/25 12:20 Antibiotics) Shock zolpidem AdvReac Intermediate Confusion Verified 02/28/25 12:20 BETI/ Allergy Severe ANAPHYLACTIC--THROAT Uncoded 02/24/25 08:27 SWELLING Review of Systems 2 Review of Systems: Gen.: Denies fevers or chills Eyes: Denies eye pain or visual change ENT: Denies congestion Respiratory: Denies shortness of breath or cough CV: Denies chest pain or palpitations GI: Denies abdominal pain nausea, emesis or diarrhea denies burning, urgency, frequency or hematuria Musculoskeletal: As per HPI Neuro: Denies numbness, tingling, weakness or focal weakness Skin: Denies rash Except as documented, all other systems reviewed and negative PMFSH Past Medical History Medical History BMI 20.0-20.9, adult History of traumatic head injury Seizure disorder MCI (mild cognitive impairment) Benign prostatic hyperplasia Histoplasmosis Transient ischemic attack Traumatic brain injury Irritable bowel syndrome Hyperlipidemia Degenerative disc disease Cerebrovascular accident COVID Anxiety Depression Hypothyroidism Skull fracture Kidney stones Peptic ulcer Diverticulosis Diverticulitis Sleep apnea Pneumonia Epilepsy Surgical History Surgical History History of colonoscopy with polypectomy History of lithotripsy History of tonsillectomy History of cataract extraction History of rotator cuff surgery Bilateral. History of cardiac catheterization History of total left hip arthroplasty Family History Family History Mother Family history of malignant neoplasm of breast in first degree relative Family history of cardiovascular disease Father Family history of cardiovascular disease Sibling No problems noted. Other Family history of arthritis Family history of mental disorder Social History Social History Social History: Surrogate medical decision maker: Quita Vargas Code status: Full code. Smoking packs per day: 1 Smoking cigarettes per day: 20.0 Years smoked: 1 Smoking pack-years: 1.00 Smoking status: Never smoker Tobacco type: cigarettes Second hand tobacco smoke exposure: Yes Smoking end date: 05/01/94 Additional smoking assessment comments: Forty pack-year smoking history, quit in 1994. Alcohol intake: former Alcohol use details: QUIT 30 YEARS AGO Substance use: never Substance use type: does not use Do You Feel Safe in your Home?: No Lack of Transportation: No Lack of Food: Never True Current Housing: I Have Housing Concerned About Future Housing: No Difficulty Paying Gas/Electric Bills: No Difficulty Paying for Meds: No Currently Unemployed: No Education: Associate Degree Difficulty w/ Childcare or Family Care: No Living arrangements: with family Additional living arrangements comments: Lives with spouse in [place]. 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 Gender identity (if verbalized by the patient): Male Spiritual care concerns: No Exam 2 Narrative: APPEARANCE: No acute distress, nontoxic, resting in bed EYES: EOMI HEENT: Normocephalic, atraumatic, OMM RESPIRATORY: No respiratory distress Clear to auscultation bilaterally with no rhonchi wheezing or rales. CARDIOVASCULAR: Regular rate and rhythm without murmurs rubs or gallops. ABDOMINAL: Soft, nontender, nondistended, no rebound or guarding MUSCULOSKELETAl: Moves all extremities. No clubbing, cyanosis or edema. NEURO: Awake and alert. Following commands, speech normal, no focal deficits SKIN:: Warm, dry. No rashes lesions or abrasions PSYCHIATRIC: Normal affect/mood, Course Vital Signs Vital signs: Vital Signs Temperature 98.8 F 02/28/25 07:46 Pulse Rate 58 L 02/28/25 07:46 Respiratory Rate 18 02/28/25 07:46 Blood Pressure 158/59 H 02/28/25 07:46 Pulse Oximetry 98 02/28/25 07:46 Oxygen Delivery Room Air 02/28/25 07:46 Temperature 99.2 F 02/28/25 14:00 Pulse Rate 63 02/28/25 14:00 Respiratory Rate 18 02/28/25 14:00 Blood Pressure 167/57 H 02/28/25 14:00 Pulse Oximetry 97 02/28/25 14:00 Oxygen Delivery Room Air 02/28/25 07:46 Procedures Joint Aspiration/Injection Joint Asp./Inject. 1: Joint Aspiration Date: 02/28/25 Joint Aspiration Time: 10:55 Side of body: left Joint Aspirated: elbow Ultrasound Guidance: No Skin Prep: Chlorhexidine Local Anesthetic: lidocaine 1% Amount of anesthesia used (mL): 5 Needle Size Used: 22G Fluid Obtained: none Complications: unable to obtain fluid MDM - Extremity (Nontraumatic) MDM Narrative Medical decision making narrative: 74-year-old male Presenting for atraumatic left elbow pain. On initial evaluation patient was in no acute distress afebrile, hemodynamic stable. Differentials include but are not limited to: Septic arthritis, septic bursitis, cellulitis, fracture, sprain, strain Notable exam findings: Significant pain with passive range of motion of the left elbow, overlying erythema with the mild swelling, no obvious bursal swelling. Notable lab findings: Mild leukocytosis at 10.3, mild anemia at 10.8. CMP without significant abnormalities. CRP elevated at 1.9. ESR within normal limits. Notable imaging findings: X-ray left elbow showed no acute findings Labs and exam are concerning for possible septic arthritis. Patient continued to have significant pain to his left elbow despite pain medications. Because of this, I did attempt to perform an arthrocentesis but was unable to aspirate any fluid. Patient was started on vanc/Rocephin. I did consult Dr. Mixon, orthopedic surgery, does agree that this is likely a septic arthritis, will see the patient as a consult and likely perform a joint washout tomorrow. Discussed case with hospitalist who will admit the patient. Medical Records Attestation: I reviewed the patient's medical records. Lab Data Attestation: I reviewed the patient's lab results. 02/28/25 08:24 02/28/25 08:24 Labs: Lab Results 02/28/25 Range/Units 08:24 WBC 10.3 H (4.5-10.0) K/mm3 RBC 3.78 L (4.6-6.20) M/mm3 Hgb 10.8 L (14.0-18.0) g/dL Hct 34.1 L (42.0-52.0) % MCV 90.2 (80-100) fl MCH 28.6 (26-34) pg MCHC 31.7 L (32-36) g/dl RDW 13.6 (11.5-14.5) % Plt Count 236 (150-375) k/mm3 MPV 9.2 (7.4-10.4) fl Immature Gran % (Auto) 0.3 (0-0.5) % Neut % (Auto) 81.9 H (45.5-73.1) % Lymph % (Auto) 8.3 L (18.3-44.2) % [place] % (Auto) 8.6 H (2.6-8.5) % Eos % (Auto) 0.6 (0-4.4) % Baso % (Auto) 0.3 (0.2-1.2) % Lymph # (Auto) 0.85 L (0.9-3.2) K/mm3 [place] # (Auto) 0.9 H (0.1-0.6) K/mm3 Eos # (Auto) 0.1 (0-0.3) K/mm3 Baso # (Auto) 0.0 (0.0-0.1) K/mm3 Abs Immat Gran (auto) 0.03 (0.00-0.031) K/mm3 Absolute Neuts (auto) 8.4 H (1.3-6.7) K/mm3 Absolute Nucleated RBC 0.000 (0.0-0.012) K/mm3 Nucleated RBC % 0.0 (0.0-0.2) % ESR 31 H (0-20) mm/hr Sodium 137 (137-145) mmol/L Potassium 4.2 (3.4-5.0) mmol/L Chloride 100 (98-107) mmol/L Carbon Dioxide 31 H (22-30) mmol/L Anion Gap 6 (4-12) mmol/L BUN 14 (9-20) mg/dL Creatinine 0.94 (0.7-1.3) mg/dL Estim Creat Clear Calc 49 ml/min Estimated GFR > 60 (59 - ) Glucose 112 H (65-110) mg/dL Calcium 9.3 (8.4-10.2) mg/dL Total Bilirubin 1.4 H (0.2-1.3) mg/dL AST 81 H (17-59) U/L ALT 36 (6-50) U/L Alkaline Phosphatase 95 (38-126) U/L C-Reactive Protein 0.7 (<1.0) mg/dL Total Protein 7.3 (6.3-8.2) g/dL Albumin 4.2 (3.5-5.1) g/dL Imaging Data Attestation: I personally reviewed and interpreted this imaging study as follows: My impression: Elbow x-ray left: No acute fractures Radiologist's impression: Examination: XR elbow LT min 3V Clinical History: atraumatic pain, NKI Comparison: None Technique: 4 views left elbow Findings/impression: 1. No fracture, dislocation, or other acute abnormality identified. Discharge Plan Discharge Clinical Impression: Septic arthritis Qualifiers: Septic arthritis location: elbow Septic arthritis organism: due to unspecified organism Laterality: left Qualified Code(s): M00.9 - Pyogenic arthritis, unspecified Anemia Qualifiers: Anemia type: unspecified type Qualified Code(s): D64.9 - Anemia, unspecified Patient Disposition: Still a Patient Condition: Stable
[2025-02-28] MEDS: KETOROLAC 30 MG/ML VIAL (*BKC) IV PUSH (08:21)
[2025-02-28 08:37] LABS: Hematocrit 34.1 % (42.0-52.0); Hemoglobin 10.8 g/dL (14.0-18.0); Immature Granulocyte Percent A 0.3 % (0-0.5); Lymphocytes Absolute Auto 0.85 K/mm3 (0.9-3.2); Mean Corpuscular HGB Conc 31.7 g/dl (32-36); Mean Corpuscular Hemoglobin 28.6 pg (26-34); Mean Corpuscular Volume 90.2 fl (80-100); Nucleated Red Blood Cells Absolute Auto 0.000 K/mm3 (0.0-0.012); Nucleated Red Blood Cells Perc 0.0 % (0.0-0.2); Platelet Count Result 236 k/mm3 (150-375); Red Blood Count 3.78 M/mm3 (4.6-6.20); White Blood Count 10.3 K/mm3 (4.5-10.0)
--- OUTSIDE RECORDS SUMMARY | 2025-02-28 08:53 | XMS_ITS | Clinical Summary ---
Author Organization [facility] [address] Address [address] [place] [address] Care Team Providers Care Director Investor Relations Name Role Phone Tammy Patel DO Primary Care Provider [phone]- [phone] Allergies Active Allergy Reactions Criticality Noted Date [...] needed. Assessment & Plan (06/29/2023 12:42 PM BRIDGE WELDER): Patient is being evaluated for vertebral stenosis [...] on file Legal Sex Male 10:28 AM BRIDGE WELDER Gender Identity Not on file Sexual Orientation Not on file Obstetrics History Last Filed Vital Signs Vital Sign Reading Time Taken Comments Blood Pressure 166/77 08/09/2023 8:49 AM CDT Pulse 65 08/09/2023 8:49 AM CDT Temperature 36.2 C (97.2 F) 09/26/2019 9:06 AM CDT Respiratory Rate 24 07/04/2017 2:26 PM BRIDGE WELDER Oxygen Saturation 99% 08/09/2023 8:49 AM CDT [...] 08/08/2019 Influenza Vaccine (#1) 2024 01/09/2018 Insurance [facility] MEDICARE ADVANTAGE Care Teams Director Investor Relations Relationship Specialty Start Date End Date Tammy Patel DO PCP - General Family Medicine 07/01/19
--- OUTSIDE RECORDS SUMMARY | 2025-02-28 08:53 | XMS_ITS | Clinical Summary ---
Author Organization [facility] Address [address] [place] [address] Phone Care Team Providers Care Clocksmith Name Role Phone Tammy Patel DO Primary Care Provider [phone]- [phone] Madalyn Crawford APRN, ACCOUNT SUPPORT ASSOCIATE Unavailable +- [phone] Natan Monzon MD Unavailable [phone] Medications VENLAFAXINE HCL PO Take 150 mg [...] to complete this topic Insurance MEDICARE C [facility] Care Teams Clocksmith Relationship Specialty Start Date End Date Tammy Patel DO [address] [place] [address] PCP - General Family Medicine 02/16/23 Madalyn Crawford APRN, ACCOUNT SUPPORT ASSOCIATE [address] [place] [address] Nurse Practitioner Advanced Practice Nurse 10/18/22 Natan Monzon MD [address] [place] [address] Consulting Physician Neurology 01/31/23
--- OUTSIDE RECORDS SUMMARY | 2025-02-28 08:53 | XMS_ITS | Clinical Summary ---
Author Organization [facility] Address [address] [place] [address] Care Team Providers Care Bacteriologist Pharmaceutical Name Role Phone Luis Valentino MD Primary Care Provider Social History Tobacco Use Types Packs/Day Years Used Date Smoking Tobacco: Never Assessed Sex and Gender Information Value Date Recorded Sex Assigned at Male 05/31/2024 10:50 AM TINNING EQUIPMENT TENDER Legal Sex Male 6:30 PM CDT Gender [...] - 1-dose 75+ series) 2024 PHQ-2 (Physician [place]) 05/01/2024 COVID-19 Vaccine ( - 2024-2 6 [...] patient's age to complete this topic Insurance [facility] MEDIC[facility] Care Teams Bacteriologist Pharmaceutical Relationship Specialty [place] [id number] [address] PCP - General INTERNAL MEDICINE 06/12/24
[2025-02-28 09:00] LABS: Alanine Aminotransferase 36 U/L (6-50); Albumin Level 4.2 g/dL (3.5-5.1); Alkaline Phosphatase 95 U/L (38-126); Anion Gap 6 mmol/L (4-12); Aspartate Amino Transferase 81 U/L (17-59); Bilirubin,Total 1.4 mg/dL (0.2-1.3); Blood Urea Nitrogen 14 mg/dL (9-20); CRP 0.7 mg/dL (<1.0); Calcium 9.3 mg/dL (8.4-10.2); Carbon Dioxide 31 mmol/L (22-30); Chloride 100 mmol/L (98-107); Estimated CRCL calculation 49 ml/min; Estimated Glomerular Filt Rate > 60; Glucose 112 mg/dL (65-110); Potassium 4.2 mmol/L (3.4-5.0); Sodium 137 mmol/L (137-145); Total Protein 7.3 g/dL (6.3-8.2)
[2025-02-28] MEDS: MORPHINE SULFATE (*CRX) 4 MG/ML INJ IV PUSH ×2 (10:11→19:39)
[2025-02-28] MEDS: cefTRIAXone 2 GM in SODIUM CHLORIDE 0.9% IV 100 ML 200 ML IVPB (11:33)
[2025-02-28 11:49] VITALS: BP 144/60; PULSE 61; RESP 17; TEMP 36.5; O2SAT 99
[2025-02-28 12:07] VITALS: BMI 19.9
[2025-02-28] MEDS: VANCOMYCIN 1,250 MG/NS 250 ML 1,250 MG/250 ML BAG 166.67 MG IVPB (12:13)
--- NOTE | 2025-02-28 12:14 | ADMGEN ---
This patient, Jax Vargas, was admitted to Medical Room 259-01. Patient/family oriented to hospital policies and general routines including ID bracelet, bed and alarms, visiting hours, pain management, procedures, bathroom and other care routines, personal items, smoking policy, room service/diet, and visiting hours. Information on how to activate the Rapid Response Team has been discussed. Patient/Family are encouraged to report perceived risks to care and to ask questions if they do not understand what they are told or what they should do.
--- OUTSIDE RECORDS SUMMARY | 2025-02-28 13:53 | XMS_ITS | Clinical Summary ---
Author Organization [facility] Address [address] [place] [address] Phone Care Team Providers Care Geophysical Prospecting Permit Agent Name Role Phone Tammy Patel DO Primary Care Provider [phone]- [phone] Madalyn Crawford APRN, CNP Unavailable +- [phone] Natan Monzon MD Unavailable [phone] Medications VENLAFAXINE HCL PO Take 150 mg [...] to complete this topic Insurance MEDICARE C [facility] Care Teams Geophysical Prospecting Permit Agent Relationship Specialty Start Date End Date Tammy Patel DO [address] [place] [address] PCP - General Family Medicine 02/16/23 Madalyn Crawford APRN, CNP [address] [place] [address] Nurse Practitioner Advanced Practice Nurse 10/18/22 Natan Monzon MD [address] [place] [address] Consulting Physician Neurology 01/31/23
--- OUTSIDE RECORDS SUMMARY | 2025-02-28 13:53 | XMS_ITS | Clinical Summary ---
Author Organization [facility] [address] Address [address] [place] [address] Care Team Providers Care Garment Manufacturer Name Role Phone Tammy Patel DO Primary Care Provider [phone]- [phone] Allergies Active Allergy Reactions Criticality Noted Date [...] needed. Assessment & Plan (06/29/2023 12:42 PM CANCELLATION CLERK): Patient is being evaluated for vertebral stenosis [...] on file Legal Sex Male 10:28 AM CANCELLATION CLERK Gender Identity Not on file Sexual Orientation Not on file Obstetrics History Last Filed Vital Signs Vital Sign Reading Time Taken Comments Blood Pressure 166/77 08/09/2023 8:49 AM CDT Pulse 65 08/09/2023 8:49 AM CDT Temperature 36.2 C (97.2 F) 09/26/2019 9:06 AM CDT Respiratory Rate 24 07/04/2017 2:26 PM CANCELLATION CLERK Oxygen Saturation 99% 08/09/2023 8:49 AM CDT [...] 08/08/2019 Influenza Vaccine (#1) 2024 01/09/2018 Insurance [facility] MEDICARE ADVANTAGE [facility] Address: [facility] [address] [place] [address] Care Teams Garment Manufacturer Relationship Specialty Start Date End Date Tammy Patel DO PCP - General Family Medicine 07/01/19
--- OUTSIDE RECORDS SUMMARY | 2025-02-28 13:53 | XMS_ITS | Clinical Summary ---
Author Organization [facility] Address [address] [place] [address] Care Team Providers Care Java Enterprise Architect Name Role Phone Luis Valentino MD Primary Care Provider [phone] Social History Tobacco Use Types Packs/Day Years Used Date Smoking Tobacco: Never Assessed Sex and Gender Information Value Date Recorded Sex Assigned at Male 05/31/2024 10:50 AM ACCOUNTANT AUDITOR Legal Sex Male 6:30 PM CDT Gender [...] - 1-dose 75+ series) 2024 PHQ-2 (Physician [place]) 05/01/2024 COVID-19 Vaccine ( - 2024-2 6 [...] patient's age to complete this topic Insurance [facility] MEDICARE Care Teams Java Enterprise Architect Relationship Specialty [place] [phone] [address] PCP - General INTERNAL MEDICINE 06/12/24
[2025-02-28 14:00] VITALS: BP 167/57; PULSE 63; RESP 18; TEMP 37.3; O2SAT 97
--- NOTE | 2025-02-28 14:55 | PM.IMHP ---
H&P: HPI History of Present Illness Date/Time: 02/28/25 14:55 Chief Complaint: elbow pain Narrative: 74-year-old male past medical history of hypertension, hyperlipidemia, epilepsy, depression, TBI, BPH who presents to the ED on 02/28/2025 with complaints of left elbow pain. The patient states that started yesterday when he woke up and has been worsening. He describes it as a constant aching throbbing pain. He has increased pain when moving that joint. Patient denies fevers, chills, injury. Patient also complains of left-sided headache that is similar to prior episodes of headaches. Arthrocentesis attempted in the ED but was unable to aspirate any fluid. Initial vital signs 158/59, HR 58, respirations 18, afebrile and 90% on room air Lab significant for leukocytosis with WBC 10.3 with a left shift, chronic anemia baseline, ESR 31, total bilirubin 1.4, AST 81, CRP 0.7 then 1.9 Elbow x-ray with no fracture, dislocation, other acute abnormalities Elbow CT with shows tissue swelling with prominent subcutaneous edema posterior to the elbow with tiny focus of gas in the subcutaneous tissues posterior lateral to the radial head; location consistent with likely site of attempted joint aspiration. No abscess, joint effusion or findings to suggest osteomyelitis. Mild osteoarthritis at the left elbow with no acute osseous abnormality Review of Systems Review of Systems: All systems reviewed & are unremarkable except as noted in HPI and below PMFSH Past Medical History Medical History BMI 20.0-20.9, adult History of traumatic head injury Seizure disorder MCI (mild cognitive impairment) Benign prostatic hyperplasia Histoplasmosis Transient ischemic attack Traumatic brain injury Irritable bowel syndrome Hyperlipidemia Degenerative disc disease Cerebrovascular accident COVID Anxiety Depression Hypothyroidism Skull fracture Kidney stones Peptic ulcer Diverticulosis Diverticulitis Sleep apnea Pneumonia Epilepsy Surgical History Surgical History History of colonoscopy with polypectomy History of lithotripsy History of tonsillectomy History of cataract extraction History of rotator cuff surgery Bilateral. History of cardiac catheterization History of total left hip arthroplasty Family History Family History Mother Family history of malignant neoplasm of breast in first degree relative Family history of cardiovascular disease Father Family history of cardiovascular disease Sibling No problems noted. Other Family history of arthritis Family history of mental disorder Social History Social History Social History: Surrogate medical decision maker: Quita Vargas Code status: Full code. Smoking packs per day: 1 Smoking cigarettes per day: 20.0 Years smoked: 1 Smoking pack-years: 1.00 Smoking status: Never smoker Tobacco type: cigarettes Second hand tobacco smoke exposure: Yes Smoking end date: 05/01/94 Additional smoking assessment comments: Forty pack-year smoking history, quit in 1994. Alcohol intake: former Alcohol use details: QUIT 30 YEARS AGO Substance use: never Substance use type: does not use Do You Feel Safe in your Home?: No Lack of Transportation: No Lack of Food: Never True Current Housing: I Have Housing Concerned About Future Housing: No Difficulty Paying Gas/Electric Bills: No Difficulty Paying for Meds: No Currently Unemployed: No Education: Associate Degree Difficulty w/ Childcare or Family Care: No Living arrangements: with family Additional living arrangements comments: Lives with spouse in [place]. 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 Gender identity (if verbalized by the patient): Male Spiritual care concerns: No Meds Home Medications and Allergies Home Medications ?Medication ?Instructions ?Recorded ?Confirmed ?Type clopidogrel 75 mg tablet (Plavix) 75 mg PO DAILY #30 tabs 11/09/23 02/28/25 Rx Held on 01/18/24. Instructions: GI BLEED until 01/24/24 atorvastatin 40 mg tablet 40 mg PO QHS #90 tabs 06/27/24 02/28/25 Rx levothyroxine 75 mcg tablet 75 mcg PO DAILY #90 tabs 11/26/24 02/28/25 Rx (Levoxyl) venlafaxine 75 mg capsule,extended See Rx Instructions .Route 12/23/24 02/28/25 Rx release 24 hr .COMPLEX #180 caps venlafaxine 150 mg See Rx Instructions .Route 12/31/24 02/28/25 Rx capsule,extended release 24 hr .COMPLEX #90 caps meclizine 25 mg tablet 25 mg PO TID PRN dizziness #20 tabs 01/20/25 02/28/25 Rx lisinopril 20 mg tablet 20 mg PO DAILY #90 tabs 02/24/25 02/28/25 Rx Allergies Allergy/AdvReac Type Severity Reaction Status Date / Time Aminoglycosides Allergy Severe SWELLING, Verified 02/28/25 12:20 MAKES INFECTION WORSE bacitracin Allergy Severe SWELLING, Verified 02/28/25 12:20 MAKES INFECTION WORSE Fish Containing Products Allergy Severe ANAPHYLAXIS Verified 02/28/25 12:20 fluoxetine Allergy Severe SSRI= Verified 02/28/25 12:20 SUICIDAL REACTION neomycin Allergy Severe SWELLING, Verified 02/28/25 12:20 MAKES INFECTION WORSE shellfish derived Allergy Severe ANAPHYLAXIS Verified 02/28/25 12:20 Sulfa (Sulfonamide Allergy Severe Anaphylactic Verified 02/28/25 12:20 Antibiotics) Shock zolpidem AdvReac Intermediate Confusion Verified 02/28/25 12:20 BETI/ Allergy Severe ANAPHYLACTIC--THROAT Uncoded 02/24/25 08:27 SWELLING Vital Signs Vital Signs - 24 hr 02/28/25 07:46 02/28/25 11:49 02/28/25 14:00 Temperature 98.8 F 97.7 F 99.2 F Pulse Rate 58 L 61 63 Respiratory Rate 18 17 18 Blood Pressure 158/59 H 144/60 H 167/57 H Pulse Oximetry 98 99 97 Oxygen Delivery Room Air H&P: Results Labs Labs: Short CBC 02/28/25 Range/Units 08:24 WBC 10.3 H (4.5-10.0) K/mm3 Hgb 10.8 L (14.0-18.0) g/dL Hct 34.1 L (42.0-52.0) % Plt Count 236 (150-375) k/mm3 [facility] 02/28/25 08:24 Sodium 137 Potassium 4.2 Chloride 100 Carbon Dioxide 31 H BUN 14 Creatinine 0.94 Glucose 112 H Calcium 9.3 Liver Function 02/28/25 Range/Units 08:24 Total Bilirubin 1.4 H (0.2-1.3) mg/dL AST 81 H (17-59) U/L ALT 36 (6-50) U/L Alkaline Phosphatase 95 (38-126) U/L Albumin 4.2 (3.5-5.1) g/dL Assessment and Plan Assessment and plan (1) Septic arthritis: Qualifiers: Laterality: left Septic arthritis location: elbow Septic arthritis organism: due to unspecified organism Qualified Code(s): M00.9 - Pyogenic arthritis, unspecified Code(s): M00.9 - Pyogenic arthritis, unspecified Status: Acute Assessment and Plan: Patient presents with left is swollen painful elbow. Noticeably red and swollen on exam. Leukocytosis with WBC 10.3 with a left shift, ESR 31. Elbow x-ray with no fracture, dislocation, other acute abnormalities. Elbow CT shows tissue swelling with prominent subcutaneous edema posterior to the elbow with tiny focus of gas in the subcutaneous tissues posterior lateral to the radial head; location consistent with likely site of attempted joint aspiration. No abscess, joint effusion or findings to suggest osteomyelitis. Mild osteoarthritis at the left elbow with no acute osseous abnormality -orthopedic surgery consult -started vanc and Rocephin on 02/28 -pain control with acetaminophen, ketorolac, morphine -NPO at midnight (2) Hypertension: Qualifiers: Hypertension type: primary hypertension Qualified Code(s): I10 - Essential (primary) hypertension Code(s): I10 - Essential (primary) hypertension Status: Chronic Assessment and Plan: Initial BP 158/59 on presentation -continue lisinopril (3) Depression with anxiety: Code(s): F41.8 - Other specified anxiety disorders Status: Chronic Assessment and Plan: Continue home venlafaxine Plan Diet: Regular GI prophylaxis: NA DVT prophylaxis: SCDs lines/drains: PIV Fluids: NA Code status: Full Quality VTE Prophylaxis VTE prophylaxis: mechanical ordered Hospitalist [facility] Advance Care Plan I have confirmed that the patient's Advanced Care Plan is present, code status is documented, or surrogate decision maker is listed in patient medical record.: Yes Medication Reconciliation I have utilized all available resources to obtain, update and review the patients current medications (includes all prescriptions, OTC, herbals, cannabis, and nutritional supplements).: Yes
[2025-02-28 14:57] LABS: CRP 1.9 mg/dL (<1.0)
--- NOTE | 2025-02-28 15:15 | PC.NURSE ---
call placed to [facility] to confirm home med list with pt's permission
[2025-02-28] MEDS: VENLAFAXINE HCL XR 75 MG CAP.ER.24H 225 MG BY MOUTH (17:05)
[2025-02-28] MEDS: ACETAMINOPHEN 325 MG TABLET 650 MG PO (17:38)
[2025-02-28 20:04] VITALS: BP 150/58; PULSE 63; RESP 16; TEMP 37.3; O2SAT 97
[2025-02-28] MEDS: ATORVASTATIN 40 MG TABLET PO (21:01)
[2025-03-01 04:23] VITALS: BP 140/56; PULSE 60; RESP 16; TEMP 37.1; O2SAT 99
[2025-03-01 05:33] LABS: Hematocrit 30.1 % (42.0-52.0); Hemoglobin 9.5 g/dL (14.0-18.0); Immature Granulocyte Percent A 0.4 % (0-0.5); Lymphocytes Absolute Auto 0.98 K/mm3 (0.9-3.2); Mean Corpuscular HGB Conc 31.6 g/dl (32-36); Mean Corpuscular Hemoglobin 28.2 pg (26-34); Mean Corpuscular Volume 89.3 fl (80-100); Nucleated Red Blood Cells Absolute Auto 0.000 K/mm3 (0.0-0.012); Nucleated Red Blood Cells Perc 0.0 % (0.0-0.2); Platelet Count Result 178 k/mm3 (150-375); Red Blood Count 3.37 M/mm3 (4.6-6.20); White Blood Count 8.9 K/mm3 (4.5-10.0)
[2025-03-01 05:43] LABS: Estimated CRCL calculation 47 ml/min; Estimated Glomerular Filt Rate > 60
--- NOTE | 2025-03-01 07:11 | P.PNIM_ITS ---
Progress Note: A&P Assessment and Plan (1) Septic olecranon bursitis of left elbow: Code(s): M71.122 - Other infective bursitis, left elbow Status: Acute Assessment and Plan: Left elbow that is swollen, red and painful with pROM. Leukocytosis on admission that has since resolved with current antibiotic regimen. Elbow x-ray with no fracture, dislocation, other acute abnormalities. Elbow CT showed tissue swelling with prominent subcutaneous edema posterior to the elbow with tiny focus of gas in the subcutaneous tissues posterior lateral to the radial head; location consistent with likely site of attempted joint aspiration. No abscess, joint effusion or findings to suggest osteomyelitis. Mild osteoarthritis at the left elbow with no acute osseous abnormality - Antibiotics: Vanc and Rocephin on 02/28 Patient has 8 unvaccinated at home and reports repeated scratches, Rocephin to cover for potential pasteurella - Analgesics: acetaminophen, norco, morphine - Orthopedic consulted, appreciate recommendations Continue treatment with IV vancomycin and ceftriaxone. Daily CRPs to evaluate his response to the antibiotic treatment. No plan for formal irrigation debridement of the left elbow olecranon bursa at this time, will reevaluate tomorrow (2) Hypothyroidism: Qualifiers: Hypothyroidism type: unspecified Qualified Code(s): E03.9 - Hypothyroidism, unspecified Code(s): E03.9 - Hypothyroidism, unspecified Status: Acute Assessment and Plan: Chronic, continue synthroid 75 mcg daily TSH WNL (3) Hypertension: Qualifiers: Hypertension type: primary hypertension Qualified Code(s): I10 - Essential (primary) hypertension Code(s): I10 - Essential (primary) hypertension Status: Chronic Assessment and Plan: Chronic, continue home medication - lisinopril 20 mg daily - blood pressures reviewed and remain stable, continue to monitor (4) Depression with anxiety: Code(s): F41.8 - Other specified anxiety disorders Status: Chronic Assessment and Plan: Continue home venlafaxine Time Spent With Patient Time with patient: 25 - 35 minutes Subjective Date/time seen: 03/01/25 07:11 Interval history: 74 year old male with past medical history of seizure, cva, htn, hypothyroidism, hld, bph, and ibs presents to the hospital for left elbow pain. patient is pleasant sitting up comfortably in bed. He continues to endorse pain to left elbow that is worse with passive range of motion. He notes that he has several cats at home better and vaccinated and does report several scratches. He denies any fevers, chills, night sweats. Patient states that his pain is well controlled on the current regimen. He has no other complaints denies chest pain, shortness a breath, palpitations, nausea/vomiting, abdominal pain. Review of Systems Review of Systems: All systems reviewed & are unremarkable except as noted in HPI and below Exam Narrative: AF HR 60 RR 16 Spo2 99 BP 140/56 General: male in no acute respiratory distress who is nontoxic appearing, lying semi recumbent in bed. HEENT: Normocephalic. Atraumatic. Extraocular movement intact. Sclera clear and anicteric. No facial asymmetry. Chest: Lungs are clear to auscultation bilaterally. No wheezes or crackles. CV: Heart was regular rate and rhythm. Abd: Abdomen was soft. Nontender. Nondistended. Positive bowel sounds. Ext: Left elbow swelling with redness and warmth. Pain with passive range of motion worse with flexion than extension. DP pulses bilaterally. Neuro: Patient is alert and oriented x4. Speech is clear. Objective Data Vital Signs Vital Signs: Vital Signs - 24 hr 02/28/25 07:46 02/28/25 11:49 02/28/25 14:00 Temperature 98.8 F 97.7 F 99.2 F Pulse Rate 58 L 61 63 Respiratory Rate 18 17 18 Blood Pressure 158/59 H 144/60 H 167/57 H Pulse Oximetry 98 99 97 Oxygen Delivery Room Air 02/28/25 20:00 02/28/25 20:04 03/01/25 04:23 Temperature 99.1 F 98.7 F Pulse Rate 63 60 Respiratory Rate 16 16 Blood Pressure 150/58 H 140/56 L Pulse Oximetry 97 99 Oxygen Delivery Room Air Intake/Output Intake/Output: Intake & Output 02/26/25 02/27/25 02/28/25 03/01/25 23:59 23:59 23:59 23:59 Intake Total 830 340 Output Total 200 Balance 630 340 Meds/Results Medications: Active Medications Generic Name Dose Route Start Last Admin Trade Name Freq PRN Reason Stop Dose Admin Acetaminophen 650 mg 02/28/25 15:17 02/28/25 17:38 Acetaminophen 325 Mg Tablet PO 650 mg Q4H PRN Administration Mild Pain (1-3) or Fever Atorvastatin Calcium 40 mg 02/28/25 21:00 02/28/25 21:01 Atorvastatin 40 Mg Tablet PO 40 mg QHS NATHALIE Administration Vancomycin HCl 1,250 mg in 250 mls @ 166.667 mls/hr 02/28/25 12:00 02/28/25 13:43 Vancomycin 1,250 Mg/Ns 250 Ml IVPB Infused Q24H NATHALIE Infusion Ceftriaxone Sodium 1 gm/ 50 mls @ 100 mls/hr 03/01/25 12:00 Sodium Chloride IVPB Q24H NATHALIE Ketorolac Tromethamine 30 mg 02/28/25 15:17 Ketorolac 30 Mg/Ml Vial (*Bkc) IV PUSH Q6H PRN Pain Rated 4-6 Lisinopril 20 mg 03/01/25 09:00 Lisinopril 20 Mg Tablet PO DAILY NATHALIE Meclizine HCl 25 mg 02/28/25 15:15 Meclizine Hcl 25 Mg Tablet PO TID PRN Dizziness Morphine Sulfate 4 mg 02/28/25 15:17 02/28/25 19:39 Morphine Sulfate (*Crx) 4 Mg/Ml Inj IV PUSH 4 mg Q4H PRN Administration Pain Rated 7-10 Venlafaxine HCl 225 mg 02/28/25 16:00 02/28/25 17:05 Venlafaxine Hcl Xr 75 Mg Cap.Er.24h BY MOUTH 225 mg DAILY NATHALIE Administration Radiology Results: ITS Impressions Elbow CT 02/28/25 11:22 IMPRESSION: 1. Soft tissue swelling with prominent subcutaneous edema posterior to the elbow with tiny focus of gas in the subcutaneous tissues posterior lateral to the radial head location consistent with likely site of attempted joint aspiration. No abscess, joint effusion or findings to suggest osteomyelitis. 2. Mild osteoarthritis at the left elbow with no acute osseous abnormality. Labs Labs: Laboratory Results - last 24 hr 02/28/25 02/28/25 03/01/25 08:24 14:03 05:09 WBC 10.3 H 8.9 RBC 3.78 L 3.37 L Hgb 10.8 L 9.5 L Hct 34.1 L 30.1 L MCV 90.2 89.3 MCH 28.6 28.2 MCHC 31.7 L 31.6 L RDW 13.6 13.4 Plt Count 236 178 MPV 9.2 9.0 Immature Gran % (Auto) 0.3 0.4 Neut % (Auto) 81.9 H 78.5 H Lymph % (Auto) 8.3 L 11.0 L [place] % (Auto) 8.6 H 8.1 Eos % (Auto) 0.6 1.8 Baso % (Auto) 0.3 0.2 Lymph # (Auto) 0.85 L 0.98 [place] # (Auto) 0.9 H 0.7 H Eos # (Auto) 0.1 0.2 Baso # (Auto) 0.0 0.0 Abs Immat Gran (auto) 0.03 0.04 H Absolute Neuts (auto) 8.4 H 7.0 H Absolute Nucleated RBC 0.000 0.000 Nucleated RBC % 0.0 0.0 ESR 31 H Sodium 137 Potassium 4.2 Chloride 100 Carbon Dioxide 31 H Anion Gap 6 BUN 14 Creatinine 0.94 0.94 Estim Creat Clear Calc 49 47 Estimated GFR > 60 > 60 Glucose 112 H Calcium 9.3 Total Bilirubin 1.4 H AST 81 H ALT 36 Alkaline Phosphatase 95 C-Reactive Protein 0.7 1.9 H Total Protein 7.3 Albumin 4.2
[2025-03-01 08:02] LABS: Thyroid Stimulating Hormone Reflex 3.030 uIU/mL (0.465-4.68)
[2025-03-01] MEDS: MORPHINE SULFATE (*CRX) 4 MG/ML INJ IV PUSH ×2 (08:02→20:09)
[2025-03-01 08:04] VITALS: O2SAT 94
--- NOTE | 2025-03-01 10:07 | PM.PNORT ---
Progress Note: A&P Assessment and Plan (1) Septic olecranon bursitis of left elbow: Code(s): M71.122 - Other infective bursitis, left elbow Status: Acute Time Spent With Patient Time: The patient is a 74-year-old male here today with diagnosis of left elbow septic olecranon bursitis that is being treated with IV vancomycin and also IV ceftriaxone with significant clinical improvement compared to yesterday. I would recommend daily CRP and consideration for transition to oral antibiotics starting tomorrow with plan for discharge possibly on Monday after we see his response to oral antibiotics. Subjective Subjective Date/Time Seen: 03/01/25 10:07 Principal diagnosis: olecranon bursitis Left Elbow Interval history: The patient is afebrile and feeling better today with regards to his left elbow pain with no nausea or chills and feeling hungry this morning Exam Narrative: Exam of the patient's left elbow reveals significant decrease in swelling decreased erythema and also decrease in warmth of his left elbow and he has no pain with range of motion supination and pronation of the left elbow Const: General: cooperative, comfortable, no acute distress, well developed, alert and awake Nutritional Appearance: thin Orientation/consciousness: oriented to person, oriented to place and oriented to time Objective Data Vital Signs Vital Signs: Vital Signs - 24 hr 02/28/25 11:49 02/28/25 14:00 02/28/25 20:00 Temperature 36.5 C 37.3 C Pulse Rate 61 63 Respiratory Rate 17 18 Blood Pressure 144/60 H 167/57 H Pulse Oximetry 99 97 Oxygen Delivery Room Air 02/28/25 20:04 03/01/25 04:23 03/01/25 08:00 Temperature 37.3 C 37.1 C Pulse Rate 63 60 Respiratory Rate 16 16 Blood Pressure 150/58 H 140/56 L Pulse Oximetry 97 99 Oxygen Delivery Room Air 03/01/25 08:04 Temperature Pulse Rate Respiratory Rate Blood Pressure Pulse Oximetry 94 Oxygen Delivery Room Air Intake/Output Intake/Output: Intake & Output 02/26/25 02/27/25 02/28/25 03/01/25 23:59 23:59 23:59 23:59 Intake Total 830 340 Output Total 200 Balance 630 340 Meds/Results Medications: Active Medications Generic Name Dose Route Start Last Admin Trade Name Freq PRN Reason Stop Dose Admin Acetaminophen 650 mg 02/28/25 15:17 02/28/25 17:38 Acetaminophen 325 Mg Tablet PO 650 mg Q4H PRN Administration Mild Pain (1-3) or Fever Atorvastatin Calcium 40 mg 02/28/25 21:00 02/28/25 21:01 Atorvastatin 40 Mg Tablet PO 40 mg QHS NATHALIE Administration Ceftriaxone Sodium 1 gm/ 50 mls @ 100 mls/hr 03/01/25 12:00 Sodium Chloride IVPB Q24H NATHALIE Vancomycin HCl 1,000 mg in 250 mls @ 166.667 mls/hr 03/01/25 12:00 Vancomycin 1,000 Mg/Ns 250 Ml IVPB Q24H NATHALIE Ketorolac Tromethamine 30 mg 02/28/25 15:17 Ketorolac 30 Mg/Ml Vial (*Bkc) IV PUSH Q6H PRN Pain Rated 4-6 Lisinopril 20 mg 03/01/25 09:00 Lisinopril 20 Mg Tablet PO DAILY NATHALIE Meclizine HCl 25 mg 02/28/25 15:15 Meclizine Hcl 25 Mg Tablet PO TID PRN Dizziness Morphine Sulfate 4 mg 02/28/25 15:17 03/01/25 08:02 Morphine Sulfate (*Crx) 4 Mg/Ml Inj IV PUSH 4 mg Q4H PRN Administration Pain Rated 7-10 Venlafaxine HCl 225 mg 02/28/25 16:00 02/28/25 17:05 Venlafaxine Hcl Xr 75 Mg Cap.Er.24h BY MOUTH 225 mg DAILY NATHALIE Administration Radiology Results: ITS Impressions Elbow CT 02/28/25 11:22 IMPRESSION: 1. Soft tissue swelling with prominent subcutaneous edema posterior to the elbow with tiny focus of gas in the subcutaneous tissues posterior lateral to the radial head location consistent with likely site of attempted joint aspiration. No abscess, joint effusion or findings to suggest osteomyelitis. 2. Mild osteoarthritis at the left elbow with no acute osseous abnormality. Labs Labs: Laboratory Results - last 24 hr 02/28/25 03/01/25 03/01/25 14:03 05:08 05:09 WBC 8.9 RBC 3.37 L Hgb 9.5 L Hct 30.1 L MCV 89.3 MCH 28.2 MCHC 31.6 L RDW 13.4 Plt Count 178 MPV 9.0 Immature Gran % (Auto) 0.4 Neut % (Auto) 78.5 H Lymph % (Auto) 11.0 L [place] % (Auto) 8.1 Eos % (Auto) 1.8 Baso % (Auto) 0.2 Lymph # (Auto) 0.98 [place] # (Auto) 0.7 H Eos # (Auto) 0.2 Baso # (Auto) 0.0 Abs Immat Gran (auto) 0.04 H Absolute Neuts (auto) 7.0 H Absolute Nucleated RBC 0.000 Nucleated RBC % 0.0 Creatinine 0.94 Estim Creat Clear Calc 47 Estimated GFR > 60 C-Reactive Protein 1.9 H TSH (Reflex) 3.030
--- NOTE | 2025-03-01 10:11 | PM.CNOR ---
Assessment and Plan Assessment and plan (1) Septic olecranon bursitis of left elbow: Code(s): M71.122 - Other infective bursitis, left elbow Status: Acute Plan The patient is a 74-year-old male who presented to the emergency room with persistent pain and redness to the left elbow. The patient lives at home with 6-8 cats that apparently scratched him on a regular basis. He presented to the emergency room with significant redness pain and swelling to the left elbow. The CT scan that was performed in the emergency room showed no evidence of intra-articular effusion. An attempt was made to aspirate the joint which was negative for intra-articular effusion. On interview of the patient, he reports already feeling somewhat better with decrease in swelling at the left elbow after initiation of antibiotics IV. . Recommendation is to continue treatment with IV antibiotics specifically IV vancomycin as well as IV ceftriaxone. I would recommend daily CRPs to evaluate his response to the antibiotic treatment. I would also recommend transition to oral antibiotics after 24 hours to 48 hours of IV antibiotics. At this point in time I do not recommend formal irrigation debridement of the left elbow olecranon bursa given the fact that he is already responding to IV antibiotics. I will evaluate the patient tomorrow morning and determine whether or not his clinical response is adequate and whether or not formal irrigation and debridement with left elbow olecranon bursectomy would be recommended. History of Present Illness HPI Consult date: 02/28/25 Chief complaint: septic arthritis Narrative: The patient is a 74-year-old male who presented to the emergency room with persistent pain and redness to the left elbow. The patient lives at home with 6-8 cats that apparently scratched him on a regular basis. He presented to the emergency room with significant redness pain and swelling to the left elbow. The CT scan that was performed in the emergency room showed no evidence of intra-articular effusion. An attempt was made to aspirate the joint which was negative for intra-articular effusion. On interview of the patient, he reports already feeling somewhat better with decrease in swelling at the left elbow after initiation of antibiotics IV. [facility] Past Medical History Medical History BMI 20.0-20.9, adult History of traumatic head injury Seizure disorder MCI (mild cognitive impairment) Benign prostatic hyperplasia Histoplasmosis Transient ischemic attack Traumatic brain injury Irritable bowel syndrome Hyperlipidemia Degenerative disc disease Cerebrovascular accident COVID Anxiety Depression Hypothyroidism Skull fracture Kidney stones Peptic ulcer Diverticulosis Diverticulitis Sleep apnea Pneumonia Epilepsy Surgical History Surgical History History of colonoscopy with polypectomy History of lithotripsy History of tonsillectomy History of cataract extraction History of rotator cuff surgery Bilateral. History of cardiac catheterization History of total left hip arthroplasty Family History Family History Mother Family history of malignant neoplasm of breast in first degree relative Family history of cardiovascular disease Father Family history of cardiovascular disease Sibling No problems noted. Other Family history of arthritis Family history of mental disorder Social History Social History Social History: Surrogate medical decision maker: Quita Vargas Code status: Full code. Smoking packs per day: 1 Smoking cigarettes per day: 20.0 Years smoked: 1 Smoking pack-years: 1.00 Smoking status: Never smoker Tobacco type: cigarettes Second hand tobacco smoke exposure: Yes Smoking end date: 05/01/94 Additional smoking assessment comments: Forty pack-year smoking history, quit in 1994. Alcohol intake: former Alcohol use details: QUIT 30 YEARS AGO Substance use: never Substance use type: does not use Do You Feel Safe in your Home?: No Lack of Transportation: No Lack of Food: Never True Current Housing: I Have Housing Concerned About Future Housing: No Difficulty Paying Gas/Electric Bills: No Difficulty Paying for Meds: No Currently Unemployed: No Education: Associate Degree Difficulty w/ Childcare or Family Care: No Living arrangements: with family Additional living arrangements comments: Lives with spouse in [place]. 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 Gender identity (if verbalized by the patient): Male Spiritual care concerns: No Meds Home Medications and Allergies Home Medications ?Medication ?Instructions ?Recorded ?Confirmed ?Type clopidogrel 75 mg tablet (Plavix) 75 mg PO DAILY #30 tabs 11/09/23 02/28/25 Rx Held on 01/18/24. Instructions: GI BLEED until 01/24/24 atorvastatin 40 mg tablet 40 mg PO QHS #90 tabs 06/27/24 02/28/25 Rx levothyroxine 75 mcg tablet 75 mcg PO DAILY #90 tabs 11/26/24 02/28/25 Rx (Levoxyl) venlafaxine 75 mg capsule,extended See Rx Instructions .Route 12/23/24 02/28/25 Rx release 24 hr .COMPLEX #180 caps venlafaxine 150 mg See Rx Instructions .Route 12/31/24 02/28/25 Rx capsule,extended release 24 hr .COMPLEX #90 caps meclizine 25 mg tablet 25 mg PO TID PRN dizziness #20 tabs 01/20/25 02/28/25 Rx lisinopril 20 mg tablet 20 mg PO DAILY #90 tabs 02/24/25 02/28/25 Rx Allergies Allergy/AdvReac Type Severity Reaction Status Date / Time Aminoglycosides Allergy Severe SWELLING, Verified 02/28/25 12:20 MAKES INFECTION WORSE bacitracin Allergy Severe SWELLING, Verified 02/28/25 12:20 MAKES INFECTION WORSE Fish Containing Products Allergy Severe ANAPHYLAXIS Verified 02/28/25 12:20 fluoxetine Allergy Severe SSRI= Verified 02/28/25 12:20 SUICIDAL REACTION neomycin Allergy Severe SWELLING, Verified 02/28/25 12:20 MAKES INFECTION WORSE shellfish derived Allergy Severe ANAPHYLAXIS Verified 02/28/25 12:20 Sulfa (Sulfonamide Allergy Severe Anaphylactic Verified 02/28/25 12:20 Antibiotics) Shock zolpidem AdvReac Intermediate Confusion Verified 02/28/25 12:20 BETI/ Allergy Severe ANAPHYLACTIC--THROAT Uncoded 02/24/25 08:27 SWELLING Vital Signs Vital Signs - 24 hr 02/28/25 11:49 02/28/25 14:00 02/28/25 20:00 Temperature 36.5 C 37.3 C Pulse Rate 61 63 Respiratory Rate 17 18 Blood Pressure 144/60 H 167/57 H Pulse Oximetry 99 97 Oxygen Delivery Room Air 02/28/25 20:04 03/01/25 04:23 03/01/25 08:00 Temperature 37.3 C 37.1 C Pulse Rate 63 60 Respiratory Rate 16 16 Blood Pressure 150/58 H 140/56 L Pulse Oximetry 97 99 Oxygen Delivery Room Air 03/01/25 08:04 Temperature Pulse Rate Respiratory Rate Blood Pressure Pulse Oximetry 94 Oxygen Delivery Room Air Exam Narrative: Examination of the patient's left elbow shows that he has significant warmth and erythema with tenderness to palpation over the olecranon bursa. He had no pain with passive range of motion of the elbow with regards to flexion extension and also supination pronation. He had multiple scratches in his left and right forearm secondary to what appears to be cat scratches. He had good radial pulse and intact sensation to this extremity. Const: General: cooperative, comfortable, no acute distress, well developed, alert, awake, Physically active and thin Nutritional Appearance: thin Orientation/consciousness: oriented to person, oriented to place and oriented to time Results Labs 03/01/25 05:09 03/01/25 05:09 Labs: Abnormal lab results 02/28/25 03/01/25 Range/Units 14:03 05:09 RBC 3.37 L (4.6-6.20) M/mm3 Hgb 9.5 L (14.0-18.0) g/dL Hct 30.1 L (42.0-52.0) % MCHC 31.6 L (32-36) g/dl Neut % (Auto) 78.5 H (45.5-73.1) % Lymph % (Auto) 11.0 L (18.3-44.2) % [place] # (Auto) 0.7 H (0.1-0.6) K/mm3 Abs Immat Gran (auto) 0.04 H (0.00-0.031) K/mm3 Absolute Neuts (auto) 7.0 H (1.3-6.7) K/mm3 C-Reactive Protein 1.9 H (<1.0) mg/dL H & H 02/28/25 03/01/25 Range/Units 08:24 05:09 Hgb 10.8 L 9.5 L (14.0-18.0) g/dL Hct 34.1 L 30.1 L (42.0-52.0) % All other labs normal.
[2025-03-01 10:29] LABS: CRP 3.7 mg/dL (<1.0)
[2025-03-01] MEDS: VENLAFAXINE HCL XR 75 MG CAP.ER.24H 225 MG BY MOUTH (12:31)
[2025-03-01] MEDS: cefTRIAXone 1 GM in SODIUM CHLORIDE 0.9% IV 50 ML 100 ML IVPB (12:32)
[2025-03-01] MEDS: HYDROcodone/acetaminophen (*CRX) 5-325 MG TABLET 1 TAB PO (13:28)
[2025-03-01] MEDS: VANCOMYCIN 1,000 MG/NS 250 ML 1,000 MG/250 ML BAG 166.67 MG IVPB (13:28)
[2025-03-01 14:00] VITALS: BP 138/62; PULSE 62; RESP 17; TEMP 36.6; O2SAT 95
[2025-03-01] MEDS: ATORVASTATIN 40 MG TABLET PO (20:09)
[2025-03-01 23:01] VITALS: BP 135/53; PULSE 60; RESP 16; TEMP 36.4; O2SAT 93
--- NOTE | 2025-03-02 02:00 | PC.NURSE ---
Daylight Savings Time For Daylight Savings Time Ending in the Fall - Clocks are moved back. For Daylight Savings Time Beginning in the Spring - Clocks are moved ahead. For [facility], the time of change occurs at 0200 hrs. Time is taken from the senior sql server database developer. This entry on the patient's chart recognizes the change in time reflected during documentation. Example: 2 entries for vital signs may be charted for 0200 hrs.
[2025-03-02 04:50] VITALS: BP 137/54; PULSE 59; RESP 16; TEMP 36.7; O2SAT 93
[2025-03-02 05:08] LABS: Hematocrit 30.8 % (42.0-52.0); Hemoglobin 9.3 g/dL (14.0-18.0); Mean Corpuscular HGB Conc 30.2 g/dl (32-36); Mean Corpuscular Hemoglobin 28.2 pg (26-34); Mean Corpuscular Volume 93.3 fl (80-100); Platelet Count Result 173 k/mm3 (150-375); Red Blood Count 3.30 M/mm3 (4.6-6.20); White Blood Count 7.0 K/mm3 (4.5-10.0)
[2025-03-02 05:21] LABS: Alanine Aminotransferase 29 U/L (6-50); Albumin Level 3.6 g/dL (3.5-5.1); Alkaline Phosphatase 78 U/L (38-126); Anion Gap 5 mmol/L (4-12); Aspartate Amino Transferase 52 U/L (17-59); Bilirubin,Total 0.5 mg/dL (0.2-1.3); Blood Urea Nitrogen 15 mg/dL (9-20); CRP 3.0 mg/dL (<1.0); Calcium 8.4 mg/dL (8.4-10.2); Carbon Dioxide 28 mmol/L (22-30); Chloride 101 mmol/L (98-107); Estimated CRCL calculation 53 ml/min; Estimated Glomerular Filt Rate > 60; Glucose 93 mg/dL (65-110); Potassium 3.7 mmol/L (3.4-5.0); Sodium 134 mmol/L (137-145); Total Protein 6.4 g/dL (6.3-8.2)
--- NOTE | 2025-03-02 07:14 | P.PNIM_ITS ---
Progress Note: A&P Assessment and Plan (1) Septic olecranon bursitis of left elbow: Code(s): M71.122 - Other infective bursitis, left elbow Status: Acute Assessment and Plan: Left elbow that is swollen, red and painful with pROM. Leukocytosis on admission that has since resolved with current antibiotic regimen. Elbow x-ray with no fracture, dislocation, other acute abnormalities. Elbow CT showed tissue swelling with prominent subcutaneous edema posterior to the elbow with tiny focus of gas in the subcutaneous tissues posterior lateral to the radial head; location consistent with likely site of attempted joint aspiration. No abscess, joint effusion or findings to suggest osteomyelitis. Mild osteoarthritis at the left elbow with no acute osseous abnormality - Antibiotics: Vanc and Rocephin on 02/28 Patient has 8 unvaccinated at home and reports repeated scratches, Rocephin to cover for potential pasteurella - Analgesics: acetaminophen, norco, morphine - Orthopedic consulted, appreciate recommendations Decreased left elbow swelling as well as redness and warmth. Pain with soft palpation. Increased passive range of motion worse with still slight pain. Continue treatment with IV antibiotics Daily CRPs to evaluate his response to the antibiotic treatment, CRP remains elevated on am labs but slightly downtrended Awaiting ortho recommendations for continued conservative treatment vs de bridement (2) Hypothyroidism: Qualifiers: Hypothyroidism type: unspecified Qualified Code(s): E03.9 - Hypothyroidism, unspecified Code(s): E03.9 - Hypothyroidism, unspecified Status: Acute Assessment and Plan: Chronic, continue synthroid 75 mcg daily TSH WNL (3) Hypertension: Qualifiers: Hypertension type: primary hypertension Qualified Code(s): I10 - Essential (primary) hypertension Code(s): I10 - Essential (primary) hypertension Status: Chronic Assessment and Plan: Chronic, continue home medication - lisinopril 20 mg daily - blood pressures reviewed and remain stable, continue to monitor (4) Depression with anxiety: Code(s): F41.8 - Other specified anxiety disorders Status: Chronic Assessment and Plan: Continue home venlafaxine Time Spent With Patient Time with patient: 25 - 35 minutes Subjective Date/time seen: 03/02/25 07:14 Interval history: 74 year old male with past medical history of seizure, cva, htn, hypothyroidism, hld, bph, and ibs presents to the hospital for left elbow pain. patient is pleasant lying comfortably in bed. He continues to endorse pain to the left elbow that is worsened with palpation and movement. He does note that the pain has improved since admission as well as the swelling. He has no other complaints denying chest pain, shortness a breath, palpitations, nausea/ vomiting, and abdominal pain. Review of Systems Review of Systems: All systems reviewed & are unremarkable except as noted in HPI and below Exam Narrative: AF HR 59 RR 16 SpO2 93 BP 153/60 General: male in no acute respiratory distress who is nontoxic appearing, lying semi recumbent in bed. HEENT: Normocephalic. Atraumatic. Extraocular movement intact. Sclera clear and anicteric. No facial asymmetry. Chest: Lungs are clear to auscultation bilaterally. No wheezes or crackles. CV: Heart was regular rate and rhythm. Abd: Abdomen was soft. Nontender. Nondistended. Positive bowel sounds. Ext: Decreased left elbow swelling as well as redness and warmth. Pain with soft palpation. Increased passive range of motion worse with still slight pain. Neuro: Patient is alert. Speech is clear. Objective Data Vital Signs Vital Signs: Vital Signs - 24 hr 03/01/25 14:00 03/01/25 20:00 03/01/25 23:01 Temperature 98 F 97.6 F Pulse Rate 62 60 Respiratory Rate 17 16 Blood Pressure 138/62 135/53 L Pulse Oximetry 95 93 Oxygen Delivery Room Air 03/02/25 04:50 Temperature 98.0 F Pulse Rate 59 L Respiratory Rate 16 Blood Pressure 137/54 L Pulse Oximetry 93 Oxygen Delivery Intake/Output Intake/Output: Intake & Output 02/27/25 02/28/25 03/01/25 03/02/25 23:59 23:59 23:59 22:59 Intake Total 830 1120 400 Output Total 200 Balance 630 1120 400 Meds/Results Medications: Active Medications Generic Name Dose Route Start Last Admin Trade Name Freq PRN Reason Stop Dose Admin Acetaminophen 650 mg 02/28/25 15:17 02/28/25 17:38 Acetaminophen 325 Mg Tablet PO 650 mg Q4H PRN Administration Mild Pain (1-3) or Fever Hydrocodone Bitart/Acetaminophen 1 tab 03/01/25 12:09 03/01/25 13:28 Hydrocodone/Acetaminophen (*Crx) 5-325 Mg Tablet PO 1 tab Q4H PRN Administration Pain Rated 4-6 Atorvastatin Calcium 40 mg 02/28/25 21:00 03/01/25 20:09 Atorvastatin 40 Mg Tablet PO 40 mg QHS NATHALIE Administration Enoxaparin Sodium 40 mg 03/02/25 09:00 Enoxaparin 40 Mg/0.4 Ml Syringe SUB-Q DAILY NATHALIE Ceftriaxone Sodium 1 gm/ 50 mls @ 100 mls/hr 03/01/25 12:00 03/01/25 13:02 Sodium Chloride IVPB Infused Q24H NATHALIE Infusion Vancomycin HCl 1,000 mg in 250 mls @ 166.667 mls/hr 03/01/25 12:00 03/01/25 14:59 Vancomycin 1,000 Mg/Ns 250 Ml IVPB Infused Q24H NATHALIE Infusion Lisinopril 20 mg 03/01/25 09:00 03/01/25 12:31 Lisinopril 20 Mg Tablet PO 20 mg DAILY NATHALIE Administration Meclizine HCl 25 mg 02/28/25 15:15 Meclizine Hcl 25 Mg Tablet PO TID PRN Dizziness Morphine Sulfate 4 mg 02/28/25 15:17 03/01/25 20:09 Morphine Sulfate (*Crx) 4 Mg/Ml Inj IV PUSH 4 mg Q4H PRN Administration Pain Rated 7-10 Venlafaxine HCl 225 mg 02/28/25 16:00 03/01/25 12:31 Venlafaxine Hcl Xr 75 Mg Cap.Er.24h BY MOUTH 225 mg DAILY NATHALIE Administration Radiology Results: ITS Impressions Elbow CT 02/28/25 11:22 IMPRESSION: 1. Soft tissue swelling with prominent subcutaneous edema posterior to the elbow with tiny focus of gas in the subcutaneous tissues posterior lateral to the radial head location consistent with likely site of attempted joint aspiration. No abscess, joint effusion or findings to suggest osteomyelitis. 2. Mild osteoarthritis at the left elbow with no acute osseous abnormality. Labs Labs: Laboratory Results - last 24 hr 03/01/25 03/02/25 05:09 04:59 WBC 7.0 RBC 3.30 L Hgb 9.3 L Hct 30.8 L MCV 93.3 MCH 28.2 MCHC 30.2 L RDW 13.5 Plt Count 173 MPV 9.2 Sodium 134 L Potassium 3.7 Chloride 101 Carbon Dioxide 28 Anion Gap 5 BUN 15 Creatinine 0.84 Estim Creat Clear Calc 53 Estimated GFR > 60 Glucose 93 Calcium 8.4 Total Bilirubin 0.5 AST 52 ALT 29 Alkaline Phosphatase 78 C-Reactive Protein 3.7 H 3.0 H Total Protein 6.4 Albumin 3.6 Quality VTE Prophylaxis VTE prophylaxis: pharmacologic ordered
[2025-03-02 08:43] VITALS: BP 153/60
[2025-03-02] MEDS: VENLAFAXINE HCL XR 75 MG CAP.ER.24H 225 MG BY MOUTH (08:45)
[2025-03-02] MEDS: ENOXAPARIN 40 MG/0.4 ML SYRINGE SUB-Q (08:45)
[2025-03-02] MEDS: HYDROcodone/acetaminophen (*CRX) 5-325 MG TABLET 1 TAB PO ×2 (08:52→20:44)
[2025-03-02] MEDS: cefTRIAXone 1 GM in SODIUM CHLORIDE 0.9% IV 50 ML 100 ML IVPB (11:48)
[2025-03-02] MEDS: VANCOMYCIN 1,000 MG/NS 250 ML 1,000 MG/250 ML BAG 166.67 MG IVPB (12:23)
[2025-03-02 14:00] VITALS: BP 147/54; PULSE 52; RESP 17; TEMP 36.6; O2SAT 99
[2025-03-02 20:00] VITALS: PULSE 52; RESP 16; O2SAT 100
[2025-03-02] MEDS: ATORVASTATIN 40 MG TABLET PO (20:45)
[2025-03-02 22:00] VITALS: BP 141/52; PULSE 52; RESP 16; TEMP 36.8; O2SAT 100
[2025-03-03 04:42] VITALS: BP 133/49; PULSE 48; RESP 14; TEMP 36.4; O2SAT 100
[2025-03-03 05:08] LABS: Hematocrit 32.9 % (42.0-52.0); Hemoglobin 10.1 g/dL (14.0-18.0); Mean Corpuscular HGB Conc 30.7 g/dl (32-36); Mean Corpuscular Hemoglobin 28.1 pg (26-34); Mean Corpuscular Volume 91.4 fl (80-100); Platelet Count Result 231 k/mm3 (150-375); Red Blood Count 3.60 M/mm3 (4.6-6.20); White Blood Count 5.8 K/mm3 (4.5-10.0)
[2025-03-03 05:40] LABS: Alanine Aminotransferase 33 U/L (6-50); Albumin Level 3.9 g/dL (3.5-5.1); Alkaline Phosphatase 83 U/L (38-126); Anion Gap 7 mmol/L (4-12); Aspartate Amino Transferase 52 U/L (17-59); Bilirubin,Total 0.4 mg/dL (0.2-1.3); Blood Urea Nitrogen 12 mg/dL (9-20); CRP 1.7 mg/dL (<1.0); Calcium 8.8 mg/dL (8.4-10.2); Carbon Dioxide 30 mmol/L (22-30); Chloride 99 mmol/L (98-107); Estimated CRCL calculation 47 ml/min; Estimated Glomerular Filt Rate > 60; Glucose 96 mg/dL (65-110); Potassium 4.1 mmol/L (3.4-5.0); Sodium 136 mmol/L (137-145); Total Protein 7.1 g/dL (6.3-8.2)
[2025-03-03 08:16] VITALS: BP 146/51; PULSE 54; RESP 16; TEMP 36.2; O2SAT 100
[2025-03-03] MEDS: VENLAFAXINE HCL XR 75 MG CAP.ER.24H 225 MG BY MOUTH (08:16)
[2025-03-03 08:17] VITALS: PULSE 54; RESP 16; O2SAT 100
--- NOTE | 2025-03-03 08:17 | PM.PNORT ---
Progress Note: A&P Assessment and Plan (1) Septic olecranon bursitis of left elbow: Code(s): M71.122 - Other infective bursitis, left elbow Status: Acute Assessment and Plan: 74 yr old male with Left Elbow Septic Olecranon Bursitis improving clinically. Also CRP decreased to 1.7 today. Recommend discharge on Oral Abx, follow up with my office in 7-10 days. Subjective Subjective Date/Time Seen: 03/03/25 08:17 Principal diagnosis: Left Elbow septic olecranon bursitis Interval history: Doing much better today. Clinically improving and also CRP continues to decrease (today 1.7). Good appetite. Exam Narrative: Left elbow with less erythema and warmth and tenderness. No pain with passive or active rom. Const: General: cooperative, comfortable and no acute distress Orientation/consciousness: oriented to person, oriented to place and oriented to time Objective Data Vital Signs Vital Signs: Vital Signs - 24 hr 03/02/25 08:43 03/02/25 08:50 03/02/25 14:00 Temperature 36.6 C Pulse Rate 52 L Respiratory Rate 17 Blood Pressure 153/60 H 147/54 H Pulse Oximetry 99 Oxygen Delivery Room Air 03/02/25 20:00 03/02/25 22:00 03/03/25 04:42 Temperature 36.8 C 36.4 C L Pulse Rate 52 L 52 L 48 L Respiratory Rate 16 16 14 Blood Pressure 141/52 H 133/49 L Pulse Oximetry 100 100 100 Oxygen Delivery Room Air 03/03/25 08:16 Temperature 36.2 C L Pulse Rate 54 L Respiratory Rate 16 Blood Pressure 146/51 H Pulse Oximetry 100 Oxygen Delivery Intake/Output Intake/Output: Intake & Output 02/28/25 03/01/25 03/02/25 03/03/25 23:59 23:59 22:59 23:59 Intake Total 830 1120 1402 300 Output Total 200 Balance 630 1120 1402 300 Meds/Results Medications: Active Medications Generic Name Dose Route Start Last Admin Trade Name Freq PRN Reason Stop Dose Admin Acetaminophen 650 mg 02/28/25 15:17 02/28/25 17:38 Acetaminophen 325 Mg Tablet PO 650 mg Q4H PRN Administration Mild Pain (1-3) or Fever Hydrocodone Bitart/Acetaminophen 1 tab 03/01/25 12:09 03/02/25 20:44 Hydrocodone/Acetaminophen (*Crx) 5-325 Mg Tablet PO 1 tab Q4H PRN Administration Pain Rated 4-6 Atorvastatin Calcium 40 mg 02/28/25 21:00 03/02/25 20:45 Atorvastatin 40 Mg Tablet PO 40 mg QHS NATHALIE Administration Enoxaparin Sodium 40 mg 03/02/25 09:00 03/02/25 08:45 Enoxaparin 40 Mg/0.4 Ml Syringe SUB-Q 40 mg DAILY NATHALIE Administration Ceftriaxone Sodium 1 gm/ 50 mls @ 100 mls/hr 03/01/25 12:00 03/02/25 12:18 Sodium Chloride IVPB Infused Q24H NATHALIE Infusion Vancomycin HCl 1,000 mg in 250 mls @ 166.667 mls/hr 03/01/25 12:00 03/02/25 13:53 Vancomycin 1,000 Mg/Ns 250 Ml IVPB Infused Q24H NATHALIE Infusion Lisinopril 20 mg 03/01/25 09:00 03/02/25 08:45 Lisinopril 20 Mg Tablet PO 20 mg DAILY NATHALIE Administration Meclizine HCl 25 mg 02/28/25 15:15 Meclizine Hcl 25 Mg Tablet PO TID PRN Dizziness Morphine Sulfate 4 mg 02/28/25 15:17 03/01/25 20:09 Morphine Sulfate (*Crx) 4 Mg/Ml Inj IV PUSH 4 mg Q4H PRN Administration Pain Rated 7-10 Venlafaxine HCl 225 mg 02/28/25 16:00 03/02/25 08:45 Venlafaxine Hcl Xr 75 Mg Cap.Er.24h BY MOUTH 225 mg DAILY NATHALIE Administration Radiology Results: ITS Impressions Elbow CT 02/28/25 11:22 IMPRESSION: 1. Soft tissue swelling with prominent subcutaneous edema posterior to the elbow with tiny focus of gas in the subcutaneous tissues posterior lateral to the radial head location consistent with likely site of attempted joint aspiration. No abscess, joint effusion or findings to suggest osteomyelitis. 2. Mild osteoarthritis at the left elbow with no acute osseous abnormality. Labs Labs: Laboratory Results - last 24 hr 03/03/25 04:22 WBC 5.8 RBC 3.60 L Hgb 10.1 L Hct 32.9 L MCV 91.4 MCH 28.1 MCHC 30.7 L RDW 13.3 Plt Count 231 MPV 9.5 Sodium 136 L Potassium 4.1 Chloride 99 Carbon Dioxide 30 Anion Gap 7 BUN 12 Creatinine 0.95 Estim Creat Clear Calc 47 Estimated GFR > 60 Glucose 96 Calcium 8.8 Total Bilirubin 0.4 AST 52 ALT 33 Alkaline Phosphatase 83 C-Reactive Protein 1.7 H Total Protein 7.1 Albumin 3.9
[2025-03-03] MEDS: HYDROcodone/acetaminophen (*CRX) 5-325 MG TABLET 1 TAB PO (08:22)
[2025-03-03] MEDS: cefTRIAXone 1 GM in SODIUM CHLORIDE 0.9% IV 50 ML 100 ML IVPB (11:39)
[2025-03-03] MEDS: VANCOMYCIN 1,500 MG/NS 500 ML 1,500 MG/500 ML BAG 250 MG IVPB (13:04)
--- NOTE | 2025-03-03 13:17 | P.DS_ITS ---
DS: Admitting Diagnosis Discharge Date 03/03/2025 Admitting Diagnosis septic olecranon bursitis of left elbow hypothyroidism htn depression DS: Discharge Diagnosis Discharge Diagnosis (1) Septic olecranon bursitis of left elbow: Code(s): M71.122 - Other infective bursitis, left elbow Status: Acute (2) Hypothyroidism: Qualifiers: Hypothyroidism type: unspecified Qualified Code(s): E03.9 - Hypothyroidism, unspecified Code(s): E03.9 - Hypothyroidism, unspecified Status: Acute (3) Hypertension: Qualifiers: Hypertension type: primary hypertension Qualified Code(s): I10 - Essential (primary) hypertension Code(s): I10 - Essential (primary) hypertension Status: Chronic (4) Depression with anxiety: Code(s): F41.8 - Other specified anxiety disorders Status: Chronic DS: Summary Hospital Course Reason for hospitalization: septic olecranon bursitis of left elbow hypothyroidism htn depression Hospital Course: 74 year old male with past medical history of seizure, cva, htn, hypothyroidism, hld, bph, and ibs presents to the hospital for left elbow pain. On admission patient was noted to have a left elbow that was swollen, red and painful with pROM. An arthrocentesis was attempted in the ED and unsuccessful. Elbow x-ray with no fracture, dislocation, other acute abnormalities. Elbow CT showed tissue swelling with prominent subcutaneous edema posterior to the elbow with tiny focus of gas in the subcutaneous tissues posterior lateral to the radial head; location consistent with likely site of attempted joint aspiration. No abscess, joint effusion or findings to suggest osteomyelitis. Mild osteoarthritis at the left elbow with no acute osseous abnormality. Ortho consulted for concern of septic bursitis. Patient started on IV antibiotics. No plan for surgical intervention per ortho as patients pain, swelling and ROM continued to improve on antibiotics. Per ortho patient stable for discharge from their standpoint with follow up in the office. Patient stated that pain had significantly improved since admission was well controlled on the oral pain medication. He is to continue the [place] as needed for breakthrough pain. Patient advised not to drive or operate heavy machinery in his medication. Patient was transition to oral antibiotics for septic bursitis which was discussed with infectious disease pharmacy prior to discharge. Patient had no other complaints denying chest pain, shortness a breath, palpitations, nausea/vomiting, abdominal pain, and dizziness/ lightheadedness with ambulation. Patient discharged home in a stable condition. He is to follow-up with his primary care provider in 1 week and Orthopedics as scheduled. Status at Discharge Functional status at discharge: uses cane/walker Time Spent with Patient Time attestation: Total time spent providing and/or coordinating discharge services: Time spent: Greater than 30 minutes Exam Narrative: AF HR 54 RR 16 Spo2 100 BP 146/51 General: male in no acute respiratory distress who is nontoxic appearing, sitting up in chair HEENT: Normocephalic. Atraumatic. Extraocular movement intact. Sclera clear and anicteric. No facial asymmetry. Chest: Lungs are clear to auscultation bilaterally. No wheezes or crackles. CV: Heart was regular rate and rhythm. Abd: Abdomen was soft. Nontender. Nondistended. Positive bowel sounds. Ext: Decreased left elbow swelling as well as redness and warmth. No pain with passive ROM. Neuro: Patient is alert. Speech is clear. DS: Data Data Completed and Pending Completed studies during hospitalization: elbow ct elbow xr Labs on day of discharge: Labs from last 24 hours 03/03/25 03/03/25 10:53 04:22 WBC 5.8 RBC 3.60 L Hgb 10.1 L Hct 32.9 L MCV 91.4 MCH 28.1 MCHC 30.7 L RDW 13.3 Plt Count 231 MPV 9.5 Sodium 136 L Potassium 4.1 Chloride 99 Carbon Dioxide 30 Anion Gap 7 BUN 12 Creatinine 0.95 Estim Creat Clear Calc 47 Estimated GFR > 60 Glucose 96 Calcium 8.8 Total Bilirubin 0.4 AST 52 ALT 33 Alkaline Phosphatase 83 C-Reactive Protein 1.7 H Total Protein 7.1 Albumin 3.9 Vancomycin Trough 8.7 L Discharge Plan Discharge Attending physician on discharge: Satinder Dupree Consulting providers: Calvin Mixon; Annette Strauss Discharging Clinician: Annette Strauss Anticipated Discharge Date/Time: 03/03/25 13:09 Patient Disposition: Home Activity: as tolerated Diet: as tolerated Wound Care Instructions: other - see discharge instructions Discharge Instructions: Patient admitted to the hospital for septic olecranon bursitis Evaluate d by Orthopedics Medications and Antibiotics * Doxycycline and Augmentin twice a day, course to be completed on 02/10 Attached is information on this medication * Take all antibiotics exactly as prescribed, even if you start to feel better. This helps make sure the infection is fully treated and does not come back. * If you miss a dose, take it as soon as you remember. If it is almost time for your next dose, skip the missed dose?do not double up. * If you have any side effects (such as rash, diarrhea, or trouble breathing), contact your healthcare provider right away. Follow up * Follow up in the orthopedic office in 7-10 days, attached is information to the orthopedic office Caring for Your Elbow * Keep the area clean and dry. * Avoid putting pressure on your elbow. Use a soft pad or cushion if you need to rest your arm on a surface. * Do not try to drain the bursa or squeeze the area yourself. Activity * Rest your arm as much as possible for the next few days. Avoid activities that put stress on your elbow, such as leaning on it or heavy lifting. * You may use your arm for light activities as tolerated, but stop if you notice increased pain or swelling. Pain and Swelling * Take [place] as needed for breakthrough pain, attached is information on this medication Do not drive or operate heavy machinery on this medication * You may use ice packs (wrapped in a towel) for 15?20 minutes at a time, a few times a day, to help with pain and swelling. * Qbke-lho-dqqesei pain relievers like acetaminophen can be used as directed When to Seek Medical Attention * Call your healthcare provider or go to the emergency room if you have: * Fever or chills * Redness, warmth, or swelling that is getting worse * Pus or foul-smelling drainage from the elbow * Severe pain or trouble moving your arm * Signs of an allergic reaction to your medication (rash, swelling, trouble breathing) Monitor blood pressures Take caution while standing, rising, or moving Change positions slowly taking a break between each position change If you standing feel dizzy sit back down and take a break Encouraged to continue with yearly vaccinations Return to the emergency department if he developed sudden shortness of breath, chest pain, nausea, vomiting, upset stomach or intractable diarrhea Return to the emergency department if you develop fever greater than 100.5 Follow-up with the primary care physician within 1-2 weeks Thank you for [facility] for your healthcare needs Patient Instructions: Antibiotic Form, Doxycycline (By mouth), Amoxicillin/Clavulanate Potassium (By mouth), Elbow Bursitis (ED) Patient Language: Thai Stand Alone Forms: General Discharge Information Follow-up/Referrals: Alyssa Wooten APRN [Primary Care Provider, Internal Medicine] - 1 Week Calvin Mixon MD [Physician, Orthopedics] - 1 Week Discharge Medications: New hydrocodone-acetaminophen 5-325 mg Tablet 1 tablet PO Q4H PRN (Reason: Pain Rated 4-6) Qty: 6 0RF doxycycline hyclate 100 mg tablet 100 mg PO BID Qty: 20 0RF amoxicillin-pot clavulanate 875-125 mg tablet 1 tablet PO Q12H Qty: 20 0RF Continued lisinopril 20 mg tablet 20 mg PO DAILY Qty: 90 1RF meclizine 25 mg tablet 25 mg PO TID PRN (Reason: dizziness) Qty: 20 0RF atorvastatin 40 mg tablet 40 mg PO QHS Qty: 90 2RF levothyroxine [Levoxyl] 75 mcg tablet 75 mcg PO DAILY Qty: 90 1RF venlafaxine 75 mg capsule,extended release 24hr See Rx Instructions .ROUTE .COMPLEX Qty: 180 1RF Dose Instruction: TAKE 1 CAPSULE BY MOUTH DAILY. TAKE WITH 150MG CAPSULE FOR TOTAL DOSE OF 225MG Rx Instructions: TAKE 1 CAPSULE BY MOUTH DAILY. TAKE WITH 150MG CAPSULE FOR TOTAL DOSE OF 225MG venlafaxine 150 mg capsule,extended release 24hr See Rx Instructions .ROUTE .COMPLEX Qty: 90 2RF Dose Instruction: TAKE 1 CAPSULE BY MOUTH DAILY Rx Instructions: TAKE 1 CAPSULE BY MOUTH DAILY Discontinued clopidogrel [Plavix] 75 mg tablet 75 mg PO DAILY Qty: 30 3RF Date of admission: 03/01/25 11:34 Primary Care Provider: Alyssa Wooten Admitting Provider: Mann Black Attending physician on admission: Mann Black Condition: Stable Hospitalist MIPS Heart Failure (Exclusion) Patient has history of Heart Transplant or Left Ventricular Assistive Device?: No IF YES, STOP HERE Heart Failure (Qualifier) Patient has current or prior documentation of LVEF less than or equal to 40%, or mod/servere depressed LVSF?: No IF NO, STOP HERE
[2025-03-03 14:00] VITALS: BP 145/5; PULSE 53; RESP 17; TEMP 36.6; O2SAT 100
== END 2025-03-03 16:40 | disposition home or self-care (01) | DRG 512 ==
LOC: ANHED 08:42 → ANH2MED 13:51
PROVIDERS: Nurse Practitioner Adult Health; Orthopaedic Surgery; Admitting Provider Internal Medicine; Emergency Provider Student in an Organized Health Care Education/Training Program; PCP Nurse Practitioner; Visit Provider Student in an Organized Health Care Education/Training Program
DX: M71.122 Other infective bursitis, left elbow (principal); G40.909 Epilepsy, unspecified, not intractable, without status epilepticus; E03.9 Hypothyroidism, unspecified; I10 Essential (primary) hypertension; F41.8 Other specified anxiety disorders; E78.5 Hyperlipidemia, unspecified; N40.0 Benign prostatic hyperplasia without lower urinary tract symptoms; K58.9 Irritable bowel syndrome, unspecified; G47.30 Sleep apnea, unspecified; M19.90 Unspecified osteoarthritis, unspecified site; K57.90 Diverticulosis of intestine, part unspecified, without perforation or abscess without bleeding; Z96.642 Presence of left artificial hip joint; Z86.73 Personal history of transient ischemic attack (TIA), and cerebral infarction without residual deficits; Z87.820 Personal history of traumatic brain injury; Z86.16 Personal history of COVID-19; Z87.11 Personal history of peptic ulcer disease; Z87.891 Personal history of nicotine dependence
CPT/HCPCS: 20600; 36415; 73080; 73201; 80053; 80202; 82565; 84443; 85025; 85027; 85652; 86140; 96365; 96367; 96375; 99285; A9270; G0378; J0696; J1650; J1885; J2270; J3373; Q9967

== ENCOUNTER 2025-03-17 15:22 | Emergency (ER) | payer MEDICARE, SELFPAY ==
--- NOTE | ~2025-03-17 | CT_ITS ---
EXAMINATION: CT abdomen pelvis w con DATE: 03/17/2025 20:56 INDICATION: Constipation, rectal bleeding, abdominal pain. History of chronic pancreatitis. History of kidney stones. TECHNIQUE: Computed tomography (CT) of the abdomen and pelvis was performed with 100 cc of intravenous contrast. Automated exposure control and iterative reconstruction technique were employed. The dose-length product was 225.14 mGy-cm. COMPARISON: None and pelvis dated 11/28/2024 FINDINGS: Lung bases do not show acute findings. Severe multivessel coronary artery calcifications are noted. Calcific changes of aortic valve cusps of moderate degree is noted. No focal lesions of liver and spleen. Gallbladder shows no acute findings. No acute findings of the pancreas. Mild changes of chronic pancreatitis is noted with calcific changes of the pancreas similar to prior study. Small nonobstructing calculi of both kidneys. Stones measure up to 8 mm in diameter. No obstructive changes on either side. Severe fecal impaction of the rectum. Normal size appendix. Calcific changes of the abdominal aorta and iliac arteries. Significant calcific changes of proximal superior mesenteric artery. Degenerative disc disease at L5-S1 level. IMPRESSION: 1. 1. No acute findings in the upper abdomen and pelvis. Nonobstructing renal calculi of both kidneys. Moderate changes of chronic pancreatitis. 2. Significant fecal impaction noted in sigmoid colon. 3. Degenerative disc disease at L5-S1 level. 4. Severe calcific changes of the abdominal aorta and proximal superior mesenteric artery. Reviewed, dictated and finalized at location T. TECHNICAL LEAD IMPRESSION: 1. 1. No acute findings in the upper abdomen and pelvis. Nonobstructing renal calc eugenio of both kidneys. Moderate changes of chronic pancreatitis. 2. Significant fecal impaction noted in sigmoid colon. 3. Degenerative disc disease at L5-S1 level. 4. Severe calcific changes of the abdominal aorta and proximal superior mesente santiago artery.
[2025-03-17 15:32] VITALS: BP 176/44; PULSE 66; RESP 20; TEMP 36.8; O2SAT 100
[2025-03-17 15:50] VITALS: BP 157/58; PULSE 69; RESP 17; O2SAT 99
[2025-03-17 17:27] VITALS: BP 138/61; PULSE 76; RESP 15; O2SAT 99
--- NOTE | 2025-03-17 17:49 | ED.ABDPAIN ---
HPI - Abdominal Pain General Chief Complaint: Abdominal Pain <NANCY Roe Last Filed: 03/17/25 18:10> Stated Complaint: constipation <NANCY Roe Last Filed: 03/17/25 18:10> Time Seen by Provider: 03/17/25 17:49 <NANCY Roe Last Filed: 03/17/25 18:10> Focused HPI: Patient is a 74 y/o male who presents to the ED with c/o rectal bleeding/constipation. Patient reports he has not had a BM in the past 2 weeks. States he typically only has a BM every 2 weeks or so. Does not take anything for constipation. Reports having bright red rectal bleeding since this afternoon. States this began after he was trying to disimpact himself with gloves on. Was able to get out several chunks of stool, but then was only passing blood. C/o pain to his rectum. Denies significant abdominal pain. Denies N/V. Takes ASA 325mg daily, no other blood thinners. GENERAL: Elderly, thin, and in no acute distress. HEAD: Normocephalic, atraumatic. CHEST: Clear to auscultation. ?No respiratory distress. HEART: Regular rate and rhythm.? ABD: Diffuse tenderness throughout abdomen, no rebound. Normoactive BS NEURO: ?Alert and oriented x3. Patient screened in triage and initial orders placed.? ?Additional care and disposition to be based upon?diagnostic testing and treatment. <NANCY Roe Last Filed: 03/17/25 18:10> Source: patient <NANCY Roe Last Filed: 03/17/25 18:10> Mode of arrival: ambulatory <NANCY Roe Last Filed: 03/17/25 18:10> Limitations: no limitations <NANCY Roe Last Filed: 03/17/25 18:10> History of Present Illness HPI narrative: patient 74-year-old gentleman presents emergency department chief complaint of constipation. Patient reports that has a bowel movement every 2 weeks reports that today he tried to manually disimpact himself and started having some bleeding rectum patient states the active bleeding has stopped and reports that he feels extremely constipated the patient that has discomfort in his rectum patient reports that he is not on any blood thinners <Marek Cates MD - Last Filed: 03/18/25 01:42> Related Data Allergies/Adverse Reactions: Allergies Allergy/AdvReac Type Severity Reaction Status Date / Time Aminoglycosides Allergy Severe SWELLING, Verified 03/17/25 15:26 MAKES INFECTION WORSE bacitracin Allergy Severe SWELLING, Verified 03/17/25 15:26 MAKES INFECTION WORSE Fish Containing Products Allergy Severe ANAPHYLAXIS Verified 03/17/25 15:26 fluoxetine Allergy Severe SSRI= Verified 03/17/25 15:26 SUICIDAL REACTION neomycin Allergy Severe SWELLING, Verified 03/17/25 15:26 MAKES INFECTION WORSE shellfish derived Allergy Severe ANAPHYLAXIS Verified 03/17/25 15:26 Sulfa (Sulfonamide Allergy Severe Anaphylactic Verified 03/17/25 15:26 Antibiotics) Shock zolpidem AdvReac Intermediate Confusion Verified 03/17/25 15:26 BETI/ Allergy Severe ANAPHYLACTIC--THROAT Uncoded 03/06/25 10:08 SWELLING <Yolanda Meier PA-C - Last Filed: 03/17/25 18:10> Review of Systems Review of Systems: A 10 system review of systems was completed on the patient and is negative except for what is stated in the HPI. Nursing and ancillary documentation was reviewed. <Marek Cates MD - Last Filed: 03/18/25 01:42> [facility] Past Medical History Medical History: Medical History BMI 20.0-20.9, adult History of traumatic head injury Seizure disorder MCI (mild cognitive impairment) Benign prostatic hyperplasia Histoplasmosis Transient ischemic attack Traumatic brain injury Irritable bowel syndrome Hyperlipidemia Degenerative disc disease Cerebrovascular accident COVID Anxiety Depression Hypothyroidism Skull fracture Kidney stones Peptic ulcer Diverticulosis Diverticulitis Sleep apnea Pneumonia Epilepsy <Yolanda Meier PA-C - Last Filed: 03/17/25 18:10> Surgical History Surgical History: Surgical History History of colonoscopy with polypectomy History of lithotripsy History of tonsillectomy History of cataract extraction History of rotator cuff surgery Bilateral. History of cardiac catheterization History of total left hip arthroplasty <Yolanda Meier PA-C - Last Filed: 03/17/25 18:10> Family History Family History: Family History Mother Family history of malignant neoplasm of breast in first degree relative Family history of cardiovascular disease Father Family history of cardiovascular disease Sibling No problems noted. Other Family history of arthritis Family history of mental disorder <Yolanda Meier PA-C - Last Filed: 03/17/25 18:10> Social History Social History: Social History Social History: Surrogate medical decision maker: Quita Vargas Code status: Full code. Smoking packs per day: 1 Smoking cigarettes per day: 20.0 Years smoked: 1 Smoking pack-years: 1.00 Smoking status: Never smoker Tobacco type: cigarettes Second hand tobacco smoke exposure: Yes Smoking end date: 05/01/94 Additional smoking assessment comments: Forty pack-year smoking history, quit in 1994. Alcohol intake: former Alcohol use details: QUIT 30 YEARS AGO Substance use: never Substance use type: does not use Do You Feel Safe in your Home?: No Lack of Transportation: No Lack of Food: Never True Current Housing: I Have Housing Concerned About Future Housing: No Difficulty Paying Gas/Electric Bills: No Difficulty Paying for Meds: No Currently Unemployed: No Education: Associate Degree Difficulty w/ Childcare or Family Care: No Living arrangements: with family Additional living arrangements comments: Lives with spouse in [place]. 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 Gender identity (if verbalized by the patient): Male Spiritual care concerns: No <NANCY Roe Last Filed: 03/17/25 18:10> Exam Narrative: GENERAL: Well-appearing, well-nourished, and in no acute distress. HEAD: Normocephalic, atraumatic. EYES: PERRLA and EOMI. ENT: Nares clear, no rhinorrhea or epistaxis. Mucous membranes moist. NECK: Supple. CHEST: Clear to auscultation. No respiratory distress. HEART: Regular rate and rhythm. No murmur heard. Normal peripheral pulses. ABDOMEN: Soft, nontender, nondistended, normal active bowel sounds. : Rectal exam showed a large amount of stool trace guaiac positive EXTREMITIES: Normal range of motion. No edema. SKIN: Warm, dry, no rash. NEURO: No focal deficits. Alert and oriented x3. PSYCH: Normal mood and affect. <Marek Cates MD - Last Filed: 03/18/25 01:42> Course Vital Signs Vital signs: Vital Signs Temperature 36.8 C 03/17/25 15:32 Pulse Rate 66 03/17/25 15:32 Respiratory Rate 20 03/17/25 15:32 Blood Pressure 176/44 H 03/17/25 15:32 Pulse Oximetry 100 03/17/25 15:32 Oxygen Delivery Room Air 03/17/25 15:32 Temperature 36.8 C 03/17/25 20:17 Pulse Rate 78 03/17/25 20:17 Respiratory Rate 13 03/17/25 20:17 Blood Pressure 111/73 03/17/25 20:17 Pulse Oximetry 100 03/17/25 20:17 Oxygen Delivery Room Air 03/17/25 20:17 <Yolanda Meier PA-C - Last Filed: 03/17/25 18:10> Vital Signs Temperature 36.8 C 03/17/25 15:32 Pulse Rate 66 03/17/25 15:32 Respiratory Rate 20 03/17/25 15:32 Blood Pressure 176/44 H 03/17/25 15:32 Pulse Oximetry 100 03/17/25 15:32 Oxygen Delivery Room Air 03/17/25 15:32 Temperature 36.8 C 03/17/25 20:17 Pulse Rate 78 03/17/25 20:17 Respiratory Rate 13 03/17/25 20:17 Blood Pressure 111/73 03/17/25 20:17 Pulse Oximetry 100 03/17/25 20:17 Oxygen Delivery Room Air 03/17/25 20:17 <Marek Cates MD - Last Filed: 03/18/25 01:42> MDM - Abdominal Pain MDM Narrative Medical decision making narrative: MSE by GREER in triage. <Yolanda Meier PA-C - Last Filed: 03/17/25 18:10> MSE by GREER in triage. scan showed a large amount of stool in the rectum laboratory studes showed white blood cell count of 12.0 hemoglobin was 10.5 previous hemoglobin was 10.1 electrolytes are within normal limits urinalysis showed no evidence UTI the patient underwent a enema and manual disimpaction fair amount of stool was removed the patient is still having a large amount of stool. The patient did not want to do further enemas and will be given a dose of magnesium citrate to take home <Marek Cates MD - Last Filed: 03/18/25 01:42> Lab Data Result diagrams: 03/17/25 19:30 03/17/25 19:30 <Yolanda Meier PA-C - Last Filed: 03/17/25 18:10> Labs: Lab Results 03/17/25 03/17/25 Range/Units 19:30 21:10 WBC 12.0 H (4.5-10.0) K/mm3 RBC 3.76 L (4.6-6.20) M/mm3 Hgb 10.5 L (14.0-18.0) g/dL Hct 33.5 L (42.0-52.0) % MCV 89.1 (80-100) fl MCH 27.9 (26-34) pg MCHC 31.3 L (32-36) g/dl RDW 13.6 (11.5-14.5) % Plt Count 289 (150-375) k/mm3 MPV 8.8 (7.4-10.4) fl Immature Gran % (Auto) 0.3 (0-0.5) % Neut % (Auto) 80.1 H (45.5-73.1) % Lymph % (Auto) 12.3 L (18.3-44.2) % Bureau % (Auto) 5.7 (2.6-8.5) % Eos % (Auto) 1.1 (0-4.4) % Baso % (Auto) 0.5 (0.2-1.2) % Lymph # (Auto) 1.47 (0.9-3.2) K/mm3 Bureau # (Auto) 0.7 H (0.1-0.6) K/mm3 Eos # (Auto) 0.1 (0-0.3) K/mm3 Baso # (Auto) 0.1 (0.0-0.1) K/mm3 Abs Immat Gran (auto) 0.04 H (0.00-0.031) K/mm3 Absolute Neuts (auto) 9.6 H (1.3-6.7) K/mm3 Absolute Nucleated RBC 0.000 (0.0-0.012) K/mm3 Nucleated RBC % 0.0 (0.0-0.2) % PT 13.2 (11.1-14.7) Seconds INR 1.0 APTT 26.9 (22.3-36.8) Seconds Sodium 138 (137-145) mmol/L Potassium 4.0 (3.4-5.0) mmol/L Chloride 103 (98-107) mmol/L Carbon Dioxide 28 (22-30) mmol/L Anion Gap 7 (4-12) mmol/L BUN 26 H D (9-20) mg/dL Creatinine 1.01 (0.7-1.3) mg/dL Estim Creat Clear Calc 46 ml/min Estimated GFR > 60 (59 - ) Glucose 119 H (65-110) mg/dL Lactic Acid 1.1 (0.7-2.0) mmol/L Calcium 9.3 (8.4-10.2) mg/dL Total Bilirubin 0.7 (0.2-1.3) mg/dL AST 47 (17-59) U/L ALT 36 (6-50) U/L Alkaline Phosphatase 120 (38-126) U/L Total Protein 7.7 (6.3-8.2) g/dL Albumin 4.3 (3.5-5.1) g/dL Lipase 169 (23-300) U/L Urine Color Yellow (Yellow) Urine Appearance Clear (Clear) Urine pH 5.0 (5.0-9.0) Ur Specific [place] 1.022 (1.001-1.035) Urine Protein Negative (Negative) mg/dL Urine Glucose (UA) Negative (Negative) mg/dL Urine Ketones Negative (Negative) mg/dL Ur Blood (Man) Negative (Negative) Urine Nitrate Negative (Negative) Urine Bilirubin Negative (Negative) Urine Urobilinogen 1.0 (<2.0) mg/dL Leukocyte Esterase Rfl Negative (Negative) WALDO/UL <Yolanda Meier PA-C - Last Filed: 03/17/25 18:10> Lab Results 03/17/25 03/17/25 Range/Units 19:30 21:10 WBC 12.0 H (4.5-10.0) K/mm3 RBC 3.76 L (4.6-6.20) M/mm3 Hgb 10.5 L (14.0-18.0) g/dL Hct 33.5 L (42.0-52.0) % MCV 89.1 (80-100) fl MCH 27.9 (26-34) pg MCHC 31.3 L (32-36) g/dl RDW 13.6 (11.5-14.5) % Plt Count 289 (150-375) k/mm3 MPV 8.8 (7.4-10.4) fl Immature Gran % (Auto) 0.3 (0-0.5) % Neut % (Auto) 80.1 H (45.5-73.1) % Lymph % (Auto) 12.3 L (18.3-44.2) % Bureau % (Auto) 5.7 (2.6-8.5) % Eos % (Auto) 1.1 (0-4.4) % Baso % (Auto) 0.5 (0.2-1.2) % Lymph # (Auto) 1.47 (0.9-3.2) K/mm3 Bureau # (Auto) 0.7 H (0.1-0.6) K/mm3 Eos # (Auto) 0.1 (0-0.3) K/mm3 Baso # (Auto) 0.1 (0.0-0.1) K/mm3 Abs Immat Gran (auto) 0.04 H (0.00-0.031) K/mm3 Absolute Neuts (auto) 9.6 H (1.3-6.7) K/mm3 Absolute Nucleated RBC 0.000 (0.0-0.012) K/mm3 Nucleated RBC % 0.0 (0.0-0.2) % PT 13.2 (11.1-14.7) Seconds INR 1.0 APTT 26.9 (22.3-36.8) Seconds Sodium 138 (137-145) mmol/L Potassium 4.0 (3.4-5.0) mmol/L Chloride 103 (98-107) mmol/L Carbon Dioxide 28 (22-30) mmol/L Anion Gap 7 (4-12) mmol/L BUN 26 H D (9-20) mg/dL Creatinine 1.01 (0.7-1.3) mg/dL Estim Creat Clear Calc 46 ml/min Estimated GFR > 60 (59 - ) Glucose 119 H (65-110) mg/dL Lactic Acid 1.1 (0.7-2.0) mmol/L Calcium 9.3 (8.4-10.2) mg/dL Total Bilirubin 0.7 (0.2-1.3) mg/dL AST 47 (17-59) U/L ALT 36 (6-50) U/L Alkaline Phosphatase 120 (38-126) U/L Total Protein 7.7 (6.3-8.2) g/dL Albumin 4.3 (3.5-5.1) g/dL Lipase 169 (23-300) U/L Urine Color Yellow (Yellow) Urine Appearance Clear (Clear) Urine pH 5.0 (5.0-9.0) Ur Specific [place] 1.022 (1.001-1.035) Urine Protein Negative (Negative) mg/dL Urine Glucose (UA) Negative (Negative) mg/dL Urine Ketones Negative (Negative) mg/dL Ur Blood (Man) Negative (Negative) Urine Nitrate Negative (Negative) Urine Bilirubin Negative (Negative) Urine Urobilinogen 1.0 (<2.0) mg/dL Leukocyte Esterase Rfl Negative (Negative) WALDO/UL <Marek Cates MD - Last Filed: 03/18/25 01:42> Imaging Data Radiologist's impression: ITS Impressions Abdomen/Pelvis CT 03/17/25 20:57 IMPRESSION: 1. 1. No acute findings in the upper abdomen and pelvis. Nonobstructing renal calculi of both kidneys. Moderate changes of chronic pancreatitis. 2. Significant fecal impaction noted in sigmoid colon. 3. Degenerative disc disease at L5-S1 level. 4. Severe calcific changes of the abdominal aorta and proximal superior mesenteric artery. <NANCY Roe Last Filed: 03/17/25 18:10> ITS Impressions Abdomen/Pelvis CT 03/17/25 20:57 IMPRESSION: 1. 1. No acute findings in the upper abdomen and pelvis. Nonobstructing renal calculi of both kidneys. Moderate changes of chronic pancreatitis. 2. Significant fecal impaction noted in sigmoid colon. 3. Degenerative disc disease at L5-S1 level. 4. Severe calcific changes of the abdominal aorta and proximal superior mesenteric artery. <Marek Cates MD - Last Filed: 03/18/25 01:42> Discharge Plan Discharge Clinical Impression: Constipation <NANCY Roe Last Filed: 03/17/25 18:10> Patient Disposition: Home <NANCY Roe Last Filed: 03/17/25 18:10> Condition: Stable <NANCY Roe Last Filed: 03/17/25 18:10> Instructions: Antibiotic Form, Constipation (ED), Abdominal Pain (ED) <NANCY Roe Last Filed: 03/17/25 18:10> Patient Language: Citizen Of [place] <NANCY Roe Last Filed: 03/17/25 18:10> Prescriptions: No Action lisinopril 20 mg tablet 20 mg PO DAILY Qty: 90 1RF meclizine 25 mg tablet 25 mg PO TID PRN (Reason: dizziness) Qty: 20 0RF hydrocodone-acetaminophen 5-325 mg Tablet 1 tablet PO Q4H PRN (Reason: Pain Rated 4-6) Qty: 6 0RF doxycycline hyclate 100 mg tablet 100 mg PO BID Qty: 20 0RF amoxicillin-pot clavulanate 875-125 mg tablet 1 tablet PO Q12H Qty: 20 0RF atorvastatin 40 mg tablet 40 mg PO QHS Qty: 90 2RF levothyroxine [Levoxyl] 75 mcg tablet 75 mcg PO DAILY Qty: 90 1RF venlafaxine 75 mg capsule,extended release 24hr See Rx Instructions .ROUTE .COMPLEX Qty: 180 1RF Dose Instruction: TAKE 1 CAPSULE BY MOUTH DAILY. TAKE WITH 150MG CAPSULE FOR TOTAL DOSE OF 225MG Rx Instructions: TAKE 1 CAPSULE BY MOUTH DAILY. TAKE WITH 150MG CAPSULE FOR TOTAL DOSE OF 225MG venlafaxine 150 mg capsule,extended release 24hr See Rx Instructions .ROUTE .COMPLEX Qty: 90 2RF Dose Instruction: TAKE 1 CAPSULE BY MOUTH DAILY Rx Instructions: TAKE 1 CAPSULE BY MOUTH DAILY <Yolanda Meier PA-C - Last Filed: 03/17/25 18:10> Follow-up/Referrals: Eri Mar APRN [Advanced Practice Nurse, Family Practice] <Yolanda Meier PA-C - Last Filed: 03/17/25 18:10> Time of Disposition: 01:42 <Yolanda Meier PA-C - Last Filed: 03/17/25 18:10> 01:42 <Marek Cates MD - Last Filed: 03/18/25 01:42>
[2025-03-17 19:41] LABS: Hematocrit 33.5 % (42.0-52.0); Hemoglobin 10.5 g/dL (14.0-18.0); Immature Granulocyte Percent A 0.3 % (0-0.5); Lymphocytes Absolute Auto 1.47 K/mm3 (0.9-3.2); Mean Corpuscular HGB Conc 31.3 g/dl (32-36); Mean Corpuscular Hemoglobin 27.9 pg (26-34); Mean Corpuscular Volume 89.1 fl (80-100); Nucleated Red Blood Cells Absolute Auto 0.000 K/mm3 (0.0-0.012); Nucleated Red Blood Cells Perc 0.0 % (0.0-0.2); Platelet Count Result 289 k/mm3 (150-375); Red Blood Count 3.76 M/mm3 (4.6-6.20); White Blood Count 12.0 K/mm3 (4.5-10.0)
[2025-03-17 19:59] LABS: INR 1.0; Prothrombin Time 13.2 Seconds (11.1-14.7)
[2025-03-17 20:00] LABS: Partial Thromboplastin Time 26.9 Seconds (22.3-36.8)
[2025-03-17 20:02] LABS: Alanine Aminotransferase 36 U/L (6-50); Albumin Level 4.3 g/dL (3.5-5.1); Alkaline Phosphatase 120 U/L (38-126); Anion Gap 7 mmol/L (4-12); Aspartate Amino Transferase 47 U/L (17-59); Bilirubin,Total 0.7 mg/dL (0.2-1.3); Blood Urea Nitrogen 26 mg/dL (9-20); Calcium 9.3 mg/dL (8.4-10.2); Carbon Dioxide 28 mmol/L (22-30); Chloride 103 mmol/L (98-107); Estimated CRCL calculation 46 ml/min; Estimated Glomerular Filt Rate > 60; Glucose 119 mg/dL (65-110); Lipase 169 U/L (23-300); Potassium 4.0 mmol/L (3.4-5.0); Sodium 138 mmol/L (137-145); Total Protein 7.7 g/dL (6.3-8.2)
[2025-03-17 20:17] VITALS: BP 111/73; PULSE 78; RESP 13; TEMP 36.8; O2SAT 100
[2025-03-17 21:16] LABS: Add Urine Microscopic? NO; Appearance Urine Clear (Clear); Glucose Urine UA Negative (Negative); Leukocyte Esterase Ur Negative LEU/UL (Negative); Nitrate Urine Negative (Negative); Specific Grav Ur 1.022 (1.001-1.035)
--- NOTE | 2025-03-18 01:41 | PC.NURSE ---
Pt declining second enema, stating I will go buy a bunch of stool softeners tomorrow and take them
[2025-03-18] MEDS: MAGNESIUM CITRATE 300 ML BTL PO (01:49)
[2025-03-18 01:53] VITALS: BP 136/62; PULSE 75; RESP 18; O2SAT 100
== END 2025-03-18 02:21 | disposition home or self-care (01) ==
PROVIDERS: Physician Assistant; Emergency Provider Emergency Medicine; PCP Internal Medicine
DX: K59.00 Constipation, unspecified (principal); G40.909 Epilepsy, unspecified, not intractable, without status epilepticus; E78.5 Hyperlipidemia, unspecified; E03.9 Hypothyroidism, unspecified; N40.0 Benign prostatic hyperplasia without lower urinary tract symptoms; K58.9 Irritable bowel syndrome, unspecified; G47.30 Sleep apnea, unspecified; F41.9 Anxiety disorder, unspecified; F32.A Depression, unspecified; Z96.642 Presence of left artificial hip joint; Z87.442 Personal history of urinary calculi; Z87.01 Personal history of pneumonia (recurrent); Z87.11 Personal history of peptic ulcer disease; Z87.820 Personal history of traumatic brain injury; Z86.16 Personal history of COVID-19; Z86.0100 Personal history of colon polyps, unspecified; Z87.891 Personal history of nicotine dependence; Z98.49 Cataract extraction status, unspecified eye; Z79.82 Long term (current) use of aspirin; Z79.899 Other long term (current) drug therapy
CPT/HCPCS: 36415; 74177; 80053; 81003; 83605; 83690; 85025; 85610; 85730; 99284; A9270; Q9967

== ENCOUNTER 2025-04-24 10:13 | Emergency (ER) | payer MEDICARE, SELFPAY ==
[2025-04-24] VITALS (7 sets, daily range): BP systolic 124–149; BP diastolic 53–64; PULSE 52–60; RESP 15–16; TEMP 36.6–37.1; O2SAT 99–100
--- NOTE | ~2025-04-24 | XR_ITS ---
EXAMINATION: XR chest 2V 04/24/2025 11:57 INDICATION: Weakness. PROCEDURE: 2 view chest COMPARISON: Comparison to multiple prior studies sequentially, with oldest reviewed study dated 11/21/2023. FINDINGS: The lungs are clear. The cardiomediastinal silhouette is within normal limits. There are no pleural effusions. There is no pneumothorax suspected. IMPRESSION: 1: NO ACUTE CARDIOPULMONARY DISEASE. Reviewed, dictated and finalized at location [facility]
--- NOTE | 2025-04-24 11:19 | ECG_ITS ---
Test Date: 2025-04-24 12:18:29 Measurements Intervals [place] Rate: 49 P: 42 NE: 279 QRS: -7 QRSD: 87 T: 52 QT: 485 QTc: 442 Interpretive Statements SINUS BRADYCARDIA WITH FIRST DEGREE AV BLOCK ABNORMAL ECG Compared to ECG 01/20/2025 12:42:09 HEART RATE HAS DECREASED Electronically Signed On 04-24-2025 16:36:55 MANAGER ENVIRONMENTAL by Chidi Bryan D.O.
--- OUTSIDE RECORDS SUMMARY | 2025-04-24 12:05 | XMS_ITS | Patient Health Record ---
Author Organization [facility] [employer] Address [address] [place] [address] Care Team Providers Care Tie In Machine Operator Name Role Phone Eduardo Sotelo DO Primary Care Provider Bal Martinez Unavailable [phone] Allergies Allergen (clinical drug ingredient) Drug/Non Drug [...] Results Component Value Reference Range Flag Notes UDT Reviewed date:01/27/2025 01:28:46 PM Interpretation: Performing [...] ng/ml x neg 0 - 300 ng/ml Seroquel Reviewed date:01/31/2025 10:25:41 AM Interpretation: Performing Lab: Notes/Report: POS screening WITH Metabolit es Reviewed date:01/30/2025 04:32:01 PM Interpretation: Performing Lab: Notes/Report: NEED PHYSICIAN SIGNATURE Reviewed date:01/30/2025 04:32:01 PM Interpretation: Performing Lab: Notes/Report: Benzodiazepines Reviewed date:01/31/2025 10:25:41 AM Interpretation: Performing [...] NEGATIVE 20.0 ng/mL Alprazolam NEGATIVE 20.0 ng/mL Screening Reviewed date:01/31/2025 10:25:41 AM Interpretation: Performing Lab:[address] [place] [address], [address] [place] [address], Director - [id number] Notes/Report: An exception occurred while processing this report and so it has incomplete data. Please contact [employer] for assistance. Not Medicated Consistent Not [...] -6.8 300.0 ng/mL PDF Report CE_[email or web address] [email or web address] Reason For Referral No Information Medications Medication SIG (Take, Route, Frequency, Duration) Notes Start Date End Date Status Atorvastatin Calcium 40 MG Tablet 1 tablet Orally Once a day Active Methocarbamol 750 MG Tablet 2 tablet Ora lly 3 times a day Active Vraylar 1.5 MG Capsule 1 capsule Orally Once a day; Duration: 90 days 03/28/2025 Active Tylenol Active Lisinopril 20 MG Tablet Oral; Duration: 90 Days Active diazePAM 2 MG Tablet 1 tablet as needed Orally Once a day As needed Unknown traZODone HCl 50 MG Tablet 1 tablet Oral ly nightly; Duration: 90 days 03/28/2025 Active Venlafaxine HCl ER 150 MG Capsule Extended Release 24 Hour TAKE 1 CAPSULE BY MOUTH DAILY Oral Once a day; Duration: 90 days 03/28/2025 Active Mirtazapine 15 MG Tablet 1 tablet at bed time Orally Once a day; Duration: 90 days 03/28/2025 Active Levothyroxine Sodium 75 MCG Tablet TAKE [...] Problem Status W/U Status Risk Notes Problem Generalized anxiety disorder (12581466) Generalized anxiety disorder (F41.1) 8 Active confirmed Problem Impulse control disorder (81006139) Impulse disorder, unspecified (F63.9) 8 Active confirmed Problem Petit mal status, non-refractory (85847839596964 7) Absence epileptic syndrome, not intractable, 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) 8 Active confirmed Problem Severe recurrent major depression without psychotic features (52080333) Severe episode of recurrent major depressive disorder, without psychotic features (F33.2) Active confirmed Problem Moderate recurrent major depression (72880416) MDD (major depressive disorder), recurrent episode, moderate (F33.1) Active confirmed Problem Difficulty sleeping (242543675) Sleep difficulties (G47.9) Active confirmed Problem Feeling suicidal (541019963) Passive suicidal ideations (R45.851) Active confirmed Problem Non-compliance (396181206) Non-compliance (Z91.199) Active confirmed Problem Cognitive decline (924929094) Cognitive decline (R41.89) Active confirmed Vital Signs Heart Rate 57 /min 03/28/2025 Height-cm 167.64 cm 03/28/2025 Blood pressure diastolic 52 mm Hg 03/28/2025 Weight-kg 58.51 kg 03/28/2025 Height 66.00 in 03/28/2025 Blood pressure systolic 149 mm Hg 03/28/2025 Weight 129 lbs 03/28/2025 BMI 20.82 kg/m2 03/28/2025 Encounters Encounter Location Date Provider Diagnosis [employer] [address] [place] [address] 01/27/2025 Bal Clubb Major depressive disorder, recurrent severe without psychotic features F33.2 ; Absence epileptic syndrome, not intractable, without status epilepticus G40.A09 ; Generalized anxiety disorder F41.1 ; Impulse disorder, unspecified F63.9 and Cognitive decline R41.89 [employer] [employer] [address] [place] [address] 02/10/2025 Bal Clubb Major depressive disorder, recurrent severe without psychotic features F33.2 ; Generalized anxiety disorder F41.1 and Cognitive decline R41.89 [facility] [employer] [address] [place] [address] 03/13/2025 Bal Clubb MDD (major depressiv e disorder), recurrent episode, moderate F33.1 ; Generalized anxiety disorder F41.1 ; Cognitive decline R41.89 and Sleep difficulties G47.9 [facility] [employer] [address] [place] [address] 03/28/2025 Bal Clubb Generalized anxiety disorder F41.1 ; Severe episode of recurrent major depressive disorder, without psychotic features F33.2 ; Cognitive decline R41.89 ; Sleep difficulties G47.9 ; Passive suicidal ideations R45.851 and Non-compliance Z91.199 [facility] [employer] [facility] [address] [place] [address] 01/27/2025 Bal Clubb [facility] [employer] [facility] [address] [place] [address] 02/20/2025 Bal Clubb [facility] [employer] [facility] [address] [place] [address] 03/17/2025 Bal Clubb [facility] [employer] [facility] [address] [place] [address] 04/15/2025 Bal Clubb Assessments Encounter Date Diagnosis (ICD Code) Assessment Notes Treatment Notes Treatment Clinical Notes Section Notes 03/28/2025 Generalized anxiety disorder (ICD-10 - F41.1) 03/28/2025 Severe episode of recurrent major depressive disorder, without psychotic features (ICD-10 - F33.2) 03/13/2025 Generalized anxiety disorder (ICD-10 - F41.1) 03/13/2025 MDD (major depressive disorder), recurrent episode, moderate (ICD-10 - F33.1) 02/10/2025 Major depressive disorder, recurrent severe without [...] contributing to cognitive and mood symptoms. 01/27/2025 Major depressive disorder, recurrent severe without [...] 02/10/2025 Cognitive decline (ICD-10 - R41.89) Likely multifactori al: stroke-relat ed vascular dementia + traumatic brain injury sequelae + possible hypothyroidi sm. Cognitive impairment likely secondary to vascular dementia [...] diet contributing to cognitive and mood symptoms. 03/28/2025 Cognitive decline (ICD-10 - R41.89) 03/13/2025 Cognitive decline (ICD-10 - R41.89) 03/13/2025 Sleep difficulties (ICD-10 - G47.9) 03/28/2025 Sleep difficulties (ICD-10 - G47.9) 01/27/2025 Impulse disorder, unspecified (ICD-10 - F63.9) [...] 01/27/2025 Cognitive decline (ICD-10 - R41.89) Likely multifactori al: stroke-relat ed vascular dementia + traumatic brain injury sequelae + possible hypothyroidi sm. Cognitive impairment likely secondary to vascular dementia [...] diet contributing to cognitive and mood symptoms. 03/28/2025 Passive suicidal ideations (ICD-10 - R45.851) 03/28/2025 Non-compliance (ICD-10 - Z91.199) patient brought in bag of medications and a pill organizer - organized pills and disgaurded and discontinued medications - placed medications in pill organizer for patient to improve compliance. Compliance issues reviewed 01/27/2025 Other Notes: referral to the local chapter or national office of the Alzheimer's Association ( ; http://www.alz.o rg), the Alzheimer's Disease Education and Referral Center (ADENM) ( ; http://www.juliann.n .gov/Alzheimer s/), Cognitive impairment likely secondary to vascular [...] of the Alzheimer's Association ( ; http://www.alz.o ), the Alzheimer's Disease Education and Referral Center (ADENM) ( ; http://www.juliann.n .gov/Alzheimer s/), 1. Depression and Anxiety - Patient [...] pain status post surgery. - Currently using vcno-nqc-zapnnyo pain medications with limited relief. - Plan: a. Recommend making an apt with PCP for pain management b. Encourage follow-up with orthopedist for shoulder injection. 4. Headaches - Patient reports severe, shooting pains in both temples, occurring intermittently for years without specific triggers. - Pain is relieved by applying pressure to the affected mormon. - Plan: a. Recommend follow-up with primary [...] diet contributing to cognitive and mood symptoms. 03/13/2025 Other 1. Depression with anhedonia - Patient rates depression at 4/10. - Pearl Depression Inventory score: 23 - Reports chronic emotional numbing and lack of motivation for years - Plan: a. Taper venlafaxine slowly to avoid withdrawal effects. b. Replace 75mg tablet with 37.5mg tablet as initial reduction step. c. Continue current dose of 150mg tablet. d. continue vraylar 1.5 mg HS e. increase mirtazapine 15 mg HS f. encourage initiation of psychotherapy 2. Insomnia - Patient reports severe sleep disturbance, waking at 2-3 AM. - Describes difficulty sleeping as his biggest complaint - Current mirtazapine therapy appears ineffective for sleep improvement - Plan: a. Increase mirtazapine to 2 tablets. b. Start trazodone 50 mg daily c. encourage sleep hygiene d. encourage initiation of psychotherapy 3. Visual hallucinations - Patient reports peripheral visual hallucinations described as movement in corner of eye with no identifiable source. - Occurring for couple of years and worsening - Plan: a. Continue Vraylar samples. b. encourage to make an apt w/ eye doctor for eye exam 4. Dizziness and tinnitus - Patient reports constant dizziness currently managed with meclizine and tinnitus. - Venlafaxine may be contributing to tinnitus symptoms - Plan: a. Decrease venlafaxine as it can worsen tinnitus. b. patient has an apt w/ PCP today. 5. Medication management issues - Patient demonstrates poor medication organization and questionable adherence. - Reports uncertainty about current medications and maintaining a big bag of pills - Plan: a. Patient to bring pill organizers and all medications to next appointment for comprehensive medication reconciliation. b. Clinician will organize medications with patient to ensure proper dosing schedule. 6. Psychosocial stressors - Patient experiencing significant stress related to 's recent stage 4 cancer diagnosis. - Recent relocation with household disruptions including broken appliances - Plan: a. Therapy referral offered but patient unable to attend today due to scheduling conflicts. b. Will call patient tomorrow morning to assess interest in therapy appointment. 03/28/2025 Other 1. Medication Non-adherence - Patient has not taken medications for several days, reporting lack of motivation. - Multiple medication bottles with worn labels and disorganized storage contribute to poor adherence. - Plan: a. Organized medications into pill organizer with morning and evening compartments for 2-week supply. b. Patient to take morning dose immediately and begin evening dose same day. c. Continue current medication regimen as organized. d. Follow-up in 2 weeks to reassess adherence and refill pill organizer. e. once stable plan to prescript to a pharmacy that utilizes pill packs. 2. Sleep Disturbance - Patient reports sleeping only 2-3 hours nightly, occasionally 4 hours. - Poor sleep likely contributing to mood instability and cognitive symptoms. - Plan: a. Continue mirtazapine 15 mg at bedtime. b. continue trazodone 50 mg HS. c. Expectation that improved sleep will lead to improvement in depression and anxiety symptoms. 3. Mood Instability with Aggression - reports patient exhibits significant behavioral changes, particularly in evenings, becoming aggressive. - Episodes occur almost nightly and appear related to cognitive changes and missed medications. - Plan: a. Continue Vraylar 1.5 mg. b. Expectation that consistent Vraylar dosing will improve mood fluctuations. c. Provided information on 3 assisted living facilities in [facility] for placement options. 4. Major Depressive Disorder - Patient reports being depressed most of the time, not sometimes. - Currently on maximum dose of venlafaxine for appropriate trial period. - Plan: a. Continue venlafaxine 150 mg plus 37.5 mg daily. b. Refill venlafaxine 37.5 mg to [facility] pharmacy. c. Continue mirtazapine 15 mg at bedtime. d. Monitor response with improved medication adherence. 5. Mild Neurocognitive Disorder - Recent SLUM score 24/30 consistent with mild neurocognitive disorder. - Evening behavioral changes and confusion may represent sundowning pattern. - Plan: a. Monitor cognitive symptoms with current medication regimen. b. Consider donepezil for dementia if no improvement noted with Vraylar for mood symptoms. c. Continue current approach focusing on mood stabilization first. 6. Passive Suicidal Ideation - Patient endorses passive suicidal thoughts but denies current plan or intent. - Reports potential method being handfuls of medicine at one time. - Plan: a. Continue monitoring suicidal ideation. b. to maintain awareness of medication access given patient's stated method. c. patient aware of crisis prevention hotline number and when to seek emergency services d. protective factor- and cats. Plan Of Treatment No Information Insurance Providers Payer Name Payer Address Payer Phone Subscriber Number Group Number Insured Name Patient Relationship to Insured Coverage Start Date Coverage End Date [employer] Medicare Replacement/ Advantage - [place] [address] [address] [place] [address] [id number] TOMMY CURTIS Self - patient is the [...] Date(Month/Year) Xcapsl ctrc rmvl cplx wo ecp (87493) in high school rotator cuff x 2 [employer] REMOVAL TOTAL HIP ARTHROPLASTY
--- OUTSIDE RECORDS SUMMARY | 2025-04-24 12:05 | XMS_ITS | Clinical Summary ---
Author Organization [facility] Address [address] [place] [address] Phone Care Team Providers Care Roll Capper Name Role Phone Tammy Patel DO Primary Care Provider [phone] Madalyn Crawford APRN, LAB TECH Unavailable [phone]- [phone] Natan Monzon MD Unavailable [phone] Medications VENLAFAXINE HCL PO Take 150 mg [...] Virus (HCV) Screening 1950 TdaP Immunization 1950 Pneumococcal Immunization (50+ years) (2 of 2 [...] complete this topic Human Papillomavirus (HPV) Immunization (No Doses Required) Completed Meningococcal Immunization (ACWY) Aged Out No longer eligible based on patient's age to complete this topic Rotavirus Immunization Aged Out No lo nger eligible based on patient's age to complete this topic Insurance MEDICARE C [employer] Care Teams Roll Capper Relationship Specialty Start Date End Date Tammy Patel DO [address] [place] [address] PCP - General Family Medicine 02/16/23 Madalyn Crawford APRN, LAB TECH [address] [place] [address] Nurse Practitioner Advanced Practice Nurse 10/18/22 Natan Monzon MD [address] [place] [address] Consulting Physician Neurology 01/31/23
--- OUTSIDE RECORDS SUMMARY | 2025-04-24 12:05 | XMS_ITS | Clinical Summary ---
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 Legal Sex Male 6:30 PM CDT Gender Identity Not on file Sexual Orientation Not on file Plan of Treatment Health Maintenance Due Date Last Done Comments Hepatitis C 1968 DTaP, Tdap and Td Vaccines ( 1 - Tdap) 1968 Pneumococcal Vaccine: 50+ Ye ars (1 of 1 - PCV) 1999 Zoster Vaccines (1 of 2) 1999 Annual Medicare Wellness Visit 2014 RSV Immunization or 60+ Years (1 - 1-dose 75+ series) 2024 PHQ-2 (Physician Beulah) 05/01/2024 COVID-19 Vaccine (1 - 2024-2 6 season) 2024 Influenza Adult [...] patient's age to complete this topic Insurance [facility] MEDICARE Care Teams Taffy Candy Maker Relationship Specialty [place] [id number] [address] PCP - General INTERNAL MEDICINE 06/12/24
[2025-04-24 12:10] LABS: Hematocrit 36.3 % (42.0-52.0); Hemoglobin 11.5 g/dL (14.0-18.0); Immature Granulocyte Percent A 0.2 % (0-0.5); Lymphocytes Absolute Auto 1.31 K/mm3 (0.9-3.2); Mean Corpuscular HGB Conc 31.7 g/dl (32-36); Mean Corpuscular Hemoglobin 26.9 pg (26-34); Mean Corpuscular Volume 85.0 fl (80-100); Nucleated Red Blood Cells Absolute Auto 0.000 K/mm3 (0.0-0.012); Nucleated Red Blood Cells Perc 0.0 % (0.0-0.2); Platelet Count Result 240 k/mm3 (150-375); Red Blood Count 4.27 M/mm3 (4.6-6.20); White Blood Count 5.1 K/mm3 (4.5-10.0)
[2025-04-24 12:22] LABS: Alanine Aminotransferase 21 U/L (6-50); Albumin Level 4.6 g/dL (3.5-5.1); Alkaline Phosphatase 104 U/L (38-126); Anion Gap 8 mmol/L (4-12); Aspartate Amino Transferase 35 U/L (17-59); Bilirubin,Total 0.5 mg/dL (0.2-1.3); Blood Urea Nitrogen 18 mg/dL (9-20); Calcium 9.8 mg/dL (8.4-10.2); Carbon Dioxide 28 mmol/L (22-30); Chloride 103 mmol/L (98-107); Estimated CRCL calculation 38 ml/min; Estimated Glomerular Filt Rate 60; Glucose 88 mg/dL (65-110); Potassium 3.9 mmol/L (3.4-5.0); Sodium 139 mmol/L (137-145); Total Protein 8.4 g/dL (6.3-8.2)
[2025-04-24] MEDS: SODIUM CHLORIDE 0.9% IV 1,000 ML 999 ML IV CONT (12:33)
[2025-04-24 12:47] LABS: Influenza A QL RT-PCR Negative (Negative); Influenza B QL RT-PCR Negative (Negative); RSV RNA, RT-PCR Negative (Negative); SARS-CoV-2 RNA PCR Negative (Negative)
[2025-04-24 14:10] LABS: Add Urine Microscopic? NO; Appearance Urine Clear (Clear); Glucose Urine UA Negative (Negative); Leukocyte Esterase Ur Negative LEU/UL (Negative); Nitrate Urine Negative (Negative); Specific Grav Ur 1.017 (1.001-1.035)
--- NOTE | 2025-04-24 14:43 | PC.NURSE ---
Pt requesting update on his who is admitted upstairs, this RN spoke with the 's RN and then gave an update on pts to pt.
--- NOTE | 2025-04-24 15:31 | ED.GENADULT ---
HPI - General Adult General Chief complaint: Weakness Stated complaint: hot, sweaty, feels like he is going to pass out Time Seen by Provider: 04/24/25 11:33 History of Present Illness HPI narrative: Patient is a 75-year-old male who presents to the ER with feeling dizzy when he stands up, if he stands still for a second it goes away. He got hot and sweaty. Patient has been living in the up stairs the hospital for last week while his is treated for an illness. He has been sick trying to sleep on the couch and has had poor oral intake. No documented fevers. No runny nose or sore throat or productive cough. No dysuria. No abdominal discomfort. Related Data Allergies Allergy/AdvReac Type Severity Reaction Status Date / Time Aminoglycosides Allergy Severe SWELLING, Verified 04/24/25 12:27 MAKES INFECTION WORSE bacitracin Allergy Severe SWELLING, Verified 04/24/25 12:27 MAKES INFECTION WORSE Fish Containing Products Allergy Severe ANAPHYLAXIS Verified 04/24/25 12:27 fluoxetine Allergy Severe SSRI= Verified 04/24/25 12:27 SUICIDAL REACTION neomycin Allergy Severe SWELLING, Verified 04/24/25 12:27 MAKES INFECTION WORSE shellfish derived Allergy Severe ANAPHYLAXIS Verified 04/24/25 12:27 Sulfa (Sulfonamide Allergy Severe Anaphylactic Verified 04/24/25 12:27 Antibiotics) Shock zolpidem AdvReac Intermediate Confusion Verified 04/24/25 12:27 BETI/ Allergy Severe ANAPHYLACTIC--THROAT Uncoded 03/21/25 09:57 SWELLING Review of Systems Review of Systems: All systems reviewed & are unremarkable except as noted in HPI and below Constitutional: Constitutional: Reports no additional constitutional complaints Cardiovascular: Cardiovascular: Reports no additional cardiovascular complaints Respiratory: Respiratory: Reports no additional respiratory complaints Gastrointestinal: Gastrointestinal: Reports no additional gastrointestinal complaints Neurologic: Reports system reviewed and no additional complaints, except as documented [facility]LY [facility], [facility] Past Medical History Medical History BMI 20.0-20.9, adult History of traumatic head injury Seizure disorder MCI (mild cognitive impairment) Benign prostatic hyperplasia Histoplasmosis Transient ischemic attack Traumatic brain injury Irritable bowel syndrome Hyperlipidemia Degenerative disc disease Cerebrovascular accident COVID Anxiety Depression Hypothyroidism Skull fracture Kidney stones Peptic ulcer Diverticulosis Diverticulitis Sleep apnea Pneumonia Epilepsy Surgical History Surgical History History of colonoscopy with polypectomy History of lithotripsy History of tonsillectomy History of cataract extraction History of rotator cuff surgery Bilateral. History of cardiac catheterization History of total left hip arthroplasty Family History Family History Mother Family history of malignant neoplasm of breast in first degree relative Family history of cardiovascular disease Father Family history of cardiovascular disease Sibling No problems noted. Other Family history of arthritis Family history of mental disorder Social History Social History Social History: Surrogate medical decision maker: Quita Vargas Code status: Full code. Smoking packs per day: 1 Smoking cigarettes per day: 20.0 Years smoked: 1 Smoking pack-years: 1.00 Smoking status: Never smoker Tobacco type: cigarettes Second hand tobacco smoke exposure: Yes Smoking end date: 05/01/94 Additional smoking assessment comments: Forty pack-year smoking history, quit in 1994. Alcohol intake: former Alcohol use details: QUIT 30 YEARS AGO Substance use: never Substance use type: does not use Lack of Transportation: No Lack of Food: Never True Current Housing: I Have Housing Concerned About Future Housing: No Difficulty Paying Gas/Electric Bills: No Difficulty Paying for Meds: No Currently Unemployed: No Education: Associate Degree Difficulty w/ Childcare or Family Care: No Living arrangements: with family Additional living arrangements comments: Lives with spouse in [place]. 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 Gender identity (if verbalized by the patient): Male Spiritual care concerns: No Exam Narrative: GENERAL: Well-appearing, well-nourished, and in no acute distress. HEAD: Normocephalic, atraumatic. ENT: Mucous membranes moist. Eyes: PERRLA, EOMI NECK: Supple. CHEST: Clear to auscultation. No respiratory distress. HEART: Bradycardic and regular. Normal peripheral pulses. ABDOMEN: Soft, nontender, nondistended. EXTREMITIES: Normal range of motion. No edema. SKIN: Warm, dry, no rash. NEURO: Alert and oriented x3. No extremity drift. No facial droop. Clear speech. No expressive aphasia. PSYCH: Normal mood and affect. Course Course Emergency Course: Normal orthostatic blood pressures. Patient with unremarkable CBC/CMP/UA. Negative viral testing. Chest x-ray normal. EKG with bradycardia. Patient is on no rate control medications. Chart review shows frequent bradycardia for years. Previous EKG with bradycardia and left axis as well. Vital Signs Vital signs: Vital Signs Temperature 97.8 F 04/24/25 10:52 Pulse Rate 56 L 04/24/25 10:52 Respiratory Rate 16 04/24/25 10:52 Blood Pressure 124/53 L 04/24/25 10:52 Pulse Oximetry 99 04/24/25 10:52 Oxygen Delivery Room Air 04/24/25 10:52 Temperature 98.7 F 04/24/25 12:23 Pulse Rate 54 L 04/24/25 12:31 Respiratory Rate 15 04/24/25 12:23 Blood Pressure 149/57 H 04/24/25 12:31 Pulse Oximetry 100 04/24/25 12:26 Oxygen Delivery Room Air 04/24/25 12:[address] [facility] Differential Diagnosis Differential Diagnosis: Orthostatic hypertension, vertigo, viral illness, dehydration, weakness Medical Records I have reviewed the following patient records and this information was taken into consideration when formulating the assessment and plan.: previous labs, previous ER visits and previous hospitalizations Lab Data [facility] Lab Attestation statement: I personally reviewed the patient's lab results. 04/24/25 12:00 04/24/25 12:00 Labs: Lab Results 04/24/25 04/24/25 04/24/25 Range/Units 12:00 12:29 14:03 WBC 5.1 (4.5-10.0) K/mm3 RBC 4.27 L (4.6-6.20) M/mm3 Hgb 11.5 L (14.0-18.0) g/dL Hct 36.3 L (42.0-52.0) % MCV 85.0 (80-100) fl MCH 26.9 (26-34) pg MCHC 31.7 L (32-36) g/dl RDW 14.6 H (11.5-14.5) % Plt Count 240 (150-375) k/mm3 MPV 9.1 (7.4-10.4) fl Immature Gran % (Auto) 0.2 (0-0.5) % Neut % (Auto) 61.4 (45.5-73.1) % Lymph % (Auto) 25.7 (18.3-44.2) % [place] % (Auto) 8.6 H (2.6-8.5) % Eos % (Auto) 3.3 (0-4.4) % Baso % (Auto) 0.8 (0.2-1.2) % Lymph # (Auto) 1.31 (0.9-3.2) K/mm3 [place] # (Auto) 0.4 (0.1-0.6) K/mm3 Eos # (Auto) 0.2 (0-0.3) K/mm3 Baso # (Auto) 0.0 (0.0-0.1) K/mm3 Abs Immat Gran (auto) 0.01 (0.00-0.031) K/mm3 Absolute Neuts (auto) 3.1 (1.3-6.7) K/mm3 Absolute Nucleated RBC 0.000 (0.0-0.012) K/mm3 Nucleated RBC % 0.0 (0.0-0.2) % Sodium 139 (137-145) mmol/L Potassium 3.9 (3.4-5.0) mmol/L Chloride 103 (98-107) mmol/L Carbon Dioxide 28 (22-30) mmol/L Anion Gap 8 (4-12) mmol/L BUN 18 (9-20) mg/dL Creatinine 1.18 (0.7-1.3) mg/dL Estim Creat Clear Calc 38 ml/min Estimated GFR 60 (59 - ) Glucose 88 (65-110) mg/dL Lactic Acid 0.8 (0.7-2.0) mmol/L Calcium 9.8 (8.4-10.2) mg/dL Total Bilirubin 0.5 (0.2-1.3) mg/dL AST 35 (17-59) U/L ALT 21 (6-50) U/L Alkaline Phosphatase 104 (38-126) U/L Total Protein 8.4 H (6.3-8.2) g/dL Albumin 4.6 (3.5-5.1) g/dL Urine Color Yellow (Yellow) Urine Appearance Clear (Clear) Urine pH 5.5 (5.0-9.0) Ur Specific [place] 1.017 (1.001-1.035) Urine Protein Negative (Negative) mg/dL Urine Glucose (UA) Negative (Negative) mg/dL Urine Ketones Negative (Negative) mg/dL Ur Blood (Man) Negative (Negative) Urine Nitrate Negative (Negative) Urine Bilirubin Negative (Negative) Urine Urobilinogen 1.0 (<2.0) mg/dL Leukocyte Esterase Rfl Negative (Negative) WALDO/UL Influenza A (RT-PCR) Negative (Negative) Influenza B (RT-PCR) Negative (Negative) RSV (RT-PCR) Negative (Negative) SARS-CoV-2 RNA (RT-PCR) Negative (Negative) Imaging Data Attestation: I personally reviewed and interpreted this imaging study as follows: Radiologist's impression: ITS Impressions Chest X-Ray 04/24/25 12:03 IMPRESSION: 1: NO ACUTE CARDIOPULMONARY DISEASE. ECG Data EKG #1: Attestation: I personally reviewed and interpreted this ECG as follows: ECG completion date: 04/24/25 ECG completion time: 12:18 bradycardia (49), sinus rhythm, no ectopy, left axis and other (1st degree) Discharge Plan Discharge Clinical Impression: Dizziness Patient Disposition: Home Condition: Stable Instructions: Dizziness (ED) Additional Instructions: Make sure to drink plenty of fluid. Return the ER if you have weakness or numbness in an arm or leg, or you have additional concerns. Patient Language: Cameroonian Prescriptions: No Action lisinopril 20 mg tablet 20 mg PO DAILY Qty: 90 1RF meclizine 25 mg tablet 25 mg PO TID PRN (Reason: dizziness) Qty: 20 0RF hydrocodone-acetaminophen 5-325 mg Tablet 1 tablet PO Q4H PRN (Reason: Pain Rated 4-6) Qty: 6 0RF doxycycline hyclate 100 mg tablet 100 mg PO BID Qty: 20 0RF amoxicillin-pot clavulanate 875-125 mg tablet 1 tablet PO Q12H Qty: 20 0RF atorvastatin 40 mg tablet 40 mg PO QHS Qty: 90 2RF levothyroxine [Levoxyl] 75 mcg tablet 75 mcg PO DAILY Qty: 90 1RF venlafaxine 75 mg capsule,extended release 24hr See Rx Instructions .ROUTE .COMPLEX Qty: 180 1RF Dose Instruction: TAKE 1 CAPSULE BY MOUTH DAILY. TAKE WITH 150MG CAPSULE FOR TOTAL DOSE OF 225MG Rx Instructions: TAKE 1 CAPSULE BY MOUTH DAILY. TAKE WITH 150MG CAPSULE FOR TOTAL DOSE OF 225MG venlafaxine 150 mg capsule,extended release 24hr See Rx Instructions .ROUTE .COMPLEX Qty: 90 2RF Dose Instruction: TAKE 1 CAPSULE BY MOUTH DAILY Rx Instructions: TAKE 1 CAPSULE BY MOUTH DAILY Follow-up/Referrals: Eduardo Sotelo DO [Primary Care Provider, Internal Medicine] - 1 Week
== END 2025-04-24 16:00 | disposition home or self-care (01) ==
PROVIDERS: Emergency Provider Emergency Medicine; PCP Internal Medicine
DX: R42 Dizziness and giddiness (principal); G40.909 Epilepsy, unspecified, not intractable, without status epilepticus; Z86.73 Personal history of transient ischemic attack (TIA), and cerebral infarction without residual deficits; E78.5 Hyperlipidemia, unspecified; E03.9 Hypothyroidism, unspecified; Z20.822 Contact with and (suspected) exposure to COVID-19
CPT/HCPCS: 36415; 71046; 80053; 81003; 83605; 85025; 87637; 93005; 96360; 99284; J7030